=== PATIENT | female | born 1945 | race Caucasian/White ===

== ENCOUNTER 2019-03-06 13:40 | Observation (INO) | payer MEDICARE, BC ==
[2019-03-06] MEDS ORDERED: methylPREDNISolone SOD SUCCI 125 MG/2 ML VIAL IV STA (13:58)
[2019-03-06] MEDS ORDERED: IPRATROPIUM-ALBUTEROL 3 ML NEB INHALATION STA ×2 (13:58→15:52)
--- NOTE | 2019-03-06 14:12 | ED ---
Weakness HPI - General Chief complaint: Weakness Stated complaint: SHILPI Time Seen by Provider: 03/06/19 13:40 Source: patient, EMS, RN notes reviewed Mode of arrival: EMS Limitations: altered mental status - History of Present Illness Initial comments: This a 73-year-old female was brought in by EMS for difficulty breathing weakness. She's been treated for UTI for about a week she also has not use her nebulizer or breathing transfer about a week because she did not have a mouthpiece. She was noted have difficulty breathing with diminished lung sounds and rhonchi in the lung price also she does have the odor of foul-smelling urine. Patient herself is a poor historian there was some suspected left-sided weakness so on initial encounter. Does not seem to be any new weakness. No falls reported no nausea no vomiting no other symptoms MD Complaint: generalized weakness - Related Data Home Medications Medication Instructions Recorded Confirmed Acetaminophen Tab [Tylenol Tab] 650 mg PO Q6H PRN 03/06/19 03/06/19 Acetaminophen [Tylenol Arthritis] 650 mg PO Q8H PRN 03/06/19 03/06/19 Acidophilus Probiotic Blend 2 cap PO BID@0800,199903/06/19 03/06/19 Albuterol Nebulized [Ventolin 2.5 mg INHALATION RT-Q2H PRN 03/06/19 03/06/19 Nebulized] Albuterol Sulfate [Proair Hfa] 1 puff INHALATION RT-BID PRN 03/06/19 03/06/19 Atorvastatin [Lipitor] 10 mg PO HS@199903/06/19 03/06/19 Budesonide [Pulmicort] 0.5 mg INHALATION RT-BID@0803/06/19 03/06/19 DULoxetine HCL [Cymbalta] 60 mg PO DAILY@0800 03/06/19 03/06/19 Dextrose Gel [Glutose 15 Gel] 15 gm PO ONCE PRN 03/06/19 03/06/19 Docusate [Colace] 100 mg PO BID@0800,199903/06/19 03/06/19 Dorzolamide/Timolol/Pf 1 drop BOTH EYES BID@0800,199903/06/19 03/06/19 [Dorzolamide 2%-Timolol 0.5%] Ferrous Sulfate [Feosol] 325 mg PO DAILY@0800 03/06/19 03/06/19 Fluticasone Nasal [place] [Flonase 1 spray EA NOSTRIL BID@08,199903/06/19 03/06/19 Nasal [place]] Formoterol Fumarate [Perforomist] 20 mcg INHALATION RT-BID@0800,199903/06/19 03/06/19 Furosemide [Lasix] 40 mg PO DIRECTED 03/06/19 03/06/19 Furosemide [Lasix] 60 mg PO DAILY 03/06/19 03/06/19 Insulin Glargine,Hum.rec.anlog 40 unit SQ HS@2100 03/06/19 03/06/19 [Lantus Solostar] Insulin Regular [HumuLIN R] See Protocol SQ ACHS 03/06/19 03/06/19 Lactulose 20 gm PO DAILY@0800 03/06/19 03/06/19 Levothyroxine Sodium [Synthroid] 50 mcg PO DAILY@0800 03/06/19 03/06/19 Lidocaine 5% Oint [Xylocaine 5% 1 applic TOPICAL Q8H PRN 03/06/19 03/06/19 Oint] Loratadine [Claritin] 10 mg PO DAILY PRN 03/06/19 03/06/19 Losartan Potassium 50 mg PO DAILY@0800 03/06/19 03/06/19 Meloxicam [Mobic] 7.5 mg PO DAILY@0800 03/06/19 03/06/19 Menthol/Zinc Oxide [Calmoseptine 1 applic TOPICAL DAILY PRN 03/06/19 03/06/19 Ointment] Menthol/Zinc Oxide [Calmoseptine 1 applic TOPICAL TID 03/06/19 03/06/19 Ointment] Miconazole Nitrate [Desenex] 1 applic TOPICAL BID@08,199903/06/19 03/06/19 Miconazole Nitrate [Desenex] 1 applic TOPICAL DAILY PRN 03/06/19 03/06/19 Nystatin 100,000Unit/gm Cream 1 applic TOPICAL BID@0800,199903/06/19 03/06/19 [Mycostatin Cream] Pantoprazole Sodium [Protonix] 40 mg PO HS 03/06/19 03/06/19 Petrolatum, White [Aquaphor] 1 applic TOPICAL BID 03/06/19 03/06/19 Potassium Chloride ER [K-Dur 10] 10 meq PO DAILY@0800 03/06/19 03/06/19 Sennosides [Senna] 8.6 mg PO HS PRN 03/06/19 03/06/19 Sm Lubricant Eye Drops 2 drops BOTH EYES Q8H PRN 03/06/19 03/06/19 Spironolactone [Aldactone] 25 mg PO DAILY@0800 03/06/19 03/06/19 Tiotropium [place] [Spiriva] 1 cap INHALATION RT-DAILY@0803/06/19 03/06/19 Uricalm 99.5mg 99.5 mg PO Q8H PRN 03/06/19 03/06/19 glipiZIDE [Glucotrol] 5 mg PO DAILY@0800 03/06/19 03/06/19 guaiFENesin SYRUP 100MG/5ML 300 mg PO Q6H PRN 03/06/19 03/06/19 [Robitussin] metFORMIN HCL [Glucophage] 500 mg PO BID@0800,199903/06/19 03/06/19 traMADol HCL 50 mg PO Q6H PRN 03/06/19 03/06/19 Allergies Allergy/AdvReac Type Severity Reaction Status Date / Time codeine AdvReac Nausea & Verified 03/06/19 13:53 Vomiting Review of Systems ROS Statement: Those systems with pertinent positive or pertinent negative responses have been documented in the HPI. ROS Other: All systems not noted in ROS Statement are negative. Past Medical History Past Medical History: Heart Failure, COPD, Renal Disease, Sleep Apnea/CPAP/BIPAP, Thyroid Disorder Additional Past Medical History / Comment(s): cellulitis History of Any Multi-Drug Resistant Organisms: None Reported Past Surgical History: Unable to Obtain Past Psychological History: No Psychological Hx Reported Smoking Status: Unknown if ever smoked Past Alcohol Use History: None Reported Past Drug Use History: None Reported General Exam - General Exam Comments Initial Comments: This is a well-developed well-nourished awake female Limitations: altered mental status General appearance: alert, lethargic Head exam: Present: atraumatic, normocephalic, normal inspection Eye exam: Present: normal appearance, PERRL, EOMI. Absent: scleral icterus, conjunctival injection, periorbital swelling ENT exam: Present: mucous membranes dry Neck exam: Present: normal inspection. Absent: tenderness, meningismus, lymphadenopathy Respiratory exam: Present: respiratory distress, rhonchi, decreased breath sounds. Absent: wheezes, rales, stridor Cardiovascular Exam: Present: normal rhythm, tachycardia, normal heart sounds. Absent: systolic murmur, diastolic murmur, rubs, gallop, clicks GI/Abdominal exam: Present: soft, normal bowel sounds. Absent: distended, tenderness, guarding, rebound, rigid Extremities exam: Present: normal inspection, full ROM, normal capillary refill, pedal edema. Absent: tenderness, joint swelling, calf tenderness Back exam: Present: normal inspection Neurological exam: Present: alert, oriented X3, CN II-XII intact Psychiatric exam: Present: normal affect, normal mood Skin exam: Present: warm, dry, intact, normal color. Absent: rash Course Vital Signs 03/06/19 03/06/19 03/06/19 13:43 14:34 14:37 Temperature 98.4 F Pulse Rate 113 H 94 Respiratory 22 20 20 Rate Blood Pressure 156/107 128/61 O2 Sat by Pulse 93 L 95 Oximetry 03/06/19 03/06/19 03/06/19 15:15 15:24 15:28 Temperature Pulse Rate 93 102 H 102 H Respiratory 20 Rate Blood Pressure 151/85 O2 Sat by Pulse 95 Oximetry - Reevaluation(s) Reevaluation #1: 03/06/19 15:50 Patient did respond to the treatment was rendered thus far. He is feeling a little bit better. Medical Decision Making - Medical Decision Making The patient is feeling improved. She is however still demonstrating dyspnea. The presentation currently is consistent with a COPD exacerbation. She also demonstrate hypomagnesemia. Patient be admitted case will be discussed with Dr. Ghotra. She will receive IV magnesium IV steroids as well as continued nebulizer treatments. - Lab Data Result diagrams: 03/06/19 14:21 03/06/19 14:21 Lab Results 03/06/19 03/06/19 03/06/19 Range/Units 14:21 14:21 14:21 WBC 15.8 H (3.8-10.6) k/uL RBC 3.91 (3.80-5.40) m/uL Hgb 12.1 (11.4-16.0) gm/dL Hct 38.1 (34.0-46.0) % MCV 97.5 (80.0-100.0) fL MCH 31.1 (25.0-35.0) pg MCHC 31.9 (31.0-37.0) g/dL RDW 14.0 (11.5-15.5) % Plt Count 373 (150-450) k/uL Neutrophils % 85 % Lymphocytes % 5 % Monocytes % 5 % Eosinophils % 3 % Basophils % 1 % Neutrophils # 13.4 H (1.3-7.7) k/uL Lymphocytes # 0.8 L (1.0-4.8) k/uL Monocytes # 0.8 (0-1.0) k/uL Eosinophils # 0.5 (0-0.7) k/uL Basophils # 0.1 (0-0.2) k/uL Hypochromasia Slight PT 10.7 (9.0-12.0) sec INR 1.0 (<1.2) APTT 31.4 H (22.0-30.0) sec D-Dimer 0.57 (<0.60) mg/L FEU Sodium 136 L (137-145) mmol/L Potassium 5.1 (3.5-5.1) mmol/L Chloride 94 L (98-107) mmol/L Carbon Dioxide 39 H (22-30) mmol/L Anion Gap 3 mmol/L BUN 23 H (7-17) mg/dL Creatinine 1.32 H (0.52-1.04) mg/dL Est GFR (CKD-EPI)AfAm 46 (>60 ml/min/1.73 sqM) Est GFR (CKD-EPI)NonAf 40 (>60 ml/min/1.73 sqM) Glucose 135 H (74-99) mg/dL Calcium 9.7 (8.4-10.2) mg/dL Magnesium 1.5 L (1.6-2.3) mg/dL Total Bilirubin 0.8 (0.2-1.3) mg/dL AST 21 (14-36) U/L ALT 23 (9-52) U/L Alkaline Phosphatase 115 (38-126) U/L Creatine Kinase 35 (30-135) U/L Troponin I (0.000-0.034) ng/mL NT-Pro-B Natriuret Pep pg/mL Total Protein 7.3 (6.3-8.2) g/dL Albumin 4.2 (3.5-5.0) g/dL Urine Color Urine Appearance (Clear) Urine pH (5.0-8.0) Ur Specific [place] (1.001-1.035) Urine Protein (Negative) Urine Glucose (UA) (Negative) Urine Ketones (Negative) Urine Blood (Negative) Urine Nitrite (Negative) Urine Bilirubin (Negative) Urine Urobilinogen (<2.0) mg/dL Ur Leukocyte Esterase (Negative) 03/06/19 03/06/19 03/06/19 Range/Units 14:21 14:21 14:21 WBC (3.8-10.6) k/uL RBC (3.80-5.40) m/uL Hgb (11.4-16.0) gm/dL Hct (34.0-46.0) % MCV (80.0-100.0) fL MCH (25.0-35.0) pg MCHC (31.0-37.0) g/dL RDW (11.5-15.5) % Plt Count (150-450) k/uL Neutrophils % % Lymphocytes % % Monocytes % % Eosinophils % % Basophils % % Neutrophils # (1.3-7.7) k/uL Lymphocytes # (1.0-4.8) k/uL Monocytes # (0-1.0) k/uL Eosinophils # (0-0.7) k/uL Basophils # (0-0.2) k/uL Hypochromasia PT (9.0-12.0) sec INR (<1.2) APTT (22.0-30.0) sec D-Dimer (<0.60) mg/L FEU Sodium (137-145) mmol/L Potassium (3.5-5.1) mmol/L Chloride (98-107) mmol/L Carbon Dioxide (22-30) mmol/L Anion Gap mmol/L BUN (7-17) mg/dL Creatinine (0.52-1.04) mg/dL Est GFR (CKD-EPI)AfAm (>60 ml/min/1.73 sqM) Est GFR (CKD-EPI)NonAf (>60 ml/min/1.73 sqM) Glucose (74-99) mg/dL Calcium (8.4-10.2) mg/dL Magnesium (1.6-2.3) mg/dL Total Bilirubin (0.2-1.3) mg/dL AST (14-36) U/L ALT (9-52) U/L Alkaline Phosphatase (38-126) U/L Creatine Kinase (30-135) U/L Troponin I <0.012 (0.000-0.034) ng/mL NT-Pro-B Natriuret Pep 836 pg/mL Total Protein (6.3-8.2) g/dL Albumin (3.5-5.0) g/dL Urine Color Light Yellow Urine Appearance Clear (Clear) Urine pH 5.0 (5.0-8.0) Ur Specific [place] 1.007 (1.001-1.035) Urine Protein Negative (Negative) Urine Glucose (UA) Negative (Negative) Urine Ketones Negative (Negative) Urine Blood Negative (Negative) Urine Nitrite Negative (Negative) Urine Bilirubin Negative (Negative) Urine Urobilinogen <2.0 (<2.0) mg/dL Ur Leukocyte Esterase Negative (Negative) - EKG Data -: EKG Interpreted by Nm EKG shows normal: sinus rhythm (Sats tachycardia with PACs rate was 107 appear interval 136 QRS 82 QT since QTC 350/467 right. Exodeviation right ventricular hypertrophy) - Radiology Data Radiology results: report reviewed (I did review the imaging and report some increased markings no definite pneumonia or evidence of CHF. There is prominence of the atrium.), image reviewed Critical Care Time Critical Care Time: Yes Critical Care Time: 31 minutes of critical care time which includes initial presentation with history physical labs x-rays discussed with paramedics upon arrival reevaluation patient several occasions discussion with the patient regarding the findings discussed with the admitting physician Dr. Ghotra admission orders and documentation of the above Disposition Clinical Impression: COPD with exacerbation, Renal insufficiency syndrome, Tachycardia, Leukocytosis, Respiratory distress, acute Disposition: ADMITTED IP TO THIS [facility] Condition: Fair Referrals: None,Stated [Primary Care Provider] - 1-2 days
[2019-03-06 14:46] LABS: Appearance,Urine Clear (Clear); Bilirubin,Urine Negative (Negative); Blood,Urine Negative (Negative); Color,Urine Light Yellow; Glucose,Urine (UA) Negative (Negative); Ketones,Urine Negative (Negative); Leukocyte Esterase,Urine Negative (Negative); Nitrite,Urine Negative (Negative); Protein,Urine Negative (Negative); Specific Gravity,Urine 1.007 (1.001-1.035); Urobilinogen,Urine <2.0 mg/dL (<2.0)
[2019-03-06 14:51] LABS: Basophils # (A) 0.1 k/uL (0-0.2); Basophils % (A) 1 %; Eosinophils # (A) 0.5 k/uL (0-0.7); Eosinophils % (A) 3 %; HCT 38.1 % (34.0-46.0); HGB 12.1 gm/dL (11.4-16.0); Hypochromasia Slight; Lymphocytes # (A) 0.8 k/uL (1.0-4.8); Lymphocytes % (A) 5 %; MCH 31.1 pg (25.0-35.0); MCHC 31.9 g/dL (31.0-37.0); MCV 97.5 fL (80.0-100.0); Mean Platelet Volume 6.3; Monocytes # (A) 0.8 k/uL (0-1.0); Monocytes % (A) 5 %; Neutrophils # (A) 13.4 k/uL (1.3-7.7); Neutrophils % (A) 85 %; Platelet Count 373 k/uL (150-450); RBC 3.91 m/uL (3.80-5.40); WBC 15.8 k/uL (3.8-10.6)
[2019-03-06 14:55] LABS: Albumin 4.2 g/dL (3.5-5.0); Calcium 9.7 mg/dL (8.4-10.2); Magnesium 1.5 mg/dL (1.6-2.3); Potassium 5.1 mmol/L (3.5-5.1); Total Bilirubin 0.8 mg/dL (0.2-1.3); Total Protein 7.3 g/dL (6.3-8.2)
[2019-03-06 15:03] LABS: D-Dimer 0.57 mg/L FEU (<0.60); Partial Thromboplastin Time 31.4 sec (22.0-30.0); Prothrombin Time 10.7 sec (9.0-12.0)
--- NOTE | 2019-03-06 15:09 | XR ---
EXAMINATION TYPE: XR chest 2V DATE OF EXAM: 03/06/2019 COMPARISON: None HISTORY: 73 year-old female shortness of breath, difficulty breathing, altered mental status TECHNIQUE: AP and lateral views FINDINGS: Spinal stimulator array centered along the mid thoracic spinal canal. Bulging of the left atrium on t he lateral view. No sizable effusion seen on the lateral view. Diffuse interstitial prominence. Hazy lower lung densities likely related to overlying soft tissue. Heart borderline in size. IMPRESSION: 1. Borderline heart size. 2. Hazy lower lung densities likely relate to overlying soft tissue. 3. Bulging left atrium on the lateral view could reflect elevated left heart pressures. No siena pulm onary edema.
[2019-03-06] MEDS ORDERED: MAGNESIUM SULFATE-D5W PMX 1 GM in DEXTROSE/WATER 1 100ML.BAG IVPB ONE (15:43)
[2019-03-06] MEDS ORDERED: PHENAZOPYRIDINE PO PRN (15:56)
[2019-03-06] MEDS ORDERED: SENNOSIDES 8.6 MG TAB PO PRN (15:56)
[2019-03-06] MEDS ORDERED: ARTIFICIAL TEARS-HYPROMELLOSE DROPS 15 ML BTL BOTH EYES PRN (15:56)
[2019-03-06] MEDS ORDERED: LIDOCAINE 5% OINTMENT 50 GM JAR TOPICAL PRN (15:56)
[2019-03-06] MEDS ORDERED: LORATADINE 10 MG TAB PO PRN (15:56)
[2019-03-06] MEDS ORDERED: CLOTRIMAZOLE 1% CREAM 15 GM TUBE TOPICAL PRN (15:56)
[2019-03-06] MEDS ORDERED: traMADol 50 MG TAB PO PRN (15:56)
[2019-03-06] MEDS ORDERED: MENTHOL-ZINC OXIDE OINT 113 GM TUBE TOPICAL PRN (15:56)
[2019-03-06] MEDS ORDERED: ACETAMINOPHEN TAB 325 MG TAB PO PRN (15:56)
[2019-03-06] MEDS ORDERED: DEXTROSE 4 GM CHEWABLE PO PRN (15:56)
[2019-03-06] MEDS ORDERED: FUROSEMIDE 40 MG TAB PO SCH (16:00)
[2019-03-06] MEDS: SODIUM CHLORIDE 0.9% 1,000 ML IV SCH (16:26)
[2019-03-06 17:09] LABS: Glucose,Whole Blood 154 mg/dL (75-99)
[2019-03-06] MEDS: MENTHOL-ZINC OXIDE OINT 113 GM TUBE TOPICAL SCH ×2 (17:55→21:42)
[2019-03-06] MEDS: INSULIN ASPART (NovoLOG) 100 UNIT/ML VIAL SQ SCH ×2 (17:57→21:41)
[2019-03-06] MEDS ORDERED: methylPREDNISolone SOD SUCCI 125 MG/2 ML VIAL IV SCH (18:00)
[2019-03-06] MEDS: FORMOTEROL FUMARATE 20 MCG/2 ML NEBU INHALATION SCH (19:29)
[2019-03-06] MEDS: IPRATROPIUM-ALBUTEROL 3 ML NEB INHALATION SCH ×2 (19:29→23:31)
[2019-03-06] MEDS: BUDESONIDE 0.5 MG/2 ML NEBU INHALATION SCH (19:29)
[2019-03-06 19:45] VITALS: RESP 18
[2019-03-06 19:59] LABS: Glucose,Whole Blood 245 mg/dL (75-99)
[2019-03-06] MEDS: metFORMIN 500 MG TAB PO SCH (21:41)
[2019-03-06] MEDS: ATORVASTATIN 10 MG TAB PO SCH (21:41)
[2019-03-06] MEDS: PANTOPRAZOLE 40 MG TABLET PO SCH (21:41)
[2019-03-06] MEDS: NYSTATIN 100,000UNIT/GM CREAM 30 GM TUBE TOPICAL SCH (21:42)
[2019-03-06] MEDS: PETROLATUM, WHITE OINT 50 GM TUBE TOPICAL SCH (21:42)
[2019-03-06] MEDS: DORZOLAMIDE-TIMOLOL 2.23%/0.68 10ML BTL BOTH EYES SCH (21:42)
[2019-03-06] MEDS: FLUTICASONE 50MCG/SPRAY NASAL 16GM EA NOSTRIL SCH (21:42)
[2019-03-06] MEDS: INSULIN DETEMIR (LEVEMIR) 100 UNIT/ML SYR SQ SCH (21:44)
[2019-03-06] MEDS: DOCUSATE 100 MG CAP PO SCH (21:55)
[2019-03-06] MEDS: CLOTRIMAZOLE 1% CREAM 15 GM TUBE TOPICAL SCH (21:56)
[2019-03-06] MEDS: guaiFENesin SYRUP 100MG/5ML 200 MG/10 ML CUP PO PRN (21:56)
--- NOTE | 2019-03-06 22:03 | P.HPIM ---
History of Present Illness H&P Date: 03/06/19 Chief Complaint: short of breath History of presenting complaint: This is a pleasant 73-year-old patient of Dr. Collins. Chronic stable medical conditions include CHF, diabetes, some memory impairment, or strength redness, chronic kidney disease, obstructive sleep apnea uses CPAP, hypothyroid. One of the apparatus on her nebulizers not working properly. Wishes presents with worsening shortness of breath. Some edema some wheezing. Slight cough. No fever no chills. Appetite is okay. Tired and rundown. Normally uses a 4 wheel walker to get about. Daughter lives with her. Does use a CPAP machine. Review of systems: GEN.: Tired EYES: None HEENT: None NECK: None RESPIRATORY: As above CARDIOVASCULAR: None GASTROINTESTINAL: None GENITOURINARY: None MUSCULOSKELETAL: Joint pains LYMPHATICS: None HEMATOLOGICAL: None PSYCHIATRY: Bit forgetful NEUROLOGICAL: None. Social history: Does smoke in the past. Daughter lives with her. Does use a 4 alcantara Physical examination: VITAL SIGNS: 98.5, 100, 24, 125/99, 96% on 2 L GENERAL: BMI 33.3, sitting up a bit tired. EYES: Pupils equal. Conjunctiva normal. HEENT: External appearance of nose and ears normal, oral cavity grossly normal. NECK: JVD not raised; masses not palpable. HEART: [First and second heart sounds are normal; some edema. LUNGS: Respiratory rate increased, diminished breath sounds some wheezing. ABDOMEN: Soft, nontender, liver spleen not palpable, no masses palpable. PSYCH: Able to answer questions, slightly forgetfull. NEUROLOGICAL: Cranial nerves grossly intact; no facial asymmetry, power and sensation grossly intact. LYMPHATICS: No lymph nodes palpable in the axilla and neck MUSCULOSKELETAL: Evidence of OA especially in the knees INVESTIGATIONS, reviewed in the clinical context: White count 15.8 hemoglobin 12.1 platelets 373 pressure 5.1 bun 23 crit 1.3 to UA negative EKG tracing personally reviewed by me-sinus rhythm Chest x-ray film personally reviewed by me-normocytic infiltrate Assessment: -Acute COPD in an ex-smoker in a patient whose nebulizer apparatus had a malfunction -Diabetes mellitus type 2, chronically on insulin -Hypothyroid -Primary osteoarthritis -Hyperlipidemia -Chronic gait dysfunction uses a 4 wheeled -Mild cognitive impairment Plan: Patient started on bronchodilators, IV steroids. A stress to begin lower extremity. No clinical evidence of any CHF. Home medications resumed. Care was discussed with the patient questions were answered. Hoping she can return home tomorrow.. Tushar wrap to lower extremity.. Past Medical History Past Medical History: Heart Failure, COPD, Diabetes Mellitus, Memory Impairment, Osteoarthritis (OA), Pneumonia, Renal Disease, Sleep Apnea/CPAP/BIPAP, Thyroid Disorder Additional Past Medical History / Comment(s): cellulitis on legs, uses cpap at home thinks her settings are 5 very poor historian History of Any Multi-Drug Resistant Organisms: None Reported Past Surgical History: Appendectomy, Cholecystectomy, Hernia Repair, Hysterectomy, Tonsillectomy Additional Past Surgical History / Comment(s): kidney left removed, colonoscopy Past Anesthesia/Blood Transfusion Reactions: No Reported Reaction Past Psychological History: No Psychological Hx Reported Smoking Status: Former smoker Past Alcohol Use History: None Reported Past Drug Use History: None Reported - Past Family History Mother Additional Family Medical History / Comment(s): throat cancer Medications and Allergies Home Medications Medication Instructions Recorded Confirmed Type Acetaminophen Tab [Tylenol Tab] 650 mg PO Q6H PRN 03/06/19 03/06/19 History Acetaminophen [Tylenol Arthritis] 650 mg PO Q8H PRN 03/06/19 03/06/19 History Acidophilus Probiotic Blend 2 cap PO BID@0800,199903/06/19 03/06/19 History Albuterol Nebulized [Ventolin 2.5 mg INHALATION RT-Q2H PRN 03/06/19 03/06/19 History Nebulized] Albuterol Sulfate [Proair Hfa] 1 puff INHALATION RT-BID PRN 03/06/19 03/06/19 History Atorvastatin [Lipitor] 10 mg PO HS@199903/06/19 03/06/19 History Budesonide [Pulmicort] 0.5 mg INHALATION RT-BID@0800,199903/06/19 03/06/19 History DULoxetine HCL [Cymbalta] 60 mg PO DAILY@0800 03/06/19 03/06/19 History Dextrose Gel [Glutose 15 Gel] 15 gm PO ONCE PRN 03/06/19 03/06/19 History Docusate [Colace] 100 mg PO BID@0800,199903/06/19 03/06/19 History Dorzolamide/Timolol/Pf 1 drop BOTH EYES BID@08,199903/06/19 03/06/19 History [Dorzolamide 2%-Timolol 0.5%] Ferrous Sulfate [Feosol] 325 mg PO DAILY@0803/06/19 03/06/19 History Fluticasone Nasal [place] [Flonase 1 spray EA NOSTRIL BID@799,199903/06/19 03/06/19 History Nasal [place]] Formoterol Fumarate [Perforomist] 20 mcg INHALATION RT-BID@03/06/19 1 05/06/18 History Furosemide [Lasix] 40 mg PO DIRECTED 03/06/19 03/06/19 History Furosemide [Lasix] 60 mg PO DAILY 03/06/19 03/06/19 History Insulin Glargine,Hum.rec.anlog 40 unit SQ HS@2100 03/06/19 03/06/19 History [Lantus Solostar] Insulin Regular [HumuLIN R] See Protocol SQ ACHS 03/06/19 03/06/19 History Lactulose 20 gm PO DAILY@0803/06/19 03/06/19 History Levothyroxine Sodium [Synthroid] 50 mcg PO DAILY@0803/06/19 03/06/19 History Lidocaine 5% Oint [Xylocaine 5% 1 applic TOPICAL Q8H PRN 03/06/19 03/06/19 History Oint] Loratadine [Claritin] 10 mg PO DAILY PRN 03/06/19 03/06/19 History Losartan Potassium 50 mg PO DAILY@0803/06/19 03/06/19 History Meloxicam [Mobic] 7.5 mg PO DAILY@0803/06/19 03/06/19 History Menthol/Zinc Oxide [Calmoseptine 1 applic TOPICAL DAILY PRN 03/06/19 03/06/19 History Ointment] Menthol/Zinc Oxide [Calmoseptine 1 applic TOPICAL TID 03/06/19 03/06/19 History Ointment] Miconazole Nitrate [Desenex] 1 applic TOPICAL BID@0803/06/19 03/06/19 History Miconazole Nitrate [Desenex] 1 applic TOPICAL DAILY PRN 03/06/19 03/06/19 History Nystatin 100,000Unit/gm Cream 1 applic TOPICAL BID@08,199903/06/19 03/06/19 History [Mycostatin Cream] Pantoprazole Sodium [Protonix] 40 mg PO HS 03/06/19 03/06/19 History Petrolatum, White [Aquaphor] 1 applic TOPICAL BID 03/06/19 03/06/19 History Potassium Chloride ER [K-Dur 10] 10 meq PO DAILY@0800 03/06/19 03/06/19 History Sennosides [Senna] 8.6 mg PO HS PRN 03/06/19 03/06/19 History Sm Lubricant Eye Drops 2 drops BOTH EYES Q8H PRN 03/06/19 03/06/19 History Spironolactone [Aldactone] 25 mg PO DAILY@0800 03/06/19 03/06/19 History Tiotropium [place] [Spiriva] 1 cap INHALATION RT-DAILY@0803/06/19 03/06/19 History Uricalm 99.5mg 99.5 mg PO Q8H PRN 03/06/19 03/06/19 History glipiZIDE [Glucotrol] 5 mg PO DAILY@0803/06/19 03/06/19 History guaiFENesin SYRUP 100MG/5ML 300 mg PO Q6H PRN 03/06/19 03/06/19 History [Robitussin] metFORMIN HCL [Glucophage] 500 mg PO BID@08,199903/06/19 03/06/19 History traMADol HCL 50 mg PO Q6H PRN 03/06/19 03/06/19 History Allergies Allergy/AdvReac Type Severity Reaction Status Date / Time codeine AdvReac Nausea & Verified 03/06/19 13:53 Vomiting Physical Exam Vitals: Vital Signs Temp Pulse Pulse Resp BP BP Pulse Ox 03/06/19 21:15 98.5 F 98 18 126/65 95 03/06/19 19:54 100 03/06/19 19:43 99 18 03/06/19 19:42 102 H 03/06/19 19:29 100 20 95 03/06/19 17:31 96.7 F L 93 20 122/59 95 03/06/19 16:47 101 H 03/06/19 16:39 101 H 03/06/19 16:27 98.5 F 100 24 125/99 96 03/06/19 15:28 102 H 20 151/85 95 03/06/19 15:24 102 H 03/06/19 15:15 93 03/06/19 14:37 20 03/06/19 14:34 94 20 128/61 95 03/06/19 13:43 98.4 F 113 H 22 156/107 93 L Intake and Output 03/06/19 03/06/19 03/06/19 06:59 14:59 22:59 Other: Weight 90.718 kg Results CBC & Chem 7: 03/06/19 14:21 03/06/19 14:21 Labs: Abnormal Lab Results - Last 24 Hours (Table) 03/06/19 03/06/19 03/06/19 Range/Units 14:21 14:21 14:21 WBC 15.8 H (3.8-10.6) k/uL Neutrophils # 13.4 H (1.3-7.7) k/uL Lymphocytes # 0.8 L (1.0-4.8) k/uL APTT 31.4 H (22.0-30.0) sec Sodium 136 L (137-145) mmol/L Chloride 94 L (98-107) mmol/L Carbon Dioxide 39 H (22-30) mmol/L BUN 23 H (7-17) mg/dL Creatinine 1.32 H (0.52-1.04) mg/dL Glucose 135 H (74-99) mg/dL POC Glucose (mg/dL) (75-99) mg/dL Magnesium 1.5 L (1.6-2.3) mg/dL 03/06/19 03/06/19 Range/Units 17:07 19:58 WBC (3.8-10.6) k/uL Neutrophils # (1.3-7.7) k/uL Lymphocytes # (1.0-4.8) k/uL APTT (22.0-30.0) sec Sodium (137-145) mmol/L Chloride (98-107) mmol/L Carbon Dioxide (22-30) mmol/L BUN (7-17) mg/dL Creatinine (0.52-1.04) mg/dL Glucose (74-99) mg/dL POC Glucose (mg/dL) 154 H 245 H (75-99) mg/dL Magnesium (1.6-2.3) mg/dL Thrombosis Risk Factor Assmnt - Choose All That Apply Any of the Below Risk Factors Present?: Yes Each Factor Represents 1 point: Abnormal pulmonary function (COPD), Obesity (BMI >25), Swollen legs (current) Other Risk Factors: Yes Each Risk Factor Represents 2 Points: Patient confined to bed Each Risk Factor Represents 3 Points: Age 75 years or older Other congenital or acquired thrombophilia - If yes, enter type in comment: No Thrombosis Risk Factor Assessment Total Risk Factor Score: 8 Thrombosis Risk Factor Assessment Level: High Risk
[2019-03-07] MEDS: methylPREDNISolone SOD SUCCI 40 MG/ML 1 ML VIAL IV SCH ×3 (00:29→17:29)
[2019-03-07] MEDS: IPRATROPIUM-ALBUTEROL 3 ML NEB INHALATION SCH ×5 (03:14→19:46)
[2019-03-07] MEDS: SODIUM CHLORIDE 0.9% 1,000 ML IV SCH ×3 (03:52→19:35)
[2019-03-07 04:04] LABS: Glucose,Whole Blood 185 mg/dL (75-99)
[2019-03-07 07:08] LABS: Glucose,Whole Blood 157 mg/dL (75-99)
[2019-03-07] MEDS: metFORMIN 500 MG TAB PO SCH ×2 (07:26→20:02)
[2019-03-07] MEDS: DOCUSATE 100 MG CAP PO SCH ×2 (07:26→19:35)
[2019-03-07] MEDS: INSULIN ASPART (NovoLOG) 100 UNIT/ML VIAL SQ SCH ×4 (07:26→20:01)
[2019-03-07] MEDS: NYSTATIN 100,000UNIT/GM CREAM 30 GM TUBE TOPICAL SCH ×2 (07:30→19:35)
[2019-03-07] MEDS: MENTHOL-ZINC OXIDE OINT 113 GM TUBE TOPICAL SCH ×3 (07:30→20:02)
[2019-03-07] MEDS: PETROLATUM, WHITE OINT 50 GM TUBE TOPICAL SCH ×2 (07:30→19:35)
[2019-03-07] MEDS: CLOTRIMAZOLE 1% CREAM 15 GM TUBE TOPICAL SCH ×2 (07:34→19:34)
[2019-03-07] MEDS: FLUTICASONE 50MCG/SPRAY NASAL 16GM EA NOSTRIL SCH ×2 (07:35→19:35)
[2019-03-07] MEDS: DORZOLAMIDE-TIMOLOL 2.23%/0.68 10ML BTL BOTH EYES SCH ×2 (07:35→20:02)
[2019-03-07] MEDS ORDERED: DULoxetine HCL 60 MG CAPSULE.DR PO SCH (08:00)
[2019-03-07] MEDS ORDERED: LEVOTHYROXINE 50 MCG TAB PO SCH (08:00)
[2019-03-07] MEDS ORDERED: MELOXICAM 7.5 MG TAB PO SCH (08:00)
[2019-03-07] MEDS ORDERED: FERROUS SULFATE 325 MG TAB PO SCH (08:00)
[2019-03-07] MEDS ORDERED: LACTULOSE 20 GM/30 ML CUP PO SCH (08:00)
[2019-03-07] MEDS ORDERED: SPIRONOLACTONE 25 MG TAB PO SCH (08:00)
[2019-03-07] MEDS ORDERED: LOSARTAN 50 MG TAB PO SCH (08:00)
[2019-03-07] MEDS ORDERED: NON FORMULARY DRUG (Tiotropium Bromide [Spiriva] 1 CAP) INHALATION SCH (08:00)
[2019-03-07] MEDS ORDERED: POTASSIUM CHLORIDE ER 10 MEQ TAB.ER.PRT PO SCH (08:00)
[2019-03-07] MEDS ORDERED: glipiZIDE 5 MG TAB PO SCH (08:00)
[2019-03-07] MEDS: BUDESONIDE 0.5 MG/2 ML NEBU INHALATION SCH ×2 (08:16→19:47)
[2019-03-07] MEDS: FORMOTEROL FUMARATE 20 MCG/2 ML NEBU INHALATION SCH ×2 (08:16→19:47)
[2019-03-07] MEDS ORDERED: FUROSEMIDE 20 MG TAB PO SCH (09:00)
[2019-03-07 09:41] LABS: Calcium 9.2 mg/dL (8.4-10.2); Potassium 4.9 mmol/L (3.5-5.1)
[2019-03-07 11:08] LABS: Glucose,Whole Blood 210 mg/dL (75-99)
[2019-03-07 11:45] VITALS: BP 124/59; TEMP 97.7
[2019-03-07 13:51] VITALS: BMI 33.3
[2019-03-07] MEDS: guaiFENesin SYRUP 100MG/5ML 200 MG/10 ML CUP PO PRN (17:49)
[2019-03-07 19:52] VITALS: PULSE 92
[2019-03-07 19:55] LABS: Glucose,Whole Blood 145 mg/dL (75-99)
[2019-03-07] MEDS: ATORVASTATIN 10 MG TAB PO SCH (20:01)
[2019-03-07] MEDS: PANTOPRAZOLE 40 MG TABLET PO SCH (20:01)
[2019-03-07] MEDS: INSULIN DETEMIR (LEVEMIR) 100 UNIT/ML SYR SQ SCH (20:01)
--- NOTE | 2019-03-10 15:57 | P.DS ---
Providers Date of admission: 03/06/19 15:54 Expected date of discharge: 03/07/19 Attending physician: Terry Ghotra Primary care physician: Stated None Hospital Course: Chief Complaint: short of breath Hospital course: This is a pleasant 73-year-old patient of Dr. Robles. Chronic stable medical conditions include CHF, diabetes, some memory impairment, osteoarthritis, chronic kidney disease, obstructive sleep apnea uses CPAP, hypothyroid. One of the apparatus on her nebulizers not working properly. presents with worsening shortness of breath. Some edema some wheezing. Slight cough. No fever no chills. Appetite is okay. Tired and rundown. Normally uses a 4 wheel walker to get about. Daughter lives with her. Does use a CPAP machine. Admitted with COPD exacerbation. Responded well to bronchodilators steroids. Doing better by the time of discharge. Question were answered. Physical examination: VITAL SIGNS: 97.7, 86, 18, 124/59, 94% on 2 L GENERAL: BMI 33.3, sitting up, feeling better EYES: Pupils equal. Conjunctiva normal. HEENT: External appearance of nose and ears normal, oral cavity grossly normal. NECK: JVD not raised; masses not palpable. HEART: [First and second heart sounds are normal; some edema. LUNGS: Respiratory rate normal, diminished breath sounds ABDOMEN: Soft, nontender, liver spleen not palpable, no masses palpable. PSYCH: Able to answer questions, slightly forgetfull. k MUSCULOSKELETAL: Evidence of OA especially in the knees INVESTIGATIONS, reviewed in the clinical context: Impression 4.9 creatinine 1.3 to Previous testing White count 15.8 hemoglobin 12.1 platelets 373 pressure 5.1 bun 23 crit 1.3 to UA negative EKG tracing personally reviewed by me-sinus rhythm Chest x-ray film personally reviewed by me-normocytic infiltrate Assessment: -Acute COPD in an ex-smoker in a patient whose nebulizer apparatus had a malfunction -Diabetes mellitus type 2, chronically on insulin -Hypothyroid -Primary osteoarthritis -Hyperlipidemia -Chronic gait dysfunction uses a 4 wheeled -Mild cognitive impairment -Obesity BMI 33.3 Disposition: Home Patient Condition at Discharge: Stable Plan - Discharge Summary Discharge Rx Participant: Yes New Discharge Prescriptions: New Ipratropium-Albuterol Nebulize [Duoneb 0.5 mg-3 mg/3 ml Soln] 3 ml INHALATION TID #90 ampul.neb predniSONE 0 mg PO DIRECTED #10 tab Continue Uricalm 99.5mg 99.5 mg PO Q8H PRN PRN Reason: BLADDER PAIN Menthol/Zinc Oxide [Calmoseptine Ointment] 1 applic TOPICAL TID traMADol HCL 50 mg PO Q6H PRN PRN Reason: Pain Sm Lubricant Eye Drops 2 drops BOTH EYES Q8H PRN PRN Reason: Dry Eye(S) Sennosides [Senna] 8.6 mg PO HS PRN PRN Reason: Constipation Loratadine [Claritin] 10 mg PO DAILY PRN PRN Reason: Allergy Symptoms Acetaminophen [Tylenol Arthritis] 650 mg PO Q8H PRN PRN Reason: Headache guaiFENesin SYRUP 100MG/5ML [Robitussin] 300 mg PO Q6H PRN PRN Reason: Cough Lidocaine 5% Oint [Xylocaine 5% Oint] 1 applic TOPICAL Q8H PRN PRN Reason: LOWER BACK PAIN Dextrose Gel [Glutose 15 Gel] 15 gm PO ONCE PRN PRN Reason: Hypoglycemia Miconazole Nitrate [Desenex] 1 applic TOPICAL DAILY PRN PRN Reason: MOISTURE Spironolactone [Aldactone] 25 mg PO DAILY@0800 Albuterol Nebulized [Ventolin Nebulized] 2.5 mg INHALATION RT-Q2H PRN PRN Reason: Shortness Of Breath Acetaminophen Tab [Tylenol] 650 mg PO Q6H PRN PRN Reason: Pain Albuterol Sulfate [Proair Hfa] 1 puff INHALATION RT-BID PRN PRN Reason: Shortness Of Breath Potassium Chloride ER [K-Dur 10] 10 meq PO DAILY@0800 Pantoprazole Sodium [Protonix] 40 mg PO HS Formoterol Fumarate [Perforomist] 20 mcg INHALATION RT-BID@799,1999 metFORMIN HCL [Glucophage] 500 mg PO BID@00,1999 Nystatin 100,000Unit/gm Cream [Mycostatin Cream] 1 applic TOPICAL BID@799,1999 Meloxicam [Mobic] 7.5 mg PO DAILY@0800 Losartan Potassium 50 mg PO DAILY@0800 Levothyroxine Sodium [Synthroid] 50 mcg PO DAILY@0800 Insulin Glargine,Hum.rec.anlog [Lantus Solostar] 40 unit SQ HS@2100 Lactulose 20 gm PO DAILY@0800 glipiZIDE [Glucotrol] 5 mg PO DAILY@0800 Insulin Regular [humuLIN R] See Protocol SQ ACHS Furosemide [Lasix] 60 mg PO DAILY Furosemide [Lasix] 40 mg PO DIRECTED Fluticasone Nasal [place] [Flonase Nasal [place]] 1 spray EA NOSTRIL BID@799,1999 Ferrous Sulfate [Iron (65 MG Elemental)] 325 mg PO DAILY@0800 DULoxetine HCL [Cymbalta] 60 mg PO DAILY@0800 Dorzolamide/Timolol/Pf [Dorzolamide 2%-Timolol 0.5%] 1 drop BOTH EYES BID@799,1999 Docusate [Colace] 100 mg PO BID@ Miconazole Nitrate [Desenex] 1 applic TOPICAL BID@799,1999 Budesonide [Pulmicort] 0.5 mg INHALATION RT-BID@ Atorvastatin [Lipitor] 10 mg PO HS@1999 Petrolatum, White [Aquaphor] 1 applic TOPICAL BID Acidophilus Probiotic Blend 2 cap PO BID@ Menthol/Zinc Oxide [Calmoseptine Ointment] 1 applic TOPICAL DAILY PRN PRN Reason: Rash Discontinued Tiotropium [place] [Spiriva] 1 cap INHALATION RT-DAILY@799 Discharge Medication List Acetaminophen Tab [Tylenol] 650 mg PO Q6H PRN 03/06/19 [History] Acetaminophen [Tylenol Arthritis] 650 mg PO Q8H PRN 03/06/19 [History] Acidophilus Probiotic Blend 2 cap PO BID@03/06/19 [History] Albuterol Nebulized [Ventolin Nebulized] 2.5 mg INHALATION RT-Q2H PRN 03/06/19 [History] Albuterol Sulfate [Proair Hfa] 1 puff INHALATION RT-BID PRN 03/06/19 [History] Atorvastatin [Lipitor] 10 mg PO HS@199903/06/19 [History] Budesonide [Pulmicort] 0.5 mg INHALATION RT-BID@03/06/19 [History] DULoxetine HCL [Cymbalta] 60 mg PO DAILY@0800 03/06/19 [History] Dextrose Gel [Glutose 15 Gel] 15 gm PO ONCE PRN 03/06/19 [History] Docusate [Colace] 100 mg PO BID@0800,199903/06/19 [History] Dorzolamide/Timolol/Pf [Dorzolamide 2%-Timolol 0.5%] 1 drop BOTH EYES BID@799,199903/06/19 [History] Ferrous Sulfate [Iron (65 MG Elemental)] 325 mg PO DAILY@0803/06/19 [History] Fluticasone Nasal [place] [Flonase Nasal [place]] 1 spray EA NOSTRIL BID@03/06/19 [History] Formoterol Fumarate [Perforomist] 20 mcg INHALATION RT-BID@799,199903/06/19 [History] Furosemide [Lasix] 40 mg PO DIRECTED 03/06/19 [History] Furosemide [Lasix] 60 mg PO DAILY 03/06/19 [History] Insulin Glargine,Hum.rec.anlog [Lantus Solostar] 40 unit SQ HS@2100 03/06/19 [History] Insulin Regular [humuLIN R] See Protocol SQ ACHS 03/06/19 [History] Lactulose 20 gm PO DAILY@0803/06/19 [History] Levothyroxine Sodium [Synthroid] 50 mcg PO DAILY@0803/06/19 [History] Lidocaine 5% Oint [Xylocaine 5% Oint] 1 applic TOPICAL Q8H PRN 03/06/19 [History] Loratadine [Claritin] 10 mg PO DAILY PRN 03/06/19 [History] Losartan Potassium 50 mg PO DAILY@0803/06/19 [History] Meloxicam [Mobic] 7.5 mg PO DAILY@0803/06/19 [History] Menthol/Zinc Oxide [Calmoseptine Ointment] 1 applic TOPICAL DAILY PRN 03/06/19 [History] Menthol/Zinc Oxide [Calmoseptine Ointment] 1 applic TOPICAL TID 03/06/19 [History] Miconazole Nitrate [Desenex] 1 applic TOPICAL BID@799,199903/06/19 [History] Miconazole Nitrate [Desenex] 1 applic TOPICAL DAILY PRN 03/06/19 [History] Nystatin 100,000Unit/gm Cream [Mycostatin Cream] 1 applic TOPICAL BID@799,199903/06/19 [History] Pantoprazole Sodium [Protonix] 40 mg PO HS 03/06/19 [History] Petrolatum, White [Aquaphor] 1 applic TOPICAL BID 03/06/19 [History] Potassium Chloride ER [K-Dur 10] 10 meq PO DAILY@0800 03/06/19 [History] Sennosides [Senna] 8.6 mg PO HS PRN 03/06/19 [History] Sm Lubricant Eye Drops 2 drops BOTH EYES Q8H PRN 03/06/19 [History] Spironolactone [Aldactone] 25 mg PO DAILY@0800 03/06/19 [History] Uricalm 99.5mg 99.5 mg PO Q8H PRN 03/06/19 [History] glipiZIDE [Glucotrol] 5 mg PO DAILY@0800 03/06/19 [History] guaiFENesin SYRUP 100MG/5ML [Robitussin] 300 mg PO Q6H PRN 03/06/19 [History] metFORMIN HCL [Glucophage] 500 mg PO BID@0800,199903/06/19 [History] traMADol HCL 50 mg PO Q6H PRN 03/06/19 [History] Ipratropium-Albuterol Nebulize [Duoneb 0.5 mg-3 mg/3 ml Soln] 3 ml INHALATION TID #90 ampul.neb 03/07/19 [Rx] predniSONE 0 mg PO DIRECTED #10 tab 03/07/19 [Rx] Follow up Appointment(s)/Referral(s): Stiven Robles MD [REFERRING] - 3 Days None,Stated [Primary Care Provider] - 1-2 days Patient Instructions/Handouts: COPD (Chronic Obstructive Pulmonary Disease) (DC) Discharge Disposition: OTHER INSTITUTION NOT DEFINED
== END 2019-03-07 21:00 | disposition home or self-care (01) ==
LOC: EC 13:40 → 3NMEDONC 15:54
PROVIDERS: ADMIT Hospitalist; ATTEND Hospitalist
DX: J44.1 Chronic obstructive pulmonary disease with (acute) exacerbation (principal); R06.03 Acute respiratory distress; E03.9 Hypothyroidism, unspecified; E11.22 Type 2 diabetes mellitus with diabetic chronic kidney disease; E66.9 Obesity, unspecified; E78.5 Hyperlipidemia, unspecified; E83.42 Hypomagnesemia; G31.84 Mild cognitive impairment of uncertain or unknown etiology; G47.33 Obstructive sleep apnea (adult) (pediatric); Z99.89 Dependence on other enabling machines and devices; I50.9 Heart failure, unspecified; M19.91 Primary osteoarthritis, unspecified site; N18.9 Chronic kidney disease, unspecified; Z68.33 Body mass index [BMI] 33.0-33.9, adult; Z79.1 Long term (current) use of non-steroidal anti-inflammatories (NSAID); Z79.4 Long term (current) use of insulin; Z79.890 Hormone replacement therapy; Z79.899 Other long term (current) drug therapy; Z80.8 Family history of malignant neoplasm of other organs or systems; Z87.891 Personal history of nicotine dependence; Z90.710 Acquired absence of both cervix and uterus; R26.9 Unspecified abnormalities of gait and mobility; Z90.5 Acquired absence of kidney; Z79.51 Long term (current) use of inhaled steroids; Z88.5 Allergy status to narcotic agent
CPT/HCPCS: 96376 ×2; 96361; 96366; 96365; 96375; 99291; 36415; 94640 ×4; 93005; 97162; 97166; 85379; 83880; 80053; 80048; 82550; 83735; 84484; 85025; 85610; 85730; 81003; 87040; 71046; G0378 ×2; J2920; J2930; J3475

== ENCOUNTER → 2019-04-01 | Day surgery (SDC) | payer MEDICARE, BC ==
[2019-03-31 13:36] VITALS: BMI 33.3
[~2019-04-01] MED LIST: ERTAPENEM 1 GM in SODIUM CHLORIDE 0.9% 50 ML IVPB ONE
== END ==
LOC: CATHCVL 14:21
PROVIDERS: ATTEND Radiology Diagnostic Radiology
DX: N39.0 Urinary tract infection, site not specified (principal); R06.09 Other forms of dyspnea; R60.9 Edema, unspecified; J44.9 Chronic obstructive pulmonary disease, unspecified; I13.0 Hypertensive heart and chronic kidney disease with heart failure and stage 1 through stage 4 chronic kidney disease, or unspecified chronic kidney disease; I50.32 Chronic diastolic (congestive) heart failure; N18.3 Chronic kidney disease, stage 3 (moderate); G89.29 Other chronic pain; E03.9 Hypothyroidism, unspecified; E11.22 Type 2 diabetes mellitus with diabetic chronic kidney disease; Z99.89 Dependence on other enabling machines and devices; Z99.81 Dependence on supplemental oxygen; Z79.84 Long term (current) use of oral hypoglycemic drugs; Z79.899 Other long term (current) drug therapy; Z04.89 Encounter for examination and observation for other specified reasons; Z12.11 Encounter for screening for malignant neoplasm of colon; Z12.39 Encounter for other screening for malignant neoplasm of breast; Z79.890 Hormone replacement therapy; Z79.891 Long term (current) use of opiate analgesic; Z88.5 Allergy status to narcotic agent; Z86.2 Personal history of diseases of the blood and blood-forming organs and certain disorders involving the immune mechanism; Z90.49 Acquired absence of other specified parts of digestive tract; Z98.890 Other specified postprocedural states; Z90.710 Acquired absence of both cervix and uterus; Z80.9 Family history of malignant neoplasm, unspecified; Z80.8 Family history of malignant neoplasm of other organs or systems
CPT/HCPCS: 36410; C1751; J1335

== ENCOUNTER 2019-09-19 17:05 | Inpatient (IN) | payer MEDICARE, BC ==
--- NOTE | 2019-09-19 17:17 | ED ---
General Adult HPI - General Stated complaint: SOB Time Seen by Provider: 09/19/19 17:12 - History of Present Illness Initial comments: Patient is a 74-year-old female with history of COPD presenting to the emergency department with a chief complaint of shortness of breath. Patient brought to the ED via EMS from the [facility]. Patient states she developed increased shortness of breath. States she uses oxygen at home at 2-3 L. Patient also reports using daily breathing treatments but is not completely sure of the medication. Patient reports increased wheezing over the last few days. According to EMS, the patient was at 86% when they picked up the patient, they had her on 4-6 L of oxygen in the ambulance where she returned to 100%. She Den ies any chest pains fevers night sweats or chills. Denies nausea vomiting diarrhea. Reports a long history of smoking. Denies headaches, blurry vision, one-sided weakness or paresthesias. Denies taking any other medication to alleviate the symptoms. - Related Data Home Medications Medication Instructions Recorded Confirmed Acetaminophen Tab [Tylenol] 650 mg PO Q6H PRN 03/06/19 03/06/19 Acetaminophen [Tylenol Arthritis] 650 mg PO Q8H PRN 03/06/19 03/06/19 Acidophilus Probiotic Blend 2 cap PO BID@0800,199903/06/19 03/06/19 Albuterol Nebulized [Ventolin 2.5 mg INHALATION RT-Q2H PRN 03/06/19 03/06/19 Nebulized] Albuterol Sulfate [Proair Hfa] 1 puff INHALATION RT-BID PRN 03/06/19 03/06/19 Atorvastatin [Lipitor] 10 mg PO HS@199903/06/19 03/06/19 Budesonide [Pulmicort] 0.5 mg INHALATION RT-BID@0800,199903/06/19 03/06/19 DULoxetine HCL [Cymbalta] 60 mg PO DAILY@0800 03/06/19 03/06/19 Dextrose Gel [Glutose 15 Gel] 15 gm PO ONCE PRN 03/06/19 03/06/19 Docusate [Colace] 100 mg PO BID@0800,199903/06/19 03/06/19 Dorzolamide/Timolol/Pf 1 drop BOTH EYES BID@0800,199903/06/19 03/06/19 [Dorzolamide 2%-Timolol 0.5%] Ferrous Sulfate [Iron (65 MG 325 mg PO DAILY@0803/06/19 03/06/19 Elemental)] Fluticasone Nasal [place] [Flonase 1 spray EA NOSTRIL BID@08,199903/06/19 03/06/19 Nasal [place]] Formoterol Fumarate [Perforomist] 20 mcg INHALATION RT-BID@799,199903/06/19 03/06/19 Furosemide [Lasix] 40 mg PO DIRECTED 03/06/19 03/06/19 Furosemide [Lasix] 60 mg PO DAILY 03/06/19 03/06/19 Insulin Glargine,Hum.rec.anlog 40 unit SQ HS@209903/06/19 03/06/19 [Lantus Solostar] Insulin Regular [humuLIN R] See Protocol SQ ACHS 03/06/19 03/06/19 Lactulose 20 gm PO DAILY@79903/06/19 03/06/19 Levothyroxine Sodium [Synthroid] 50 mcg PO DAILY@0803/06/19 03/06/19 Lidocaine 5% Oint [Xylocaine 5% 1 applic TOPICAL Q8H PRN 03/06/19 03/06/19 Oint] Loratadine [Claritin] 10 mg PO DAILY PRN 03/06/19 03/06/19 Losartan Potassium 50 mg PO DAILY@0803/06/19 03/06/19 Meloxicam [Mobic] 7.5 mg PO DAILY@0803/06/19 03/06/19 Menthol/Zinc Oxide [Calmoseptine 1 applic TOPICAL DAILY PRN 03/06/19 03/06/19 Ointment] Menthol/Zinc Oxide [Calmoseptine 1 applic TOPICAL TID 03/06/19 03/06/19 Ointment] Miconazole Nitrate [Desenex] 1 applic TOPICAL BID@799,199903/06/19 03/06/19 Miconazole Nitrate [Desenex] 1 applic TOPICAL DAILY PRN 03/06/19 03/06/19 Nystatin 100,000Unit/gm Cream 1 applic TOPICAL BID@799,199903/06/19 03/06/19 [Mycostatin Cream] Pantoprazole Sodium [Protonix] 40 mg PO HS 03/06/19 03/06/19 Petrolatum, White [Aquaphor] 1 applic TOPICAL BID 03/06/19 03/06/19 Potassium Chloride ER [K-Dur 10] 10 meq PO DAILY@0800 03/06/19 03/06/19 Sennosides [Senna] 8.6 mg PO HS PRN 03/06/19 03/06/19 Sm Lubricant Eye Drops 2 drops BOTH EYES Q8H PRN 03/06/19 03/06/19 Spironolactone [Aldactone] 25 mg PO DAILY@0800 03/06/19 03/06/19 Uricalm 99.5mg 99.5 mg PO Q8H PRN 03/06/19 03/06/19 glipiZIDE [Glucotrol] 5 mg PO DAILY@0800 03/06/19 03/06/19 guaiFENesin SYRUP 100MG/5ML 300 mg PO Q6H PRN 03/06/19 03/06/19 [Robitussin] metFORMIN HCL [Glucophage] 500 mg PO BID@0800,199903/06/19 03/06/19 traMADol HCL 50 mg PO Q6H PRN 03/06/19 03/06/19 Previous Rx's Medication Instructions Recorded Ipratropium-Albuterol Nebulize 3 ml INHALATION TID #90 ampul.neb 03/07/19 [Duoneb 0.5 mg-3 mg/3 ml Soln] predniSONE 0 mg PO DIRECTED #10 tab 03/07/19 Allergies Allergy/AdvReac Type Severity Reaction Status Date / Time codeine AdvReac Nausea & Verified 09/19/19 17:11 Vomiting Review of Systems ROS Statement: Those systems with pertinent positive or pertinent negative responses have been documented in the HPI. ROS Other: All systems not noted in ROS Statement are negative. Past Medical History Past Medical History: COPD, Diabetes Mellitus, Memory Impairment, Osteoarthritis (OA), Pneumonia, Renal Disease, Sleep Apnea/CPAP/BIPAP, Thyroid Disorder Additional Past Medical History / Comment(s): cellulitis on legs, uses cpap at home thinks her settings are 5 very poor historian, POSSIBLE HEART PER PATIENT UNSURE, BLADDER INFECTION History of Any Multi-Drug Resistant Organisms: ESBL Date of last positivie culture/infection: 12/5/19 MDRO Source:: Urine Past Surgical History: Appendectomy, Cholecystectomy, Hernia Repair, Hysterectomy, Tonsillectomy Additional Past Surgical History / Comment(s): kidney left removed, colonoscopy Past Anesthesia/Blood Transfusion Reactions: No Reported Reaction Smoking Status: Former smoker - Past Family History Mother Family Medical History: Cancer Additional Family Medical History / Comment(s): throat cancer General Exam Limitations: physical limitation General appearance: alert, obese Head exam: Present: atraumatic, normocephalic, normal inspection Eye exam: Present: normal appearance, PERRL, EOMI Pupils: Present: normal accommodation ENT exam: Present: normal exam, normal oropharynx, mucous membranes moist Neck exam: Present: normal inspection, full ROM Respiratory exam: Present: wheezes (Moderate Bilateral wheezing, diffusely.). Absent: rhonchi, stridor, chest wall tenderness Cardiovascular Exam: Present: regular rate, normal rhythm, normal heart sounds Extremities exam: Present: normal inspection, full ROM, normal capillary refill, pedal edema (+2 bilateral lower extremity edema) Back exam: Present: normal inspection, full ROM Neurological exam: Present: alert, oriented X3 Psychiatric exam: Present: normal affect, normal mood Skin exam: Present: warm, dry, intact, normal color Course Vital Signs 09/19/19 09/19/19 09/19/19 17:12 18:16 18:30 Temperature 97.7 F Pulse Rate 95 94 91 Respiratory 18 18 18 Rate Blood Pressure 148/78 O2 Sat by Pulse 99 Oximetry 09/19/19 18:44 Temperature Pulse Rate 85 Respiratory 18 Rate Blood Pressure 141/91 O2 Sat by Pulse 98 Oximetry EKG Findings - EKG Comments: EKG Findings:: Sinus rhythm Ventricular rate 94, AL 140, QRS 84, QTC 445. Medical Decision Making - Medical Decision Making Patient is a 74-year-old female with history of COPD presenting to the emergency department with a chief complaint of shortness of breath. Patient has a fairly classical presentation for [place] exacerbation. Patient was given 125 mg of Solu-Medrol with 2 breathing treatments. On reevaluation patient reports impr ovement of symptoms. Her wheezing seems to improve bilaterally. EKG showed a sinus rhythm. Chest x-ray reveals costovertebral angle blunting. Potential fluid overload and evaluation for heart failure recommended. BNP is 1800. Throughout the whole ED stay, the patient denied any chest pain. Patient started on aspirin low intensity heparin. Patient will be admitted for further medical management. Case discussed with . Cardiology consult. Dr Ghotra is accepting doctor - Lab Data Result diagrams: 09/19/19 17:47 09/19/19 17:47 Lab Results 09/19/19 09/19/19 09/19/19 Range/Units 17:47 17:47 17:47 WBC 18.8 H (3.8-10.6) k/uL RBC 4.30 (3.80-5.40) m/uL Hgb 12.7 (11.4-16.0) gm/dL Hct 41.1 (34.0-46.0) % MCV 95.5 (80.0-100.0) fL MCH 29.4 (25.0-35.0) pg MCHC 30.8 L (31.0-37.0) g/dL RDW 13.7 (11.5-15.5) % Plt Count 330 (150-450) k/uL Neutrophils % 88 % Lymphocytes % 5 % Monocytes % 5 % Eosinophils % 1 % Basophils % 0 % Neutrophils # 16.5 H (1.3-7.7) k/uL Lymphocytes # 0.9 L (1.0-4.8) k/uL Monocytes # 1.0 (0-1.0) k/uL Eosinophils # 0.1 (0-0.7) k/uL Basophils # 0.1 (0-0.2) k/uL PT 11.5 (9.0-12.0) sec INR 1.1 (<1.2) APTT 26.5 (22.0-30.0) sec Sodium 132 L (137-145) mmol/L Potassium 5.1 (3.5-5.1) mmol/L Chloride 92 L (98-107) mmol/L Carbon Dioxide 30 (22-30) mmol/L Anion Gap 10 mmol/L BUN 27 H (7-17) mg/dL Creatinine 1.33 H (0.52-1.04) mg/dL Est GFR (CKD-EPI)AfAm 45 (>60 ml/min/1.73 sqM) Est GFR (CKD-EPI)NonAf 39 (>60 ml/min/1.73 sqM) Glucose 173 H (74-99) mg/dL Plasma Lactic Acid Taz (0.7-2.0) mmol/L Calcium 9.2 (8.4-10.2) mg/dL Total Bilirubin 0.6 (0.2-1.3) mg/dL AST 29 (14-36) U/L ALT 28 (4-34) U/L Alkaline Phosphatase 115 (38-126) U/L Troponin I (0.000-0.034) ng/mL NT-Pro-B Natriuret Pep pg/mL Total Protein 7.1 (6.3-8.2) g/dL Albumin 4.1 (3.5-5.0) g/dL 09/19/19 09/19/19 09/19/19 Range/Units 17:47 17:47 17:47 WBC (3.8-10.6) k/uL RBC (3.80-5.40) m/uL Hgb (11.4-16.0) gm/dL Hct (34.0-46.0) % MCV (80.0-100.0) fL MCH (25.0-35.0) pg MCHC (31.0-37.0) g/dL RDW (11.5-15.5) % Plt Count (150-450) k/uL Neutrophils % % Lymphocytes % % Monocytes % % Eosinophils % % Basophils % % Neutrophils # (1.3-7.7) k/uL Lymphocytes # (1.0-4.8) k/uL Monocytes # (0-1.0) k/uL Eosinophils # (0-0.7) k/uL Basophils # (0-0.2) k/uL PT (9.0-12.0) sec INR (<1.2) APTT (22.0-30.0) sec Sodium (137-145) mmol/L Potassium (3.5-5.1) mmol/L Chloride (98-107) mmol/L Carbon Dioxide (22-30) mmol/L Anion Gap mmol/L BUN (7-17) mg/dL Creatinine (0.52-1.04) mg/dL Est GFR (CKD-EPI)AfAm (>60 ml/min/1.73 sqM) Est GFR (CKD-EPI)NonAf (>60 ml/min/1.73 sqM) Glucose (74-99) mg/dL Plasma Lactic Acid Taz 1.4 (0.7-2.0) mmol/L Calcium (8.4-10.2) mg/dL Total Bilirubin (0.2-1.3) mg/dL AST (14-36) U/L ALT (4-34) U/L Alkaline Phosphatase (38-126) U/L Troponin I 0.062 H* (0.000-0.034) ng/mL NT-Pro-B Natriuret Pep 1800 pg/mL Total Protein (6.3-8.2) g/dL Albumin (3.5-5.0) g/dL Disposition Clinical Impression: Non-STEMI (non-ST elevated myocardial infarction), Shortness of breath Disposition: ADMITTED IP TO THIS HOSP Condition: Good Additional Instructions: Patient will be admitted Is patient prescribed a controlled substance at d/c from ED?: No Referrals: Calos Winston MD [Primary Care Provider] - 1-2 days Time of Disposition: 19:07
[2019-09-19] MEDS ORDERED: methylPREDNISolone SOD SUCCI 125 MG/2 ML VIAL IV STA (17:27)
[2019-09-19] MEDS ORDERED: IPRATROPIUM-ALBUTEROL 3 ML NEB INHALATION STA (17:27)
[2019-09-19 18:13] LABS: Albumin 4.1 g/dL (3.5-5.0); Calcium 9.2 mg/dL (8.4-10.2); Potassium 5.1 mmol/L (3.5-5.1); Total Bilirubin 0.6 mg/dL (0.2-1.3); Total Protein 7.1 g/dL (6.3-8.2)
[2019-09-19 18:14] LABS: Basophils # (A) 0.1 k/uL (0-0.2); Basophils % (A) 0 %; Eosinophils # (A) 0.1 k/uL (0-0.7); Eosinophils % (A) 1 %; HCT 41.1 % (34.0-46.0); HGB 12.7 gm/dL (11.4-16.0); Lymphocytes # (A) 0.9 k/uL (1.0-4.8); Lymphocytes % (A) 5 %; MCH 29.4 pg (25.0-35.0); MCHC 30.8 g/dL (31.0-37.0); MCV 95.5 fL (80.0-100.0); Mean Platelet Volume 7.4; Monocytes % (A) 5 %; Neutrophils # (A) 16.5 k/uL (1.3-7.7); Neutrophils % (A) 88 %; Platelet Count 330 k/uL (150-450); RDW 13.7 % (11.5-15.5); WBC 18.8 k/uL (3.8-10.6)
--- NOTE | 2019-09-19 18:34 | XR ---
EXAMINATION TYPE: XR chest 2V DATE OF EXAM: 09/19/2019 COMPARISON: 03/06/2019 INDICATION: Difficulty breathing TECHNIQUE: Frontal and lateral views of the chest are obtained. FINDINGS: The heart size is borderline enlarged. The pulmonary vasculature is prominent. Mild diffuse increased lung markings are present. There is blunting of the costophrenic angles.. Sti mulator leads are within the midline IMPRESSION: 1. Clinical correlation for volume overload or early congestive heart failure is recommended.
[2019-09-19 18:37] LABS: INR 1.1 (<1.2); Partial Thromboplastin Time 26.5 sec (22.0-30.0); Prothrombin Time 11.5 sec (9.0-12.0)
[2019-09-19] MEDS ORDERED: HEPARIN SODIUM,PORCINE 5,000 UNIT/ML 1 ML VIAL IV PRN (18:58)
[2019-09-19] MEDS ORDERED: HEPARIN SODIUM,PORCINE 5,000 UNIT/ML 1 ML VIAL IV ONE (18:58)
[2019-09-19] MEDS ORDERED: ASPIRIN 325 MG TAB PO STA (18:58)
[2019-09-19] MEDS ORDERED: NITROGLYCERIN SL TABS 0.4 MG TAB SUBLINGUAL PRN (19:07)
[2019-09-19] MEDS: HEPARIN SOD,PORK IN 0.45% NACL 25,000 UNIT in 0.45% NACL 1 250ML.BAG IV SCH (19:20)
[2019-09-19 20:36] LABS: Glucose,Whole Blood 157 mg/dL (75-99)
[2019-09-19] MEDS ORDERED: ALBUTEROL NEBULIZED 2.5 MG/3 ML INHALATION PRN (21:48)
[2019-09-20 05:58] LABS: Glucose,Whole Blood 191 mg/dL (75-99)
[2019-09-20 06:01] LABS: Basophils % (A) 0 %; Eosinophils % (A) 0 %; HCT 35.6 % (34.0-46.0); HGB 10.9 gm/dL (11.4-16.0); Lymphocytes # (A) 0.5 k/uL (1.0-4.8); Lymphocytes % (A) 4 %; MCH 29.3 pg (25.0-35.0); MCHC 30.6 g/dL (31.0-37.0); MCV 95.5 fL (80.0-100.0); Mean Platelet Volume 7.7; Monocytes # (A) 0.4 k/uL (0-1.0); Monocytes % (A) 4 %; Neutrophils # (A) 11.4 k/uL (1.3-7.7); Neutrophils % (A) 91 %; Platelet Count 271 k/uL (150-450); RBC 3.73 m/uL (3.80-5.40); RDW 13.6 % (11.5-15.5); WBC 12.5 k/uL (3.8-10.6)
[2019-09-20 06:17] LABS: Cholesterol 104 mg/dL (<200); HDL Cholesterol 52 mg/dL (40-60); LDL Cholesterol,Calculated 34 mg/dL (0-99); Triglycerides 89 mg/dL (<150)
[2019-09-20] MEDS: INSULIN ASPART (NovoLOG) 100 UNIT/ML VIAL SQ SCH ×5 (07:01→20:53)
[2019-09-20] MEDS: IPRATROPIUM-ALBUTEROL 3 ML NEB INHALATION SCH ×4 (07:29→20:13)
[2019-09-20] MEDS ORDERED: BUDESONIDE 0.5 MG/2 ML NEBU INHALATION SCH (08:00)
[2019-09-20] MEDS: POTASSIUM CHLORIDE ER 10 MEQ TAB.ER.PRT PO SCH (08:38)
[2019-09-20] MEDS: metFORMIN 500 MG TAB PO SCH ×2 (08:38→20:56)
[2019-09-20] MEDS: DOCUSATE 100 MG CAP PO SCH ×2 (08:56→20:58)
[2019-09-20] MEDS: DULoxetine HCL 60 MG CAPSULE.DR PO SCH (08:57)
[2019-09-20] MEDS: LOSARTAN 50 MG TAB PO SCH (08:57)
[2019-09-20] MEDS: FLUTICASONE 50MCG/SPRAY NASAL 16GM EA NOSTRIL SCH ×2 (08:57→21:19)
[2019-09-20] MEDS: LEVOTHYROXINE 50 MCG TAB PO SCH (08:57)
[2019-09-20] MEDS: FUROSEMIDE 40 MG TAB PO SCH (08:58)
[2019-09-20] MEDS: SPIRONOLACTONE 25 MG TAB PO SCH (08:58)
[2019-09-20] MEDS: glipiZIDE 5 MG TAB PO SCH (08:58)
[2019-09-20] MEDS ORDERED: ASPIRIN 325 MG TAB PO SCH (09:00)
--- NOTE | 2019-09-20 11:15 | P.CRDCN ---
History of Present Illness History of present illness: This is Dr. Mcmahan dictating a consult on this patient The patient was interviewed and examined IMPRESSION / ASSESSMENT: Patient presenting with shortness of breath Borderline troponins with mildly elevated creatinine possible non-Q-wave PA PLAN: The echo and Doppler study Maximize Medical treatment for non-Q-wave PA at this time Further recommendations thereafter HPI 74-year-old female who lives in a usp locally Presenting with increased shortness of breath Increased wheezing over the last few days Pulse ox 86% Improved with 6 L of oxygen Long-standing history of smoking Denied any chest discomfort ROS: No fever chills or rigors, no cough, phlegm or expectoration, no nausea, vomiting or diarrhea, no hematuria, dysuria, no musculoskeletal complaints, no strokes or seizures, no skin lesions. EXAMINATION: Afebrile 98.3F pulse rate in the 80s, blood pressure 102/80 mmHg Looks comfortable Sitting up in a chair Heart sounds soft sounds no murmurs Breath sounds. Bilaterally in Trace edema Increased BMI REVIEW OF LABS, ECG & MEDICAL DATA Twelve-lead ECG shows sinus rhythm) access no definite ST segment abnormalities Increase markings bilaterally on chest x-ray Medication list was reviewed Elevated white count 18,000, 12,000 Sodium 132 potassium 5.1, BUN 27 creatinine 1.33 Elevated glucose Normal liver function Borderline abnormal troponins of 0.06, 0.05 and 0.04 LDL 34 BNP 1800 Past Medical History Past Medical History: COPD, Diabetes Mellitus, Memory Impairment, Osteoarthritis (OA), Pneumonia, Renal Disease, Sleep Apnea/CPAP/BIPAP, Thyroid Disorder Additional Past Medical History / Comment(s): cellulitis on legs, uses cpap at home thinks her settings are 5 very poor historian, POSSIBLE HEART PER PATIENT UNSURE, BLADDER INFECTION History of Any Multi-Drug Resistant Organisms: ESBL Date of last positivie culture/infection: 03/20/19 MDRO Source:: Urine Past Surgical History: Appendectomy, Cholecystectomy, Hernia Repair, Hysterectomy, Tonsillectomy Additional Past Surgical History / Comment(s): kidney left removed, colonoscopy Past Anesthesia/Blood Transfusion Reactions: No Reported Reaction Past Psychological History: No Psychological Hx Reported Smoking Status: Former smoker Past Alcohol Use History: None Reported Additional Past Alcohol Use History / Comment(s): STARTED SMOKING AT 14 QUIT ABOUT AGE 44 SMOKED 1/2 -1 PPD Past Drug Use History: None Reported - Past Family History Mother Family Medical History: Cancer Additional Family Medical History / Comment(s): throat cancer Medications and Allergies Home Medications Medication Instructions Recorded Confirmed Type Albuterol Sulfate [Proair Hfa] 1 puff INHALATION RT-BID PRN 03/06/19 09/19/19 History Atorvastatin [Lipitor] 10 mg PO HS@199903/06/19 09/19/19 History Budesonide [Pulmicort] 0.5 mg INHALATION RT-BID@799,199903/06/19 09/19/19 History DULoxetine HCL [Cymbalta] 60 mg PO DAILY@79903/06/19 09/19/19 History Docusate [Colace] 100 mg PO BID@799,199903/06/19 09/19/19 History Dorzolamide/Timolol/Pf 1 drop BOTH EYES BID@799,199903/06/19 09/19/19 History [Dorzolamide 2%-Timolol 0.5%] Fluticasone Nasal [place] [Flonase 1 spray EA NOSTRIL BID@799,199903/06/19 09/19/19 History Nasal [place]] Losartan Potassium 50 mg PO DAILY@0803/06/19 09/19/19 History Pantoprazole Sodium [Protonix] 40 mg PO HS@199903/06/19 09/20/19 History Potassium Chloride ER [K-Dur 10] 10 meq PO DAILY@0800 03/06/19 09/19/19 History Spironolactone [Aldactone] 25 mg PO DAILY@0803/06/19 09/19/19 History glipiZIDE [Glucotrol] 5 mg PO DAILY@0803/06/19 09/19/19 History metFORMIN HCL [Glucophage] 500 mg PO BID@08,199903/06/19 09/19/19 History Furosemide [Lasix] 40 mg PO QAM@79909/19/19 09/20/19 History Ipratropium-Albuterol Nebulize 3 ml INHALATION RT-TID 09/19/19 09/19/19 History [Duoneb 0.5 mg-3 mg/3 ml Soln] Butalb/APAP/Caff 50-325-40Mg 2 tab PO Q6H PRN 09/20/19 09/20/19 History [Fioricet 50-325-40] Ferrous Sulfate [Feosol] 325 mg PO DAILY@0800 09/20/19 09/20/19 History Levothyroxine Sodium [Synthroid] 75 mcg PO DAILY 09/20/19 09/20/19 History Tiotropium [place] [Spiriva] 1 cap INHALATION RT-DAILY 09/20/19 09/20/19 History Allergies Allergy/AdvReac Type Severity Reaction Status Date / Time codeine AdvReac Nausea & Verified 09/19/19 17:11 Vomiting Physical Exam Vitals: Vital Signs Temp Pulse Pulse Resp BP BP Pulse Ox 09/20/19 08:00 98.3 F 90 18 102/80 95 09/20/19 07:48 91 09/20/19 07:31 89 96 09/20/19 03:53 97.5 F L 102 H 18 145/72 96 09/20/19 00:00 97.5 F L 78 19 156/89 94 L 09/19/19 20:56 97.5 F L 93 20 93 L 09/19/19 19:30 81 18 144/78 99 09/19/19 19:00 83 19 141/101 99 09/19/19 18:44 85 18 141/91 98 09/19/19 18:30 91 18 09/19/19 18:16 94 18 09/19/19 17:12 97.7 F 95 18 148/78 99 Intake and Output 09/19/19 09/20/19 09/20/19 22:59 06:59 14:59 Other: Voiding Method Bedside Commode Weight 108.862 kg 67.2 kg Results 09/20/19 05:42 09/19/19 17:47 Cardiac Enzymes 09/19/19 09/19/19 09/20/19 Range/Units 17:47 17:47 00:35 AST 29 (14-36) U/L Troponin I 0.062 H* 0.046 H* (0.000-0.034) ng/mL 09/20/19 Range/Units 05:42 AST (14-36) U/L Troponin I 0.037 H* (0.000-0.034) ng/mL Coagulation 09/19/19 09/20/19 09/20/19 Range/Units 17:47 00:35 05:42 PT 11.5 (9.0-12.0) sec APTT 26.5 65.5 H 48.8 H (22.0-30.0) sec Lipids 09/20/19 Range/Units 05:42 Triglycerides 89 (<150) mg/dL Cholesterol 104 (<200) mg/dL HDL Cholesterol 52 (40-60) mg/dL CBC 09/19/19 09/20/19 Range/Units 17:47 05:42 WBC 18.8 H 12.5 H (3.8-10.6) k/uL RBC 4.30 3.73 L (3.80-5.40) m/uL Hgb 12.7 10.9 L (11.4-16.0) gm/dL Hct 41.1 35.6 (34.0-46.0) % Plt Count 330 271 (150-450) k/uL Comprehensive Metabolic Panel 09/19/19 Range/Units 17:47 Sodium 132 L (137-145) mmol/L Potassium 5.1 (3.5-5.1) mmol/L Chloride 92 L (98-107) mmol/L Carbon Dioxide 30 (22-30) mmol/L BUN 27 H (7-17) mg/dL Creatinine 1.33 H (0.52-1.04) mg/dL Glucose 173 H (74-99) mg/dL Calcium 9.2 (8.4-10.2) mg/dL AST 29 (14-36) U/L ALT 28 (4-34) U/L Alkaline Phosphatase 115 (38-126) U/L Total Protein 7.1 (6.3-8.2) g/dL Albumin 4.1 (3.5-5.0) g/dL Current Medications Generic Name Dose Route Start Last Admin Trade Name Freq PRN Reason Stop Dose Admin Albuterol Sulfate 2.5 mg 09/19/19 21:48 Ventolin Nebulized INHALATION RT-BID PRN Shortness Of Breath Albuterol/Ipratropium 3 ml 09/20/19 08:00 09/20/19 07:29 Duoneb 0.5 Mg-3 Mg/3 Ml Soln INHALATION 3 ml RT-TID JOANNE Administration Aspirin 325 mg 09/20/19 09:00 09/20/19 08:58 Aspirin PO 325 mg DAILY JOANNE Administration Atorvastatin Calcium 10 mg 09/20/19 20:00 Lipitor PO HS@1999 [facility] Budesonide 0.5 mg 09/20/19 08:00 09/20/19 07:29 Pulmicort INHALATION 0.5 mg RT-BID@ [facility] Administration Docusate Sodium 100 mg 09/20/19 08:00 09/20/19 08:56 Colace PO Not Given BID@ [facility] Dorzolamide/Timolol 1 drops 09/20/19 08:00 Cosopt BOTH EYES BID@ [facility] Duloxetine HCl 60 mg 09/20/19 08:00 09/20/19 08:57 Cymbalta PO 60 mg DAILY@08 [facility] Administration Fluticasone Propionate 1 spray 09/20/19 08:00 09/20/19 08:57 Flonase Nasal [place] EA NOSTRIL Not Given BID@ [facility] Furosemide 40 mg 09/20/19 09:00 09/20/19 08:58 Lasix PO 40 mg QAM [facility] Administration Glipizide 5 mg 09/20/19 08:00 09/20/19 08:58 Glucotrol PO 5 mg DAILY@0800 [facility] Administration Heparin Sodium (Porcine) 0 unit 09/19/19 18:58 Heparin IV PER PROTOCOL PRN Low PTT Protocol Heparin Sodium/Sodium Chloride 250 mls @ 10 mls/hr 09/19/19 19:00 09/19/19 19:20 25,000 unit/ Sodium Chloride IV 9.186 units/kg/hr .Q24H JOANNE 10 mls/hr Administration Protocol 9.186 UNITS/KG/HR Insulin Aspart 0 unit 09/20/19 07:30 09/20/19 07:01 Novolog SQ 3 unit ACHS JOANNE Administration Protocol Levothyroxine Sodium 50 mcg 09/20/19 08:00 09/20/19 08:57 Synthroid PO 50 mcg DAILY@0800 [facility] Administration Losartan Potassium 50 mg 09/20/19 08:00 09/20/19 08:57 Cozaar PO 50 mg DAILY@0800 [facility] Administration Metformin HCl 500 mg 09/20/19 08:00 09/20/19 08:38 Glucophage PO Not Given BID@ [facility] Nitroglycerin 0.4 mg 09/19/19 19:07 Nitrostat SUBLINGUAL Q5M PRN Chest Pain Pantoprazole Sodium 40 mg 09/20/19 21:00 Protonix PO HS [facility] Potassium Chloride 10 meq 09/20/19 08:00 09/20/19 08:38 K-Dur 10 PO Not Given DAILY@0800 [facility] Spironolactone 25 mg 09/20/19 08:00 09/20/19 08:58 Aldactone PO 25 mg DAILY@0800 [facility] Administration Intake and Output 09/19/19 09/20/19 09/20/19 22:59 06:59 14:59 Other: Voiding Method Bedside Commode Weight 108.862 kg 67.2 kg 09/20/19 05:42 09/19/19 17:47
[2019-09-20 11:47] LABS: Glucose,Whole Blood 105 mg/dL (75-99)
[2019-09-20] MEDS: DORZOLAMIDE-TIMOLOL 2.23%/0.68 10ML BTL BOTH EYES SCH ×2 (14:49→20:56)
[2019-09-20] MEDS: HEPARIN SOD,PORK IN 0.45% NACL 25,000 UNIT in 0.45% NACL 1 250ML.BAG IV SCH (15:55)
[2019-09-20 16:57] LABS: Glucose,Whole Blood 150 mg/dL (75-99)
--- NOTE | 2019-09-20 18:47 | P.HPIM ---
History of Present Illness H&P Date: 09/20/19 Chief Complaint: Shortness of breath History of presenting complaint: This is a pleasant 74-year-old patient of Dr. Collins. Chronic stable medical conditions include diabetes, some memory impairment, osteoarthritis, chronic kidney disease, obstructive sleep apnea uses CPAP, hypothyroid. Normally uses a 4 wheel walker to get about. Patient now presented with shortness of breath. Normally has home oxygen about 2 or 3 L. She also having wheezing for last few days. Pulse ox was 80% when EMS picked her up. The pulse ox improved. No fever no chills. Has been having significant cough. Bouts of sneezing. Appetite is good. Review of systems: GEN.: Tired EYES: None HEENT: None NECK: None RESPIRATORY: As above CARDIOVASCULAR: None GASTROINTESTINAL: None GENITOURINARY: None MUSCULOSKELETAL: Joint pains LYMPHATICS: None HEMATOLOGICAL: None PSYCHIATRY: Bit forgetful NEUROLOGICAL: None. Past medical history to include: diabetes, cognitive impairment, osteoarthritis, chronic kidney disease, obstructive sleep apnea uses CPAP, hypothyroid, home oxygen 2-3 L. Social history: -Smoked for 30 years stopped at age of 44 about half to a pack a day.. Daughter lives with her. Does use a 4 alcantara walker. Physical examination: VITAL SIGNS: 97.7, 95, 18, 148/78, 99% on 4 L GENERAL: BMI 25.4, sitting up in bed, a bit tired EYES: Pupils equal. Conjunctiva normal. HEENT: External appearance of nose and ears normal, oral cavity grossly normal. NECK: JVD not raised; masses not palpable. HEART: [First and second heart sounds are normal; some edema. LUNGS: Respiratory rate increased, diminished breath sounds some wheezing. ABDOMEN: Soft, nontender, liver spleen not palpable, no masses palpable. PSYCH: Able to answer simple questions NEUROLOGICAL: Cranial nerves grossly intact; no facial asymmetry, power and sensation grossly intact. LYMPHATICS: No lymph nodes palpable in the axilla and neck MUSCULOSKELETAL: Evidence of OA INVESTIGATIONS, reviewed in the clinical context: White count 18.8 hemoglobin 12.7 platelets 3:30 pressure 5% 1 bun 27 creatinine 1.33 Troponin I 0.062, 0.046 proBNP 1800 EKG tracing personally reviewed by me-normal sinus rhythm with some nonspecific changes Chest x-ray film personally reviewed by me-possible venous prominence Assessment: -Acute COPD in an ex-smoker in a patient who has been wheezing for last 3-4 days the sore having bouts of coughing and bouts of sneezing. Patient is found to be hypoxic by the EMS and then felt better. Patient is feeling a bit improved this morning. -Acute hypoxic respiratory failure from above -Chronic hypoxic respiratory failure from underlying COPD -Troponin leak in the setting of chronic kidney disease, possible acute coronary syndrome/acute non-Q-wave [place]. -Diabetes mellitus type 2, chronically on insulin -Hypothyroid -Primary osteoarthritis -Hyperlipidemia -Chronic gait dysfunction uses a 4 wheeled walker. -Mild cognitive impairment -Chronic kidney disease stage III possibly from nephrosclerosis -IV heparin monitoring Plan: -Increased bronchodilators to every 4 hours. Increase dose of Pulmicort to 1 mg twice a day. One dose of IV Solu-Medrol and then oral prednisone. Home medications to be resumed. Patient is feeling better this morning. Cardiology was consulted. Discussed with the patient. Past Medical History Past Medical History: COPD, Diabetes Mellitus, Memory Impairment, Osteoarthritis (OA), Pneumonia, Renal Disease, Sleep Apnea/CPAP/BIPAP, Thyroid Disorder Additional Past Medical History / Comment(s): cellulitis on legs, uses cpap at home thinks her settings are 5 very poor historian, POSSIBLE HEART PER PATIENT UNSURE, BLADDER INFECTION History of Any Multi-Drug Resistant Organisms: ESBL Date of last positivie culture/infection: 03/20/19 MDRO Source:: Urine Past Surgical History: Appendectomy, Cholecystectomy, Hernia Repair, Hysterectomy, Tonsillectomy Additional Past Surgical History / Comment(s): kidney left removed, colonoscopy Past Anesthesia/Blood Transfusion Reactions: No Reported Reaction Past Psychological History: No Psychological Hx Reported Smoking Status: Former smoker Past Alcohol Use History: None Reported Additional Past Alcohol Use History / Comment(s): STARTED SMOKING AT 14 QUIT ABOUT AGE 44 SMOKED 1/2 -1 PPD Past Drug Use History: None Reported - Past Family History Mother Family Medical History: Cancer Additional Family Medical History / Comment(s): throat cancer Medications and Allergies Home Medications Medication Instructions Recorded Confirmed Type Albuterol Sulfate [Proair Hfa] 1 puff INHALATION RT-BID PRN 03/06/19 09/19/19 History Atorvastatin [Lipitor] 10 mg PO HS@2000 03/06/19 09/19/19 History Budesonide [Pulmicort] 0.5 mg INHALATION RT-BID@799,199903/06/19 09/19/19 History DULoxetine HCL [Cymbalta] 60 mg PO DAILY@79903/06/19 09/19/19 History Docusate [Colace] 100 mg PO BID@799,199903/06/19 09/19/19 History Dorzolamide/Timolol/Pf 1 drop BOTH EYES BID@799,199903/06/19 09/19/19 History [Dorzolamide 2%-Timolol 0.5%] Fluticasone Nasal [place] [Flonase 1 spray EA NOSTRIL BID@799,199903/06/19 09/19/19 History Nasal [place]] Losartan Potassium 50 mg PO DAILY@79903/06/19 09/19/19 History Pantoprazole Sodium [Protonix] 40 mg PO HS@199903/06/19 09/20/19 History Potassium Chloride ER [K-Dur 10] 10 meq PO DAILY@79903/06/19 09/19/19 History Spironolactone [Aldactone] 25 mg PO DAILY@79903/06/19 09/19/19 History glipiZIDE [Glucotrol] 5 mg PO DAILY@79903/06/19 09/19/19 History metFORMIN HCL [Glucophage] 500 mg PO BID@799,199903/06/19 09/19/19 History Furosemide [Lasix] 40 mg PO QAM@79909/19/19 09/20/19 History Ipratropium-Albuterol Nebulize 3 ml INHALATION RT-TID 09/19/19 09/19/19 History [Duoneb 0.5 mg-3 mg/3 ml Soln] Butalb/APAP/Caff 50-325-40Mg 2 tab PO Q6H PRN 09/20/19 09/20/19 History [Fioricet 50-325-40] Ferrous Sulfate [Feosol] 325 mg PO DAILY@79909/20/19 09/20/19 History Levothyroxine Sodium [Synthroid] 75 mcg PO DAILY 09/20/19 09/20/19 History Tiotropium U[place]ire [Spiriva] 1 cap INHALATION RT-DAILY 09/20/19 09/20/19 History Allergies Allergy/AdvReac Type Severity Reaction Status Date / Time codeine AdvReac Nausea & Verified 09/19/19 17:11 Vomiting Physical Exam Vitals: Vital Signs Temp Pulse Pulse Resp BP BP Pulse Ox 09/20/19 08:00 98.3 F 90 18 102/80 95 09/20/19 07:48 91 09/20/19 07:31 89 96 09/20/19 03:53 97.5 F L 102 H 18 145/72 96 09/20/19 00:00 97.5 F L 78 19 156/89 94 L 09/19/19 20:56 97.5 F L 93 20 93 L 09/19/19 19:30 81 18 144/78 99 09/19/19 19:00 83 19 141/101 99 09/19/19 18:44 85 18 141/91 98 09/19/19 18:30 91 18 09/19/19 18:16 94 18 09/19/19 17:12 97.7 F 95 18 148/78 99 Intake and Output 09/19/19 09/20/19 09/20/19 22:59 06:59 14:59 Other: Voiding Method Bedside Commode Weight 108.862 kg 67.2 kg Results CBC & Chem 7: 09/20/19 05:42 09/19/19 17:47 Labs: Abnormal Lab Results - Last 24 Hours (Table) 09/19/19 09/19/19 09/19/19 Range/Units 17:47 17:47 17:47 WBC 18.8 H (3.8-10.6) k/uL RBC (3.80-5.40) m/uL Hgb (11.4-16.0) gm/dL MCHC 30.8 L (31.0-37.0) g/dL Neutrophils # 16.5 H (1.3-7.7) k/uL Lymphocytes # 0.9 L (1.0-4.8) k/uL APTT (22.0-30.0) sec Sodium 132 L (137-145) mmol/L Chloride 92 L (98-107) mmol/L BUN 27 H (7-17) mg/dL Creatinine 1.33 H (0.52-1.04) mg/dL Glucose 173 H (74-99) mg/dL POC Glucose (mg/dL) (75-99) mg/dL Troponin I 0.062 H* (0.000-0.034) ng/mL 09/19/19 09/20/19 09/20/19 Range/Units 20:35 00:35 00:35 WBC (3.8-10.6) k/uL RBC (3.80-5.40) m/uL Hgb (11.4-16.0) gm/dL MCHC (31.0-37.0) g/dL Neutrophils # (1.3-7.7) k/uL Lymphocytes # (1.0-4.8) k/uL APTT 65.5 H (22.0-30.0) sec Sodium (137-145) mmol/L Chloride (98-107) mmol/L BUN (7-17) mg/dL Creatinine (0.52-1.04) mg/dL Glucose (74-99) mg/dL POC Glucose (mg/dL) 157 H (75-99) mg/dL Troponin I 0.046 H* (0.000-0.034) ng/mL 09/20/19 09/20/19 09/20/19 Range/Units 05:42 05:42 05:42 WBC 12.5 H (3.8-10.6) k/uL RBC 3.73 L (3.80-5.40) m/uL Hgb 10.9 L (11.4-16.0) gm/dL MCHC 30.6 L (31.0-37.0) g/dL Neutrophils # 11.4 H (1.3-7.7) k/uL Lymphocytes # 0.5 L (1.0-4.8) k/uL APTT 48.8 H (22.0-30.0) sec Sodium (137-145) mmol/L Chloride (98-107) mmol/L BUN (7-17) mg/dL Creatinine (0.52-1.04) mg/dL Glucose (74-99) mg/dL POC Glucose (mg/dL) (75-99) mg/dL Troponin I 0.037 H* (0.000-0.034) ng/mL 09/20/19 Range/Units 05:56 WBC (3.8-10.6) k/uL RBC (3.80-5.40) m/uL Hgb (11.4-16.0) gm/dL MCHC (31.0-37.0) g/dL Neutrophils # (1.3-7.7) k/uL Lymphocytes # (1.0-4.8) k/uL APTT (22.0-30.0) sec Sodium (137-145) mmol/L Chloride (98-107) mmol/L BUN (7-17) mg/dL Creatinine (0.52-1.04) mg/dL Glucose (74-99) mg/dL POC Glucose (mg/dL) 191 H (75-99) mg/dL Troponin I (0.000-0.034) ng/mL Thrombosis Risk Factor Assmnt - Choose All That Apply Any of the Below Risk Factors Present?: Yes Each Factor Represents 1 point: Abnormal pulmonary function (COPD), Obesity (BMI >25) Other Risk Factors: Yes Each Risk Factor Represents 3 Points: Age 75 years or older Other congenital or acquired thrombophilia - If yes, enter type in comment: No Thrombosis Risk Factor Assessment Total Risk Factor Score: 5 Thrombosis Risk Factor Assessment Level: High Risk
[2019-09-20] MEDS ORDERED: methylPREDNISolone SOD SUCCI 125 MG/2 ML VIAL IV STA (18:49)
[2019-09-20] MEDS ORDERED: CALCIUM CARBONATE 500 MG CHEWABLE PO PRN (18:50)
[2019-09-20] MEDS ORDERED: MAG HYDROX/AL HYDROX/SIMETH 30 ML CUP PO PRN (18:50)
[2019-09-20] MEDS ORDERED: MAGNESIUM HYDROXIDE 2,400 MG/10 ML CUP PO PRN (18:50)
[2019-09-20] MEDS ORDERED: MELATONIN 3 MG TABLET PO PRN (18:50)
[2019-09-20] MEDS ORDERED: PROCHLORPERAZINE 5 MG TAB PO PRN (18:50)
[2019-09-20] MEDS ORDERED: LACTULOSE 20 GM/30 ML CUP PO PRN (18:50)
[2019-09-20] MEDS ORDERED: NALOXONE 0.4 MG/ML 1 ML VIAL IV PRN (18:50)
[2019-09-20] MEDS ORDERED: ONDANSETRON 4 MG/2 ML VIAL IVP PRN (18:50)
[2019-09-20] MEDS ORDERED: ATORVASTATIN 10 MG TAB PO SCH (20:00)
[2019-09-20] MEDS: BUDESONIDE 1 MG/2 ML NEBU INHALATION SCH (20:13)
[2019-09-20 20:42] LABS: Glucose,Whole Blood 175 mg/dL (75-99)
[2019-09-20] MEDS: ACETAMINOPHEN TAB 325 MG TAB PO PRN (20:54)
[2019-09-20] MEDS: PANTOPRAZOLE 40 MG TABLET PO SCH (20:55)
[2019-09-20] MEDS: predniSONE 20 MG TAB PO SCH (20:55)
[2019-09-20] MEDS: METOPROLOL TARTRATE 12.5 MG TAB PO SCH (20:55)
[2019-09-20] MEDS: ATORVASTATIN 40 MG TAB PO SCH (20:56)
[2019-09-20] MEDS: DOXYCYCLINE 100 MG CAP PO SCH (21:18)
[2019-09-21] MEDS: IPRATROPIUM-ALBUTEROL 3 ML NEB INHALATION SCH ×6 (03:00→19:12)
[2019-09-21 05:59] LABS: Glucose,Whole Blood 239 mg/dL (75-99)
[2019-09-21 06:25] LABS: Basophils % (A) 0 %; Eosinophils % (A) 0 %; HCT 33.7 % (34.0-46.0); HGB 10.5 gm/dL (11.4-16.0); Lymphocytes # (A) 0.6 k/uL (1.0-4.8); Lymphocytes % (A) 6 %; MCH 29.8 pg (25.0-35.0); MCHC 31.1 g/dL (31.0-37.0); MCV 95.7 fL (80.0-100.0); Mean Platelet Volume 7.6; Monocytes # (A) 0.4 k/uL (0-1.0); Monocytes % (A) 4 %; Neutrophils # (A) 8.8 k/uL (1.3-7.7); Neutrophils % (A) 88 %; Platelet Count 260 k/uL (150-450); RBC 3.53 m/uL (3.80-5.40); RDW 13.7 % (11.5-15.5)
[2019-09-21 06:40] LABS: Calcium 8.4 mg/dL (8.4-10.2); Potassium 5.2 mmol/L (3.5-5.1)
[2019-09-21] MEDS: INSULIN ASPART (NovoLOG) 100 UNIT/ML VIAL SQ SCH ×5 (06:50→21:13)
[2019-09-21] MEDS: BUDESONIDE 1 MG/2 ML NEBU INHALATION SCH ×2 (08:30→19:12)
[2019-09-21] MEDS: POTASSIUM CHLORIDE ER 10 MEQ TAB.ER.PRT PO SCH (08:41)
[2019-09-21] MEDS: DOCUSATE 100 MG CAP PO SCH ×2 (08:41→21:11)
[2019-09-21] MEDS: FLUTICASONE 50MCG/SPRAY NASAL 16GM EA NOSTRIL SCH ×2 (08:41→21:11)
[2019-09-21] MEDS: LOSARTAN 50 MG TAB PO SCH (08:47)
[2019-09-21] MEDS: ACETAMINOPHEN TAB 325 MG TAB PO PRN (08:47)
[2019-09-21] MEDS: SPIRONOLACTONE 25 MG TAB PO SCH (08:47)
[2019-09-21] MEDS: metFORMIN 500 MG TAB PO SCH ×2 (08:47→21:10)
[2019-09-21] MEDS: FUROSEMIDE 40 MG TAB PO SCH (08:47)
[2019-09-21] MEDS: LEVOTHYROXINE 50 MCG TAB PO SCH (08:47)
[2019-09-21] MEDS: predniSONE 20 MG TAB PO SCH (08:47)
[2019-09-21] MEDS: DULoxetine HCL 60 MG CAPSULE.DR PO SCH (08:47)
[2019-09-21] MEDS: ASPIRIN 81 MG PO SCH (08:47)
[2019-09-21] MEDS: METOPROLOL TARTRATE 12.5 MG TAB PO SCH ×2 (08:47→21:10)
[2019-09-21] MEDS: DOXYCYCLINE 100 MG CAP PO SCH ×2 (08:47→21:10)
[2019-09-21] MEDS: glipiZIDE 5 MG TAB PO SCH (08:48)
[2019-09-21] MEDS: DORZOLAMIDE-TIMOLOL 2.23%/0.68 10ML BTL BOTH EYES SCH ×2 (09:19→21:13)
[2019-09-21 11:35] LABS: Glucose,Whole Blood 185 mg/dL (75-99)
--- NOTE | 2019-09-21 13:03 | P.PN ---
Subjective This is Denita Rutherford PA-C dictating a progress note on this patient The patient was interviewed and examined by me as well as by Dr. Mcmahan Case discussed with Dr. Mcmahan and he agrees with the plan of care HPI/interval history Patient is a 74-year-old female with a history of COPD on home O2, DM, KEEGAN, CKD who [facility] with complaints of shortness of breath and hypoxia which improved with 6 L of oxygen. She was found to have borderline abnormal troponins. Patient seen and examined in follow-up. She is resting in bed comfortably. Denies any shortness of breath. No further episodes of hypoxia. Denies chest discomfort. She did get up to the bedside commode and denies any chest pain or shortness of breath with this. No dizziness. EXAMINATION Patient is afebrile, pulse in the 80s, respirations 18, blood pressure 103/54, oxygen saturation 96% on 3 L nasal cannula Patient seen and examined resting in bed, does not appear to be in any acute distress Lungs clear to auscultation bilaterally Heart is regular, no audible murmurs No appreciable elevated JVD Mild lower extremity edema REVIEW OF LABS, ECG WBC 10, hemoglobin 10.5, platelets 260, potassium 5.2, BUN 30, creatinine 1.37 LDL 34 IMPRESSION / ASSESSMENT: #1 shortness of breath and acute hypoxic respiratory failure #2 mildly abnormal troponins, possible non-Q-wave [place] #3 COPD on home oxygen #4 diabetes #5 obstructive sleep apnea #6 CK D PLAN: Awaiting 2-D echocardiogram and Doppler study Continue medical management with aspirin, statins, and beta blockers for non-Q-wave [place] at this time, further recommendations based on echocardiogram results Objective - Vital Signs Vital signs: Vital Signs Temp 97.8 F 09/21/19 11:54 Pulse 88 09/21/19 12:05 Resp 18 09/21/19 11:54 BP 103/54 09/21/19 11:54 Pulse Ox 96 09/21/19 11:54 Intake & Output 09/20/19 09/21/19 09/21/19 18:59 06:59 18:59 Intake Total 285.833 120 500 Output Total 900 850 Balance -614.167 -730 500 Weight 93.5 kg Intake: IV 80 Heparin Sod,Pork in 0.45% 80 NaCl 25,000 unit In 0.45 % NaCl 1 250ml.bag @ 9. 186 UNITS/KG/HR 10 mls/hr IV .Q24H JOANNE Rx#: [id number] Intake, IV Titration 205.833 Amount Heparin Sod,Pork in 0.45% 205.833 NaCl 25,000 unit In 0.45 % NaCl 1 250ml.bag @ 9. 186 UNITS/KG/HR 10 mls/hr IV .Q24H JOANNE Rx#: [id number] Oral 120 500 Output: Urine 900 850 Straight 900 Other: Voiding Method Bedside Commode Bedside Commode Bedside Commode Diaper # Voids 1 1 3 # Bowel Movements 1 - Labs CBC & Chem 7: 09/21/19 06:01 09/21/19 06:01 Labs: Abnormal Lab Results - Last 24 Hours (Table) 09/20/19 09/20/19 09/21/19 Range/Units 16:55 20:39 05:57 RBC (3.80-5.40) m/uL Hgb (11.4-16.0) gm/dL Hct (34.0-46.0) % Neutrophils # (1.3-7.7) k/uL Lymphocytes # (1.0-4.8) k/uL APTT (22.0-30.0) sec Sodium (137-145) mmol/L Potassium (3.5-5.1) mmol/L Chloride (98-107) mmol/L Carbon Dioxide (22-30) mmol/L BUN (7-17) mg/dL Creatinine (0.52-1.04) mg/dL Glucose (74-99) mg/dL POC Glucose (mg/dL) 150 H 175 H 239 H (75-99) mg/dL 09/21/19 09/21/19 09/21/19 Range/Units 06:01 06:01 06:01 RBC 3.53 L (3.80-5.40) m/uL Hgb 10.5 L (11.4-16.0) gm/dL Hct 33.7 L (34.0-46.0) % Neutrophils # 8.8 H (1.3-7.7) k/uL Lymphocytes # 0.6 L (1.0-4.8) k/uL APTT 44.5 H (22.0-30.0) sec Sodium 130 L (137-145) mmol/L Potassium 5.2 H (3.5-5.1) mmol/L Chloride 93 L (98-107) mmol/L Carbon Dioxide 32 H (22-30) mmol/L BUN 30 H (7-17) mg/dL Creatinine 1.37 H (0.52-1.04) mg/dL Glucose 218 H (74-99) mg/dL POC Glucose (mg/dL) (75-99) mg/dL 09/21/19 Range/Units 11:30 RBC (3.80-5.40) m/uL Hgb (11.4-16.0) gm/dL Hct (34.0-46.0) % Neutrophils # (1.3-7.7) k/uL Lymphocytes # (1.0-4.8) k/uL APTT (22.0-30.0) sec Sodium (137-145) mmol/L Potassium (3.5-5.1) mmol/L Chloride (98-107) mmol/L Carbon Dioxide (22-30) mmol/L BUN (7-17) mg/dL Creatinine (0.52-1.04) mg/dL Glucose (74-99) mg/dL POC Glucose (mg/dL) 185 H (75-99) mg/dL
[2019-09-21 16:45] LABS: Glucose,Whole Blood 239 mg/dL (75-99)
--- NOTE | 2019-09-21 20:24 | P.PN ---
Progress Note - Text Progress Note Date: 09/21/19 Chief Complaint: Shortness of breath History of presenting complaint: This is a pleasant 74-year-old patient of Dr. Collins. Chronic stable medical conditions include diabetes, some memory impairment, osteoarthritis, chronic kidney disease, obstructive sleep apnea uses CPAP, hypothyroid. Normally uses a 4 wheel walker to get about. Patient now presented with shortness of breath. Normally has home oxygen about 2 or 3 L. She also having wheezing for last few days. Pulse ox was 80% when EMS picked her up. The pulse ox improved. No fever no chills. Has been having significant cough. Bouts of sneezing. Appetite is good. Acute COPD exacerbation, acute hypoxic respiratory failure, acute non-Q-wave KS. Today-breathing a bit better. No chest pain. Eating well. Review of systems: Was done for constitutional, cardiovascular, GI, pulmonary. relevant finding as above Active Medications Acetaminophen (Tylenol Tab) 650 mg PO Q6HR PRN PRN Reason: Mild Pain or Fever > 100.5 Last Admin: 09/21/19 08:47 Dose: 650 mg Documented by: Al Hydroxide/Mg Hydroxide (Maalox) 15 ml PO Q6HR PRN PRN Reason: Indigestion Albuterol Sulfate (Ventolin Nebulized) 2.5 mg INHALATION RT-BID PRN PRN Reason: Shortness Of Breath Albuterol/Ipratropium (Duoneb 0.5 Mg-3 Mg/3 Ml Soln) 3 ml INHALATION RT-Q4H [facility] Last Admin: 09/21/19 19:12 Dose: 3 ml Documented by: Aspirin (Aspirin) 81 mg PO DAILY [facility] Last Admin: 09/21/19 08:47 Dose: 81 mg Documented by: Atorvastatin Calcium (Lipitor) 40 mg PO HS@1999 [facility] Last Admin: 09/20/19 20:56 Dose: 40 mg Documented by: Budesonide (Pulmicort) 1 mg INHALATION RT-BID [facility] Last Admin: 09/21/19 19:12 Dose: 1 mg Documented by: Calcium Carbonate/Glycine (Tums) 1,000 mg PO Q4HR PRN PRN Reason: Dyspepsia Docusate Sodium (Colace) 100 mg PO BID@ [facility] Last Admin: 09/21/19 08:41 Dose: Not Given Documented by: Dorzolamide/Timolol (Cosopt) 1 drops BOTH EYES BID@ [facility] Last Admin: 09/21/19 09:19 Dose: 1 drops Documented by: Doxycycline Monohydrate (Vibramycin) 100 mg PO BID [facility] Last Admin: 09/21/19 08:47 Dose: 100 mg Documented by: Duloxetine HCl (Cymbalta) 60 mg PO DAILY@08 [facility] Last Admin: 09/21/19 08:47 Dose: 60 mg Documented by: Fluticasone Propionate (Flonase Nasal [place]) 1 spray EA NOSTRIL BID@ [facility] Last Admin: 09/21/19 08:41 Dose: Not Given Documented by: Furosemide (Lasix) 40 mg PO QAM [facility] Last Admin: 09/21/19 08:47 Dose: 40 mg Documented by: Glipizide (Glucotrol) 5 mg PO DAILY@08 [facility] Last Admin: 09/21/19 08:48 Dose: 5 mg Documented by: Insulin Aspart (Novolog) 0 unit SQ [facility]; Protocol Last Admin: 09/21/19 16:51 Dose: 5 unit Documented by: Lactulose (Cephulac) 20 gm PO DAILY PRN PRN Reason: Constipation Levothyroxine Sodium (Synthroid) 50 mcg PO DAILY@0800 [facility] Last Admin: 09/21/19 08:47 Dose: 50 mcg Documented by: Losartan Potassium (Cozaar) 50 mg PO DAILY@08 [facility] Last Admin: 09/21/19 08:47 Dose: 50 mg Documented by: Magnesium Hydroxide (Milk Of Magnesia) 2,400 mg PO DAILY PRN PRN Reason: Constipation Melatonin (Melatonin) 3 mg PO HS PRN PRN Reason: Insomnia Last Admin: 09/20/19 20:54 Dose: 3 mg Documented by: Metformin HCl (Glucophage) 500 mg PO BID@ [facility] Last Admin: 09/21/19 08:47 Dose: 500 mg Documented by: Metoprolol Tartrate (Lopressor) 12.5 mg PO BID [facility] Last Admin: 09/21/19 08:47 Dose: 12.5 mg Documented by: Naloxone HCl (Narcan) 0.2 mg IV Q2M PRN PRN Reason: Opioid Reversal Nitroglycerin (Nitrostat) 0.4 mg SUBLINGUAL Q5M PRN PRN Reason: Chest Pain Ondansetron HCl (Zofran) 4 mg IVP Q8HR PRN PRN Reason: Nausea And Vomiting Pantoprazole Sodium (Protonix) 40 mg PO HS [facility] Last Admin: 09/20/19 20:55 Dose: 40 mg Documented by: Potassium Chloride (K-Dur 10) 10 meq PO DAILY@0800 [facility] Last Admin: 09/21/19 08:41 Dose: Not Given Documented by: Prednisone () 40 mg PO DAILY [facility] Last Admin: 09/21/19 08:47 Dose: 40 mg Documented by: Prochlorperazine Maleate (Compazine) 5 mg PO Q8HR PRN PRN Reason: Nausea And Vomiting Spironolactone (Aldactone) 25 mg PO DAILY@0800 [facility] Last Admin: 09/21/19 08:47 Dose: 25 mg Documented by: Physical examination: VITAL SIGNS: 98.2, 82, 20, 124/65, 94% on 3 L GENERAL: Sitting up more relaxed today EYES: Pupils equal. Conjunctiva normal. HEENT: External appearance of nose and ears normal, oral cavity grossly normal. NECK: JVD not raised; masses not palpable. HEART: [First and second heart sounds are normal; some edema. LUNGS: Respiratory rate increased, diminished breath sounds some wheezing. ABDOMEN: Soft, nontender, liver spleen not palpable, no masses palpable. PSYCH: Able to answer simple questions MUSCULOSKELETAL: Evidence of OA INVESTIGATIONS, reviewed in the clinical context: White count 8-year-old woman 10.5 potassium 5% to bun 30 creatinine 1.37 [id number], 20 and 39 Previous testing White count 18.8 hemoglobin 12.7 platelets 3:30 pressure 5% 1 bun 27 creatinine 1.33 Troponin I 0.062, 0.046 proBNP 1800 EKG tracing personally reviewed by me-normal sinus rhythm with some nonspecific changes Chest x-ray film personally reviewed by me-possible venous prominence Assessment: -Acute COPD in an ex-smoker in a patient who has been wheezing for last 3-4 days the sore having bouts of coughing and bouts of sneezing. Patient is found to be hypoxic by the EMS and then felt better. Patient is feeling a bit improved this morning. -Acute hypoxic respiratory failure from above -Chronic hypoxic respiratory failure from underlying COPD -Troponin leak in the setting of chronic kidney disease, possible acute coronary syndrome/acute non-Q-wave KS. -Diabetes mellitus type 2, chronically on insulin, uncontrolled with hyperglycemia -Hypothyroid -Primary osteoarthritis -Hyperlipidemia -Chronic gait dysfunction uses a 4 wheeled walker. -Mild cognitive impairment -Chronic kidney disease stage III possibly from nephrosclerosis -IV heparin monitoring Plan: -2-D echocardiogram done. Pending. Continue bronchodilators, oral prednisone. Repeat labs in the morning.
[2019-09-21] MEDS: ATORVASTATIN 40 MG TAB PO SCH (21:10)
[2019-09-21] MEDS: PANTOPRAZOLE 40 MG TABLET PO SCH (21:10)
[2019-09-22 06:29] LABS: Glucose,Whole Blood 144 mg/dL (75-99)
[2019-09-22] MEDS: INSULIN ASPART (NovoLOG) 100 UNIT/ML VIAL SQ SCH ×4 (06:44→22:06)
[2019-09-22 07:34] LABS: Basophils # (A) 0.1 k/uL (0-0.2); Basophils % (A) 0 %; Eosinophils # (A) 0.1 k/uL (0-0.7); Eosinophils % (A) 1 %; HCT 35.8 % (34.0-46.0); Lymphocytes # (A) 1.4 k/uL (1.0-4.8); Lymphocytes % (A) 11 %; MCH 29.3 pg (25.0-35.0); MCHC 30.7 g/dL (31.0-37.0); MCV 95.5 fL (80.0-100.0); Mean Platelet Volume 7.6; Monocytes # (A) 0.9 k/uL (0-1.0); Monocytes % (A) 7 %; Neutrophils # (A) 9.7 k/uL (1.3-7.7); Neutrophils % (A) 78 %; Platelet Count 283 k/uL (150-450); RBC 3.75 m/uL (3.80-5.40); RDW 13.8 % (11.5-15.5); WBC 12.4 k/uL (3.8-10.6)
[2019-09-22 07:46] LABS: Calcium 8.8 mg/dL (8.4-10.2); Potassium 4.6 mmol/L (3.5-5.1)
[2019-09-22] MEDS: IPRATROPIUM-ALBUTEROL 3 ML NEB INHALATION SCH ×4 (08:24→19:45)
[2019-09-22] MEDS: BUDESONIDE 1 MG/2 ML NEBU INHALATION SCH ×2 (08:24→19:45)
[2019-09-22] MEDS: DORZOLAMIDE-TIMOLOL 2.23%/0.68 10ML BTL BOTH EYES SCH ×2 (09:44→22:13)
[2019-09-22] MEDS: DOXYCYCLINE 100 MG CAP PO SCH ×2 (09:45→22:08)
[2019-09-22] MEDS: DULoxetine HCL 60 MG CAPSULE.DR PO SCH (09:45)
[2019-09-22] MEDS: SPIRONOLACTONE 25 MG TAB PO SCH (09:45)
[2019-09-22] MEDS: metFORMIN 500 MG TAB PO SCH ×2 (09:45→22:04)
[2019-09-22] MEDS: ASPIRIN 81 MG PO SCH (09:45)
[2019-09-22] MEDS: POTASSIUM CHLORIDE ER 10 MEQ TAB.ER.PRT PO SCH (09:46)
[2019-09-22] MEDS: FLUTICASONE 50MCG/SPRAY NASAL 16GM EA NOSTRIL SCH ×2 (09:46→22:05)
[2019-09-22] MEDS: DOCUSATE 100 MG CAP PO SCH ×2 (09:46→22:05)
[2019-09-22] MEDS: predniSONE 20 MG TAB PO SCH (09:46)
[2019-09-22] MEDS: LOSARTAN 50 MG TAB PO SCH (09:46)
[2019-09-22] MEDS: FUROSEMIDE 40 MG TAB PO SCH (09:46)
[2019-09-22] MEDS: glipiZIDE 5 MG TAB PO SCH (09:46)
[2019-09-22] MEDS: METOPROLOL TARTRATE 12.5 MG TAB PO SCH ×2 (09:47→22:04)
--- NOTE | 2019-09-22 11:22 | P.PN ---
Subjective Progress Note Date: 09/22/19 This is a pleasant 74 show female patient with history of COPD on home O2, diabetes, obstructive sleep apnea, and CK D. Presented from a long-term with complaints of shortness of breath and hypoxia which improved with 6 L of oxygen. She was found to have borderline abnormal troponins. Patient was seen and examined today resting comfortably in bed. Denies any shortness of breath. She's had no dizziness, chest discomfort, palpitations or orthopnea. No further episodes of hypoxia. Objective - Vital Signs Vital signs: Vital Signs Temp 97.5 F L 09/22/19 07:55 Pulse 80 09/22/19 08:41 Resp 20 09/22/19 07:55 BP 162/74 09/22/19 07:55 Pulse Ox 96 09/22/19 07:55 Intake & Output 09/21/19 09/22/19 09/22/19 18:59 06:59 18:59 Intake Total 990 440 480 Output Total 500 Balance 990 -60 480 Weight 116.1 kg Intake: IV 10 0.9 10 Oral 980 440 480 Output: Urine 500 Other: Voiding Method Bedside Commode Bedside Commode Bedside Commode Diaper # Voids 2 - Exam PHYSICAL EXAMINATION: HEENT: Head is atraumatic, normocephalic. Pupils equal, round. Neck is supple. There is no elevated jugular venous pressure. HEART EXAMINATION: Heart sounds regular, S1 and S2 normal. No murmur or gallop heard. CHEST EXAMINATION: Lungs are clear to auscultation and precussion. No chest wall tenderness is noted on palpation or with deep breathing. ABDOMEN: Soft, obese, nontender. Bowel sounds are heard. No organomegaly noted. EXTREMITIES: 1+ peripheral pulses with evidence of mild peripheral edema and no calf tenderness noted. NEUROLOGIC patient is awake, alert and oriented 2-3. . - Labs CBC & Chem 7: 09/22/19 06:14 09/22/19 06:14 Labs: Abnormal Lab Results - Last 24 Hours (Table) 09/21/19 09/21/19 09/22/19 Range/Units 11:30 16:32 06:14 WBC 12.4 H (3.8-10.6) k/uL RBC 3.75 L (3.80-5.40) m/uL Hgb 11.0 L (11.4-16.0) gm/dL MCHC 30.7 L (31.0-37.0) g/dL Neutrophils # 9.7 H (1.3-7.7) k/uL Sodium (137-145) mmol/L Chloride (98-107) mmol/L Carbon Dioxide (22-30) mmol/L BUN (7-17) mg/dL Creatinine (0.52-1.04) mg/dL Glucose (74-99) mg/dL POC Glucose (mg/dL) 185 H 239 H (75-99) mg/dL 09/22/19 09/22/19 Range/Units 06:14 06:23 WBC (3.8-10.6) k/uL RBC (3.80-5.40) m/uL Hgb (11.4-16.0) gm/dL MCHC (31.0-37.0) g/dL Neutrophils # (1.3-7.7) k/uL Sodium 131 L (137-145) mmol/L Chloride 89 L (98-107) mmol/L Carbon Dioxide 35 H (22-30) mmol/L BUN 33 H (7-17) mg/dL Creatinine 1.38 H (0.52-1.04) mg/dL Glucose 136 H (74-99) mg/dL POC Glucose (mg/dL) 144 H (75-99) mg/dL Assessment and Plan Assessment: #1 shortness of breath and acute hypoxic respiratory failure #2 mildly abnormal troponins likely secondary to hypoxia #3 COPD on home oxygen #4 diabetes #5 obstructive sleep apnea #6 CKD Plan: From domestic cleaner perspective, we will review 2-D echo with Doppler. Continue current medications. We will continue to follow the patient for further recommendations accordingly. STERILE PREPARATION TECHNICIAN note has been reviewed, I agree with a documented findings and plan of care. Patient was seen and examined.
--- NOTE | 2019-09-22 11:50 | ECHOF ---
Referral Reason:sob MEASUREMENTS -------- HEIGHT: 162.6 cm WEIGHT: 115.7 kg BP: 137/78 IVSd: 1.2 cm (0.6 - 1.1) LVIDd: 2.8 cm (3.9 - 5.3) LVPWd: 1.6 cm (0.6 - 1.1) IVSs: 1.8 cm LVIDs: 1.6 cm LVPWs: 1.8 cm MV E Lavon: 0.67 m/s MV DecT: 184 ms MV A [place]: 0.77 m/s MV E/A Ratio: 0.87 RAP: 5.00 mmHg RVSP: 11.77 mmHg FINDINGS -------- Sinus rhythm. This was a technically difficult study with suboptimal views. The left ventricular size is normal. There is mild concentric left ventricular hypertrophy. Overa ll left ventricular systolic function is normal with, an EF between 55 - 60 %. The RV was not well visualized. The left atrial size is normal. The right atrium was not well visualized. Unable to visualize the septum. The aortic valve was not well visualized. There is trace mitral regurgitation. The tricuspid valve appears structurally normal. Trace tricuspid regurgitation present. Right jesse tricular systolic pressure is normal at < 35 mmHg. The pulmonic valve was not well visualized. The aortic root size is normal. There is no pericardial effusion. CONCLUSIONS -------- 1. Sinus rhythm. 2. This was a technically difficult study with suboptimal views. 3. The left ventricular size is normal. 4. There is mild concentric left ventricular hypertrophy. 5. Overall left ventricular systolic function is normal with, an EF between 55 - 60 %. 6. The RV was not well visualized. 7. The left atrial size is normal. 8. The right atrium was not well visualized. 9. Unable to visualize the septum. 10. The aortic valve was not well visualized. 11. There is trace mitral regurgitation. 12. The tricuspid valve appears structurally normal. 13. Trace tricuspid regurgitation present. 14. Right ventricular systolic pressure is normal at < 35 mmHg. 15. The pulmonic valve was not well visualized. 16. The aortic root size is normal. 17. There is no pericardial effusion. CHEMICAL PLANT TECHNICAL DIRECTOR: Kathya Patel [facility]
[2019-09-22 11:55] LABS: Glucose,Whole Blood 195 mg/dL (75-99)
[2019-09-22] MEDS: LORATADINE 10 MG TAB PO SCH ×2 (12:08→22:04)
[2019-09-22] MEDS: LEVOTHYROXINE 50 MCG TAB PO SCH (13:33)
--- NOTE | 2019-09-22 15:40 | CDI ---
Documentation Clarification Form Date: 09/22/2019 03:21:53 PM From: Tanja Ledbetter RN CCDS Admit Date: 09/19/2019 07:20:00 PM Patient Name: Raven Carrillo Visit Number: [id number] Discharge Date: ATTENTION: The Clinical Documentation Specialists (CDI) and [facility] Coding Staff appreciate your assistance in clarifying documentation. Please respond to the clarification below the line at the bottom and electronically sign. The CDI & [facility] Coding staff will review the response and follow-up if needed. Please note: Queries are made part of the Legal Health Record. If you have any questions, please contact the author of this message via ITS. Dr. Robert Murdock Mildly abnormal troponins, possible Non-Q-Wave DE documented in Cardiology PN 09/20 Mildly abnormal troponins likely secondary to hypoxia documented in Cardiology PN 09/21 History/Risk Factors:74-year-old female presents to the ED with shortness of breath being hypoxic. Medical History COPD, DM, OA, Renal Disease, Sleep Apnea with Bipap. Clinical Indicators: Lab findings: Troponin 09/18 0.062, 09/19 0.046; 0.037 09/21 ECHO mild concentric left ventricular hypertrophy. Overall left ventricular systolic function is normal with, an EF between 55-60%. 09/18 Vital Signs: 148/78 95 97.7 18 99% 4L nasal cannula Treatment: 09/18 - 3 to 5 L nasal cannula, Ventolin BID and PRN, 09/19 Pulmicort BID, 09/18 Heparin ivpb d/cd 09/19 In your professional opinion, can you please clarify abnormal troponins? xxxx Type 2 DE secondary to demand ischemia in the setting of Respiratory Failure Type 2 DE secondary to demand ischemia in the setting of (please specify) Other, please specify Unable to determine (Last Revision: July 2017) MTDD
--- NOTE | 2019-09-22 16:21 | P.PN ---
Progress Note - Text Progress Note Date: 09/22/19 Chief Complaint: Shortness of breath History of presenting complaint: This is a pleasant 74-year-old patient of Dr. Collins. Chronic stable medical conditions include diabetes, some memory impairment, osteoarthritis, chronic kidney disease, obstructive sleep apnea uses CPAP, hypothyroid. Normally uses a 4 wheel walker to get about. Patient now presented with shortness of breath. Normally has home oxygen about 2 or 3 L. She also having wheezing for last few days. Pulse ox was 80% when EMS picked her up. The pulse ox improved. No fever no chills. Has been having significant cough. Bouts of sneezing. Appetite is good. Acute COPD exacerbation, acute hypoxic respiratory failure, acute non-Q-wave VT. Today-breathing is comfortable. Tolerating a diet. No chest pain. Pending a 2-D echocardiogram this morning. Review of systems: Was done for constitutional, cardiovascular, GI, pulmonary. relevant finding as above Active Medications Acetaminophen (Tylenol Tab) 650 mg PO Q6HR PRN PRN Reason: Mild Pain or Fever > 100.5 Last Admin: 09/21/19 08:47 Dose: 650 mg Documented by: Al Hydroxide/Mg Hydroxide (Maalox) 15 ml PO Q6HR PRN PRN Reason: Indigestion Albuterol Sulfate (Ventolin Nebulized) 2.5 mg INHALATION RT-BID PRN PRN Reason: Shortness Of Breath Albuterol/Ipratropium (Duoneb 0.5 Mg-3 Mg/3 Ml Soln) 3 ml INHALATION RT-QID [facility] Last Admin: 09/22/19 15:58 Dose: 3 ml Documented by: Aspirin (Aspirin) 81 mg PO DAILY [facility] Last Admin: 09/22/19 09:45 Dose: 81 mg Documented by: Atorvastatin Calcium (Lipitor) 40 mg PO HS@1999 [facility] Last Admin: 09/21/19 21:10 Dose: 40 mg Documented by: Budesonide (Pulmicort) 1 mg INHALATION RT-BID [facility] Last Admin: 09/22/19 08:24 Dose: 1 mg Documented by: Calcium Carbonate/Glycine (Tums) 1,000 mg PO Q4HR PRN PRN Reason: Dyspepsia Docusate Sodium (Colace) 100 mg PO BID@ [facility] Last Admin: 09/22/19 09:46 Dose: Not Given Documented by: Dorzolamide/Timolol (Cosopt) 1 drops BOTH EYES BID@ [facility] Last Admin: 09/22/19 09:44 Dose: 1 drops Documented by: Doxycycline Monohydrate (Vibramycin) 100 mg PO BID [facility] Last Admin: 09/22/19 09:45 Dose: 100 mg Documented by: Duloxetine HCl (Cymbalta) 60 mg PO DAILY@08 [facility] Last Admin: 09/22/19 09:45 Dose: 60 mg Documented by: Fluticasone Propionate (Flonase Nasal [place]) 1 spray EA NOSTRIL BID@ [facility] Last Admin: 09/22/19 09:46 Dose: Not Given Documented by: Furosemide (Lasix) 40 mg PO QAM [facility] Last Admin: 09/22/19 09:46 Dose: 40 mg Documented by: Glipizide (Glucotrol) 5 mg PO DAILY@08 [facility] Last Admin: 09/22/19 09:46 Dose: 5 mg Documented by: Insulin Aspart (Novolog) 0 unit SQ [facility]; Protocol Last Admin: 09/22/19 12:08 Dose: 3 unit Documented by: Lactulose (Cephulac) 20 gm PO DAILY PRN PRN Reason: Constipation Levothyroxine Sodium (Synthroid) 50 mcg PO DAILY@0800 [facility] Last Admin: 09/22/19 13:33 Dose: 50 mcg Documented by: Loratadine (Claritin) 5 mg PO Q12HR [facility] Last Admin: 09/22/19 12:08 Dose: 5 mg Documented by: Losartan Potassium (Cozaar) 50 mg PO DAILY@0800 [facility] Last Admin: 09/22/19 09:46 Dose: 50 mg Documented by: Magnesium Hydroxide (Milk Of Magnesia) 2,400 mg PO DAILY PRN PRN Reason: Constipation Melatonin (Melatonin) 3 mg PO HS PRN PRN Reason: Insomnia Last Admin: 09/20/19 20:54 Dose: 3 mg Documented by: Metformin HCl (Glucophage) 500 mg PO BID@ [facility] Last Admin: 09/22/19 09:45 Dose: 500 mg Documented by: Metoprolol Tartrate (Lopressor) 12.5 mg PO BID [facility] Last Admin: 09/22/19 09:47 Dose: 12.5 mg Documented by: Naloxone HCl (Narcan) 0.2 mg IV Q2M PRN PRN Reason: Opioid Reversal Nitroglycerin (Nitrostat) 0.4 mg SUBLINGUAL Q5M PRN PRN Reason: Chest Pain Ondansetron HCl (Zofran) 4 mg IVP Q8HR PRN PRN Reason: Nausea And Vomiting Pantoprazole Sodium (Protonix) 40 mg PO HS [facility] Last Admin: 09/21/19 21:10 Dose: 40 mg Documented by: Potassium Chloride (K-Dur 10) 10 meq PO DAILY@0800 [facility] Last Admin: 09/22/19 09:46 Dose: 10 meq Documented by: Prednisone () 40 mg PO DAILY [facility] Last Admin: 09/22/19 09:46 Dose: 40 mg Documented by: Prochlorperazine Maleate (Compazine) 5 mg PO Q8HR PRN PRN Reason: Nausea And Vomiting Spironolactone (Aldactone) 25 mg PO DAILY@0800 [facility] Last Admin: 09/22/19 09:45 Dose: 25 mg Documented by: Physical examination: VITAL SIGNS: 98.2, 69, 18, and 23/62, 97% on 4 L GENERAL: Propped up in bed, comfortable EYES: Pupils equal. Conjunctiva normal. HEENT: External appearance of nose and ears normal, oral cavity grossly normal. NECK: JVD not raised; masses not palpable. HEART: [First and second heart sounds are normal; some edema. LUNGS: Respiratory rate increased, diminished breath sounds. ABDOMEN: Soft, nontender, liver spleen not palpable, no masses palpable. PSYCH: Able to answer simple questions MUSCULOSKELETAL: Evidence of OA INVESTIGATIONS, reviewed in the clinical context: White count 12.4, hemoglobin 11, platelets 23 potassium 4.6 bun 33 creatinine 1.38 2-D echo-EF 55-60% Previous testing White count 18.8 hemoglobin 12.7 platelets 3:30 pressure 5% 1 bun 27 creatinine 1.33 Troponin I 0.062, 0.046 proBNP 1800 EKG tracing personally reviewed by me-normal sinus rhythm with some nonspecific changes Chest x-ray film personally reviewed by me-possible venous prominence Assessment: -Acute COPD in an ex-smoker in a patient who has been wheezing for last 3-4 days the sore having bouts of coughing and bouts of sneezing. Patient is found to be hypoxic by the EMS and then felt better. POA, improved -Acute hypoxic respiratory failure from above, POA, improved -Chronic hypoxic respiratory failure from underlying COPD -Troponin leak in the setting of chronic kidney disease, possible acute coronary syndrome/acute non-Q-wave VT. POA -Diabetes mellitus type 2, chronically on insulin, uncontrolled with hyperglycem ia -Hypothyroid -Primary osteoarthritis -Hyperlipidemia -Chronic gait dysfunction uses a 4 wheeled walker. -Mild cognitive impairment -Chronic kidney disease stage III possibly from nephrosclerosis -IV heparin monitoring-now discontinued Plan: - Continue bronchodilators, oral prednisone. Informed by Sarah leather case finisher that patient be now going to [facility]CF hence discharge canceled. PTOT of the case.
[2019-09-22 16:57] LABS: Glucose,Whole Blood 218 mg/dL (75-99)
[2019-09-22 20:45] LABS: Glucose,Whole Blood 297 mg/dL (75-99)
[2019-09-22] MEDS: PANTOPRAZOLE 40 MG TABLET PO SCH (22:04)
[2019-09-22] MEDS: ATORVASTATIN 40 MG TAB PO SCH (22:05)
[2019-09-23 06:14] LABS: Glucose,Whole Blood 113 mg/dL (75-99)
[2019-09-23] MEDS: INSULIN ASPART (NovoLOG) 100 UNIT/ML VIAL SQ SCH ×2 (06:32→12:46)
[2019-09-23 07:13] LABS: Calcium 9.4 mg/dL (8.4-10.2); Potassium 4.5 mmol/L (3.5-5.1)
[2019-09-23] MEDS: DORZOLAMIDE-TIMOLOL 2.23%/0.68 10ML BTL BOTH EYES SCH (08:51)
[2019-09-23] MEDS: DOXYCYCLINE 100 MG CAP PO SCH (08:52)
[2019-09-23] MEDS: DULoxetine HCL 60 MG CAPSULE.DR PO SCH (08:52)
[2019-09-23] MEDS: LEVOTHYROXINE 50 MCG TAB PO SCH (08:52)
[2019-09-23] MEDS: POTASSIUM CHLORIDE ER 10 MEQ TAB.ER.PRT PO SCH (08:52)
[2019-09-23] MEDS: SPIRONOLACTONE 25 MG TAB PO SCH (08:52)
[2019-09-23] MEDS: predniSONE 20 MG TAB PO SCH (08:52)
[2019-09-23] MEDS: LOSARTAN 50 MG TAB PO SCH (08:52)
[2019-09-23] MEDS: LORATADINE 10 MG TAB PO SCH (08:52)
[2019-09-23] MEDS: ASPIRIN 81 MG PO SCH (08:52)
[2019-09-23] MEDS: glipiZIDE 5 MG TAB PO SCH (08:52)
[2019-09-23] MEDS: METOPROLOL TARTRATE 12.5 MG TAB PO SCH (08:52)
[2019-09-23] MEDS: FUROSEMIDE 40 MG TAB PO SCH (08:52)
[2019-09-23] MEDS: metFORMIN 500 MG TAB PO SCH (08:53)
[2019-09-23] MEDS: FLUTICASONE 50MCG/SPRAY NASAL 16GM EA NOSTRIL SCH (08:53)
[2019-09-23] MEDS: DOCUSATE 100 MG CAP PO SCH (08:53)
[2019-09-23] MEDS: BUDESONIDE 1 MG/2 ML NEBU INHALATION SCH (08:57)
[2019-09-23] MEDS: IPRATROPIUM-ALBUTEROL 3 ML NEB INHALATION SCH ×2 (08:57→13:34)
[2019-09-23 10:38] VITALS: RESP 18
[2019-09-23 11:46] LABS: Glucose,Whole Blood 160 mg/dL (75-99)
--- NOTE | 2019-09-23 12:10 | P.PN ---
Subjective Progress Note Date: 09/23/19 This is a pleasant 74 show female patient with history of COPD on home O2, diabetes, obstructive sleep apnea, and CK D. Presented from a skilled nursing with complaints of shortness of breath and hypoxia which improved with 6 L of oxygen. She was found to have borderline abnormal troponins. Patient was seen and examined today resting comfortably in bed. Denies any shortness of breath. She's had no dizziness, chest discomfort, palpitations or orthopnea. No further episodes of hypoxia. 09/23/2019 Patient was seen and examined this morning resting comfortably in bed. She denies any complaints of difficulty breathing, chest discomfort, palpitations, dizziness or edema. She has no complaints of orthopnea or PND. Vital signs are stable. Labs this morning showed stable renal function with a BUN of 37 and creatinine 1.39. Echocardiogram with Doppler study showed mild LVH, normal LV systolic function with an ejection fraction between 55-60%, trace MR and trace TR. Objective - Vital Signs Vital signs: Vital Signs Temp 97.9 F 09/23/19 08:40 Pulse 80 09/23/19 09:18 Resp 18 09/23/19 08:40 BP 138/75 09/23/19 08:40 Pulse Ox 96 09/23/19 08:40 Intake & Output 09/22/19 09/23/19 09/23/19 18:59 06:59 18:59 Intake Total 1260 360 293 Output Total 200 Balance 1260 160 293 Weight 116.5 kg Intake: Oral 1260 360 293 Output: Urine 200 Other: Voiding Method Bedside Commode Diaper Bedside Commode Diaper # Voids 3 1 - Exam PHYSICAL EXAMINATION: HEENT: Head is atraumatic, normocephalic. Pupils equal, round. Neck is supple. There is no elevated jugular venous pressure. HEART EXAMINATION: Heart sounds regular, S1 and S2 normal. No murmur or gallop heard. CHEST EXAMINATION: Lungs are clear to auscultation and precussion. No chest wall tenderness is noted on palpation or with deep breathing. ABDOMEN: Soft, obese, nontender. Bowel sounds are heard. No organomegaly noted. EXTREMITIES: 1+ peripheral pulses with evidence of trace peripheral edema and no calf tenderness noted. NEUROLOGIC patient is awake, alert and oriented 2-3. . - Labs CBC & Chem 7: 09/22/19 06:14 09/23/19 06:28 Labs: Abnormal Lab Results - Last 24 Hours (Table) 09/22/19 09/22/19 09/23/19 Range/Units 16:46 20:44 06:12 Sodium (137-145) mmol/L Chloride (98-107) mmol/L Carbon Dioxide (22-30) mmol/L BUN (7-17) mg/dL Creatinine (0.52-1.04) mg/dL Glucose (74-99) mg/dL POC Glucose (mg/dL) 218 H 297 H 113 H (75-99) mg/dL 09/23/19 09/23/19 Range/Units 06:28 11:45 Sodium 134 L (137-145) mmol/L Chloride 90 L (98-107) mmol/L Carbon Dioxide 39 H (22-30) mmol/L BUN 37 H (7-17) mg/dL Creatinine 1.39 H (0.52-1.04) mg/dL Glucose 102 H (74-99) mg/dL POC Glucose (mg/dL) 160 H (75-99) mg/dL Assessment and Plan Assessment: #1 shortness of breath and acute hypoxic respiratory failure #2 mildly abnormal troponins likely a type II event secondary to demand ischemia in the setting of respiratory failure #3 COPD on home oxygen #4 diabetes #5 obstructive sleep apnea #6 CKD Plan: From dry folder cloth perspective, medications were reviewed and we will continue the same. At the same we'll follow the patient on an as-needed basis. Please do not hesitate to contact us with questions. ASBESTOS HAZARD ABATEMENT WORKER note has been reviewed, I agree with a documented findings and plan of care. Patient was seen and examined.
--- NOTE | 2019-09-23 14:42 | P.DS ---
Providers Date of admission: 09/19/19 19:20 Expected date of discharge: 09/23/19 Attending physician: Terry Ghotra Consults: 09/19/19 19:08 Consult Physician Urgent Consulting Provider: Robert Murdock Consult Reason/Comments: nstemi, shortness of breath Do you want consulting provider notified?: Yes Primary care physician: [facility] Hospital Course: Chief Complaint: Shortness of breath History of presenting complaint: This is a pleasant 74-year-old patient of Dr. Collins. Chronic stable medical conditions include diabetes, some memory impairment, osteoarthritis, chronic kidney disease, obstructive sleep apnea uses CPAP, hypothyroid. Normally uses a 4 wheel walker to get about. Patient now presented with shortness of breath. Normally has home oxygen about 2 or 3 L. She also having wheezing for last few days. Pulse ox was 80% when EMS picked her up. The pulse ox improved. No fever no chills. Has been having significant cough. Bouts of sneezing. Appetite is good. Acute COPD exacerbation, acute hypoxic respiratory failure, acute non-Q-wave UT. Today-. In bed. Comfortable. Tolerating a diet. Breathing stable. Discussed the discharge planners. Has a bed at the [facility]. Cleared by cardiology. Discussed with patient Consultation: Cardiology associates Physical examination: VITAL SIGNS: 97.9, 59, 18, 130-75, 96% on 4 L GENERAL: Propped up in bed, comfortable EYES: Pupils equal. Conjunctiva normal. HEENT: External appearance of nose and ears normal, oral cavity grossly normal. NECK: JVD not raised; masses not palpable. HEART: [First and second heart sounds are normal; some edema. LUNGS: Respiratory rate normal, diminished breath sounds. ABDOMEN: Soft, nontender, liver spleen not palpable, no masses palpable. PSYCH: Able to answer simple questions MUSCULOSKELETAL: Evidence of OA INVESTIGATIONS, reviewed in the clinical context: White count 12.4, hemoglobin 11, potassium 4.5 bun 37 creatinine 1.39 2-D echo-EF 55-60% Previous testing White count 18.8 hemoglobin 12.7 platelets 3:30 pressure 5% 1 bun 27 creatinine 1.33 Troponin I 0.062, 0.046 proBNP 1800 EKG tracing personally reviewed by me-normal sinus rhythm with some nonspecific changes Chest x-ray film personally reviewed by me-possible venous prominence Assessment: -Acute COPD exacerbation in an ex-smoker. POA, improved -Acute hypoxic respiratory failure from above, POA, improved -Chronic hypoxic respiratory failure from underlying COPD -Troponin leak in the setting of chronic kidney disease, possible acute coronary syndrome/acute non-Q-wave UT. POA -Diabetes mellitus type 2, chronically on insulin, uncontrolled with hyperglycemia -Hypothyroid -Primary osteoarthritis -Hyperlipidemia -Chronic gait dysfunction uses a 4 wheeled walker. -Mild cognitive impairment -Chronic kidney disease stage III possibly from nephrosclerosis -IV heparin monitoring discontinued Disposition: ECF/[facility] Patient Condition at Discharge: Stable Plan - Discharge Summary Discharge Rx Participant: No New Discharge Prescriptions: New Aspirin 81 mg PO DAILY chew Atorvastatin [Lipitor] 40 mg PO HS@1999 #30 tab Metoprolol Tartrate [Lopressor] 12.5 mg PO BID #60 tab predniSONE 0 mg PO DIRECTED #10 tab Levothyroxine Sodium [Synthroid] 50 mcg PO DAILY@0800 #30 tab Doxycycline [Vibramycin] 100 mg PO BID #6 cap Continue Spironolactone [Aldactone] 25 mg PO DAILY@0800 Albuterol Sulfate [Proair Hfa] 1 puff INHALATION RT-BID PRN PRN Reason: Shortness Of Breath Potassium Chloride ER [K-Dur 10] 10 meq PO DAILY@0800 Pantoprazole Sodium [Protonix] 40 mg PO HS@1999 metFORMIN HCL [Glucophage] 500 mg PO BID@799,1999 Losartan Potassium 50 mg PO DAILY@0800 glipiZIDE [Glucotrol] 5 mg PO DAILY@0800 Fluticasone Nasal [place] [Flonase Nasal [place]] 1 spray EA NOSTRIL BID@799,1999 DULoxetine HCL [Cymbalta] 60 mg PO DAILY@0800 Dorzolamide/Timolol/Pf [Dorzolamide 2%-Timolol 0.5%] 1 drop BOTH EYES BID@799,1999 Docusate [Colace] 100 mg PO BID@799,1999 Budesonide [Pulmicort] 0.5 mg INHALATION RT-BID@799,1999 Furosemide [Lasix] 40 mg PO QAM@0800 Ipratropium-Albuterol Nebulize [Duoneb 0.5 mg-3 mg/3 ml Soln] 3 ml INHALATION RT-TID Ferrous Sulfate [Iron (65 MG Elemental)] 325 mg PO DAILY@08 Butalb/APAP/Caff 50-325-40Mg [Fioricet 50-325-40] 2 tab PO Q6H PRN PRN Reason: Pain Discontinued Atorvastatin [Lipitor] 10 mg PO HS@1999 Tiotropium [place] [Spiriva] 1 cap INHALATION RT-DAILY Levothyroxine Sodium [Synthroid] 75 mcg PO DAILY Discharge Medication List Albuterol Sulfate [Proair Hfa] 1 puff INHALATION RT-BID PRN 03/06/19 [History] Budesonide [Pulmicort] 0.5 mg INHALATION RT-BID@799,199903/06/19 [History] DULoxetine HCL [Cymbalta] 60 mg PO DAILY@79903/06/19 [History] Docusate [Colace] 100 mg PO BID@799,199903/06/19 [History] Dorzolamide/Timolol/Pf [Dorzolamide 2%-Timolol 0.5%] 1 drop BOTH EYES BID@799,199903/06/19 [History] Fluticasone Nasal [place] [Flonase Nasal [place]] 1 spray EA NOSTRIL BID@799,199903/06/19 [History] Losartan Potassium 50 mg PO DAILY@0803/06/19 [History] Pantoprazole Sodium [Protonix] 40 mg PO HS@199903/06/19 [History] Potassium Chloride ER [K-Dur 10] 10 meq PO DAILY@0803/06/19 [History] Spironolactone [Aldactone] 25 mg PO DAILY@0803/06/19 [History] glipiZIDE [Glucotrol] 5 mg PO DAILY@0803/06/19 [History] metFORMIN HCL [Glucophage] 500 mg PO BID@799,199903/06/19 [History] Furosemide [Lasix] 40 mg PO QAM@79909/19/19 [History] Ipratropium-Albuterol Nebulize [Duoneb 0.5 mg-3 mg/3 ml Soln] 3 ml INHALATION RT-TID 09/19/19 [History] Butalb/APAP/Caff 50-325-40Mg [Fioricet 50-325-40] 2 tab PO Q6H PRN 09/20/19 [History] Ferrous Sulfate [Iron (65 MG Elemental)] 325 mg PO DAILY@0800 09/20/19 [History] Aspirin 81 mg PO DAILY chew 09/22/19 [Rx] Atorvastatin [Lipitor] 40 mg PO HS@1999 #30 tab 09/22/19 [Rx] Doxycycline [Vibramycin] 100 mg PO BID #6 cap 09/22/19 [Rx] Levothyroxine Sodium [Synthroid] 50 mcg PO DAILY@0800 #30 tab 09/22/19 [Rx] Metoprolol Tartrate [Lopressor] 12.5 mg PO BID #60 tab 09/22/19 [Rx] predniSONE 0 mg PO DIRECTED #10 tab 09/22/19 [Rx] Follow up Appointment(s)/Referral(s): cardiology, [Other] - 10 Days Calos Winston MD [Primary Care Provider] - 1-2 days Activity/Diet/Wound Care/Special Instructions: dc if ok with cardiology
[2019-09-23 14:44] VITALS: BP 118/61; PULSE 70; TEMP 97.7
== END 2019-09-23 17:01 | DRG 190 ==
LOC: EC 17:05 → 3SCARD 19:20
PROVIDERS: ADMIT Hospitalist; ATTEND Hospitalist
PROC: 5A09457 Assistance with Respiratory Ventilation, 24-96 Consecutive Hours, Continuous Positive Airway Pressure (ICD-10-PCS; principal; 2019-09-20)
DX: J44.1 Chronic obstructive pulmonary disease with (acute) exacerbation (principal); I21.A1 Myocardial infarction type 2; J96.21 Acute and chronic respiratory failure with hypoxia; Z68.41 Body mass index [BMI] 40.0-44.9, adult; Z20.828 Contact with and (suspected) exposure to other viral communicable diseases; E11.22 Type 2 diabetes mellitus with diabetic chronic kidney disease; E11.65 Type 2 diabetes mellitus with hyperglycemia; N18.3 Chronic kidney disease, stage 3 (moderate); M19.91 Primary osteoarthritis, unspecified site; E03.9 Hypothyroidism, unspecified; E78.5 Hyperlipidemia, unspecified; R26.9 Unspecified abnormalities of gait and mobility; G31.84 Mild cognitive impairment of uncertain or unknown etiology; G47.33 Obstructive sleep apnea (adult) (pediatric); E66.9 Obesity, unspecified; R60.0 Localized edema; I51.7 Cardiomegaly; Z79.899 Other long term (current) drug therapy; Z79.890 Hormone replacement therapy; Z79.84 Long term (current) use of oral hypoglycemic drugs; Z79.51 Long term (current) use of inhaled steroids; Z87.01 Personal history of pneumonia (recurrent); Z87.891 Personal history of nicotine dependence; Z87.440 Personal history of urinary (tract) infections; Z90.710 Acquired absence of both cervix and uterus; Z98.890 Other specified postprocedural states; Z90.49 Acquired absence of other specified parts of digestive tract; Z99.81 Dependence on supplemental oxygen; Z88.5 Allergy status to narcotic agent; Z80.8 Family history of malignant neoplasm of other organs or systems
CPT/HCPCS: 36415; 71046; 80048; 80053; 80061; 82272; 83605; 83735; 83880; 84484; 85025; 85610; 85730; 93005; 93306; 94640; 94760; 96365; 96375; 96376; 99285

== ENCOUNTER 2020-01-25 13:36 | Inpatient (IN) | payer MEDICARE, BC ==
--- NOTE | 2020-01-25 13:57 | ED ---
Weakness HPI - General Chief complaint: Weakness Stated complaint: WEAKNESS Time Seen by Provider: 01/25/20 13:52 Source: patient, EMS, RN notes reviewed, old records reviewed Mode of arrival: EMS Limitations: no limitations - History of Present Illness Initial comments: This is a 74-year-old female who patient presents to ER for evaluation patient has weakness. Urinary tract infection. 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 Patient denying any other significant complaints. Unable to get up off the floor with the bathroom this morning she does have prior history of similar symptoms unsure of cause MD Complaint: generalized weakness, lack of energy, difficulty walking -: hour(s) Location: generalized Severity: moderate, severe Severity scale (1-10): 10 Consistency: constant Improves with: none Worsens with: none Context: history of similar Associated Symptoms: dysuria, loss of appetite - Related Data Home Medications Medication Instructions Recorded Confirmed Albuterol Sulfate [Proair Hfa] 1 puff INHALATION RT-BID PRN 03/06/19 09/19/19 Budesonide [Pulmicort] 0.5 mg INHALATION RT-BID@08,199903/06/19 09/19/19 DULoxetine HCL [Cymbalta] 60 mg PO DAILY@0803/06/19 09/19/19 Docusate [Colace] 100 mg PO BID@08,199903/06/19 09/19/19 Dorzolamide/Timolol/Pf 1 drop BOTH EYES BID@08,199903/06/19 09/19/19 [Dorzolamide 2%-Timolol 0.5%] Fluticasone Nasal [place] [Flonase 1 spray EA NOSTRIL BID@08,199903/06/19 09/19/19 Nasal [place]] Losartan Potassium 50 mg PO DAILY@0803/06/19 09/19/19 Pantoprazole Sodium [Protonix] 40 mg PO HS@199903/06/19 09/20/19 Potassium Chloride ER [K-Dur 10] 10 meq PO DAILY@0803/06/19 09/19/19 Spironolactone [Aldactone] 25 mg PO DAILY@0800 03/06/19 09/19/19 glipiZIDE [Glucotrol] 5 mg PO DAILY@0803/06/19 09/19/19 metFORMIN HCL [Glucophage] 500 mg PO BID@03/06/19 09/19/19 Furosemide [Lasix] 40 mg PO QAM@79909/19/19 09/20/19 Ipratropium-Albuterol Nebulize 3 ml INHALATION RT-TID 09/19/19 09/19/19 [Duoneb 0.5 mg-3 mg/3 ml Soln] Butalb/APAP/Caff 50-325-40Mg 2 tab PO Q6H PRN 09/20/19 09/20/19 [Fioricet 50-325-40] Ferrous Sulfate [Iron (65 MG 325 mg PO DAILY@79909/20/19 09/20/19 Elemental)] Previous Rx's Medication Instructions Recorded Aspirin 81 mg PO DAILY chew 09/22/19 Atorvastatin [Lipitor] 40 mg PO HS@1999 #30 tab 09/22/19 Doxycycline [Vibramycin] 100 mg PO BID #6 cap 09/22/19 Levothyroxine Sodium [Synthroid] 50 mcg PO DAILY@799 #30 tab 09/22/19 Metoprolol Tartrate [Lopressor] 12.5 mg PO BID #60 tab 09/22/19 predniSONE 0 mg PO DIRECTED #10 tab 09/22/19 Allergies Allergy/AdvReac Type Severity Reaction Status Date / Time codeine AdvReac Nausea & Verified 09/19/19 17:11 Vomiting Review of Systems ROS Statement: Those systems with pertinent positive or pertinent negative responses have been documented in the HPI. ROS Other: All systems not noted in ROS Statement are negative. Past Medical History Past Medical History: COPD, Diabetes Mellitus, Memory Impairment, Osteoarthritis (OA), Pneumonia, Renal Disease, Sleep Apnea/CPAP/BIPAP, Thyroid Disorder Additional Past Medical History / Comment(s): cellulitis on legs, uses cpap at home thinks her settings are 5 very poor historian, POSSIBLE HEART PER PATIENT UNSURE, BLADDER INFECTION History of Any Multi-Drug Resistant Organisms: ESBL Date of last positivie culture/infection: 03/20/19 MDRO Source:: Urine Past Surgical History: Appendectomy, Cholecystectomy, Hernia Repair, Hysterectomy, Tonsillectomy Additional Past Surgical History / Comment(s): kidney left removed, colonoscopy Past Anesthesia/Blood Transfusion Reactions: No Reported Reaction Past Psychological History: No Psychological Hx Reported Smoking Status: Former smoker Past Alcohol Use History: None Reported Past Drug Use History: None Reported - Past Family History Mother Family Medical History: Cancer Additional Family Medical History / Comment(s): throat cancer General Exam Limitations: no limitations General appearance: alert, in no apparent distress Head exam: Present: atraumatic, normocephalic, normal inspection Eye exam: Present: normal appearance, PERRL, EOMI. Absent: scleral icterus, conjunctival injection, periorbital swelling ENT exam: Present: normal exam, mucous membranes moist Neck exam: Present: normal inspection. Absent: tenderness, meningismus, lympha denopathy Respiratory exam: Present: normal lung sounds bilaterally. Absent: respiratory distress, wheezes, rales, rhonchi, stridor Cardiovascular Exam: Present: regular rate, normal rhythm, normal heart sounds. Absent: systolic murmur, diastolic murmur, rubs, gallop, clicks GI/Abdominal exam: Present: soft, normal bowel sounds. Absent: distended, tenderness, guarding, rebound, rigid Extremities exam: Present: normal inspection, full ROM, normal capillary refill. Absent: tenderness, pedal edema, joint swelling, calf tenderness Back exam: Present: normal inspection Neurological exam: Present: alert, oriented X3, CN II-XII intact Psychiatric exam: Present: normal affect, normal mood Skin exam: Present: warm, dry, intact, normal color. 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 Advisor ] Respiratory 20 22 22 Rate Blood Pressure 123/83 103/81 O2 Sat by Pulse 100 99 Oximetry 01/25/20 14:50 Temperature Pulse Rate 63 Pulse Rate [ Campaign Advisor ] Respiratory 22 Rate Blood Pressure 119/81 O2 Sat by Pulse 97 Oximetry - Reevaluation(s) Reevaluation #1: 01/25/20 15:37 Medical record is reviewed Reevaluation #2: 01/25/20 15:37 Patient is persistently weak Reevaluation #3: 01/25/20 15:37 Patient is informed of results and questions answered - Consultations Consultation #1: spoke with sound agree to admit this patient EKG Findings - EKG Comments: EKG Findings:: EKG is sinus rhythm 83 UT 136 QRS 74 QTc 425 Medical Decision Making - Medical Decision Making 74 female DEL with urinary tract infection. Severe dehydration weakness and inability to ambulate. Patient be admitted for IV antibiotics rehydration continued evaluation possible PTOT - Lab Data Result diagrams: 01/25/20 14:10 01/25/20 14:10 Lab Results 01/25/20 01/25/20 01/25/20 Range/Units 14:10 14:10 14:10 WBC 12.7 H (3.8-10.6) k/uL RBC 4.14 (3.80-5.40) m/uL Hgb 12.7 (11.4-16.0) gm/dL Hct 39.9 (34.0-46.0) % MCV 96.4 (80.0-100.0) fL MCH 30.6 (25.0-35.0) pg MCHC 31.8 (31.0-37.0) g/dL RDW 13.7 (11.5-15.5) % Plt Count 315 (150-450) k/uL Neutrophils % 80 % Lymphocytes % 5 % Monocytes % 7 % Eosinophils % 5 % Basophils % 2 % Neutrophils # 10.1 H (1.3-7.7) k/uL Lymphocytes # 0.7 L (1.0-4.8) k/uL Monocytes # 0.9 (0-1.0) k/uL Eosinophils # 0.7 (0-0.7) k/uL Basophils # 0.2 (0-0.2) k/uL Hypochromasia Slight PT 11.8 (9.0-12.0) sec INR 1.2 H (<1.2) APTT 30.8 H (22.0-30.0) sec Sodium (137-145) mmol/L Potassium (3.5-5.1) mmol/L Chloride (98-107) mmol/L Carbon Dioxide (22-30) mmol/L Anion Gap mmol/L BUN (7-17) mg/dL Creatinine (0.52-1.04) mg/dL Est GFR (CKD-EPI)AfAm (>60 ml/min/1.73 sqM) Est GFR (CKD-EPI)NonAf (>60 ml/min/1.73 sqM) Glucose (74-99) mg/dL Plasma Lactic Acid Taz (0.7-2.0) mmol/L Calcium (8.4-10.2) mg/dL Phosphorus (2.5-4.5) mg/dL Magnesium (1.6-2.3) mg/dL Total Bilirubin (0.2-1.3) mg/dL AST (14-36) U/L ALT (4-34) U/L Alkaline Phosphatase (38-126) U/L Troponin I (0.000-0.034) ng/mL Total Protein (6.3-8.2) g/dL Albumin (3.5-5.0) g/dL Urine Color Yellow Urine Appearance Turbid H (Clear) Urine pH 5.5 (5.0-8.0) Ur Specific [place] 1.015 (1.001-1.035) Urine Protein 1+ H (Negative) Urine Glucose (UA) Trace H (Negative) Urine Ketones Negative (Negative) Urine Blood Small H (Negative) Urine Nitrite Negative (Negative) Urine Bilirubin Negative (Negative) Urine Urobilinogen <2.0 (<2.0) mg/dL Ur Leukocyte Esterase Large H (Negative) Urine RBC 1 (0-5) /hpf Urine WBC >182 H (0-5) /hpf Urine WBC Clumps Many H (None) /hpf Urine Bacteria Many H (None) /hpf Urine Mucus Rare H (None) /hpf 01/25/20 01/25/20 01/25/20 Range/Units 14:10 14:10 14:10 WBC (3.8-10.6) k/uL RBC (3.80-5.40) m/uL Hgb (11.4-16.0) gm/dL Hct (34.0-46.0) % MCV (80.0-100.0) fL MCH (25.0-35.0) pg MCHC (31.0-37.0) g/dL RDW (11.5-15.5) % Plt Count (150-450) k/uL Neutrophils % % Lymphocytes % % Monocytes % % Eosinophils % % Basophils % % Neutrophils # (1.3-7.7) k/uL Lymphocytes # (1.0-4.8) k/uL Monocytes # (0-1.0) k/uL Eosinophils # (0-0.7) k/uL Basophils # (0-0.2) k/uL Hypochromasia PT (9.0-12.0) sec INR (<1.2) APTT (22.0-30.0) sec Sodium 130 L (137-145) mmol/L Potassium 5.4 H (3.5-5.1) mmol/L Chloride 84 L (98-107) mmol/L Carbon Dioxide 36 H (22-30) mmol/L Anion Gap 10 mmol/L BUN 35 H (7-17) mg/dL Creatinine 1.71 H (0.52-1.04) mg/dL Est GFR (CKD-EPI)AfAm 33 (>60 ml/min/1.73 sqM) Est GFR (CKD-EPI)NonAf 29 (>60 ml/min/1.73 sqM) Glucose 270 H (74-99) mg/dL Plasma Lactic Acid Taz 2.1 H* (0.7-2.0) mmol/L Calcium 9.4 (8.4-10.2) mg/dL Phosphorus 4.3 (2.5-4.5) mg/dL Magnesium 1.7 (1.6-2.3) mg/dL Total Bilirubin 1.3 (0.2-1.3) mg/dL AST 19 (14-36) U/L ALT 9 (4-34) U/L Alkaline Phosphatase 98 (38-126) U/L Troponin I <0.012 (0.000-0.034) ng/mL Total Protein 6.9 (6.3-8.2) g/dL Albumin 4.0 (3.5-5.0) g/dL Urine Color Urine Appearance (Clear) Urine pH (5.0-8.0) Ur Specific [place] (1.001-1.035) Urine Protein (Negative) Urine Glucose (UA) (Negative) Urine Ketones (Negative) Urine Blood (Negative) Urine Nitrite (Negative) Urine Bilirubin (Negative) Urine Urobilinogen (<2.0) mg/dL Ur Leukocyte Esterase (Negative) Urine RBC (0-5) /hpf Urine WBC (0-5) /hpf Urine WBC Clumps (None) /hpf Urine Bacteria (None) /hpf Urine Mucus (None) /hpf Disposition Clinical Impression: Dehydration, UTI (urinary tract infection), Weakness Disposition: ADMITTED IP TO THIS HOSP Condition: Fair Is patient prescribed a controlled substance at d/c from ED?: No Referrals: Nonstaff,Physician [REFERRING] - 1-2 days
[2020-01-25] MEDS ORDERED: SODIUM CHLORIDE 0.9% 1,000 ML IV STA ×2 (13:59→14:49)
[2020-01-25 14:18] LABS: Basophils # (A) 0.2 k/uL (0-0.2); Basophils % (A) 2 %; Eosinophils # (A) 0.7 k/uL (0-0.7); Eosinophils % (A) 5 %; HCT 39.9 % (34.0-46.0); HGB 12.7 gm/dL (11.4-16.0); Hypochromasia Slight; Lymphocytes # (A) 0.7 k/uL (1.0-4.8); Lymphocytes % (A) 5 %; MCH 30.6 pg (25.0-35.0); MCHC 31.8 g/dL (31.0-37.0); MCV 96.4 fL (80.0-100.0); Mean Platelet Volume 7.6; Monocytes # (A) 0.9 k/uL (0-1.0); Monocytes % (A) 7 %; Neutrophils # (A) 10.1 k/uL (1.3-7.7); Neutrophils % (A) 80 %; Platelet Count 315 k/uL (150-450); RBC 4.14 m/uL (3.80-5.40); RDW 13.7 % (11.5-15.5); WBC 12.7 k/uL (3.8-10.6)
[2020-01-25 14:26] LABS: INR 1.2 (<1.2); Partial Thromboplastin Time 30.8 sec (22.0-30.0); Prothrombin Time 11.8 sec (9.0-12.0)
[2020-01-25 14:27] LABS: Calcium 9.4 mg/dL (8.4-10.2); Magnesium 1.7 mg/dL (1.6-2.3); Phosphorus 4.3 mg/dL (2.5-4.5); Total Bilirubin 1.3 mg/dL (0.2-1.3); Total Protein 6.9 g/dL (6.3-8.2)
[2020-01-25 14:28] LABS: Potassium 5.4 mmol/L (3.5-5.1)
[2020-01-25] MEDS ORDERED: SODIUM CHLORIDE 0.9% 500 ML 500 ML IV STA (14:49)
[2020-01-25 15:09] LABS: Appearance,Urine Turbid (Clear); Bacteria,Urine Many /hpf; Bilirubin,Urine Negative (Negative); Blood,Urine Small (Negative); Color,Urine Yellow; Glucose,Urine (UA) Trace (Negative); Ketones,Urine Negative (Negative); Leukocyte Esterase,Urine Large (Negative); Mucus,Urine Rare /hpf; Nitrite,Urine Negative (Negative); PH, Urine 5.5 (5.0-8.0); Protein,Urine 1+ (Negative); RBC,Urine 1 /hpf (0-5); Specific Gravity,Urine 1.015 (1.001-1.035); Urobilinogen,Urine <2.0 mg/dL (<2.0); WBC,Urine >182 /hpf (0-5)
[2020-01-25] MEDS ORDERED: ONDANSETRON 4 MG/2 ML VIAL IVP PRN (16:49)
[2020-01-25] MEDS ORDERED: ACETAMINOPHEN TAB 325 MG TAB PO PRN (16:49)
[2020-01-25] MEDS ORDERED: ALBUTEROL NEBULIZED 2.5 MG/3 ML INHALATION PRN (16:59)
[2020-01-25 17:00] LABS: Glucose,Whole Blood 224 mg/dL (75-99)
--- NOTE | 2020-01-25 17:11 | P.HPIM ---
History of Present Illness H&P Date: 01/25/20 Chief Complaint: Fall This is a 74-year-old female with complex past medical history noted below who was brought in to the emergency room after she had the fall at the custodial where she resides. Patient said that she usually ambulates with a walker and today she said that her right leg gave up on her and failed to the ground. Patient did not describe the fall and did not tell me how she landed. She denies any pain anywhere. She was helped by staff to get up and EMS were called for her to come to the emergency room for further evaluation. Patient reports feeling well otherwise. She was diagnosed with pneumonia 2 days ago and she reports constant cough that is productive of whitish sputum. She denies fevers or chills. No recent exposure to Covid 19 patient at the custodial. Patient reported eating and drinking well. She was evaluated in the ER and was found to have evidence of a UTI. She was also dehydrated with evidence of CHAIM and hyperkalemia. She was admitted to the hospital for further management. Patient did not have any complaints at the time that I saw her. She was already asking for food and water. Review of Systems Review of system: 14 points review of systems were obtained and were negative except to what were mentioned in the HPI. Past Medical History Past Medical History: COPD, Diabetes Mellitus, Memory Impairment, Osteoarthritis (OA), Pneumonia, Renal Disease, Sleep Apnea/CPAP/BIPAP, Thyroid Disorder Additional Past Medical History / Comment(s): cellulitis on legs, uses cpap at home thinks her settings are 5 very poor historian, POSSIBLE HEART PER PATIENT UNSURE, BLADDER INFECTION History of Any Multi-Drug Resistant Organisms: ESBL Date of last positivie culture/infection: 03/20/19 MDRO Source:: Urine Past Surgical History: Appendectomy, Cholecystectomy, Hernia Repair, Hysterectomy, Tonsillectomy Additional Past Surgical History / Comment(s): kidney left removed, colonoscopy Past Anesthesia/Blood Transfusion Reactions: No Reported Reaction Past Psychological History: No Psychological Hx Reported Smoking Status: Former smoker Past Alcohol Use History: None Reported Additional Past Alcohol Use History / Comment(s): STARTED SMOKING AT 14 QUIT ABOUT AGE 44 SMOKED 1/2 -1 PPD Past Drug Use History: None Reported - Past Family History Mother Family Medical History: Cancer Additional Family Medical History / Comment(s): throat cancer Medications and Allergies Home Medications Medication Instructions Recorded Confirmed Type Albuterol Sulfate [Proair Hfa] 1 puff INHALATION RT-BID 03/06/19 01/25/20 History Budesonide [Pulmicort] 0.5 mg INHALATION RT-BID@799,199903/06/19 01/25/20 History DULoxetine HCL [Cymbalta] 60 mg PO DAILY@0803/06/19 01/25/20 History Dorzolamide/Timolol/Pf 1 drop BOTH EYES BID@03/06/19 01/25/20 History [Dorzolamide 2%-Timolol 0.5%] Losartan Potassium 50 mg PO DAILY@79903/06/19 01/25/20 History Pantoprazole Sodium [Protonix] 40 mg PO HS@199903/06/19 01/25/20 History Potassium Chloride ER [K-Dur 10] 10 meq PO DAILY@0803/06/19 01/25/20 History Spironolactone [Aldactone] 25 mg PO DAILY@79903/06/19 01/25/20 History glipiZIDE [Glucotrol] 5 mg PO DAILY@0803/06/19 01/25/20 History Furosemide [Lasix] 40 mg PO BID@09/19/19 01/25/20 History Ipratropium-Albuterol Nebulize 3 ml INHALATION RT-TID 09/19/19 01/25/20 History [Duoneb 0.5 mg-3 mg/3 ml Soln] Ferrous Sulfate [Iron (65 MG 325 mg PO DAILY@79909/20/19 01/25/20 History Elemental)] Atorvastatin [Lipitor] 40 mg PO HS@1999 #30 tab 09/22/19 01/25/20 Rx Levothyroxine Sodium [Synthroid] 50 mcg PO DAILY@799 #30 tab 09/22/19 01/25/20 Rx Acetaminophen Tab [Tylenol] 650 mg PO Q6H PRN 01/25/20 01/25/20 History Aspirin 81 mg PO DAILY@0801/25/20 01/25/20 History Glucose 15 Gel 40%Gm 1 dose PO DAILY PRN 01/25/20 01/25/20 History Lidocaine 5% Oint [Xylocaine 5% 1 applic TOPICAL Q8H PRN 01/25/20 01/25/20 History Oint] Loratadine 10 mg PO DAILY PRN 01/25/20 01/25/20 History Melatonin 3 mg PO HS@199901/25/20 01/25/20 History Metoprolol Tartrate [Lopressor] 12.5 mg PO BID@0800,199901/25/20 01/25/20 History Tiotropium 18 Mcg/Puff [Spiriva] 1 cap INHALATION RT-DAILY@0800 01/25/20 01/25/20 History traMADol HCL 50 mg PO Q6H PRN 01/25/20 01/25/20 History Allergies Allergy/AdvReac Type Severity Reaction Status Date / Time codeine AdvReac Nausea & Verified 01/25/20 16:11 Vomiting Physical Exam Vitals: Vital Signs Temp Pulse Pulse Resp BP BP Pulse Ox 01/25/20 16:31 97.6 F 88 20 121/70 96 01/25/20 16:02 98.1 F 81 20 117/59 96 01/25/20 14:50 63 22 119/81 97 01/25/20 14:02 83 22 103/81 99 01/25/20 13:48 83 22 01/25/20 13:42 97.9 F 87 20 123/83 100 Intake and Output 01/25/20 01/25/20 01/25/20 06:59 14:59 22:59 Intake Total 1500 Balance 1500 Intake: Amount of Fluid Infused ( 1500 ml) Other: Weight 116.165 kg 116.165 kg General: The patient is awake and alert, in no distress Eye: there is normal conjunctiva bilaterally. Neck: The neck is supple, there is no JVD. Cardiovascular: Normal S1-S2, no S3-S4, no murmurs. Respiratory: Lungs are diminished with scattered rhonchi Gastrointestinal: Abdomen is soft, nontender Musculoskeletal: There is evidence of chronic insufficiency stasis dermatitis with +1 pedal edema Neurological:. Speech is normal. Skin: Skin is warm and dry Results CBC & Chem 7: 01/25/20 14:10 01/25/20 14:10 Labs: Abnormal Lab Results - Last 24 Hours (Table) 01/25/20 01/25/20 01/25/20 Range/Units 14:10 14:10 14:10 WBC 12.7 H (3.8-10.6) k/uL Neutrophils # 10.1 H (1.3-7.7) k/uL Lymphocytes # 0.7 L (1.0-4.8) k/uL INR 1.2 H (<1.2) APTT 30.8 H (22.0-30.0) sec Sodium (137-145) mmol/L Potassium (3.5-5.1) mmol/L Chloride (98-107) mmol/L Carbon Dioxide (22-30) mmol/L BUN (7-17) mg/dL Creatinine (0.52-1.04) mg/dL Glucose (74-99) mg/dL Plasma Lactic Acid Taz (0.7-2.0) mmol/L Urine Appearance Turbid H (Clear) Urine Protein 1+ H (Negative) Urine Glucose (UA) Trace H (Negative) Urine Blood Small H (Negative) Ur Leukocyte Esterase Large H (Negative) Urine WBC >182 H (0-5) /hpf Urine WBC Clumps Many H (None) /hpf Urine Bacteria Many H (None) /hpf Urine Mucus Rare H (None) /hpf 01/25/20 01/25/20 Range/Units 14:10 14:10 WBC (3.8-10.6) k/uL Neutrophils # (1.3-7.7) k/uL Lymphocytes # (1.0-4.8) k/uL INR (<1.2) APTT (22.0-30.0) sec Sodium 130 L (137-145) mmol/L Potassium 5.4 H (3.5-5.1) mmol/L Chloride 84 L (98-107) mmol/L Carbon Dioxide 36 H (22-30) mmol/L BUN 35 H (7-17) mg/dL Creatinine 1.71 H (0.52-1.04) mg/dL Glucose 270 H (74-99) mg/dL Plasma Lactic Acid Taz 2.1 H* (0.7-2.0) mmol/L Urine Appearance (Clear) Urine Protein (Negative) Urine Glucose (UA) (Negative) Urine Blood (Negative) Ur Leukocyte Esterase (Negative) Urine WBC (0-5) /hpf Urine WBC Clumps (None) /hpf Urine Bacteria (None) /hpf Urine Mucus (None) /hpf Thrombosis Risk Factor Assmnt - Choose All That Apply Any of the Below Risk Factors Present?: Yes Each Factor Represents 1 point: Abnormal pulmonary function (COPD), Obesity (BMI >25), Serious lung disease incl. pneumonia (< 1month) Other Risk Factors: Yes Each Risk Factor Represents 2 Points: Major surgery Each Risk Factor Represents 3 Points: Age 75 years or older Other congenital or acquired thrombophilia - If yes, enter type in comment: No Thrombosis Risk Factor Assessment Total Risk Factor Score: 8 Thrombosis Risk Factor Assessment Level: High Risk Assessment and Plan Assessment: 1. Urinary tract infection, started on IV ceftriaxone. Urine culture pending. We'll check bladder scan for PVR. 2. Acute kidney injury on chronic kidney disease, stage IIIB: Continue IV fluid hydration. Hold nephrotoxic including Lasix and losartan 3. Suspected pneumonia, per patient report. She is not sure what antibiotic she was given at the custodial. We will obtain chest x-ray. Continue ceftriaxone and azithromycin. Order pro-calcitonin. Covid 19 screen. 4. Hyperkalemia: Secondary to a KI and potassium supplement. Hold potassium supplements and continue to monitor 5. Physical debility: We will consult PT/OT 6. Type 2 diabetes: Hold oral agents and continue sliding scale insulin 7. Chronic medical problems: Hypothyroidism, obstructive sleep apnea on CPAP, stage IIIB CKD, morbid obesity, chronic venous insufficiency, 8. DVT prophylaxis with subcu heparin 9. CODE STATUS: Patient would like to be full code. Discussed with her and nursing staff The patient is admitted with an anticipated greater than 2 midnight stay for evaluation of the medical problems noted above Discussed with: Patient and nursing staff Anticipated discharge date: To be determined based on clinical course Anticipated discharge place: home A total of 45 minutes was spent on the care of this complex patient more than 50% of the time was spent in counseling and care coordination.
--- NOTE | 2020-01-25 17:30 | XR ---
EXAMINATION TYPE: XR chest 1V portable DATE OF EXAM: 01/25/2020 COMPARISON: 09/19/2019 HISTORY: Pneumonia TECHNIQUE: FINDINGS: There is slight blunting of the left costophrenic angle. There is increased density lateral left lung base. There is neural stimulator in the thoracic spine. Heart size is normal. There is no heart failure. IMPRESSION: There is evidence of some pneumonia in the lateral left lower lobe that appears new abdirahman red to old exam. Limited exam due to patient's size.
[2020-01-25] MEDS: INSULIN ASPART (NovoLOG) 100 UNIT/ML VIAL SQ SCH ×2 (17:44→20:58)
[2020-01-25] MEDS: SODIUM CHLORIDE 0.9% 1,000 ML IV SCH ×2 (17:44→23:43)
[2020-01-25] MEDS: AZITHROMYCIN 250 MG TAB PO SCH (18:02)
[2020-01-25] MEDS: PANTOPRAZOLE 40 MG TABLET PO SCH (19:47)
[2020-01-25] MEDS: METOPROLOL TARTRATE 12.5 MG TAB PO SCH (19:47)
[2020-01-25] MEDS: MELATONIN 3 MG TABLET PO SCH (19:47)
[2020-01-25] MEDS: DORZOLAMIDE HCL 2% DROPS 10 ML BTL BOTH EYES SCH (19:48)
[2020-01-25] MEDS: HEPARIN SODIUM,PORCINE 5,000 UNIT/ML 1 ML VIAL SQ SCH (19:48)
[2020-01-25] MEDS: ATORVASTATIN 40 MG TAB PO SCH (19:48)
[2020-01-25] MEDS: TIMOLOL 0.5% OPHTH DROPS 5 ML BTL BOTH EYES SCH (19:48)
[2020-01-25] MEDS ORDERED: FUROSEMIDE 40 MG TAB PO SCH (20:00)
[2020-01-25 20:13] LABS: Glucose,Whole Blood 276 mg/dL (75-99)
[2020-01-25] MEDS: traMADol 50 MG TAB PO PRN (20:58)
[2020-01-25] MEDS: IPRATROPIUM-ALBUTEROL 3 ML NEB INHALATION SCH (21:04)
[2020-01-25] MEDS: BUDESONIDE 0.5 MG/2 ML NEBU INHALATION SCH (21:04)
[2020-01-26 04:49] LABS: Basophils # (A) 0.1 k/uL (0-0.2); Basophils % (A) 1 %; Eosinophils # (A) 0.8 k/uL (0-0.7); Eosinophils % (A) 7 %; HCT 36.8 % (34.0-46.0); HGB 11.2 gm/dL (11.4-16.0); Hypochromasia Slight; Lymphocytes # (A) 1.1 k/uL (1.0-4.8); Lymphocytes % (A) 10 %; MCH 28.8 pg (25.0-35.0); MCHC 30.4 g/dL (31.0-37.0); MCV 94.7 fL (80.0-100.0); Mean Platelet Volume 7.4; Monocytes # (A) 0.7 k/uL (0-1.0); Monocytes % (A) 7 %; Neutrophils # (A) 8.3 k/uL (1.3-7.7); Neutrophils % (A) 74 %; Platelet Count 257 k/uL (150-450); RBC 3.89 m/uL (3.80-5.40); RDW 13.7 % (11.5-15.5); WBC 11.3 k/uL (3.8-10.6)
[2020-01-26] MEDS: IPRATROPIUM-ALBUTEROL 3 ML NEB INHALATION SCH ×3 (07:03→20:14)
[2020-01-26] MEDS: BUDESONIDE 0.5 MG/2 ML NEBU INHALATION SCH ×2 (07:04→20:14)
[2020-01-26 07:32] LABS: Glucose,Whole Blood 199 mg/dL (75-99)
[2020-01-26] MEDS ORDERED: LOSARTAN 50 MG TAB PO SCH (08:00)
[2020-01-26] MEDS ORDERED: POTASSIUM CHLORIDE ER 10 MEQ TAB.ER.PRT PO SCH (08:00)
[2020-01-26] MEDS: DORZOLAMIDE HCL 2% DROPS 10 ML BTL BOTH EYES SCH ×2 (08:38→20:09)
[2020-01-26] MEDS: DULoxetine HCL 60 MG CAPSULE.DR PO SCH (08:38)
[2020-01-26] MEDS: ASPIRIN 81 MG PO SCH (08:38)
[2020-01-26] MEDS: INSULIN ASPART (NovoLOG) 100 UNIT/ML VIAL SQ SCH ×4 (08:38→21:02)
[2020-01-26] MEDS: FERROUS SULFATE 325 MG TAB PO SCH (08:38)
[2020-01-26] MEDS: LEVOTHYROXINE 50 MCG TAB PO SCH (08:39)
[2020-01-26] MEDS: TIMOLOL 0.5% OPHTH DROPS 5 ML BTL BOTH EYES SCH ×2 (08:39→20:10)
[2020-01-26] MEDS: HEPARIN SODIUM,PORCINE 5,000 UNIT/ML 1 ML VIAL SQ SCH ×2 (08:39→20:08)
[2020-01-26] MEDS: METOPROLOL TARTRATE 12.5 MG TAB PO SCH ×2 (08:39→20:09)
[2020-01-26] MEDS: SPIRONOLACTONE 25 MG TAB PO SCH (08:39)
[2020-01-26] MEDS: traMADol 50 MG TAB PO PRN ×2 (10:52→18:08)
[2020-01-26 10:54] LABS: African American GFR (CKD) 35.9 (60.0-200.0); Anion Gap 5.2 mmol/L (4.00-12.00); BUN/Creat Ratio 19.38 Ratio (12.00-20.00); Calcium 8.7 mg/dL (8.7-10.3); Carbon Dioxide 35.8 mmol/L (21.6-31.8); Magnesium 1.5 mg/dL (1.5-2.4); Phosphorus 4.1 mg/dL (2.4-5.1); Potassium 4.7 mmol/L (3.5-5.5)
--- NOTE | 2020-01-26 11:33 | P.PN ---
Subjective Progress Note Date: 01/26/20 Patient is doing well today. She denies shortness of breath or fever. She did not provide a sputum sample as of yet. Objective - Vital Signs Vital signs: Vital Signs Temp 97.8 F 01/26/20 05:00 Pulse 84 01/26/20 07:16 Resp 20 01/26/20 05:00 BP 119/72 01/26/20 05:00 Pulse Ox 94 L 01/26/20 05:00 Intake & Output 01/25/20 01/26/20 01/26/20 18:59 06:59 18:59 Intake Total 1500 1700 Balance 1500 1700 Weight 116.165 kg Intake: Amount of Fluid Infused ( 1500 ml) Intake, IV Titration 1090 Amount Sodium Chloride 0.9% 1, 1040 000 ml @ 130 mls/hr IV . Q7H42M [facility] Rx#:[id number] cefTRIAXone 1 gm In 50 Sodium Chloride 0.9% 50 ml @ 100 mls/hr IVPB Q12HR [facility] Rx#:[id number] Oral 610 Other: Voiding Method Diaper Diaper Diaper Incontinent Incontinent Incontinent # Voids 1 - Exam General: The patient is awake and alert, in no distress Eye: there is normal conjunctiva bilaterally. Neck: The neck is supple, there is no JVD. Cardiovascular: Normal S1-S2, no S3-S4, no murmurs. Respiratory: Lungs clear to auscultation bilaterally Gastrointestinal: Abdomen is soft, nontender Musculoskeletal: There is no pedal edema. Neurological:. Speech is normal. Skin: Skin is warm and dry - Labs CBC & Chem 7: 01/26/20 04:23 01/26/20 04:23 Labs: Abnormal Lab Results - Last 24 Hours (Table) 01/25/20 01/25/20 01/25/20 Range/Units 14:10 14:10 14:10 WBC 12.7 H (3.8-10.6) k/uL Hgb (11.4-16.0) gm/dL MCHC (31.0-37.0) g/dL Neutrophils # 10.1 H (1.3-7.7) k/uL Lymphocytes # 0.7 L (1.0-4.8) k/uL Eosinophils # (0-0.7) k/uL INR 1.2 H (<1.2) APTT 30.8 H (22.0-30.0) sec Sodium (137-145) mmol/L Potassium (3.5-5.1) mmol/L Chloride (98-107) mmol/L Carbon Dioxide (22-30) mmol/L BUN (7-17) mg/dL Creatinine (0.52-1.04) mg/dL Est GFR (CKD-EPI)AfAm (60.0-200.0) Est GFR (CKD-EPI)NonAf (60.0-200.0) Glucose (74-99) mg/dL POC Glucose (mg/dL) (75-99) mg/dL Plasma Lactic Acid Taz (0.7-2.0) mmol/L Procalcitonin (0.02-0.09) ng/mL Urine Appearance Turbid H (Clear) Urine Protein 1+ H (Negative) Urine Glucose (UA) Trace H (Negative) Urine Blood Small H (Negative) Ur Leukocyte Esterase Large H (Negative) Urine WBC >182 H (0-5) /hpf Urine WBC Clumps Many H (None) /hpf Urine Bacteria Many H (None) /hpf Urine Mucus Rare H (None) /hpf 01/25/20 01/25/20 01/25/20 Range/Units 14:10 14:10 14:10 WBC (3.8-10.6) k/uL Hgb (11.4-16.0) gm/dL MCHC (31.0-37.0) g/dL Neutrophils # (1.3-7.7) k/uL Lymphocytes # (1.0-4.8) k/uL Eosinophils # (0-0.7) k/uL INR (<1.2) APTT (22.0-30.0) sec Sodium 130 L (137-145) mmol/L Potassium 5.4 H (3.5-5.1) mmol/L Chloride 84 L (98-107) mmol/L Carbon Dioxide 36 H (22-30) mmol/L BUN 35 H (7-17) mg/dL Creatinine 1.71 H (0.52-1.04) mg/dL Est GFR (CKD-EPI)AfAm (60.0-200.0) Est GFR (CKD-EPI)NonAf (60.0-200.0) Glucose 270 H (74-99) mg/dL POC Glucose (mg/dL) (75-99) mg/dL Plasma Lactic Acid Taz 2.1 H* (0.7-2.0) mmol/L Procalcitonin 0.15 H (0.02-0.09) ng/mL Urine Appearance (Clear) Urine Protein (Negative) Urine Glucose (UA) (Negative) Urine Blood (Negative) Ur Leukocyte Esterase (Negative) Urine WBC (0-5) /hpf Urine WBC Clumps (None) /hpf Urine Bacteria (None) /hpf Urine Mucus (None) /hpf 01/25/20 01/25/20 01/26/20 Range/Units 16:59 20:10 04:23 WBC 11.3 H (3.8-10.6) k/uL Hgb 11.2 L (11.4-16.0) gm/dL MCHC 30.4 L (31.0-37.0) g/dL Neutrophils # 8.3 H (1.3-7.7) k/uL Lymphocytes # (1.0-4.8) k/uL Eosinophils # 0.8 H (0-0.7) k/uL INR (<1.2) APTT (22.0-30.0) sec Sodium (137-145) mmol/L Potassium (3.5-5.1) mmol/L Chloride (98-107) mmol/L Carbon Dioxide (22-30) mmol/L BUN (7-17) mg/dL Creatinine (0.52-1.04) mg/dL Est GFR (CKD-EPI)AfAm (60.0-200.0) Est GFR (CKD-EPI)NonAf (60.0-200.0) Glucose (74-99) mg/dL POC Glucose (mg/dL) 224 H 276 H (75-99) mg/dL Plasma Lactic Acid Taz (0.7-2.0) mmol/L Procalcitonin (0.02-0.09) ng/mL Urine Appearance (Clear) Urine Protein (Negative) Urine Glucose (UA) (Negative) Urine Blood (Negative) Ur Leukocyte Esterase (Negative) Urine WBC (0-5) /hpf Urine WBC Clumps (None) /hpf Urine Bacteria (None) /hpf Urine Mucus (None) /hpf 01/26/20 01/26/20 Range/Units 04:23 07:27 WBC (3.8-10.6) k/uL Hgb (11.4-16.0) gm/dL MCHC (31.0-37.0) g/dL Neutrophils # (1.3-7.7) k/uL Lymphocytes # (1.0-4.8) k/uL Eosinophils # (0-0.7) k/uL INR (<1.2) APTT (22.0-30.0) sec Sodium (137-145) mmol/L Potassium (3.5-5.1) mmol/L Chloride 94 L (98-107) mmol/L Carbon Dioxide 35.8 H (22-30) mmol/L BUN 31.0 H (7-17) mg/dL Creatinine 1.6 H (0.52-1.04) mg/dL Est GFR (CKD-EPI)AfAm 35.9 L (60.0-200.0) Est GFR (CKD-EPI)NonAf 31.0 L (60.0-200.0) Glucose 166 H (74-99) mg/dL POC Glucose (mg/dL) 199 H (75-99) mg/dL Plasma Lactic Acid Taz (0.7-2.0) mmol/L Procalcitonin (0.02-0.09) ng/mL Urine Appearance (Clear) Urine Protein (Negative) Urine Glucose (UA) (Negative) Urine Blood (Negative) Ur Leukocyte Esterase (Negative) Urine WBC (0-5) /hpf Urine WBC Clumps (None) /hpf Urine Bacteria (None) /hpf Urine Mucus (None) /hpf Microbiology - Last 24 Hours (Table) 01/25/20 14:10 Urine Culture - Preliminary Urine,Catheterized Assessment and Plan Assessment: This is a 74-year-old female with past medical history noted below that presented to the emergency room from a local snf after she sustained a fall. Patient was evaluated in the ER and currently admitted to the hospital for further management of her medical problems noted below. 1. Urinary tract infection, started on IV ceftriaxone. Urine culture pending. Bladder scan last night showed 330 ml and PVR and hours later 130 ml. We will continue to monitor today to rule out retention 2. Acute kidney injury on chronic kidney disease, stage IIIB: Continue IV fluid hydration. Decrease Lasix from 130 mL per hour to 50 mL per hour today. Continue to Hold nephrotoxic including Lasix and losartan 3. Left lower lobe pneumonia: Community-acquired. Continue ceftriaxone and azithromycin. pro-calcitonin slightly elevated. Covid 19 screen pending. 4. Hyperkalemia: Resolved. Secondary to CHAIM and potassium supplement. Hold potassium supplements and continue to monitor 5. Physical debility: We will consult PT/OT 6. Type 2 diabetes: Hold oral agents and continue sliding scale insulin 7. Chronic medical problems: Hypothyroidism, obstructive sleep apnea on CPAP, stage IIIB CKD, morbid obesity, chronic venous insufficiency, 8. DVT prophylaxis with subcu heparin 9. CODE STATUS: Patient would like to be full code. Discussed with her and nursing staff Today, I reviewed her medication list and lab work results. Magnesium sulfate 2 g IV ordered 1. Repeat lab work in the morning. Awaiting culture results. PT/OT evaluation.
[2020-01-26 12:26] LABS: Glucose,Whole Blood 255 mg/dL (75-99)
[2020-01-26] MEDS: SODIUM CHLORIDE 0.9% 1,000 ML IV SCH ×2 (12:45→13:59)
[2020-01-26] MEDS: MAGNESIUM SULFATE-D5W PMX 1 GM in DEXTROSE/WATER 1 100ML.BAG IVPB SCH ×2 (12:46→13:59)
[2020-01-26 17:21] LABS: Glucose,Whole Blood 258 mg/dL (75-99)
[2020-01-26] MEDS: AZITHROMYCIN 250 MG TAB PO SCH (17:59)
[2020-01-26] MEDS: PANTOPRAZOLE 40 MG TABLET PO SCH (20:09)
[2020-01-26] MEDS: MELATONIN 3 MG TABLET PO SCH (20:09)
[2020-01-26] MEDS: ATORVASTATIN 40 MG TAB PO SCH (20:09)
[2020-01-26 20:16] LABS: Glucose,Whole Blood 306 mg/dL (75-99)
[2020-01-27] MEDS: traMADol 50 MG TAB PO PRN ×2 (03:52→19:31)
[2020-01-27 05:15] LABS: Basophils # (A) 0.1 k/uL (0-0.2); Basophils % (A) 1 %; Eosinophils # (A) 0.8 k/uL (0-0.7); Eosinophils % (A) 8 %; HCT 36.4 % (34.0-46.0); HGB 11.3 gm/dL (11.4-16.0); Hypochromasia Marked; Lymphocytes # (A) 0.9 k/uL (1.0-4.8); Lymphocytes % (A) 9 %; MCH 30.6 pg (25.0-35.0); MCHC 31.1 g/dL (31.0-37.0); MCV 98.3 fL (80.0-100.0); Mean Platelet Volume 7.4; Monocytes # (A) 0.8 k/uL (0-1.0); Monocytes % (A) 7 %; Neutrophils # (A) 7.5 k/uL (1.3-7.7); Neutrophils % (A) 74 %; Platelet Count 210 k/uL (150-450); RDW 13.5 % (11.5-15.5); WBC 10.2 k/uL (3.8-10.6)
[2020-01-27] MEDS: IPRATROPIUM-ALBUTEROL 3 ML NEB INHALATION SCH ×4 (07:18→19:45)
[2020-01-27] MEDS: BUDESONIDE 0.5 MG/2 ML NEBU INHALATION SCH ×3 (07:18→19:45)
[2020-01-27 07:45] LABS: Glucose,Whole Blood 214 mg/dL (75-99)
[2020-01-27] MEDS: FERROUS SULFATE 325 MG TAB PO SCH (08:40)
[2020-01-27] MEDS: HEPARIN SODIUM,PORCINE 5,000 UNIT/ML 1 ML VIAL SQ SCH ×2 (08:40→20:43)
[2020-01-27] MEDS: ASPIRIN 81 MG PO SCH (08:40)
[2020-01-27] MEDS: DULoxetine HCL 60 MG CAPSULE.DR PO SCH (08:40)
[2020-01-27] MEDS: METOPROLOL TARTRATE 12.5 MG TAB PO SCH ×2 (08:40→20:43)
[2020-01-27] MEDS: LEVOTHYROXINE 50 MCG TAB PO SCH (08:40)
[2020-01-27] MEDS: SPIRONOLACTONE 25 MG TAB PO SCH (08:41)
[2020-01-27] MEDS: INSULIN ASPART (NovoLOG) 100 UNIT/ML VIAL SQ SCH ×4 (08:42→20:44)
[2020-01-27] MEDS: DORZOLAMIDE HCL 2% DROPS 10 ML BTL BOTH EYES SCH ×2 (08:43→20:43)
[2020-01-27] MEDS: SODIUM CHLORIDE 0.9% 1,000 ML IV SCH (08:44)
[2020-01-27] MEDS: TIMOLOL 0.5% OPHTH DROPS 5 ML BTL BOTH EYES SCH ×2 (08:44→20:43)
[2020-01-27 09:17] LABS: African American GFR (CKD) 42.2 (60.0-200.0); Anion Gap 7.3 mmol/L (4.00-12.00); BUN/Creat Ratio 15.71 Ratio (12.00-20.00); Calcium 8.4 mg/dL (8.7-10.3); Carbon Dioxide 32.7 mmol/L (21.6-31.8); Magnesium 1.8 mg/dL (1.5-2.4); Non-African American GFR(CKD) 36.4 (60.0-200.0); Potassium 5.3 mmol/L (3.5-5.5)
[2020-01-27 10:48] LABS: Hemoglobin A1C 10.2 % (4.0-6.0)
[2020-01-27 12:30] LABS: Glucose,Whole Blood 199 mg/dL (75-99)
--- NOTE | 2020-01-27 14:07 | P.PN ---
Subjective Progress Note Date: 01/27/20 Principal diagnosis: CC: Weakness patient this morning is denying dysuria. She says that her breathing is at her baseline. I discussed with physical therapy who states that the patient needsto go to inpatient rehab. I discussed with clinical social work therapist about placement. transplant worker were discussed with the daughter about placement options. Patient denies any fever chills nausea and vomiting Objective - Vital Signs Vital signs: Vital Signs Temp 97.6 F 01/27/20 12:31 Pulse 68 01/27/20 12:31 Resp 20 01/27/20 12:31 BP 111/57 01/27/20 12:31 Pulse Ox 96 01/27/20 12:31 Intake & Output 01/26/20 01/27/20 01/27/20 18:59 06:59 18:59 Intake Total 200 1610 Balance 200 1610 Intake: Intake, IV Titration 200 650 Amount Magnesium Sulfate-D5w Pmx 200 1 gm In Dextrose/Water 1 100ml.bag @ 100 mls/hr IVPB Q1H [facility] Rx#: [id number] Sodium Chloride 0.9% 1, 600 000 ml @ 50 mls/hr IV . Q20H [facility] Rx#:[id number] cefTRIAXone 1 gm In 50 Sodium Chloride 0.9% 50 ml @ 100 mls/hr IVPB Q12HR [facility] Rx#:[id number] Oral 960 Other: Voiding Method Diaper Diaper Incontinent Incontinent # Voids 1 1 - Exam General examination - Alert and Oriented 3 in NAD, patient appears chronically debilitated Heart - + S1S2 no murmurs Lungs - diminished breath sounds bilaterally Abdomen soft NT ND +ve BS Extremities - +1 pitting edema bilaterally PUMP TESTER - Moving all 4 extremities spontaneously Psych - Calm and cooperative - Labs CBC & Chem 7: 01/27/20 04:24 01/27/20 04:24 Labs: Abnormal Lab Results - Last 24 Hours (Table) 01/26/20 01/26/20 01/27/20 Range/Units 17:11 20:14 04:24 RBC (3.80-5.40) m/uL Hgb (11.4-16.0) gm/dL Lymphocytes # (1.0-4.8) k/uL Eosinophils # (0-0.7) k/uL Sodium (135-145) mmol/L Chloride (96-109) mmol/L Carbon Dioxide (21.6-31.8) mmol/L Est GFR (CKD-EPI)AfAm (60.0-200.0) Est GFR (CKD-EPI)NonAf (60.0-200.0) Glucose (70-110) mg/dL POC Glucose (mg/dL) 258 H 306 H (75-99) mg/dL Hemoglobin A1c 10.2 H (4.0-6.0) % Calcium (8.7-10.3) mg/dL 01/27/20 01/27/20 01/27/20 Range/Units 04:24 04:24 07:43 RBC 3.70 L (3.80-5.40) m/uL Hgb 11.3 L (11.4-16.0) gm/dL Lymphocytes # 0.9 L (1.0-4.8) k/uL Eosinophils # 0.8 H (0-0.7) k/uL Sodium 133 L (135-145) mmol/L Chloride 93 L (96-109) mmol/L Carbon Dioxide 32.7 H (21.6-31.8) mmol/L Est GFR (CKD-EPI)AfAm 42.2 L (60.0-200.0) Est GFR (CKD-EPI)NonAf 36.4 L (60.0-200.0) Glucose 214 H (70-110) mg/dL POC Glucose (mg/dL) 214 H (75-99) mg/dL Hemoglobin A1c (4.0-6.0) % Calcium 8.4 L (8.7-10.3) mg/dL 01/27/20 Range/Units 12:20 RBC (3.80-5.40) m/uL Hgb (11.4-16.0) gm/dL Lymphocytes # (1.0-4.8) k/uL Eosinophils # (0-0.7) k/uL Sodium (135-145) mmol/L Chloride (96-109) mmol/L Carbon Dioxide (21.6-31.8) mmol/L Est GFR (CKD-EPI)AfAm (60.0-200.0) Est GFR (CKD-EPI)NonAf (60.0-200.0) Glucose (70-110) mg/dL POC Glucose (mg/dL) 199 H (75-99) mg/dL Hemoglobin A1c (4.0-6.0) % Calcium (8.7-10.3) mg/dL Microbiology - Last 24 Hours (Table) 01/25/20 18:16 Blood Culture - Preliminary Blood No Growth after 24 hours 01/25/20 14:10 Urine Culture - Preliminary Urine,Catheterized Gram Neg Bacilli Assessment and Plan Assessment: This is a 74-year-old female with past medical history noted below that presented [facility] the emergency room [facility] a local [facility] after she sustained a fall. Patient was evaluated in the ER and currently admitted to the hospital for further management of her medical problems noted below. 1. Urinary tract infection, started on IV ceftriaxone. Urine culture pending. Urine culture growing gram-negative rods. Follow-up urine culture until finalized. 2. Acute kidney injury on chronic kidney disease, stage IIIB: Improving. We'll discontinue fluids. Restart Lasix. Continue to hold losartan 2b. Hyperkalemia likely due to medications and acute kidney injury: Hold spironolactone. Monitor BMP 3. Left lower lobe pneumonia: Community-acquired. Continue ceftriaxone and sandra thromycin. pro-calcitonin slightly elevated. Covid 19 is negative 4. Chronic hypoxic respiratory failure: Patient currently satting well on her home O2 of 2-3 L. 5. Physical debility: PT/OT reccommends inpatient rehab. 6. Type 2 diabetes: Hemoglobin A1c is 10.5. Resume sliding scale insulin. We'll restart her glipizide at higher dose of 5 mg twice a day. 7. Chronic medical problems: Hypothyroidism, obstructive sleep apnea on CPAP, stage IIIB CKD, morbid obesity, chronic venous insufficiency, 8. DVT prophylaxis with subcu heparin 9. CODE STATUS: Patient would like to be full code. Discussed with her and nursing staff Anticipate patient converted for discharge in the next 24 hours. I discussed with clinical social work therapist about placement.
[2020-01-27] MEDS: FUROSEMIDE 40 MG TAB PO SCH (16:45)
[2020-01-27 17:37] LABS: Glucose,Whole Blood 169 mg/dL (75-99)
[2020-01-27] MEDS: glipiZIDE 5 MG TAB PO SCH (17:51)
[2020-01-27] MEDS: AZITHROMYCIN 250 MG TAB PO SCH (17:51)
[2020-01-27 20:21] LABS: Glucose,Whole Blood 211 mg/dL (75-99)
[2020-01-27] MEDS: PANTOPRAZOLE 40 MG TABLET PO SCH (20:43)
[2020-01-27] MEDS: ATORVASTATIN 40 MG TAB PO SCH (20:44)
[2020-01-27] MEDS: MELATONIN 3 MG TABLET PO SCH (20:44)
[2020-01-28 05:13] LABS: Basophils # (A) 0.1 k/uL (0-0.2); Basophils % (A) 1 %; Eosinophils # (A) 0.7 k/uL (0-0.7); Eosinophils % (A) 6 %; HCT 34.5 % (34.0-46.0); Hypochromasia Moderate; Lymphocytes # (A) 1.2 k/uL (1.0-4.8); Lymphocytes % (A) 11 %; MCH 31.2 pg (25.0-35.0); MCV 97.6 fL (80.0-100.0); Mean Platelet Volume 7.4; Monocytes # (A) 0.7 k/uL (0-1.0); Monocytes % (A) 6 %; Neutrophils # (A) 8.3 k/uL (1.3-7.7); Neutrophils % (A) 74 %; Platelet Count 292 k/uL (150-450); RBC 3.54 m/uL (3.80-5.40); RDW 13.4 % (11.5-15.5); WBC 11.2 k/uL (3.8-10.6)
[2020-01-28 07:15] LABS: Glucose,Whole Blood 145 mg/dL (75-99)
[2020-01-28] MEDS: BUDESONIDE 0.5 MG/2 ML NEBU INHALATION SCH (07:30)
[2020-01-28] MEDS: IPRATROPIUM-ALBUTEROL 3 ML NEB INHALATION SCH ×2 (07:30→13:37)
[2020-01-28 09:51] LABS: African American GFR (CKD) 46.1 (60.0-200.0); Anion Gap 6.1 mmol/L (4.00-12.00); BUN/Creat Ratio 16.15 Ratio (12.00-20.00); Calcium 8.7 mg/dL (8.7-10.3); Carbon Dioxide 32.9 mmol/L (21.6-31.8); Non-African American GFR(CKD) 39.8 (60.0-200.0); Potassium 4.9 mmol/L (3.5-5.5)
[2020-01-28] MEDS: glipiZIDE 5 MG TAB PO SCH (10:09)
[2020-01-28] MEDS: INSULIN ASPART (NovoLOG) 100 UNIT/ML VIAL SQ SCH ×2 (10:09→13:03)
[2020-01-28] MEDS: METOPROLOL TARTRATE 12.5 MG TAB PO SCH (10:10)
[2020-01-28] MEDS: FERROUS SULFATE 325 MG TAB PO SCH (10:10)
[2020-01-28] MEDS: LEVOTHYROXINE 50 MCG TAB PO SCH (10:10)
[2020-01-28] MEDS: DULoxetine HCL 60 MG CAPSULE.DR PO SCH (10:10)
[2020-01-28] MEDS: ASPIRIN 81 MG PO SCH (10:10)
[2020-01-28] MEDS: FUROSEMIDE 40 MG TAB PO SCH (10:11)
[2020-01-28] MEDS: HEPARIN SODIUM,PORCINE 5,000 UNIT/ML 1 ML VIAL SQ SCH (10:11)
[2020-01-28] MEDS: DORZOLAMIDE HCL 2% DROPS 10 ML BTL BOTH EYES SCH (11:24)
[2020-01-28] MEDS: TIMOLOL 0.5% OPHTH DROPS 5 ML BTL BOTH EYES SCH (11:24)
[2020-01-28 12:07] LABS: Glucose,Whole Blood 250 mg/dL (75-99)
[2020-01-28 12:37] VITALS: BP 132/71; RESP 19; TEMP 97.3
--- NOTE | 2020-01-28 12:43 | P.DS ---
Providers Date of admission: 01/25/20 15:34 Expected date of discharge: 01/28/20 Attending physician: Heidi Delacruz DO Primary care physician: Calos Winston Hospital Course: Discharge Diagnosis: 1. Urinary tract infection 2. Acute kidney injury on chronic kidney disease, stage IIIB 2b. Hyperkalemia likely due to medications and acute kidney injury 3. Left lower lobe pneumonia 4. Chronic hypoxic respiratory failure 5. Physical debility 6. Type 2 diabetes. 7. Chronic medical problems: Hypothyroidism, obstructive sleep apnea on CPAP, stage IIIB CKD, morbid obesity, chronic venous insufficiency, Hospital Course: This is a 74-year-old female with past medical history noted below that presented to the emergency room from a local [facility] after she sustained a fall. Patient was evaluated in the ER and currently admitted to the hospital for management of pneumonia and UTI that likely contributed to her fall. Patient was treated with IV ceftriaxone and azithromycin. At the time of discharge patient reported that her breathing was at her baseline. She is on 2- 3 L at home. Patient was satting well on her home O2. Patient's urine culture grew E. coli that was resistant to quinolones. At the time of discharge patient denied any dysuria. Patient will be discharged on Augmentin to treat for both pneumonia and UTI. Patient will complete a 5 day antibiotic course. On admission patient was also found to be in acute kidney injury with hyperkalemia likely due to her diuretics. At home patient was on both Lasix and spironolactone. Patient's renal function improved with gentle fluids. At the time of discharge I will discontinue patient's spironolactone. I decreased her Lasix to 40 mg daily. I will continue to hold losartan as her blood pressure has been normotensive while she was off of it during hospitalization. Patient hgbA1c was 10.5. I will increase patient's glipizide to 5 mg by mouth twice a day to better control her blood glucose. I had a lengthy discussion with the patient that she needs to go to inpatient rehab. However patient is adamant that she'll go home. She is amenable for home care as well as home PT OT. Patient and daughter declined palliative care at this time. 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 Patient Condition at Discharge: Fair Plan - Discharge Summary Discharge Rx Participant: No New Discharge Prescriptions: New Amoxicillin/Potassium Clav [Augmentin 875-125 Tablet] 1 tab PO Q12HR 2 Days #4 tab glipiZIDE [Glucotrol] 5 mg PO AC-BID #60 tab Furosemide [Lasix] 40 mg PO DAILY tab Continue Albuterol Sulfate [Proair Hfa] 1 puff INHALATION RT-BID Potassium Chloride ER [K-Dur 10] 10 meq PO DAILY@0800 Pantoprazole Sodium [Protonix] 40 mg PO HS@1999 DULoxetine HCL [Cymbalta] 60 mg PO DAILY@0800 Dorzolamide/Timolol/Pf [Dorzolamide 2%-Timolol 0.5%] 1 drop BOTH EYES BID@799,1999 Budesonide [Pulmicort] 0.5 mg INHALATION RT-BID@08,1999 Ipratropium-Albuterol Nebulize [Duoneb 0.5 mg-3 mg/3 ml Soln] 3 ml INHALATION RT-TID Ferrous Sulfate [Iron (65 MG Elemental)] 325 mg PO DAILY@0800 Atorvastatin [Lipitor] 40 mg PO HS@1999 #30 tab Levothyroxine Sodium [Synthroid] 50 mcg PO DAILY@0800 #30 tab Loratadine 10 mg PO DAILY PRN PRN Reason: Allergy Symptoms Lidocaine 5% Oint [Xylocaine 5% Oint] 1 applic TOPICAL Q8H PRN PRN Reason: Pain Glucose 15 Gel 40%Gm 1 dose PO DAILY PRN PRN Reason: Hypoglycemia Tiotropium 18 Mcg/Puff [Spiriva] 1 cap INHALATION RT-DAILY@0800 Acetaminophen Tab [Tylenol] 650 mg PO Q6H PRN PRN Reason: Fever And/ Or Pain Metoprolol Tartrate [Lopressor] 12.5 mg PO BID@0800,1999 Melatonin 3 mg PO HS@1999 Aspirin 81 mg PO DAILY@0800 traMADol HCL 50 mg PO Q6H PRN PRN Reason: Pain Discontinued Spironolactone [Aldactone] 25 mg PO DAILY@0800 Losartan Potassium 50 mg PO DAILY@0800 glipiZIDE [Glucotrol] 5 mg PO DAILY@0800 Furosemide [Lasix] 40 mg PO BID@799,1999 Discharge Medication List Albuterol Sulfate [Proair Hfa] 1 puff INHALATION RT-BID 03/06/19 [History] Budesonide [Pulmicort] 0.5 mg INHALATION RT-BID@799,199903/06/19 [History] DULoxetine HCL [Cymbalta] 60 mg PO DAILY@0803/06/19 [History] Dorzolamide/Timolol/Pf [Dorzolamide 2%-Timolol 0.5%] 1 drop BOTH EYES BID@799,199903/06/19 [History] Pantoprazole Sodium [Protonix] 40 mg PO HS@199903/06/19 [History] Potassium Chloride ER [K-Dur 10] 10 meq PO DAILY@79903/06/19 [History] Ipratropium-Albuterol Nebulize [Duoneb 0.5 mg-3 mg/3 ml Soln] 3 ml INHALATION RT-TID 09/19/19 [History] Ferrous Sulfate [Iron (65 MG Elemental)] 325 mg PO DAILY@0809/20/19 [History] Atorvastatin [Lipitor] 40 mg PO HS@1999 #30 tab 09/22/19 [Rx] Levothyroxine Sodium [Synthroid] 50 mcg PO DAILY@0800 #30 tab 09/22/19 [Rx] Acetaminophen Tab [Tylenol] 650 mg PO Q6H PRN 01/25/20 [History] Aspirin 81 mg PO DAILY@0801/25/20 [History] Glucose 15 Gel 40%Gm 1 dose PO DAILY PRN 01/25/20 [History] Lidocaine 5% Oint [Xylocaine 5% Oint] 1 applic TOPICAL Q8H PRN 01/25/20 [History] Loratadine 10 mg PO DAILY PRN 01/25/20 [History] Melatonin 3 mg PO HS@199901/25/20 [History] Metoprolol Tartrate [Lopressor] 12.5 mg PO BID@799,199901/25/20 [History] Tiotropium 18 Mcg/Puff [Spiriva] 1 cap INHALATION RT-DAILY@0801/25/20 [History] traMADol HCL 50 mg PO Q6H PRN 01/25/20 [History] Amoxicillin/Potassium Clav [Augmentin 875-125 Tablet] 1 tab PO Q12HR 2 Days #4 tab 01/28/20 [Rx] Furosemide [Lasix] 40 mg PO DAILY tab 01/28/20 [Rx] glipiZIDE [Glucotrol] 5 mg PO AC-BID #60 tab 01/28/20 [Rx] Follow up Appointment(s)/Referral(s): Nonstaff,Physician [REFERRING] - 1-2 days Discharge Disposition: HOME SELF-CARE
[2020-01-28 12:57] VITALS: BMI 42.6
[2020-01-28 14:54] VITALS: PULSE 94
== END 2020-01-28 17:03 | disposition home or self-care (01) | DRG 689 ==
LOC: EC 13:36 → 6NMEDSUR 15:34
PROVIDERS: ADMIT Internal Medicine; ATTEND Internal Medicine
DX: N39.0 Urinary tract infection, site not specified (principal); J18.9 Pneumonia, unspecified organism; N17.9 Acute kidney failure, unspecified; Z68.41 Body mass index [BMI] 40.0-44.9, adult; J44.0 Chronic obstructive pulmonary disease with (acute) lower respiratory infection; J96.11 Chronic respiratory failure with hypoxia; Z16.23 Resistance to quinolones and fluoroquinolones; E11.22 Type 2 diabetes mellitus with diabetic chronic kidney disease; N18.30 Chronic kidney disease, stage 3 unspecified; Z79.84 Long term (current) use of oral hypoglycemic drugs; B96.20 Unspecified Escherichia coli [E. coli] as the cause of diseases classified elsewhere; E03.9 Hypothyroidism, unspecified; E66.01 Morbid (severe) obesity due to excess calories; E86.0 Dehydration; E87.5 Hyperkalemia; G47.33 Obstructive sleep apnea (adult) (pediatric); Z99.89 Dependence on other enabling machines and devices; Z20.828 Contact with and (suspected) exposure to other viral communicable diseases; I87.2 Venous insufficiency (chronic) (peripheral); I89.0 Lymphedema, not elsewhere classified; T50.2X5A Adverse effect of carbonic-anhydrase inhibitors, benzothiadiazides and other diuretics, initial encounter; Z91.81 History of falling; Z90.89 Acquired absence of other organs; Z79.82 Long term (current) use of aspirin; Z79.890 Hormone replacement therapy; Z79.899 Other long term (current) drug therapy; Z80.8 Family history of malignant neoplasm of other organs or systems; Z87.891 Personal history of nicotine dependence; R53.81 Other malaise; Z90.49 Acquired absence of other specified parts of digestive tract; Z90.5 Acquired absence of kidney; Z88.5 Allergy status to narcotic agent
CPT/HCPCS: 36415; 71045; 80048; 80053; 81001; 83036; 83605; 83735; 84100; 84145; 84484; 85025; 85610; 85730; 87040; 87070; 87077; 87086; 87186; 87205; 93005; 94640; 94760; 96361; 96365; 99285

== ENCOUNTER 2020-02-29 21:33 | Inpatient (IN) | payer MEDICARE, BC ==
[2020-02-29 21:58] LABS: Glucose,Whole Blood 287 mg/dL (75-99)
[2020-02-29 22:12] LABS: HCT 46.1 % (34.0-46.0); Hypochromasia Moderate; MCH 29.3 pg (25.0-35.0); MCHC 30.6 g/dL (31.0-37.0); MCV 95.6 fL (80.0-100.0); Mean Platelet Volume 7.5; Platelet Count 550 k/uL (150-450); RBC 4.82 m/uL (3.80-5.40); RDW 13.8 % (11.5-15.5); WBC 34.6 k/uL (3.8-10.6)
--- NOTE | 2020-02-29 22:13 | XR ---
EXAMINATION TYPE: XR chest 1V portable DATE OF EXAM: 02/29/2020 COMPARISON: 01/25/2020 HISTORY: Short of breath TECHNIQUE: . FINDINGS: Heart size is normal. There is some mild pulmonary interstitial increased density in both lungs. Ther e is neural stimulator in the mid thoracic spine. There is slight blunting of the costophrenic angles . There are chest leads. IMPRESSION: There is mild increased pulmonary interstitial density and small pleural effusions increa sed compared to old exam. This could be mild heart failure. Interstitial pneumonia also possible.
[2020-02-29 22:25] LABS: HGB 14.1 gm/dL (11.4-16.0)
[2020-02-29 22:28] LABS: Calcium 9.4 mg/dL (8.4-10.2)
[2020-02-29 22:39] LABS: ABG Base Excess 15.6 mmol/L; ABG Oxygen Saturation 98.5 % (94-97); ABG PH 7.22 (7.35-7.45); ABG PO2 324 mmHg (83-108); ABG TCO2 47 mmol/L (19-24); Allen Test Performed? Yes
[2020-02-29 22:40] LABS: ABG PCO2 107 mmHg (35-45)
[2020-02-29 22:41] LABS: ABG HCO3 43 mmol/L (21-25)
[2020-02-29] MEDS ORDERED: LEVOFLOXACIN 750MG-D5W PMX 750 MG in DEXTROSE/WATER 1 150ML.BAG IVPB STA (22:42)
[2020-02-29 22:48] LABS: Albumin 4.2 g/dL (3.5-5.0); Magnesium 1.7 mg/dL (1.6-2.3); Total Protein 7.9 g/dL (6.3-8.2)
[2020-02-29] MEDS ORDERED: NITROGLYCERIN-D5W PMX 50 MG in DEXTROSE/WATER 1 250ML.BAG IV ONE (23:02)
[2020-02-29] MEDS ORDERED: FUROSEMIDE 10 MG/ML 10 ML VIAL IV STA (23:03)
[2020-02-29] MEDS ORDERED: NALOXONE 0.4 MG/ML 1 ML VIAL IV PRN (23:05)
--- NOTE | 2020-02-29 23:06 | ED ---
SOB HPI - General Chief Complaint: Shortness of Breath Stated Complaint: SHILPI Source: patient, EMS Mode of arrival: EMS Limitations: no limitations - History of Present Illness Initial Comments: 74-year-old female with past medical history of COPD, diabetes, CPAP use presents to the emergency department from formerly [facility]. EMS report that the patient has had shortness of breath for the past couple of days which worsened today. They found the patient to be saturating in the 50s with significant increased worker breathing. She was placed on CPAP and transported. Remainder of the details are unable to be obtained due to the patient's respiratory distress at this time. No known fevers or sick contacts with similar symptoms. The patient is denying any chest pain - Related Data Home Medications Medication Instructions Recorded Confirmed Albuterol Sulfate [Proair Hfa] 1 puff INHALATION RT-BID 03/06/19 02/29/20 Budesonide [Pulmicort] 0.5 mg INHALATION RT-BID@08,199903/06/19 02/29/20 DULoxetine HCL [Cymbalta] 60 mg PO DAILY@79903/06/19 02/29/20 Dorzolamide/Timolol/Pf 1 drop BOTH EYES BID@799,199903/06/19 02/29/20 [Dorzolamide 2%-Timolol 0.5%] Pantoprazole Sodium [Protonix] 40 mg PO HS@199903/06/19 02/29/20 Potassium Chloride ER [K-Dur 10] 10 meq PO DAILY@79903/06/19 02/29/20 Ipratropium-Albuterol Nebulize 3 ml INHALATION RT-TID 09/19/19 02/29/20 [Duoneb 0.5 mg-3 mg/3 ml Soln] Ferrous Sulfate [Iron (65 MG 325 mg PO DAILY@79909/20/19 02/29/20 Elemental)] Acetaminophen Tab [Tylenol] 650 mg PO Q6H PRN 01/25/20 02/29/20 Aspirin 81 mg PO DAILY@0800 01/25/20 02/29/20 Glucose 15 Gel 40%Gm 1 dose PO DAILY PRN 01/25/20 02/29/20 Lidocaine 5% Oint [Xylocaine 5% 1 applic TOPICAL Q8H PRN 01/25/20 02/29/20 Oint] Loratadine 10 mg PO DAILY PRN 01/25/20 02/29/20 Melatonin 3 mg PO HS@199901/25/20 02/29/20 Metoprolol Tartrate [Lopressor] 12.5 mg PO BID@08,199901/25/20 02/29/20 Tiotropium 18 Mcg/Puff [Spiriva] 1 cap INHALATION RT-DAILY@0800 01/25/20 02/29/20 traMADol HCL 50 mg PO DIRECTED PRN 01/25/20 02/29/20 Atorvastatin [Lipitor] 10 mg PO DIRECTED 02/29/20 02/29/20 Levothyroxine Sodium [Synthroid] 75 mcg PO DIRECTED 02/29/20 02/29/20 Nitrofurantoin Macrocrystal 100 mg PO BID 02/29/20 02/29/20 [Nitrofurantoin] Phenazopyridine HCl [Pyridium] 200 mg PO TID 02/29/20 02/29/20 glipiZIDE [Glucotrol XL] 10 mg PO DIRECTED 02/29/20 02/29/20 Previous Rx's Medication Instructions Recorded Furosemide [Lasix] 40 mg PO DAILY tab 01/28/20 Allergies Allergy/AdvReac Type Severity Reaction Status Date / Time codeine AdvReac Nausea & Verified 02/29/20 23:24 Vomiting Review of Systems ROS Statement: Those systems with pertinent positive or pertinent negative responses have been documented in the HPI. ROS Other: All systems not noted in ROS Statement are negative. Past Medical History Past Medical History: COPD, Diabetes Mellitus, Memory Impairment, Osteoarthritis (OA), Pneumonia, Renal Disease, Sleep Apnea/CPAP/BIPAP, Thyroid Disorder Additional Past Medical History / Comment(s): cellulitis on legs, uses cpap at home thinks her settings are 5 very poor historian, POSSIBLE HEART PER PATIENT UNSURE, BLADDER INFECTION History of Any Multi-Drug Resistant Organisms: ESBL Date of last positivie culture/infection: 03/20/19 MDRO Source:: Urine Past Surgical History: Appendectomy, Cholecystectomy, Hernia Repair, Hysterectomy, Tonsillectomy Additional Past Surgical History / Comment(s): kidney left removed, colonoscopy Past Anesthesia/Blood Transfusion Reactions: No Reported Reaction Past Psychological History: No Psychological Hx Reported Smoking Status: Former smoker Past Alcohol Use History: None Reported Past Drug Use History: None Reported - Past Family History Mother Family Medical History: Cancer Additional Family Medical History / Comment(s): throat cancer General Exam Limitations: no limitations Course Vital Signs 02/29/20 02/29/20 02/29/20 21:35 21:41 21:45 Temperature 97.3 F L Pulse Rate 125 H 115 H Respiratory 16 24 24 Rate Blood Pressure 196/105 191/108 O2 Sat by Pulse 91 L 98 Oximetry 02/29/20 02/29/20 02/29/20 21:56 22:30 23:00 Temperature Pulse Rate 115 H 114 H 113 H Respiratory 22 23 19 Rate Blood Pressure 184/91 147/77 117/89 O2 Sat by Pulse 98 98 96 Oximetry 02/29/20 03/01/20 03/01/20 23:50 00:00 00:13 Temperature Pulse Rate 109 H 109 H 107 H Respiratory 22 22 21 Rate Blood Pressure 109/69 116/80 126/76 O2 Sat by Pulse 91 L 91 L 96 Oximetry Medical Decision Making - Medical Decision Making Upon arrival patient is promptly placed in a trauma bay 2. She does arrive I really breathing with cyanosis. A thorough physical exam was performed. Patient is transitioned from CPAP to BiPAP with improvement in her oxygen saturations. Peripheral IV is established. Laboratory studies were conducted and a portal chest x-rays performed. Lab studies are remarkable for a white blood cell count 34.6. Lactic acid 3.4. Urine is positive for nitrates. Coronavirus, influenza A/B are not detected. Patient given a dose of Levaquin for a leukocytosis with suspected tracheobronchitis. Upon return the patient's urinalysis previous cultures are obtained which demonstrate resistance to Levaquin and therefore the patient was given additionally a dose of Rocephin. 60 mg of Lasix was ordered due to patient's chest x-ray demonstrating concerning signs for heart failure. Patient is a transitioned to AVAPS mode after first ABG reading with a CO2 of 107. Repeat ABG demonstrates improved CO2 of 87. Patient clinical exam is improved - cynaosis resolved. Patient will open eyes and answer questions appropriately. I did call discuss case with Dr. durant. I will consult cardiology and pulmonology. Patient remained in stable condition awaiting a bed - Lab Data Result diagrams: 02/29/20 21:45 02/29/20 21:45 Lab Results 1102/29/20 02/29/20 Range/Units 21:45 21:45 21:45 WBC 34.6 H (3.8-10.6) k/uL RBC 4.82 (3.80-5.40) m/uL Hgb 14.1 D (11.4-16.0) gm/dL Hct 46.1 H (34.0-46.0) % MCV 95.6 (80.0-100.0) fL MCH 29.3 (25.0-35.0) pg MCHC 30.6 L (31.0-37.0) g/dL RDW 13.8 (11.5-15.5) % Plt Count 550 H (150-450) k/uL MPV 7.5 Neutrophils % (Manual) 81 % Band Neuts % (Manual) 7 % Lymphocytes % (Manual) 6 % Monocytes % (Manual) 4 % Eosinophils % (Manual) 2 % Neutrophils # (Manual) 30.40 H (1.3-7.7) k/uL Lymphocytes # (Manual) 2.08 (1.0-4.8) k/uL Monocytes # (Manual) 1.38 H (0-1.0) k/uL Eosinophils # (Manual) 0.69 (0-0.7) k/uL Nucleated RBCs 0 (0-0) /100 WBC Manual Slide Review Performed Toxic Granulation Present Toxic Vacuolation Present Hypochromasia Moderate PT (9.0-12.0) sec INR (<1.2) APTT (22.0-30.0) sec D-Dimer (<0.60) mg/L FEU Sample Site ABG pH (7.35-7.45) ABG pCO2 (35-45) mmHg ABG pO2 (83-108) mmHg ABG HCO3 (21-25) mmol/L ABG Total CO2 (19-24) mmol/L ABG O2 Saturation (94-97) % ABG Base Excess mmol/L Griffin Test FiO2 % Sodium 131 L (137-145) mmol/L Potassium 5.0 (3.5-5.1) mmol/L Chloride 82 L (98-107) mmol/L Carbon Dioxide 39 H (22-30) mmol/L Anion Gap 10 mmol/L BUN 17 (7-17) mg/dL Creatinine 1.10 H (0.52-1.04) mg/dL Est GFR (CKD-EPI)AfAm 56 (>60 ml/min/1.73 sqM) Est GFR (CKD-EPI)NonAf 49 (>60 ml/min/1.73 sqM) Glucose 277 H (74-99) mg/dL POC Glucose (mg/dL) (75-99) mg/dL POC Glu Firefighter Type One ID Plasma Lactic Acid Taz 3.4 H* (0.7-2.0) mmol/L Calcium 9.4 (8.4-10.2) mg/dL Magnesium 1.7 (1.6-2.3) mg/dL Total Bilirubin 2.0 H (0.2-1.3) mg/dL AST 34 (14-36) U/L ALT 16 (4-34) U/L Alkaline Phosphatase 133 H (38-126) U/L Troponin I (0.000-0.034) ng/mL NT-Pro-B Natriuret Pep pg/mL Total Protein 7.9 (6.3-8.2) g/dL Albumin 4.2 (3.5-5.0) g/dL Urine Color Urine Appearance (Clear) Urine pH (5.0-8.0) Ur Specific [place] (1.001-1.035) Urine Protein (Negative) Urine Glucose (UA) (Negative) Urine Ketones (Negative) Urine Blood (Negative) Urine Nitrite (Negative) Urine Bilirubin (Negative) Urine Urobilinogen (<2.0) mg/dL Ur Leukocyte Esterase (Negative) Urine RBC (0-5) /hpf Urine WBC (0-5) /hpf Ur Squamous Epith Cells (0-4) /hpf Hyaline Casts (0-2) /lpf Urine Mucus (None) /hpf Coronavirus (PCR) (Not Detectd) Influenza Type A RNA (Not Detectd) Influenza Type B (PCR) (Not Detectd) 02/29/20 02/29/20 02/29/20 Range/Units 21:45 21:45 21:45 WBC (3.8-10.6) k/uL RBC (3.80-5.40) m/uL Hgb (11.4-16.0) gm/dL Hct (34.0-46.0) % MCV (80.0-100.0) fL MCH (25.0-35.0) pg MCHC (31.0-37.0) g/dL RDW (11.5-15.5) % Plt Count (150-450) k/uL MPV Neutrophils % (Manual) % Band Neuts % (Manual) % Lymphocytes % (Manual) % Monocytes % (Manual) % Eosinophils % (Manual) % Neutrophils # (Manual) (1.3-7.7) k/uL Lymphocytes # (Manual) (1.0-4.8) k/uL Monocytes # (Manual) (0-1.0) k/uL Eosinophils # (Manual) (0-0.7) k/uL Nucleated RBCs (0-0) /100 WBC Manual Slide Review Toxic Granulation Toxic Vacuolation Hypochromasia PT (9.0-12.0) sec INR (<1.2) APTT (22.0-30.0) sec D-Dimer (<0.60) mg/L FEU Sample Site ABG pH (7.35-7.45) ABG pCO2 (35-45) mmHg ABG pO2 (83-108) mmHg ABG HCO3 (21-25) mmol/L ABG Total CO2 (19-24) mmol/L ABG O2 Saturation (94-97) % ABG Base Excess mmol/L Griffin Test FiO2 % Sodium (137-145) mmol/L Potassium (3.5-5.1) mmol/L Chloride (98-107) mmol/L Carbon Dioxide (22-30) mmol/L Anion Gap mmol/L BUN (7-17) mg/dL Creatinine (0.52-1.04) mg/dL Est GFR (CKD-EPI)AfAm (>60 ml/min/1.73 sqM) Est GFR (CKD-EPI)NonAf (>60 ml/min/1.73 sqM) Glucose (74-99) mg/dL POC Glucose (mg/dL) (75-99) mg/dL POC Glu Firefighter Type One ID Plasma Lactic Acid Taz (0.7-2.0) mmol/L Calcium (8.4-10.2) mg/dL Magnesium (1.6-2.3) mg/dL Total Bilirubin (0.2-1.3) mg/dL AST (14-36) U/L ALT (4-34) U/L Alkaline Phosphatase (38-126) U/L Troponin I <0.012 (0.000-0.034) ng/mL NT-Pro-B Natriuret Pep 641 pg/mL Total Protein (6.3-8.2) g/dL Albumin (3.5-5.0) g/dL Urine Color Urine Appearance (Clear) Urine pH (5.0-8.0) Ur Specific [place] (1.001-1.035) Urine Protein (Negative) Urine Glucose (UA) (Negative) Urine Ketones (Negative) Urine Blood (Negative) Urine Nitrite (Negative) Urine Bilirubin (Negative) Urine Urobilinogen (<2.0) mg/dL Ur Leukocyte Esterase (Negative) Urine RBC (0-5) /hpf Urine WBC (0-5) /hpf Ur Squamous Epith Cells (0-4) /hpf Hyaline Casts (0-2) /lpf Urine Mucus (None) /hpf Coronavirus (PCR) (Not Detectd) Influenza Type A RNA Not Detected (Not Detectd) Influenza Type B (PCR) Not Detected (Not Detectd) 02/29/20 02/29/20 02/29/20 Range/Units 21:46 21:48 21:57 WBC (3.8-10.6) k/uL RBC (3.80-5.40) m/uL Hgb (11.4-16.0) gm/dL Hct (34.0-46.0) % MCV (80.0-100.0) fL MCH (25.0-35.0) pg MCHC (31.0-37.0) g/dL RDW (11.5-15.5) % Plt Count (150-450) k/uL MPV Neutrophils % (Manual) % Band Neuts % (Manual) % Lymphocytes % (Manual) % Monocytes % (Manual) % Eosinophils % (Manual) % Neutrophils # (Manual) (1.3-7.7) k/uL Lymphocytes # (Manual) (1.0-4.8) k/uL Monocytes # (Manual) (0-1.0) k/uL Eosinophils # (Manual) (0-0.7) k/uL Nucleated RBCs (0-0) /100 WBC Manual Slide Review Toxic Granulation Toxic Vacuolation Hypochromasia PT (9.0-12.0) sec INR (<1.2) APTT (22.0-30.0) sec D-Dimer (<0.60) mg/L FEU Sample Site ABG pH (7.35-7.45) ABG pCO2 (35-45) mmHg ABG pO2 (83-108) mmHg ABG HCO3 (21-25) mmol/L ABG Total CO2 (19-24) mmol/L ABG O2 Saturation (94-97) % ABG Base Excess mmol/L Griffin Test FiO2 % Sodium (137-145) mmol/L Potassium (3.5-5.1) mmol/L Chloride (98-107) mmol/L Carbon Dioxide (22-30) mmol/L Anion Gap mmol/L BUN (7-17) mg/dL Creatinine (0.52-1.04) mg/dL Est GFR (CKD-EPI)AfAm (>60 ml/min/1.73 sqM) Est GFR (CKD-EPI)NonAf (>60 ml/min/1.73 sqM) Glucose (74-99) mg/dL POC Glucose (mg/dL) 287 H (75-99) mg/dL POC Glu Firefighter Type One ID Jaky Alexander Plasma Lactic Acid Taz (0.7-2.0) mmol/L Calcium (8.4-10.2) mg/dL Magnesium (1.6-2.3) mg/dL Total Bilirubin (0.2-1.3) mg/dL AST (14-36) U/L ALT (4-34) U/L Alkaline Phosphatase (38-126) U/L Troponin I (0.000-0.034) ng/mL NT-Pro-B Natriuret Pep pg/mL Total Protein (6.3-8.2) g/dL Albumin (3.5-5.0) g/dL Urine Color Dark Brown Urine Appearance Clear (Clear) Urine pH 6.0 (5.0-8.0) Ur Specific [place] 1.013 (1.001-1.035) Urine Protein 1+ H (Negative) Urine Glucose (UA) 1+ H (Negative) Urine Ketones Negative (Negative) Urine Blood Negative (Negative) Urine Nitrite Positive H (Negative) Urine Bilirubin 2+ H (Negative) Urine Urobilinogen 6.0 (<2.0) mg/dL Ur Leukocyte Esterase Negative (Negative) Urine RBC 1 (0-5) /hpf Urine WBC 2 (0-5) /hpf Ur Squamous Epith Cells 1 (0-4) /hpf Hyaline Casts 1 (0-2) /lpf Urine Mucus Rare H (None) /hpf Coronavirus (PCR) Not Detected (Not Detectd) Influenza Type A RNA (Not Detectd) Influenza Type B (PCR) (Not Detectd) 02/29/20 02/29/20 Range/Units 22:34 22:57 WBC (3.8-10.6) k/uL RBC (3.80-5.40) m/uL Hgb (11.4-16.0) gm/dL Hct (34.0-46.0) % MCV (80.0-100.0) fL MCH (25.0-35.0) pg MCHC (31.0-37.0) g/dL RDW (11.5-15.5) % Plt Count (150-450) k/uL MPV Neutrophils % (Manual) % Band Neuts % (Manual) % Lymphocytes % (Manual) % Monocytes % (Manual) % Eosinophils % (Manual) % Neutrophils # (Manual) (1.3-7.7) k/uL Lymphocytes # (Manual) (1.0-4.8) k/uL Monocytes # (Manual) (0-1.0) k/uL Eosinophils # (Manual) (0-0.7) k/uL Nucleated RBCs (0-0) /100 WBC Manual Slide Review Toxic Granulation Toxic Vacuolation Hypochromasia PT 12.5 H (9.0-12.0) sec INR 1.2 H (<1.2) APTT 27.8 (22.0-30.0) sec D-Dimer 0.97 H (<0.60) mg/L FEU Sample Site R radial ABG pH 7.22 L (7.35-7.45) ABG pCO2 107 H* (35-45) mmHg ABG pO2 324 H (83-108) mmHg ABG HCO3 43 H* (21-25) mmol/L ABG Total CO2 47 H (19-24) mmol/L ABG O2 Saturation 98.5 H (94-97) % ABG Base Excess 15.6 mmol/L Griffin Test Yes FiO2 100 % Sodium (137-145) mmol/L Potassium (3.5-5.1) mmol/L Chloride (98-107) mmol/L Carbon Dioxide (22-30) mmol/L Anion Gap mmol/L BUN (7-17) mg/dL Creatinine (0.52-1.04) mg/dL Est GFR (CKD-EPI)AfAm (>60 ml/min/1.73 sqM) Est GFR (CKD-EPI)NonAf (>60 ml/min/1.73 sqM) Glucose (74-99) mg/dL POC Glucose (mg/dL) (75-99) mg/dL POC Glu Firefighter Type One ID Plasma Lactic Acid Taz (0.7-2.0) mmol/L Calcium (8.4-10.2) mg/dL Magnesium (1.6-2.3) mg/dL Total Bilirubin (0.2-1.3) mg/dL AST (14-36) U/L ALT (4-34) U/L Alkaline Phosphatase (38-126) U/L Troponin I (0.000-0.034) ng/mL NT-Pro-B Natriuret Pep pg/mL Total Protein (6.3-8.2) g/dL Albumin (3.5-5.0) g/dL Urine Color Urine Appearance (Clear) Urine pH (5.0-8.0) Ur Specific [place] (1.001-1.035) Urine Protein (Negative) Urine Glucose (UA) (Negative) Urine Ketones (Negative) Urine Blood (Negative) Urine Nitrite (Negative) Urine Bilirubin (Negative) Urine Urobilinogen (<2.0) mg/dL Ur Leukocyte Esterase (Negative) Urine RBC (0-5) /hpf Urine WBC (0-5) /hpf Ur Squamous Epith Cells (0-4) /hpf Hyaline Casts (0-2) /lpf Urine Mucus (None) /hpf Coronavirus (PCR) (Not Detectd) Influenza Type A RNA (Not Detectd) Influenza Type B (PCR) (Not Detectd) - EKG Data EKG Comments: EKG demonstrates a sinus tachycardia with a ventricular rate of 118. AK interval 156. QRS 82. QTC of 451. No acute ST segment elevations or depressions concerning for ischemic changes Disposition Clinical Impression: COPD with exacerbation, Leukocytosis, Dependence on non-invasive ventilation Disposition: ADMITTED IP TO THIS HOSP Condition: Serious Is patient prescribed a controlled substance at d/c from ED?: No Decision to Admit Reason: Admit from EC Decision Date: 02/29/20 Decision Time: 23:05
[2020-02-29 23:14] LABS: Band Neutrophils % 7 %; Eosinophils # (M) 0.69 k/uL (0-0.7); Lymphocytes # (M) 2.08 k/uL (1.0-4.8); Monocytes # (M) 1.38 k/uL (0-1.0); Neutrophils % (M) 81 %; Nucleated Red Blood Cells 0 /100 WBC (0-0); Total Cells Counted 100; Toxic Granulation Present; Toxic Vacuolation Present
[2020-02-29 23:37] LABS: D-Dimer 0.97 mg/L FEU (<0.60); INR 1.2 (<1.2); Partial Thromboplastin Time 27.8 sec (22.0-30.0); Prothrombin Time 12.5 sec (9.0-12.0)
[2020-02-29 23:40] LABS: ABG Base Excess 15.5 mmol/L; ABG Oxygen Saturation 97.3 % (94-97); ABG PO2 119 mmHg (83-108); ABG TCO2 45 mmol/L (19-24); Allen Test Performed? Yes
[2020-03-01 00:17] LABS: Appearance,Urine Clear (Clear); Bilirubin,Urine 2+ (Negative); Blood,Urine Negative (Negative); Color,Urine Dark Brown; Glucose,Urine (UA) 1+ (Negative); Hyaline Casts,Urine 1 /lpf (0-2); Ketones,Urine Negative (Negative); Leukocyte Esterase,Urine Negative (Negative); Mucus,Urine Rare /hpf; Nitrite,Urine Positive (Negative); Protein,Urine 1+ (Negative); RBC,Urine 1 /hpf (0-5); Specific Gravity,Urine 1.013 (1.001-1.035); Squamous Epithelial Cell,Urine 1 /hpf (0-4); WBC,Urine 2 /hpf (0-5)
[2020-03-01 04:09] LABS: Basophils # (A) 0.1 k/uL (0-0.2); Basophils % (A) 1 %; Eosinophils # (A) 0.1 k/uL (0-0.7); Eosinophils % (A) 1 %; HCT 39.6 % (34.0-46.0); HGB 12.3 gm/dL (11.4-16.0); Hypochromasia Moderate; Lymphocytes # (A) 0.5 k/uL (1.0-4.8); Lymphocytes % (A) 2 %; MCH 30.3 pg (25.0-35.0); MCHC 31.1 g/dL (31.0-37.0); MCV 97.5 fL (80.0-100.0); Mean Platelet Volume 7.2; Monocytes # (A) 0.9 k/uL (0-1.0); Monocytes % (A) 4 %; Neutrophils # (A) 18.1 k/uL (1.3-7.7); Neutrophils % (A) 91 %; Platelet Count 323 k/uL (150-450); RBC 4.06 m/uL (3.80-5.40); RDW 13.6 % (11.5-15.5); WBC 19.9 k/uL (3.8-10.6)
[2020-03-01 04:18] LABS: Calcium 9.1 mg/dL (8.4-10.2); Potassium 4.4 mmol/L (3.5-5.1)
[2020-03-01] MEDS ORDERED: IPRATROPIUM-ALBUTEROL 3 ML NEB INHALATION PRN (04:40)
[2020-03-01 06:48] LABS: Glucose,Whole Blood 161 mg/dL (75-99)
[2020-03-01 06:51] LABS: ABG HCO3 42 mmol/L (21-25); ABG PCO2 86 mmHg (35-45)
[2020-03-01] MEDS: IPRATROPIUM-ALBUTEROL 3 ML NEB INHALATION SCH ×4 (09:20→23:51)
[2020-03-01] MEDS: BUDESONIDE 0.5 MG/2 ML NEBU INHALATION SCH ×2 (09:20→20:22)
[2020-03-01] MEDS ORDERED: LIDOCAINE 5% OINTMENT 50 GM JAR TOPICAL PRN (10:31)
[2020-03-01] MEDS ORDERED: NON FORMULARY DRUG (Tramadol Hcl 50 MG Tablet) PO PRN (10:31)
--- NOTE | 2020-03-01 10:32 | CONS ---
CONSULTATION Mrs. Carrillo is a 74-year-old female who presents from [facility] with symptoms of progressive dyspnea. She is on the BiPAP. I am not able to obtain a good history from her. She denies any chest pain. She complains of significant dyspnea. She appears more comfortable at this time. Cardiology consultation was requested for possible cardiac etiology to her dyspnea. The patient has a history of chronic obstructive lung disease, who was in the hospital in September of this year. At that time, presented with symptoms of worsening dyspnea. She had minimal troponin elevation that were not related to any acute ischemic event. She had an echocardiogram done during that admission that showed a preserved left ventricular end systolic function with no significant valvular abnormalities. PA and 1 what appears from the history and records the patient is limited in her physical activity and has a history of chronic kidney disease, obstructive sleep apnea, history of diabetes. I am not able to obtain any other history from her at this point. Her medication at the time of admission included glipizide, tramadol, potassium, DM Protonix, metoprolol tartrate 12.5 mg twice a day, Lasix 40 mg daily, Budesonide, Lipitor 10 mg daily, aspirin. REVIEW OF SYSTEMS: Limited but the patient complains of dyspnea and denies any fever or recent wheezing. GI SYSTEM: She has no recent nausea and vomiting, no GI bleeding. SYSTEM: No dysuria or hematuria, although as noted the review of systems is limited. PHYSICAL EXAMINATION: She is a 74-year-old female, alert on the BiPAP. Blood pressure 134/80 with a heart rate in the 90s afebrile. HEAD: Normocephalic. EYES: Sclerae nonicteric. NECK: Unable to evaluate jugular venous pressure. LUNGS: Clear to auscultation anteriorly. No wheezes noted. HEART: Regular rate and rhythm S1, S2. No S3. No rub appreciated. ABDOMEN: Soft, obese, nontender. EXTREMITIES: Trace edema. LAB DATA: Revealed white blood cell of 34.6, hemoglobin 14.1, on presentation her pH 7.22 with a pCO2 of 107. Her BUN and creatinine are 17 and 1.1. Her troponin less than 0.012 and 0.013. NT proBNP of 641. She is negative for recurrent virus PCR. Her EKG revealed a sinus tachycardia with evidence of right ventricular hypertrophy and nonspecific ST-T wave changes, cannot exclude a prior inferior myocardial infarction. Her chest x-ray shows the possibility of interstitial pneumonia. IMPRESSION: 1. Progressive dyspnea in a patient with known history of obstructive sleep apnea and lung disease, there is no evidence to suggest acute coronary syndrome nor congestive heart failure. 2. Hypoxemia and hypercapnia on respiratory acidosis on presentation. 3. Obesity. 4. Chronic kidney disease. 5. Diabetes. 6. Hyperlipidemia. RECOMMENDATION: From the cardiac standpoint, I see no evidence of acute coronary artery syndrome at this time or congestive heart failure. Her NT proBNP is not elevated. On examination, there is no clear evidence for congestive heart failure. The patient will be seen by Dr. Cole for further evaluation of her lung status. Will continue on the present regimen. Follow her renal function. I will re-initiate treatment with her beta amilcar as well as her statin and depending on her progress, further recommendation will be made. Thank you for this consult. Will follow with you. ARTURO / IJN: [id number] /
[2020-03-01] MEDS ORDERED: LEVOTHYROXINE 75 MCG TAB PO SCH (10:45)
[2020-03-01] MEDS ORDERED: LORATADINE 10 MG TAB PO PRN (11:28)
[2020-03-01 11:40] LABS: Glucose,Whole Blood 112 mg/dL (75-99)
[2020-03-01] MEDS: glipiZIDE 5 MG TAB PO SCH ×2 (12:12→20:46)
[2020-03-01] MEDS: ASPIRIN 81 MG PO SCH (12:13)
[2020-03-01] MEDS: PIPERACILLIN-TAZOBACTAM 3.375 GM in SODIUM CHLORIDE 0.9% 100 ML IVPB SCH ×2 (12:13→23:29)
[2020-03-01] MEDS: DULoxetine HCL 60 MG CAPSULE.DR PO SCH (12:13)
[2020-03-01] MEDS: FUROSEMIDE 10 MG/ML 4 ML VIAL IV SCH ×2 (12:13→20:47)
[2020-03-01] MEDS: METOPROLOL TARTRATE 12.5 MG TAB PO SCH ×2 (12:32→20:46)
[2020-03-01] MEDS ORDERED: PHENAZOPYRIDINE 200 MG TAB PO SCH (16:00)
[2020-03-01 16:30] LABS: Glucose,Whole Blood 256 mg/dL (75-99)
--- NOTE | 2020-03-01 18:08 | P.CNPUL ---
History of Present Illness Reason for consult: dyspnea History of present illness: This is a 74-year-old female patient, morbidly obese who resides at the [facility] and the patient came into the hospital because of progressive shortness of breath. The patient herself is a poor historian. The patient is morbidly obese. Upon arrival to the emergency department, the patient was short of breath and she reported worsening shortness of breath of few days' duration. She was found to be desaturating with a pulse ox in the mid 50s and she had increased work of breathing. At that point, the patient was started on BiPAP for respiratory support. Subsequently the patient was switched to an AVAPS mode with a target tidal volume of 350 and the respiratory rate of 16 with an EPAP minimum of 5. The patient currently is tolerating the treatment without any major difficulties. The patient had a white cell count of 19.9 with a lymphocyte count of 0.5 consistent with lymphopenia. Sodium was 129 with a BUN of 19 a creatinine of 1.2 with a serum bicarb of 37. The blood gas showed a pH of 7.3 with a pCO2 of 86 and pO2 of 119 and I believe this was done while the patient being on a BiPAP. The patient seems to be a chronic CO2 retainer that the patient has chronic metabolic alkalosis. Note that the patient also had a lactic acid level of 3.4 which dropped down to 1.5. The patient had a proBNP level of 641. 2 sets of troponins were negative. Serum abdomen was at 4.2. The glucose at 237. The urbina virus Covid 19 testing was negative. Influenza A and B screening was negative. Chest x-ray showed cardiomegaly with some increased pulmonary vascular densities and infiltrates and small better pleural effusion. Echocardiogram from 09/22/2019 showed an ejection fraction of 55-60%. The patient has mild concentric LVH. No pericardial effusion. No pleural effusion. No signs of any pulmonary hypertension. On examination, clearly the patient several minutes of the lower extremities worse on the left. This was consistent with her diminished level of consciousness and leukocytosis. The patient's urine culture from 01/25/2020 was positive for E. coli and she also has had a previous UTI on 03/20/2020 consistent with Pneumonia. Other, Right Evaluation, I Started the Patient IV Zosyn and I Also Started Patient on Diuretics with Lasix 40 Mg Every 12 Hours. Her white cell count is improving is currently down to 19.9. Review of Systems ROS unobtainable: due to mental status Past Medical History Past Medical History: COPD, Diabetes Mellitus, Memory Impairment, Osteoarthritis (OA), Pneumonia, Renal Disease, Sleep Apnea/CPAP/BIPAP, Thyroid Disorder Additional Past Medical History / Comment(s): Obesity, KEEGAN, recurrent cellulitis on legs, uses cpap at home, DM2, Hypothyroid, obesity, UTI, CKD and the patinet has undergone a nephrectomy on the left History of Any Multi-Drug Resistant Organisms: ESBL Date of last positivie culture/infection: 03/20/19 MDRO Source:: Urine Past Surgical History: Appendectomy, Cholecystectomy, Hernia Repair, Hysterectomy, Tonsillectomy Additional Past Surgical History / Comment(s): kidney left removed on the left, colonoscopy Past Anesthesia/Blood Transfusion Reactions: No Reported Reaction Past Psychological History: No Psychological Hx Reported Smoking Status: Former smoker Past Alcohol Use History: None Reported Additional Past Alcohol Use History / Comment(s): STARTED SMOKING AT 14 QUIT A BOUT AGE 44 SMOKED 1/2 -1 PPD Past Drug Use History: None Reported - Past Family History Mother Family Medical History: Cancer Additional Family Medical History / Comment(s): throat cancer Medications and Allergies Home Medications Medication Instructions Recorded Confirmed Type Budesonide [Pulmicort] 0.5 mg INHALATION RT-BID@799,199903/06/19 03/01/20 History DULoxetine HCL [Cymbalta] 60 mg PO DAILY@0803/06/19 03/01/20 History Dorzolamide/Timolol/Pf 1 drop BOTH EYES BID@03/06/19 03/01/20 History [Dorzolamide 2%-Timolol 0.5%] Pantoprazole Sodium [Protonix] 40 mg PO HS@199903/06/19 03/01/20 History Potassium Chloride ER [K-Dur 10] 10 meq PO DAILY@79903/06/19 03/01/20 History Ipratropium-Albuterol Nebulize 3 ml INHALATION RT-QID 09/19/19 03/01/20 History [Duoneb 0.5 mg-3 mg/3 ml Soln] Ferrous Sulfate [Iron (65 MG 325 mg PO DAILY@0800 09/20/19 03/01/20 History Elemental)] Acetaminophen Tab [Tylenol] 650 mg PO Q6H PRN 01/25/20 03/01/20 History Aspirin 81 mg PO DAILY@0800 01/25/20 03/01/20 History Loratadine 10 mg PO DAILY PRN 01/25/20 03/01/20 History Metoprolol Tartrate [Lopressor] 12.5 mg PO BID@08,199901/25/20 03/01/20 History Tiotropium 18 Mcg/Puff [Spiriva] 1 cap INHALATION RT-DAILY@0800 01/25/20 03/01/20 History Furosemide [Lasix] 40 mg PO DAILY tab 01/28/20 03/01/20 Rx Nitrofurantoin Macrocrystal 100 mg PO BID 02/29/20 03/01/20 History [Nitrofurantoin] glipiZIDE [Glucotrol XL] 10 mg PO DAILY 02/29/20 03/01/20 History Atorvastatin [Lipitor] 40 mg PO HS 03/01/20 03/01/20 History Levothyroxine Sodium [Synthroid] 50 mcg PO DAILY 03/01/20 03/01/20 History Allergies Allergy/AdvReac Type Severity Reaction Status Date / Time codeine AdvReac Nausea & Verified 02/29/20 23:24 Vomiting Physical Exam Vitals: Vital Signs Temp Pulse Pulse Resp BP BP Pulse Ox 03/01/20 09:34 98 03/01/20 09:21 98 03/01/20 08:00 97.8 F 94 20 134/84 03/01/20 04:32 97.7 F 97 20 134/88 03/01/20 04:00 97.5 F L 100 30 H 123/85 95 03/01/20 03:00 84 24 129/78 97 03/01/20 02:00 101 H 19 129/72 98 03/01/20 01:00 101 H 20 133/89 96 03/01/20 00:13 107 H 21 126/76 96 03/01/20 00:00 109 H 22 116/80 91 L 02/29/20 23:50 109 H 22 109/69 91 L 02/29/20 23:00 113 H 19 117/89 96 02/29/20 22:30 114 H 23 147/77 98 02/29/20 21:56 115 H 22 184/91 98 02/29/20 21:45 115 H 24 191/108 98 02/29/20 21:41 24 02/29/20 21:35 97.3 F L 125 H 16 196/105 91 L Intake and Output 02/29/20 03/01/20 03/01/20 22:59 06:59 14:59 Output Total 400 Balance -400 Output: Urine 400 Other: Voiding Method Indwelling Catheter # Bowel Movements 1 Weight 79.379 kg 118.4 kg Morbidly obese, comfortable currently on a AVAPS units synchronous with the mechanical ventilator. Head exam was generally normal. There was no scleral icterus or corneal arcus. Mucous membranes were moist. Neck was supple and without jugular venous distension, thyromegaly, or carotid bruits. Carotids were easily palpable bilaterally. There was no adenopathy. Lungs sounds are diminished bilaterally along with that there is some crackers in the lung bases. Cardiac exam revealed the PMI to be normally situated and sized. The rhythm was regular and no extrasystoles were noted during several minutes of auscultation. The first and second heart sounds were normal and physiologic splitting of the second heart sound was noted. There were no murmurs, rubs, clicks, or gallops. Overall heart sounds are quite distant. Abdomen is obese soft nontender. No direct tenderness no rebound tensile guardi ng. Extremities revealed +1 pitting edema there is no cyanosis or clubbing. There is evidence of cellulitis below the knees bilaterally worse on the left. No open wounds or sores. Neurologic the patient is awake. She is a bit confused. Provide history is not reliable. Neurologic exam is nonfocal as the patient is moving all 4 extremities without any limitation. There is global weakness. Results - Laboratory Findings CBC and BMP: 03/01/20 03:11 03/01/20 03:11 ABG WBC 19.9 k/uL (3.8-10.6) H 03/01/20 03:11 RBC 4.06 m/uL (3.80-5.40) 03/01/20 03:11 Hgb 12.3 gm/dL (11.4-16.0) 03/01/20 03:11 Hct 39.6 % (34.0-46.0) 03/01/20 03:11 MCV 97.5 fL (80.0-100.0) 03/01/20 03:11 MCH 30.3 pg (25.0-35.0) 03/01/20 03:11 MCHC 31.1 g/dL (31.0-37.0) 03/01/20 03:11 RDW 13.6 % (11.5-15.5) 03/01/20 03:11 Plt Count 323 k/uL (150-450) 03/01/20 03:11 MPV 7.2 03/01/20 03:11 Neutrophils % 91 % 03/01/20 03:11 Neutrophils % (Manual) 81 % 02/29/20 21:45 Band Neuts % (Manual) 7 % 02/29/20 21:45 Lymphocytes % 2 % 03/01/20 03:11 Lymphocytes % (Manual) 6 % 02/29/20 21:45 Monocytes % 4 % 03/01/20 03:11 Monocytes % (Manual) 4 % 02/29/20 21:45 Eosinophils % 1 % 03/01/20 03:11 Eosinophils % (Manual) 2 % 02/29/20 21:45 Basophils % 1 % 03/01/20 03:11 Neutrophils # 18.1 k/uL (1.3-7.7) H 03/01/20 03:11 Neutrophils # (Manual) 30.40 k/uL (1.3-7.7) H 02/29/20 21:45 Lymphocytes # 0.5 k/uL (1.0-4.8) L 03/01/20 03:11 Lymphocytes # (Manual) 2.08 k/uL (1.0-4.8) 02/29/20 21:45 Monocytes # 0.9 k/uL (0-1.0) 03/01/20 03:11 Monocytes # (Manual) 1.38 k/uL (0-1.0) H 02/29/20 21:45 Eosinophils # 0.1 k/uL (0-0.7) 03/01/20 03:11 Eosinophils # (Manual) 0.69 k/uL (0-0.7) 02/29/20 21:45 Basophils # 0.1 k/uL (0-0.2) 03/01/20 03:11 Nucleated RBCs 0 /100 WBC (0-0) 02/29/20 21:45 Manual Slide Review Performed 02/29/20 21:45 Toxic Granulation Present 02/29/20 21:45 Toxic Vacuolation Present 02/29/20 21:45 Hypochromasia Moderate 03/01/20 03:11 PT 12.5 sec (9.0-12.0) H 02/29/20 22:57 INR 1.2 (<1.2) H 02/29/20 22:57 APTT 27.8 sec (22.0-30.0) 02/29/20 22:57 D-Dimer 0.97 mg/L FEU (<0.60) H 02/29/20 22:57 [facility] 02/29/20 23:40 ABG pH 7.30 (7.35-7.45) L 02/29/20 23:40 ABG pCO2 86 mmHg (35-45) H* 02/29/20 23:40 ABG pO2 119 mmHg (83-108) H 02/29/20 23:40 ABG HCO3 42 mmol/L (21-25) H* 02/29/20 23:40 ABG Total CO2 45 mmol/L (19-24) H 02/29/20 23:40 ABG O2 Saturation 97.3 % (94-97) H 02/29/20 23:40 ABG Base Excess 15.5 mmol/L 02/29/20 23:40 Griffin Test Yes 02/29/20 23:40 FiO2 60 % 02/29/20 23:40 Sodium 129 mmol/L (137-145) L 03/01/20 03:11 Potassium 4.4 mmol/L (3.5-5.1) 03/01/20 03:11 Chloride 83 mmol/L (98-107) L 03/01/20 03:11 Carbon Dioxide 37 mmol/L (22-30) H 03/01/20 03:11 Anion Gap 9 mmol/L 03/01/20 03:11 BUN 19 mg/dL (7-17) H 03/01/20 03:11 Creatinine 1.22 mg/dL (0.52-1.04) H 03/01/20 03:11 Est GFR (CKD-EPI)AfAm 50 (>60 ml/min/1.73 sqM) 03/01/20 03:11 Est GFR (CKD-EPI)NonAf 43 (>60 ml/min/1.73 sqM) 03/01/20 03:11 Glucose 237 mg/dL (74-99) H 03/01/20 03:11 POC Glucose (mg/dL) 161 mg/dL (75-99) H 03/01/20 06:47 POC Glu Silver Solution Mixer ID Wendy Starkey 03/01/20 06:47 Lactic Ac Sepsis Rflx Y 02/29/20 22:33 Plasma Lactic Acid Taz 1.5 mmol/L (0.7-2.0) 03/01/20 00:59 Calcium 9.1 mg/dL (8.4-10.2) 03/01/20 03:11 Magnesium 1.7 mg/dL (1.6-2.3) 02/29/20 21:45 Total Bilirubin 2.0 mg/dL (0.2-1.3) H 02/29/20 21:45 AST 34 U/L (14-36) 02/29/20 21:45 ALT 16 U/L (4-34) 02/29/20 21:45 Alkaline Phosphatase 133 U/L (38-126) H 02/29/20 21:45 Troponin I 0.019 ng/mL (0.000-0.034) 03/01/20 03:11 NT-Pro-B Natriuret Pep 641 pg/mL 02/29/20 21:45 Total Protein 7.9 g/dL (6.3-8.2) 02/29/20 21:45 Albumin 4.2 g/dL (3.5-5.0) 02/29/20 21:45 Urine Color Dark Brown 02/29/20 21:48 Urine Appearance Clear (Clear) 02/29/20 21:48 Urine pH 6.0 (5.0-8.0) 02/29/20 21:48 Ur Specific [place] 1.013 (1.001-1.035) 02/29/20 21:48 Urine Protein 1+ (Negative) H 02/29/20 21:48 Urine Glucose (UA) 1+ (Negative) H 02/29/20 21:48 Urine Ketones Negative (Negative) 02/29/20 21:48 Urine Blood Negative (Negative) 02/29/20 21:48 Urine Nitrite Positive (Negative) H 02/29/20 21:48 Urine Bilirubin 2+ (Negative) H 02/29/20 21:48 Urine Urobilinogen 6.0 mg/dL (<2.0) 02/29/20 21:48 Ur Leukocyte Esterase Negative (Negative) 02/29/20 21:48 Urine RBC 1 /hpf (0-5) 02/29/20 21:48 Urine WBC 2 /hpf (0-5) 02/29/20 21:48 Ur Squamous Epith Cells 1 /hpf (0-4) 02/29/20 21:48 Hyaline Casts 1 /lpf (0-2) 02/29/20 21:48 Urine Mucus Rare /hpf (None) H 02/29/20 21:48 Coronavirus (PCR) Not Detected (Not Detectd) 02/29/20 21:46 Influenza Type A RNA Not Detected (Not Detectd) 02/29/20 21:45 Influenza Type B (PCR) Not Detected (Not Detectd) 02/29/20 21:45 PT/INR, D-dimer PT 12.5 sec (9.0-12.0) H 02/29/20 22:57 INR 1.2 (<1.2) H 02/29/20 22:57 D-Dimer 0.97 mg/L FEU (<0.60) H 02/29/20 22:57 Abnormal lab findings: Abnormal Labs 02/29/20 02/29/20 02/29/20 21:45 21:45 21:45 WBC 34.6 H Hct 46.1 H MCHC 30.6 L Plt Count 550 H Neutrophils # Neutrophils # (Manual) 30.40 H Lymphocytes # Monocytes # (Manual) 1.38 H PT INR D-Dimer ABG pH ABG pCO2 ABG pO2 ABG HCO3 ABG Total CO2 ABG O2 Saturation Sodium 131 L Chloride 82 L Carbon Dioxide 39 H BUN Creatinine 1.10 H Glucose 277 H POC Glucose (mg/dL) Plasma Lactic Acid Taz 3.4 H* Total Bilirubin 2.0 H Alkaline Phosphatase 133 H Urine Protein Urine Glucose (UA) Urine Nitrite Urine Bilirubin Urine Mucus 02/29/20 02/29/20 02/29/20 21:48 21:57 22:34 WBC Hct MCHC Plt Count Neutrophils # Neutrophils # (Manual) Lymphocytes # Monocytes # (Manual) PT INR D-Dimer ABG pH 7.22 L ABG pCO2 107 H* ABG pO2 324 H ABG HCO3 43 H* ABG Total CO2 47 H ABG O2 Saturation 98.5 H Sodium Chloride Carbon Dioxide BUN Creatinine Glucose POC Glucose (mg/dL) 287 H Plasma Lactic Acid Taz Total Bilirubin Alkaline Phosphatase Urine Protein 1+ H Urine Glucose (UA) 1+ H Urine Nitrite Positive H Urine Bilirubin 2+ H Urine Mucus Rare H 02/29/20 02/29/20 03/01/20 22:57 23:40 03:11 WBC 19.9 H Hct MCHC Plt Count Neutrophils # 18.1 H Neutrophils # (Manual) Lymphocytes # 0.5 L Monocytes # (Manual) PT 12.5 H INR 1.2 H D-Dimer 0.97 H ABG pH 7.30 L ABG pCO2 86 H* ABG pO2 119 H ABG HCO3 42 H* ABG Total CO2 45 H ABG O2 Saturation 97.3 H Sodium Chloride Carbon Dioxide BUN Creatinine Glucose POC Glucose (mg/dL) Plasma Lactic Acid Taz Total Bilirubin Alkaline Phosphatase Urine Protein Urine Glucose (UA) Urine Nitrite Urine Bilirubin Urine Mucus 03/01/20 03/01/20 03:11 06:47 WBC Hct MCHC Plt Count Neutrophils # Neutrophils # (Manual) Lymphocytes # Monocytes # (Manual) PT INR D-Dimer ABG pH ABG pCO2 ABG pO2 ABG HCO3 ABG Total CO2 ABG O2 Saturation Sodium 129 L Chloride 83 L Carbon Dioxide 37 H BUN 19 H Creatinine 1.22 H Glucose 237 H POC Glucose (mg/dL) 161 H Plasma Lactic Acid Taz Total Bilirubin Alkaline Phosphatase Urine Protein Urine Glucose (UA) Urine Nitrite Urine Bilirubin Urine Mucus - Diagnostic Findings Chest x-ray: image reviewed Assessment and Plan Plan: 1 acute hypoxic respiratory failure. The patient is interstitial edema bilaterally. Consider atypical interstitial pneumonia. Consider fluid overlo ad/CHF with diastolic heart failure. Acute urbina virus/Covid 19 infection cannot be completely ruled out. The patient screened negative for urbina virus Covid 19 at time of admission. 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 12 hyperlipidemia 13 chronic metabolic alkalosis secondary to hypercapnic respiratory failure, chronic 14 lactic acidosis, improving Plan Start the patient IV Zosyn Started patient on IV Lasix Monitor renal function Monitor oxygenation and wean down the FiO2 and considered taken this patient off the AVAPS machine in the morning. Suggest utilizing a throughout the night Resume home medications Cardiology consultation the most recent echocardiogram from her recent hospita lization was noted Geoff scale coverage for a tighter blood sugar control Continue to follow
[2020-03-01] MEDS ORDERED: ONDANSETRON 4 MG/2 ML VIAL IVP PRN (19:21)
[2020-03-01] MEDS ORDERED: MAG HYDROX/AL HYDROX/SIMETH 30 ML CUP PO PRN (19:21)
[2020-03-01] MEDS ORDERED: CALCIUM CARBONATE 500 MG CHEWABLE PO PRN (19:21)
[2020-03-01] MEDS ORDERED: LACTULOSE 20 GM/30 ML CUP PO PRN (19:21)
[2020-03-01] MEDS ORDERED: MAGNESIUM HYDROXIDE 2,400 MG/10 ML CUP PO PRN (19:21)
--- NOTE | 2020-03-01 19:25 | P.HPIM ---
History of Present Illness H&P Date: 03/01/20 Chief Complaint: Short of breath History of presenting complaint: This is a pleasant 74-year-old patient of Dr. Winston. Chronic stable medical conditions include diabetes, some memory impairment, left nephrectomy, osteoarthritis, chronic kidney disease, obstructive sleep apnea uses CPAP, hypothyroid. Normally uses a 4 wheel walker to get about. home oxygen about 3 L. Patient presents with 1 day of increasing shortness of breath. No cough. No fever. Appetite okay. No obvious fever and chills. Her oxygen saturation reportedly dropped out of the 50s. She was placed on CPAP and transported. Patient was significantly obtunded in the ER but with the use of the BiPAP she did wake up. Review of systems: GEN.: Tired EYES: None HEENT: None NECK: None RESPIRATORY: As above CARDIOVASCULAR: None GASTROINTESTINAL: None GENITOURINARY: None MUSCULOSKELETAL: Joint pains LYMPHATICS: None HEMATOLOGICAL: None PSYCHIATRY: forgetful NEUROLOGICAL: None. Past medical history to include: COPD, diabetes, cognitive impairment, osteoarthritis, chronic kidney disease, obstructive sleep apnea uses CPAP, hypothyroid, home oxygen 2-3 L., left nephrectomy Social history: -Smoked for 30 years stopped at age of 44 about half to a pack a day. Does use a 4 alcantara walker. Physical examination: VITAL SIGNS: 97.3, 125, 24, 190 one by one 8, 91% on BiPAP-upon presentation GENERAL: BMI 46.2, sitting up, 90 short of breath, eating EYES: Pupils equal. Conjunctiva normal. HEENT: External appearance of nose and ears normal, oral cavity grossly normal. NECK: JVD unable to assess; masses not palpable. HEART: [Heart sounds distant; some edema. LUNGS: Respiratory rate increased, diminished breath sounds , prolonged expiration. ABDOMEN: Soft, nontender, liver spleen not palpable, no masses palpable. PSYCH: Able to answer questions NEUROLOGICAL: Cranial nerves grossly intact; no facial asymmetry, power and sensation grossly intact. LYMPHATICS: No lymph nodes palpable in the axilla and neck MUSCULOSKELETAL: Evidence of OA INVESTIGATIONS, reviewed in the clinical context: White count 34.6 hemoglobin 14.1 platelets 550 ABG-pH 7.22 pCO2 107 pO2 324 EKG tracing was treated by me shows-sinus rhythm, nonspecific ST segment changes Chest x-ray film personally reviewed by me-portable, bit underpenetrated, possible infiltrate Potassium 5 creatinine 1.10 lactic acid 3.4 blood glucose 277 COVID 19 P/Cr-not detected, influenza type A and type B both negative Troponin I 2 negative ProBNP 641 Assessment: -Acute COPD exacerbation in an ex-smoker. POA, -Acute hypoxic and hypercapnic respiratory failure from above, POA, -Probable pneumonia suspected gram-negative orgasm, POA -Chronic hypoxic and hypercapnic respiratory failure from underlying COPD -Diabetes mellitus type 2, chronically on insulin, uncontrolled with hyperglycemia -Hypothyroid -Primary osteoarthritis -Hyperlipidemia -Chronic gait dysfunction uses a 4 wheeled walker. -Mild cognitive impairment -Chronic kidney disease stage III possibly from nephrosclerosis -Obstructive sleep apnea uses BiPAP at home. Plan: . The patient has been put on nebulized bronchitis, IV steroids. Follow Accu- Cheks. Home medications to be resumed. Has been on BiPAP initially. On IV Zosyn. Lovenox for DVT prophylaxis. Oxygen supplementation. Recheck pro- calcitonin BMP in the morning. Doubt CHF. Past Medical History Past Medical History: COPD, Diabetes Mellitus, Memory Impairment, Osteoarthritis (OA), Pneumonia, Renal Disease, Sleep Apnea/CPAP/BIPAP, Thyroid Disorder Additional Past Medical History / Comment(s): cellulitis on legs, uses cpap at home thinks her settings are 5 very poor historian, POSSIBLE HEART PER PATIENT UNSURE, BLADDER INFECTION History of Any Multi-Drug Resistant Organisms: ESBL Date of last positivie culture/infection: 03/20/19 MDRO Source:: Urine Past Surgical History: Appendectomy, Cholecystectomy, Hernia Repair, Hysterectomy, Tonsillectomy Additional Past Surgical History / Comment(s): kidney left removed, colonoscopy Past Anesthesia/Blood Transfusion Reactions: No Reported Reaction Past Psychological History: No Psychological Hx Reported Smoking Status: Former smoker Past Alcohol Use History: None Reported Additional Past Alcohol Use History / Comment(s): STARTED SMOKING AT 14 QUIT ABOUT AGE 44 SMOKED 1/2 -1 PPD Past Drug Use History: None Reported - Past Family History Mother Family Medical History: Cancer Additional Family Medical History / Comment(s): throat cancer Medications and Allergies Home Medications Medication Instructions Recorded Confirmed Type Budesonide [Pulmicort] 0.5 mg INHALATION RT-BID@0800,199903/06/19 03/01/20 History DULoxetine HCL [Cymbalta] 60 mg PO DAILY@0800 03/06/19 03/01/20 History Dorzolamide/Timolol/Pf 1 drop BOTH EYES BID@799,199903/06/19 03/01/20 History [Dorzolamide 2%-Timolol 0.5%] Pantoprazole Sodium [Protonix] 40 mg PO HS@199903/06/19 03/01/20 History Potassium Chloride ER [K-Dur 10] 10 meq PO DAILY@0803/06/19 03/01/20 History Ipratropium-Albuterol Nebulize 3 ml INHALATION RT-QID 09/19/19 03/01/20 History [Duoneb 0.5 mg-3 mg/3 ml Soln] Ferrous Sulfate [Iron (65 MG 325 mg PO DAILY@0809/20/19 03/01/20 History Elemental)] Acetaminophen Tab [Tylenol] 650 mg PO Q6H PRN 01/25/20 03/01/20 History Aspirin 81 mg PO DAILY@0801/25/20 03/01/20 History Loratadine 10 mg PO DAILY PRN 01/25/20 03/01/20 History Metoprolol Tartrate [Lopressor] 12.5 mg PO BID@799,199901/25/20 03/01/20 History Tiotropium 18 Mcg/Puff [Spiriva] 1 cap INHALATION RT-DAILY@79901/25/20 03/01/20 History Furosemide [Lasix] 40 mg PO DAILY tab 01/28/20 03/01/20 Rx Nitrofurantoin Macrocrystal 100 mg PO BID 02/29/20 03/01/20 History [Nitrofurantoin] glipiZIDE [Glucotrol XL] 10 mg PO DAILY 02/29/20 03/01/20 History Atorvastatin [Lipitor] 40 mg PO HS 03/01/20 03/01/20 History Levothyroxine Sodium [Synthroid] 50 mcg PO DAILY 03/01/20 03/01/20 History Allergies Allergy/AdvReac Type Severity Reaction Status Date / Time codeine AdvReac Nausea & Verified 02/29/20 23:24 Vomiting Physical Exam Vitals: Vital Signs Temp Pulse Pulse Resp BP BP Pulse Ox 03/01/20 09:34 98 03/01/20 09:21 98 03/01/20 04:32 97.7 F 97 20 134/88 03/01/20 04:00 97.5 F L 100 30 H 123/85 95 03/01/20 03:00 84 24 129/78 97 03/01/20 02:00 101 H 19 129/72 98 03/01/20 01:00 101 H 20 133/89 96 03/01/20 00:13 107 H 21 126/76 96 03/01/20 00:00 109 H 22 116/80 91 L 02/29/20 23:50 109 H 22 109/69 91 L 02/29/20 23:00 113 H 19 117/89 96 02/29/20 22:30 114 H 23 147/77 98 02/29/20 21:56 115 H 22 184/91 98 02/29/20 21:45 115 H 24 191/108 98 02/29/20 21:41 24 02/29/20 21:35 97.3 F L 125 H 16 196/105 91 L Intake and Output 02/29/20 03/01/20 03/01/20 22:59 06:59 14:59 Output Total 400 Balance -400 Output: Urine 400 Other: Voiding Method Indwelling Catheter # Bowel Movements 1 Weight 79.379 kg 118.4 kg Results CBC & Chem 7: 03/01/20 03:11 03/01/20 03:11 Labs: Abnormal Lab Results - Last 24 Hours (Table) 02/29/20 02/29/20 02/29/20 Range/Units 21:45 21:45 21:45 WBC 34.6 H (3.8-10.6) k/uL Hct 46.1 H (34.0-46.0) % MCHC 30.6 L (31.0-37.0) g/dL Plt Count 550 H (150-450) k/uL Neutrophils # (1.3-7.7) k/uL Neutrophils # (Manual) 30.40 H (1.3-7.7) k/uL Lymphocytes # (1.0-4.8) k/uL Monocytes # (Manual) 1.38 H (0-1.0) k/uL PT (9.0-12.0) sec INR (<1.2) D-Dimer (<0.60) mg/L FEU ABG pH (7.35-7.45) ABG pCO2 (35-45) mmHg ABG pO2 (83-108) mmHg ABG HCO3 (21-25) mmol/L ABG Total CO2 (19-24) mmol/L ABG O2 Saturation (94-97) % Sodium 131 L (137-145) mmol/L Chloride 82 L (98-107) mmol/L Carbon Dioxide 39 H (22-30) mmol/L BUN (7-17) mg/dL Creatinine 1.10 H (0.52-1.04) mg/dL Glucose 277 H (74-99) mg/dL POC Glucose (mg/dL) (75-99) mg/dL Plasma Lactic Acid Taz 3.4 H* (0.7-2.0) mmol/L Total Bilirubin 2.0 H (0.2-1.3) mg/dL Alkaline Phosphatase 133 H (38-126) U/L Urine Protein (Negative) Urine Glucose (UA) (Negative) Urine Nitrite (Negative) Urine Bilirubin (Negative) Urine Mucus (None) /hpf 02/29/20 02/29/20 02/29/20 Range/Units 21:48 21:57 22:34 WBC (3.8-10.6) k/uL Hct (34.0-46.0) % MCHC (31.0-37.0) g/dL Plt Count (150-450) k/uL Neutrophils # (1.3-7.7) k/uL Neutrophils # (Manual) (1.3-7.7) k/uL Lymphocytes # (1.0-4.8) k/uL Monocytes # (Manual) (0-1.0) k/uL PT (9.0-12.0) sec INR (<1.2) D-Dimer (<0.60) mg/L FEU ABG pH 7.22 L (7.35-7.45) ABG pCO2 107 H* (35-45) mmHg ABG pO2 324 H (83-108) mmHg ABG HCO3 43 H* (21-25) mmol/L ABG Total CO2 47 H (19-24) mmol/L ABG O2 Saturation 98.5 H (94-97) % Sodium (137-145) mmol/L Chloride (98-107) mmol/L Carbon Dioxide (22-30) mmol/L BUN (7-17) mg/dL Creatinine (0.52-1.04) mg/dL Glucose (74-99) mg/dL POC Glucose (mg/dL) 287 H (75-99) mg/dL Plasma Lactic Acid Taz (0.7-2.0) mmol/L Total Bilirubin (0.2-1.3) mg/dL Alkaline Phosphatase (38-126) U/L Urine Protein 1+ H (Negative) Urine Glucose (UA) 1+ H (Negative) Urine Nitrite Positive H (Negative) Urine Bilirubin 2+ H (Negative) Urine Mucus Rare H (None) /hpf 02/29/20 02/29/20 03/01/20 Range/Units 22:57 23:40 03:11 WBC 19.9 H (3.8-10.6) k/uL Hct (34.0-46.0) % MCHC (31.0-37.0) g/dL Plt Count (150-450) k/uL Neutrophils # 18.1 H (1.3-7.7) k/uL Neutrophils # (Manual) (1.3-7.7) k/uL Lymphocytes # 0.5 L (1.0-4.8) k/uL Monocytes # (Manual) (0-1.0) k/uL PT 12.5 H (9.0-12.0) sec INR 1.2 H (<1.2) D-Dimer 0.97 H (<0.60) mg/L FEU ABG pH 7.30 L (7.35-7.45) ABG pCO2 86 H* (35-45) mmHg ABG pO2 119 H (83-108) mmHg ABG HCO3 42 H* (21-25) mmol/L ABG Total CO2 45 H (19-24) mmol/L ABG O2 Saturation 97.3 H (94-97) % Sodium (137-145) mmol/L Chloride (98-107) mmol/L Carbon Dioxide (22-30) mmol/L BUN (7-17) mg/dL Creatinine (0.52-1.04) mg/dL Glucose (74-99) mg/dL POC Glucose (mg/dL) (75-99) mg/dL Plasma Lactic Acid Taz (0.7-2.0) mmol/L Total Bilirubin (0.2-1.3) mg/dL Alkaline Phosphatase (38-126) U/L Urine Protein (Negative) Urine Glucose (UA) (Negative) Urine Nitrite (Negative) Urine Bilirubin (Negative) Urine Mucus (None) /hpf 03/01/20 03/01/20 Range/Units 03:11 06:47 WBC (3.8-10.6) k/uL Hct (34.0-46.0) % MCHC (31.0-37.0) g/dL Plt Count (150-450) k/uL Neutrophils # (1.3-7.7) k/uL Neutrophils # (Manual) (1.3-7.7) k/uL Lymphocytes # (1.0-4.8) k/uL Monocytes # (Manual) (0-1.0) k/uL PT (9.0-12.0) sec INR (<1.2) D-Dimer (<0.60) mg/L FEU ABG pH (7.35-7.45) ABG pCO2 (35-45) mmHg ABG pO2 (83-108) mmHg ABG HCO3 (21-25) mmol/L ABG Total CO2 (19-24) mmol/L ABG O2 Saturation (94-97) % Sodium 129 L (137-145) mmol/L Chloride 83 L (98-107) mmol/L Carbon Dioxide 37 H (22-30) mmol/L BUN 19 H (7-17) mg/dL Creatinine 1.22 H (0.52-1.04) mg/dL Glucose 237 H (74-99) mg/dL POC Glucose (mg/dL) 161 H (75-99) mg/dL Plasma Lactic Acid Taz (0.7-2.0) mmol/L Total Bilirubin (0.2-1.3) mg/dL Alkaline Phosphatase (38-126) U/L Urine Protein (Negative) Urine Glucose (UA) (Negative) Urine Nitrite (Negative) Urine Bilirubin (Negative) Urine Mucus (None) /hpf Thrombosis Risk Factor Assmnt - Choose All That Apply Each Risk Factor Represents 3 Points: Age 75 years or older Thrombosis Risk Factor Assessment Total Risk Factor Score: 3 Thrombosis Risk Factor Assessment Level: Moderate Risk
[2020-03-01] MEDS ORDERED: INSULIN ASPART (NovoLOG) 100 UNIT/ML VIAL SQ SCH (20:00)
[2020-03-01 20:30] LABS: Glucose,Whole Blood 184 mg/dL (75-99)
[2020-03-01] MEDS: ATORVASTATIN 40 MG TAB PO SCH (20:46)
[2020-03-01] MEDS: PANTOPRAZOLE 40 MG TABLET PO SCH (20:46)
[2020-03-01] MEDS: MELATONIN 3 MG TABLET PO SCH (20:47)
[2020-03-01] MEDS: methylPREDNISolone SOD SUCCI 40 MG/ML 1 ML VIAL IV SCH (20:47)
[2020-03-01] MEDS: INSULIN ASPART (NovoLOG) 100 UNIT/ML VIAL SQ SCH (20:48)
[2020-03-01] MEDS: TIMOLOL 0.5% OPHTH DROPS 5 ML BTL BOTH EYES SCH (21:12)
[2020-03-01] MEDS: DORZOLAMIDE HCL 2% DROPS 10 ML BTL BOTH EYES SCH (21:13)
[2020-03-02] MEDS: ACETAMINOPHEN TAB 325 MG TAB PO PRN ×2 (01:31→13:43)
[2020-03-02] MEDS: methylPREDNISolone SOD SUCCI 40 MG/ML 1 ML VIAL IV SCH ×3 (04:30→21:19)
[2020-03-02] MEDS: IPRATROPIUM-ALBUTEROL 3 ML NEB INHALATION SCH ×5 (06:05→18:55)
[2020-03-02 06:15] LABS: Glucose,Whole Blood 267 mg/dL (75-99)
[2020-03-02 06:18] LABS: ABG PCO2 64 mmHg (35-45); ABG PH 7.43 (7.35-7.45); ABG PO2 87 mmHg (83-108); ABG TCO2 44 mmol/L (19-24); Allen Test Performed? Yes
[2020-03-02 06:23] LABS: ABG HCO3 42 mmol/L (21-25)
[2020-03-02] MEDS: LEVOTHYROXINE 50 MCG TAB PO SCH (06:38)
[2020-03-02] MEDS: INSULIN ASPART (NovoLOG) 100 UNIT/ML VIAL SQ SCH ×4 (06:38→21:19)
[2020-03-02] MEDS: BUDESONIDE 0.5 MG/2 ML NEBU INHALATION SCH ×2 (07:34→18:55)
--- NOTE | 2020-03-02 08:23 | XR ---
EXAMINATION TYPE: XR chest 1V DATE OF EXAM: 03/02/2020 COMPARISON: Prior chest x-ray 02/29/2020 HISTORY: Pneumonia TECHNIQUE: Single frontal view of the chest is obtained. FINDINGS: Patient is rotated. Thoracic cord stimulator is in place. Bibasilar increased attenuation persists, the left hemidiaphragm is obscured. Heart is likely stable. There is no evident pneumothora x. There are overlying artifacts. The aorta is dense. There is some blunting the costophrenic angle b ilaterally. There is some improvement in the interstitium, aeration. IMPRESSION: Suspect basilar effusions, correlate for pneumonia, edema, atelectasis. Some improvement in volume status suspected.
[2020-03-02 09:02] LABS: Calcium 8.8 mg/dL (8.4-10.2); Potassium 4.4 mmol/L (3.5-5.1)
[2020-03-02] MEDS: ASPIRIN 81 MG PO SCH (10:28)
[2020-03-02] MEDS: DORZOLAMIDE HCL 2% DROPS 10 ML BTL BOTH EYES SCH ×2 (10:30→21:19)
[2020-03-02] MEDS: DULoxetine HCL 60 MG CAPSULE.DR PO SCH (10:31)
[2020-03-02] MEDS: METOPROLOL TARTRATE 12.5 MG TAB PO SCH ×2 (10:37→21:19)
[2020-03-02] MEDS: FERROUS SULFATE 325 MG TAB PO SCH (10:37)
[2020-03-02] MEDS: PIPERACILLIN-TAZOBACTAM 3.375 GM in SODIUM CHLORIDE 0.9% 100 ML IVPB SCH ×3 (10:38→23:13)
[2020-03-02] MEDS: TIMOLOL 0.5% OPHTH DROPS 5 ML BTL BOTH EYES SCH (10:40)
[2020-03-02] MEDS: glipiZIDE 5 MG TAB PO SCH ×2 (10:41→21:19)
[2020-03-02] MEDS: POTASSIUM CHLORIDE ER 10 MEQ TAB.ER.PRT PO SCH (10:42)
[2020-03-02] MEDS: FUROSEMIDE 10 MG/ML 4 ML VIAL IV SCH (11:07)
[2020-03-02 12:06] LABS: Glucose,Whole Blood 331 mg/dL (75-99)
--- NOTE | 2020-03-02 12:28 | P.PN ---
Subjective Progress Note Date: 03/02/20 HISTORY OF PRESENT ILLNESS: Patient examined this morning at the bedside. She denies shortness of breath. Denies chest pain or pressure. She remains on a BiPAP at 40% FiO2. She is maintained on IV Lasix, IV steroids, and IV antibiotics. Creatinine today is 1.5, up from 1.2 yesterday. Chest x-ray this morning reveals suspected basilar effusions, correlate for pneumonia, edema, and atelectasis. Some improvement in volume status suspected. PHYSICAL EXAM: VITAL SIGNS: Reviewed. GENERAL: Well-developed in no acute distress. NECK: Supple. No JVD or thyromegaly LUNGS: Respirations even and unlabored. Lungs diminished. HEART: Regular rate and rhythm. S1 and S2 heard. EXTREMITIES: Normal range of motion. No clubbing or cyanosis. Peripheral pulses intact. No lower extremity edema ASSESSMENT: Shortness of breath, possible pneumonia Acute hypoxic and hypercapnic respiratory failure Acute on chronic kidney disease Hyperlipidemia Diabetes mellitus type 2 Obstructive sleep apnea, patient uses CPAP on an outpatient basis Hypothyroidism Morbid obesity: BMI 47.3 PLAN: Continue steroids and antibiotics per pulmonary. Patients lasix has been decreased to once daily. Patient with worsening creatinine. Continue to monitor kidney function. Daily weights Accurate I&O's Nurse practitioner note has been reviewed by physician. Signing provider agrees with the documented findings, assessment, and plan of care. Objective - Vital Signs Vital signs: Vital Signs Temp 99 F 03/02/20 11:40 Pulse 85 03/02/20 11:40 Resp 16 03/02/20 11:40 BP 127/68 03/02/20 11:40 Pulse Ox 99 03/02/20 11:40 Intake & Output 03/01/20 03/02/20 03/02/20 18:59 06:59 18:59 Intake Total 240 240 180 Output Total 400 750 Balance -160 -510 180 Weight 121.2 kg Intake: Oral 240 240 180 Output: Urine 400 750 Other: Voiding Method Indwelling Catheter Indwelling Catheter Indwelling Catheter - Labs CBC & Chem 7: 03/01/20 03:11 03/02/20 08:24 Labs: Abnormal Lab Results - Last 24 Hours (Table) 03/01/20 03/01/20 03/02/20 Range/Units 16:28 20:28 06:10 ABG pCO2 64 H (35-45) mmHg ABG HCO3 42 H* (21-25) mmol/L ABG Total CO2 44 H (19-24) mmol/L Sodium (137-145) mmol/L Chloride (98-107) mmol/L Carbon Dioxide (22-30) mmol/L BUN (7-17) mg/dL Creatinine (0.52-1.04) mg/dL Glucose (74-99) mg/dL POC Glucose (mg/dL) 256 H 184 H (75-99) mg/dL 03/02/20 03/02/20 03/02/20 Range/Units 06:14 08:24 11:56 ABG pCO2 (35-45) mmHg ABG HCO3 (21-25) mmol/L ABG Total CO2 (19-24) mmol/L Sodium 128 L (137-145) mmol/L Chloride 81 L (98-107) mmol/L Carbon Dioxide 39 H (22-30) mmol/L BUN 27 H (7-17) mg/dL Creatinine 1.53 H (0.52-1.04) mg/dL Glucose 310 H (74-99) mg/dL POC Glucose (mg/dL) 267 H 331 H (75-99) mg/dL Microbiology - Last 24 Hours (Table) 02/29/20 23:37 Blood Culture - Preliminary Blood No Growth after 24 hours
--- NOTE | 2020-03-02 13:30 | CDI ---
Documentation Clarification Form Date: 03/02/2020 01:11:28 PM From: Tanja Ledbetter RN CCDS Admit Date: 02/29/2020 11:06:00 PM Patient Name: Raven Carrillo Visit Number: [id number] Discharge Date: ATTENTION: The Clinical Documentation Specialists (CDI) and [facility] Coding Staff appreciate your assistance in clarifying documentation. Please respond to the clarification below the line at the bottom and electronically sign. The CDI & [facility] Coding staff will review the response and follow-up if needed. Please note: Queries are made part of the Legal Health Record. If you have any questions, please contact the author of this message via ITS. Dr. Terry Ghotra Conflicting documentation has been found in the medical record: 03/01 Cardiology Consult: There is no evidence to suggest acute coronary syndrome nor congestive heart failure. 03/01 Pulmonary Consult: Consider fluid overload/CHF with diastolic heart failure. History/Risk Factors: 74-year-old female presents to the ED with worsening shortness of breath. Medical History: DM2, COPD, Sleep Apnea / CPAP / BIPAP, Chronic Respiratory Failure Clinical Indicators: Home medications: Lopressor 12.5mg bid; Lasix 40mg daily CXR 03/02: Suspect bibasilar effusions Echo 09/21: Mild concentric left ventricular hypertrophy. Overall left ventricular systolic function is normal with, an EF between 55-60% Treatment: 02/28 Lasix 60mg Iv x1; 03/01 Lasix 40mg Iv Q12Hr; 03/01 Lopressor 12.5mg po bid; 03/03 Lasix 40mg Iv Q24hr; In your opinion, what is the most clinically appropriate diagnosis for this patient? Acute on Chronic Diastolic Heart Failure Acute Diastolic Heart Failure Heart Failure Ruled Out Other explanation of clinical findings Unable to determine (no explanation for clinical findings) (Last Revision: July 2017) No CHF MTDD
[2020-03-02 16:26] LABS: Glucose,Whole Blood 284 mg/dL (75-99)
--- NOTE | 2020-03-02 19:01 | P.PN ---
Subjective Progress Note Date: 03/02/20 Principal diagnosis: Dyspnea This is a 74-year-old female patient, morbidly obese who resides at the [facility] and the patient came into the hospital because of progressive shortness of breath. The patient herself is a poor historian. The patient is morbidly obese. Upon arrival to the emergency department, the patient was short of breath and she reported worsening shortness of breath of few days' duration. She was found to be desaturating with a pulse ox in the mid 50s and she had increased work of breathing. At that point, the patient was started on BiPAP for respiratory support. Subsequently the patient was switched to an AVAPS mode with a target tidal volume of 350 and the respiratory rate of 16 with an EPAP minimum of 5. The patient currently is tolerating the treatment without any major difficulties. The patient had a white cell count of 19.9 with a lymphocyte count of 0.5 consistent with lymphopenia. Sodium was 129 with a BUN of 19 a creatinine of 1.2 with a serum bicarb of 37. The blood gas showed a pH of 7.3 with a pCO2 of 86 and pO2 of 119 and I believe this was done while the patient being on a BiPAP. The patient seems to be a chronic CO2 retainer that the patient has chronic metabolic alkalosis. Note that the patient also had a l actic acid level of 3.4 which dropped down to 1.5. The patient had a proBNP level of 641. 2 sets of troponins were negative. Serum abdomen was at 4.2. The glucose at 237. The urbina virus Covid 19 testing was negative. Influenza A and B screening was negative. Chest x-ray showed cardiomegaly with some increased pulmonary vascular densities and infiltrates and small better pleural effusion. Echocardiogram from 09/22/2019 showed an ejection fraction of 55-60%. The patient has mild concentric LVH. No pericardial effusion. No pleural effusion. No signs of any pulmonary hypertension. On examination, clearly the patient several minutes of the lower extremities worse on the left. This was consistent with her diminished level of consciousness and leukocytosis. The patient's urine culture from 01/25/2020 was positive for E. coli and she also has had a previous UTI on 03/20/2020 consistent with Pneumonia. Other, Right Evaluation, I Started the Patient IV Zosyn and I Also Started Patient on Diuretics with Lasix 40 Mg Every 12 Hours. Her white cell count is improving is currently down to 19.9. On 03/02/2020 patient seen in follow-up on selective care unit. Her Covid 19 was negative. Today she seen in follow-up, she is currently on 5 L of oxygen, her pulse ox is 99% she did wear BiPAP support last night with FiO2 of 40%, tolerated it well. Denies chest pain, she has been afebrile since admission. He continues on diuretics, IV steroids and antibiotics, renal function slightly worsened today. Chest x-ray shows some improvement in volume status. Leukocytosis has been improved since admission, no new labs today, yesterday's labs showed white blood cell count down to 19.9 from admission labs and white blood cell count of 34, today sodium is 128, chloride is 81, CO2 is 39, BUN is 27 creatinine is 1.53. Troponins were negative at less than 0.012, 0.013, and 0.019, patient is being followed by cardiology. Remains on Lasix of 40 mg every 24 hours. Empiric asthmatic coverage form of Zosyn. IV steroids, and nebulized bronchodilators continue. We'll cultures have shown no growth. Objective - Vital Signs Vital signs: Vital Signs Temp 99 F 03/02/20 11:40 Pulse 80 03/02/20 15:49 Resp 18 03/02/20 15:49 BP 127/68 03/02/20 11:40 Pulse Ox 99 03/02/20 11:40 Intake & Output 03/01/20 03/02/20 03/02/20 18:59 06:59 18:59 Intake Total 240 240 360 Output Total 556 446 3745 Balance -160 -030 -640 Weight 121.2 kg Intake: Oral 240 240 360 Output: Urine 267 577 2887 Other: Voiding Method Indwelling Catheter Indwelling Catheter Indwelling Catheter # Bowel Movements 0 - Exam GENERAL EXAM: Alert, pleasant, white female, currently on 5 L of oxygen comfortable in no apparent distress. HEAD: Normocephalic/atraumatic. EYES: Normal reaction of pupils, equal size. Conjunctiva pink, sclera white. NOSE: Clear with pink turbinates. THROAT: No erythema or exudates. NECK: No masses, no JVD, no thyroid enlargement, no adenopathy. CHEST: No chest wall deformity. Symmetrical expansion. LUNGS: Equal air entry with bibasilar diminished breath sounds and crackles, no wheeze, rhonchi or dullness. CVS: Regular rate and rhythm, normal S1 and S2, no gallops, no murmurs, no rubs ABDOMEN: Soft, nontender. No hepatosplenomegaly, normal bowel sounds, no guarding or rigidity. EXTREMITIES: No clubbing, no edema, no cyanosis, 2+ pulses and upper and lower extremities. MUSCULOSKELETAL: Muscle strength and tone normal. SPINE: No scoliosis or deformity SKIN: No rashes CENTRAL NERVOUS SYSTEM: Alert and oriented -3. No focal deficits, tone is normal in all 4 extremities. PSYCHIATRIC: Alert and oriented -3. Appropriate affect. Intact judgment and insight. - Labs CBC & Chem 7: 03/01/20 03:11 03/02/20 08:24 Labs: Abnormal Lab Results - Last 24 Hours (Table) 03/01/20 03/02/20 03/02/20 Range/Units 20:28 06:10 06:14 ABG pCO2 64 H (35-45) mmHg ABG HCO3 42 H* (21-25) mmol/L ABG Total CO2 44 H (19-24) mmol/L Sodium (137-145) mmol/L Chloride (98-107) mmol/L Carbon Dioxide (22-30) mmol/L BUN (7-17) mg/dL Creatinine (0.52-1.04) mg/dL Glucose (74-99) mg/dL POC Glucose (mg/dL) 184 H 267 H (75-99) mg/dL Procalcitonin (0.02-0.09) ng/mL 03/02/20 03/02/20 03/02/20 Range/Units 08:24 08:24 11:56 ABG pCO2 (35-45) mmHg ABG HCO3 (21-25) mmol/L ABG Total CO2 (19-24) mmol/L Sodium 128 L (137-145) mmol/L Chloride 81 L (98-107) mmol/L Carbon Dioxide 39 H (22-30) mmol/L BUN 27 H (7-17) mg/dL Creatinine 1.53 H (0.52-1.04) mg/dL Glucose 310 H (74-99) mg/dL POC Glucose (mg/dL) 331 H (75-99) mg/dL Procalcitonin 1.27 H (0.02-0.09) ng/mL 03/02/20 Range/Units 16:25 ABG pCO2 (35-45) mmHg ABG HCO3 (21-25) mmol/L ABG Total CO2 (19-24) mmol/L Sodium (137-145) mmol/L Chloride (98-107) mmol/L Carbon Dioxide (22-30) mmol/L BUN (7-17) mg/dL Creatinine (0.52-1.04) mg/dL Glucose (74-99) mg/dL POC Glucose (mg/dL) 284 H (75-99) mg/dL Procalcitonin (0.02-0.09) ng/mL Microbiology - Last 24 Hours (Table) 02/29/20 23:37 Blood Culture - Preliminary Blood No Growth after 24 hours Assessment and Plan Plan: Assessment: 1 acute hypoxic respiratory failure. The patient is interstitial edema bilaterally. Consider atypical interstitial pneumonia. Consider fluid overload/CHF with diastolic heart failure. Acute urbina virus/Covid 19 infection cannot be completely ruled out. The patient screened negative for urbina virus Covid 19 at time of admission. 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 12 hyperlipidemia 13 chronic metabolic alkalosis secondary to hypercapnic respiratory failure, chronic 14 lactic acidosis, improving Plan: Continue the diuresis, continue current antibiotics, breathing has significantly improved, renal function slightly worsened, and diuretics have been cut back, we can discontinue the BiPAP support. Continue weaning FiO2, continue nebulized bronchodilators, follow-up labs electrolytes and renal profile in the morning. Today's chest x-ray shows some improvement in aeration. Patient ruled out for Covid 19. Vital signs have been stable. We'll continue to follow I performed a history & physical examination of the patient and discussed their management with my nurse practitioner, Candace Blackwood. I reviewed the nurse practitioner's note and agree with the documented findings and plan of care. Lung sounds are positive for diminished breath sounds The findings and the impression was discussed with the patient. I attest to the documentation by the nurse practitioner. Time with Patient: Less than 30
[2020-03-02 20:08] LABS: Glucose,Whole Blood 354 mg/dL (75-99)
--- NOTE | 2020-03-02 20:32 | P.PN ---
Progress Note - Text Progress Note Date: 03/02/20 Chief Complaint: Short of breath History of presenting complaint: This is a pleasant 74-year-old patient of Dr. Winston. Chronic stable medical conditions include diabetes, some memory impairment, left nephrectomy, osteoarthritis, chronic kidney disease, obstructive sleep apnea uses CPAP, hypothyroid. Normally uses a 4 wheel walker to get about. home oxygen about 3 L. Patient presents with 1 day of increasing shortness of breath. No cough. No fever. Appetite okay. No obvious fever and chills. Her oxygen saturation reportedly dropped out of the 50s. She was placed on CPAP and transported. Patient was significantly obtunded in the ER but with the use of the BiPAP she did wake up. Admitted with acute COPD exacerbation, acute hypoxic and hypercapnic respiratory failure, pneumonia. Start IV Zosyn, IV Solu-Medrol, bronchodilators. Today-patient is a bit better. Short of breath. Some cough. Eating anywhere from 75-100%. Review of systems: Was done for constitutional, cardiovascular, GI, pulmonary. relevant finding as above Active Medications Acetaminophen (Acetaminophen Tab 325 Mg Tab) 650 mg PO Q6H PRN PRN Reason: Fever and/ or Pain Last Admin: 03/02/20 13:43 Dose: 650 mg Documented by: Al Hydroxide/Mg Hydroxide (Mag Hydrox/Al Hydrox/Simeth 30 Ml Cup) 15 ml PO Q6HR PRN PRN Reason: Indigestion Albuterol/Ipratropium (Ipratropium-Albuterol 3 Ml Neb) 3 ml INHALATION RT-Q2H PRN PRN Reason: Shortness Of Breath Or Wheezing Albuterol/Ipratropium (Ipratropium-Albuterol 3 Ml Neb) 3 ml INHALATION RT-Q4H [facility] Last Admin: 03/02/20 18:55 Dose: 3 ml Documented by: Aspirin (Aspirin 81 Mg) 81 mg PO DAILY@0800 [facility] Last Admin: 03/02/20 10:28 Dose: 81 mg Documented by: Atorvastatin Calcium (Atorvastatin 40 Mg Tab) 40 mg PO HS [facility] Last Admin: 03/01/20 20:46 Dose: 40 mg Documented by: Budesonide (Budesonide 0.5 Mg/2 Ml Nebu) 0.5 mg INHALATION RT-BID [facility] Last Admin: 03/02/20 18:55 Dose: 0.5 mg Documented by: Calcium Carbonate/Glycine (Calcium Carbonate 500 Mg Chewable) 1,000 mg PO Q4HR PRN PRN Reason: Dyspepsia Dorzolamide HCl (Dorzolamide Hcl 2% Drops 10 Ml Btl) 1 drops BOTH EYES BID@08,1999 [facility] Last Admin: 03/02/20 10:30 Dose: 1 drops Documented by: Duloxetine HCl (Duloxetine Hcl 60 Mg Capsule.Dr) 60 mg PO DAILY@08 [facility] Last Admin: 03/02/20 10:31 Dose: 60 mg Documented by: Ferrous Sulfate (Ferrous Sulfate 325 Mg Tab) 325 mg PO DAILY@08 [facility] Last Admin: 03/02/20 10:37 Dose: 325 mg Documented by: Furosemide (Furosemide 10 Mg/Ml 4 Ml Vial) 40 mg IV Q24HR [facility] Last Admin: 03/02/20 10:48 Dose: 40 mg Documented by: Glipizide (Glipizide 5 Mg Tab) 5 mg PO BID [facility] Last Admin: 03/02/20 10:41 Dose: 5 mg Documented by: Piperacillin Sod/Tazobactam (Sod 3.375 gm/ Sodium Chloride) 100 mls @ 25 mls/hr IVPB Q8HR [facility] Last Admin: 03/02/20 19:32 Dose: Not Given Documented by: Insulin Aspart (Insulin Aspart (Novolog) 100 Unit/Ml Vial) 0 unit SQ [facility]; Protocol Last Admin: 03/02/20 19:33 Dose: Not Given Documented by: Lactulose (Lactulose 20 Gm/30 Ml Cup) 20 gm PO DAILY PRN PRN Reason: Constipation Levothyroxine Sodium (Levothyroxine 50 Mcg Tab) 50 mcg PO DAILY@0630 [facility] Last Admin: 03/02/20 06:38 Dose: 50 mcg Documented by: Lidocaine (Lidocaine 5% Ointment 50 Gm Jar) 1 applic TOPICAL Q8H PRN PRN Reason: Pain Loratadine (Loratadine 10 Mg Tab) 10 mg PO DAILY PRN PRN Reason: Allergy Symptoms Magnesium Hydroxide (Magnesium Hydroxide 2,400 Mg/10 Ml Cup) 2,400 mg PO DAILY PRN PRN Reason: Constipation Melatonin (Melatonin 3 Mg Tablet) 3 mg PO HS@1999 [facility] Last Admin: 03/01/20 20:47 Dose: 3 mg Documented by: Methylprednisolone Sodium Succinate (Methylprednisolone Sod Succi 40 Mg/Ml 1 Ml Vial) 40 mg IV Q8H [facility] Last Admin: 03/02/20 13:44 Dose: 40 mg Documented by: Metoprolol Tartrate (Metoprolol Tartrate 12.5 Mg Tab) 12.5 mg PO BID@ [facility] Last Admin: 03/02/20 10:37 Dose: 12.5 mg Documented by: Naloxone HCl (Naloxone 0.4 Mg/Ml 1 Ml Vial) 0.2 mg IV Q2M PRN PRN Reason: Opioid Reversal Ondansetron HCl (Ondansetron 4 Mg/2 Ml Vial) 4 mg IVP Q8HR PRN PRN Reason: Nausea And Vomiting Pantoprazole Sodium (Pantoprazole 40 Mg Tablet) 40 mg PO HS@1999 [facility] Last Admin: 03/01/20 20:46 Dose: 40 mg Documented by: Potassium Chloride (Potassium Chloride Er 10 Meq Tab.Er.Prt) 10 meq PO DAILY@799 [facility] Last Admin: 03/02/20 10:42 Dose: 10 meq Documented by: Timolol Maleate (Timolol 0.5% Ophth Drops 5 Ml Btl) 1 drops BOTH EYES BID@ [facility] Last Admin: 03/02/20 10:40 Dose: 1 drops Documented by: Physical examination: VITAL SIGNS: 99, 85, 16, 127/68, 99% on BiPAP GENERAL: Sitting up, some shortness of breath EYES: Pupils equal. Conjunctiva normal. HEENT: External appearance of nose and ears normal, oral cavity grossly normal. NECK: JVD unable to assess; masses not palpable. HEART: [Heart sounds distant; some edema. LUNGS: Respiratory rate increased, diminished breath sounds , prolonged expiration. ABDOMEN: Soft, nontender, liver spleen not palpable, no masses palpable. PSYCH: Able to answer questions INVESTIGATIONS, reviewed in the clinical context: Sodium 128 potassium 4.4 bun 27 creatinine 1.53, pro calcitonin 1.27 Admission testing White count 34.6 hemoglobin 14.1 platelets 550 ABG-pH 7.22 pCO2 107 pO2 324 EKG tracing was treated by me shows-sinus rhythm, nonspecific ST segment changes Chest x-ray film personally reviewed by me-portable, bit underpenetrated, possi ble infiltrate Potassium 5 creatinine 1.10 lactic acid 3.4 blood glucose 277 COVID 19 P/Cr-not detected, influenza type A and type B both negative Troponin I 2 negative ProBNP 641 Assessment: -Acute COPD exacerbation in an ex-smoker. POA,-slow to respond -Acute hypoxic and hypercapnic respiratory failure from above, POA, -Probable pneumonia suspected gram-negative orgasm, POA -Acute kidney injury, creatinine is gone from 1.1- up to 1.5. -Doubt CHF. ProBNP is only 641. Creatinine did call from 1.1-1.5 with dialysis. -Chronic hypoxic and hypercapnic respiratory failure from underlying COPD -Diabetes mellitus type 2, chronically on insulin, uncontrolled with hyperglycemia -Hypothyroid -Primary osteoarthritis -Hyperlipidemia -Chronic gait dysfunction uses a 4 wheeled walker. -Mild cognitive impairment -Chronic kidney disease stage III possibly from nephrosclerosis -Obstructive sleep apnea uses BiPAP at home. Plan: . Continue nebulized bronchodilators, IV steroids. BiPAP ,IV Zosyn. DC Lasix. Repeat BMP labs.
[2020-03-02] MEDS ORDERED: INSULIN DETEMIR (LEVEMIR) 100 UNIT/ML SYR SQ SCH (21:00)
[2020-03-02] MEDS: ATORVASTATIN 40 MG TAB PO SCH (21:19)
[2020-03-02] MEDS: PANTOPRAZOLE 40 MG TABLET PO SCH (21:19)
[2020-03-02] MEDS: MELATONIN 3 MG TABLET PO SCH (21:19)
[2020-03-03] MEDS: IPRATROPIUM-ALBUTEROL 3 ML NEB INHALATION SCH ×4 (01:35→13:04)
[2020-03-03] MEDS: methylPREDNISolone SOD SUCCI 40 MG/ML 1 ML VIAL IV SCH ×2 (03:38→12:30)
[2020-03-03 05:56] LABS: Glucose,Whole Blood 293 mg/dL (75-99)
[2020-03-03] MEDS: LEVOTHYROXINE 50 MCG TAB PO SCH (06:31)
[2020-03-03] MEDS: INSULIN ASPART (NovoLOG) 100 UNIT/ML VIAL SQ SCH ×2 (06:31→12:30)
[2020-03-03] MEDS: DORZOLAMIDE HCL 2% DROPS 10 ML BTL BOTH EYES SCH (08:17)
[2020-03-03] MEDS: ASPIRIN 81 MG PO SCH (08:17)
[2020-03-03 08:18] LABS: Basophils % (A) 0 %; Eosinophils % (A) 0 %; HCT 37.7 % (34.0-46.0); HGB 11.9 gm/dL (11.4-16.0); Hypochromasia Moderate; Lymphocytes # (A) 0.6 k/uL (1.0-4.8); Lymphocytes % (A) 4 %; MCH 30.3 pg (25.0-35.0); MCHC 31.5 g/dL (31.0-37.0); MCV 96.1 fL (80.0-100.0); Mean Platelet Volume 7.8; Monocytes # (A) 0.5 k/uL (0-1.0); Monocytes % (A) 3 %; Neutrophils # (A) 13.2 k/uL (1.3-7.7); Neutrophils % (A) 92 %; Platelet Count 377 k/uL (150-450); RBC 3.92 m/uL (3.80-5.40); RDW 13.8 % (11.5-15.5); WBC 14.4 k/uL (3.8-10.6)
[2020-03-03] MEDS: DULoxetine HCL 60 MG CAPSULE.DR PO SCH (08:18)
[2020-03-03] MEDS: METOPROLOL TARTRATE 12.5 MG TAB PO SCH (08:19)
[2020-03-03] MEDS: FERROUS SULFATE 325 MG TAB PO SCH (08:19)
[2020-03-03] MEDS: PIPERACILLIN-TAZOBACTAM 3.375 GM in SODIUM CHLORIDE 0.9% 100 ML IVPB SCH (08:20)
[2020-03-03] MEDS: TIMOLOL 0.5% OPHTH DROPS 5 ML BTL BOTH EYES SCH (08:21)
[2020-03-03] MEDS: POTASSIUM CHLORIDE ER 10 MEQ TAB.ER.PRT PO SCH (08:21)
[2020-03-03] MEDS: glipiZIDE 5 MG TAB PO SCH (08:22)
--- NOTE | 2020-03-03 08:24 | XR ---
EXAMINATION TYPE: XR chest 1V DATE OF EXAM: 03/03/2020 COMPARISON: 03/02/2020 INDICATION: CHF TECHNIQUE: Single frontal view of the chest is obtained. FINDINGS: The heart size is mildly prominent. The pulmonary vasculature is normal. Small left pleural effusion may be present. Bibasilar infiltrates are present. IMPRESSION: 1. Bibasilar infiltrates with small left pleural effusion. 2. Cardiomegaly. 3. Exam is stable from comparison
[2020-03-03 08:31] LABS: Calcium 8.7 mg/dL (8.4-10.2); Potassium 4.6 mmol/L (3.5-5.1)
[2020-03-03] MEDS ORDERED: FUROSEMIDE 10 MG/ML 4 ML VIAL IV SCH (09:00)
[2020-03-03] MEDS: BUDESONIDE 0.5 MG/2 ML NEBU INHALATION SCH (09:30)
[2020-03-03 12:03] LABS: Glucose,Whole Blood 306 mg/dL (75-99)
[2020-03-03 12:24] VITALS: BP 132/68; RESP 22; TEMP 98.4
--- NOTE | 2020-03-03 13:31 | P.PN ---
Subjective This is a pleasasnt 74-year-old female past medical history significant for hypertension, dyslipidemia, diabetes mellitus, chronic kidney disease s/p left nephrectomy and morbid obesity. She does not follow regularly with a auricular acupuncturist in the office. She is seen and examined sitting up in bed in no acute distress. She denies symptoms of chest pain, worsening shortness of breath, dizziness or palpitations. Blood pressure 131/73 heart rate 70 afebrile maintaining oxygen saturation on nasal cannula. Laboratory data reviewed, WBC 14.4, hemoglobin 11.9, platelets 377, sodium 128, potassium 4.6, creatinine 1.36. IV Lasix was discontinued yesterday per the primary care team. Currently maintained on aspirin 81 mg daily, atorvastatin 40 mg daily and metoprolol 12.5 mg twice a day. She continues to maintain a negative fluid balance. GENERAL: Well-appearing, well-nourished and in no acute distress. NECK: Supple without JVD or thyromegaly. LUNGS: Breath sounds clear to auscultation bilaterally. Respiration equal and unlabored. No wheezes, rales or rhonchi. HEART: Regular rate and rhythm without murmurs, rubs or gallops. S1 and S2 heard. EXTREMITIES: Normal range of motion, no edema. No clubbing or cyanosis. Peripheral pulses intact. ASSESSMENT Acute hypoxic respiratory failure Leukocytosis Dyslipidemia Acute on chronic kidney disease status post nephrectomy Diabetes mellitus Hypertension PLAN Continue current medical regimen. Lasix currently on hold secondary to worsening renal function. Renal function has improved. Resume oral lasix 40 mg daily. Nurse Practitioner note has been reviewed, I agree with a documented findings and plan of care. Patient was seen and examined. Objective - Vital Signs Vital signs: Vital Signs Temp 97.9 F 03/03/20 08:00 Pulse 70 03/03/20 09:46 Resp 18 03/03/20 08:00 BP 131/73 03/03/20 08:00 Pulse Ox 100 03/03/20 09:34 Intake & Output 03/02/20 03/03/20 03/03/20 18:59 06:59 18:59 Intake Total 360 240 Output Total 1000 1025 Balance -640 -785 Weight 120.9 kg Intake: Oral 360 240 Output: Urine 1000 1025 Other: Voiding Method Indwelling Catheter Indwelling Catheter # Bowel Movements 0 - Labs CBC & Chem 7: 03/03/20 07:13 03/03/20 07:13 Labs: Abnormal Lab Results - Last 24 Hours (Table) 03/02/20 03/02/20 03/02/20 Range/Units 08:24 11:56 16:25 WBC (3.8-10.6) k/uL Neutrophils # (1.3-7.7) k/uL Lymphocytes # (1.0-4.8) k/uL Sodium (137-145) mmol/L Chloride (98-107) mmol/L Carbon Dioxide (22-30) mmol/L BUN (7-17) mg/dL Creatinine (0.52-1.04) mg/dL Glucose (74-99) mg/dL POC Glucose (mg/dL) 331 H 284 H (75-99) mg/dL Procalcitonin 1.27 H (0.02-0.09) ng/mL 03/02/20 03/03/20 03/03/20 Range/Units 20:02 05:55 07:13 WBC 14.4 H (3.8-10.6) k/uL Neutrophils # 13.2 H (1.3-7.7) k/uL Lymphocytes # 0.6 L (1.0-4.8) k/uL Sodium (137-145) mmol/L Chloride (98-107) mmol/L Carbon Dioxide (22-30) mmol/L BUN (7-17) mg/dL Creatinine (0.52-1.04) mg/dL Glucose (74-99) mg/dL POC Glucose (mg/dL) 354 H 293 H (75-99) mg/dL Procalcitonin (0.02-0.09) ng/mL 03/03/20 Range/Units 07:13 WBC (3.8-10.6) k/uL Neutrophils # (1.3-7.7) k/uL Lymphocytes # (1.0-4.8) k/uL Sodium 128 L (137-145) mmol/L Chloride 85 L (98-107) mmol/L Carbon Dioxide 36 H (22-30) mmol/L BUN 32 H (7-17) mg/dL Creatinine 1.36 H (0.52-1.04) mg/dL Glucose 278 H (74-99) mg/dL POC Glucose (mg/dL) (75-99) mg/dL Procalcitonin (0.02-0.09) ng/mL Microbiology - Last 24 Hours (Table) 02/29/20 23:37 Blood Culture - Preliminary Blood No Growth after 48 hours
--- NOTE | 2020-03-03 14:59 | P.DS ---
Providers Date of admission: 02/29/20 23:06 Expected date of discharge: 03/03/20 Attending physician: Terry Ghotra Consults: 02/29/20 23:07 Consult Physician Urgent Consulting Provider: Titi Rueda Consult Reason/Comments: NIVDRF, acute CHF exacerbation Do you want consulting provider notified?: Yes Consult Physician Urgent Consulting Provider: [facility] Consult Reason/Comments: AECHF Do you want consulting provider notified?: Yes Primary care physician: Calos Winston [facility] Course: Chief Complaint: Short of breath History of presenting complaint: This is a pleasant 74-year-old patient of Dr. Winston. Chronic stable medical conditions include diabetes, some memory impairment, left nephrectomy, osteoarthritis, chronic kidney disease, obstructive sleep apnea uses CPAP, hypothyroid. Normally uses a 4 wheel walker to get about. home oxygen about 3 L. Patient presents with 1 day of increasing shortness of breath. No cough. No fever. Appetite okay. No obvious fever and chills. Her oxygen saturation reportedly dropped out of the 50s. She was placed on CPAP and transported. Patient was significantly obtunded in the ER but with the use of the BiPAP she did wake up. Admitted with acute COPD exacerbation, acute hypoxic and hypercapnic respiratory failure, pneumonia. Start IV Zosyn, IV Solu-Medrol, bronchodilators. Today-doing much better. Eating better. Breathing improved. Care was discussed with the patient. Questions answered. Discussed with Dr. Cole from pulmonary. Discussed with the patient about DC to rehab agreeable. Complete oral course of antibiotic. Discussion and discharge planning more than 35 minutes Consultation: Dr. Cole from pulmonary Dr. Murdock from cardiology Physical examination: VITAL SIGNS: 98.4, 72, 22, 132/68, 100% on 4 L GENERAL: Sitting up in bed, breathing improved EYES: Pupils equal. Conjunctiva normal. HEENT: External appearance of nose and ears normal, oral cavity grossly normal. NECK: JVD unable to assess; masses not palpable. HEART: [Heart sounds distant; some edema. LUNGS: Respiratory rate increased, diminished breath sounds , ABDOMEN: Soft, nontender, liver spleen not palpable, no masses palpable. PSYCH: Able to answer questions INVESTIGATIONS, reviewed in the clinical context: White count 14.4 hemoglobin 11.9 sodium 128 potassium 4.6 creatinine 1.36 Admission testing White count 34.6 hemoglobin 14.1 platelets 550 ABG-pH 7.22 pCO2 107 pO2 324 EKG tracing was treated by me shows-sinus rhythm, nonspecific ST segment changes Chest x-ray film personally reviewed by me-portable, bit underpenetrated, possible infiltrate Potassium 5 creatinine 1.10 lactic acid 3.4 blood glucose 277 COVID 19 P/Cr-not detected, influenza type A and type B both negative Troponin I 2 negative ProBNP 641 Assessment: -Acute COPD exacerbation in an ex-smoker. POA, -Acute hypoxic and hypercapnic respiratory failure from above, POA, -Probable pneumonia suspected gram-negative orgasm, POA -Acute kidney injury, creatinine is gone from 1.1- up to 1.5.-Improving -Doubt CHF. ProBNP is only 641. Creatinine did call from 1.1-1.5 with dialysis. -Chronic hypoxic and hypercapnic respiratory failure from underlying COPD -Diabetes mellitus type 2, chronically on insulin, uncontrolled with hyperglycemia, secondary to steroids -Hypothyroid -Primary osteoarthritis -Hyperlipidemia -Chronic gait dysfunction uses a 4 wheeled walker. -Mild cognitive impairment -Chronic kidney disease stage III possibly from nephrosclerosis -Obstructive sleep apnea uses BiPAP at home. Disposition: [facility] Patient Condition at Discharge: Stable Plan - Discharge Summary New Discharge Prescriptions: New Amoxicillin/Potassium Clav [Augmentin 500-125 Tablet] 1 tab PO Q12HR #6 tab Lactulose [Cephulac] 20 gm PO DAILY PRN ml PRN Reason: Constipation Insulin Detemir (Levemir) [Levemir] 14 unit SQ HS #4 syr Melatonin 3 mg PO HS@1999 tablet INSULIN ASPART (NovoLOG) [NovoLOG (formulary)] 0 unit SQ ACHS vial predniSONE 10 mg PO DAILY #30 tab Continue Pantoprazole Sodium [Protonix] 40 mg PO HS@2000 DULoxetine HCL [Cymbalta] 60 mg PO DAILY@0800 Dorzolamide/Timolol/Pf [Dorzolamide 2%-Timolol 0.5%] 1 drop BOTH EYES BID@0800,1999 Budesonide [Pulmicort] 0.5 mg INHALATION RT-BID@0800,1999 Ipratropium-Albuterol Nebulize [Duoneb 0.5 mg-3 mg/3 ml Soln] 3 ml INHALATION RT-QID Ferrous Sulfate [Iron (65 MG Elemental)] 325 mg PO DAILY@0800 Loratadine 10 mg PO DAILY PRN PRN Reason: Allergy Symptoms Acetaminophen Tab [Tylenol] 650 mg PO Q6H PRN PRN Reason: Fever And/ Or Pain Metoprolol Tartrate [Lopressor] 12.5 mg PO BID@799,1999 Aspirin 81 mg PO DAILY@0800 Furosemide [Lasix] 40 mg PO DAILY tab glipiZIDE [Glucotrol XL] 10 mg PO DAILY Atorvastatin [Lipitor] 40 mg PO HS Levothyroxine Sodium [Synthroid] 50 mcg PO DAILY Discontinued Potassium Chloride ER [K-Dur 10] 10 meq PO DAILY@0800 Tiotropium 18 Mcg/Puff [Spiriva] 1 cap INHALATION RT-DAILY@08 Nitrofurantoin Macrocrystal [Nitrofurantoin] 100 mg PO BID Discharge Medication List Budesonide [Pulmicort] 0.5 mg INHALATION RT-BID@799,199903/06/19 [History] DULoxetine HCL [Cymbalta] 60 mg PO DAILY@0803/06/19 [History] Dorzolamide/Timolol/Pf [Dorzolamide 2%-Timolol 0.5%] 1 drop BOTH EYES BID@799,199903/06/19 [History] Pantoprazole Sodium [Protonix] 40 mg PO HS@199903/06/19 [History] Ipratropium-Albuterol Nebulize [Duoneb 0.5 mg-3 mg/3 ml Soln] 3 ml INHALATION RT-QID 09/19/19 [History] Ferrous Sulfate [Iron (65 MG Elemental)] 325 mg PO DAILY@0800 09/20/19 [History] Acetaminophen Tab [Tylenol] 650 mg PO Q6H PRN 01/25/20 [History] Aspirin 81 mg PO DAILY@0800 01/25/20 [History] Loratadine 10 mg PO DAILY PRN 01/25/20 [History] Metoprolol Tartrate [Lopressor] 12.5 mg PO BID@799,199901/25/20 [History] Furosemide [Lasix] 40 mg PO DAILY tab 01/28/20 [Rx] glipiZIDE [Glucotrol XL] 10 mg PO DAILY 02/29/20 [History] Atorvastatin [Lipitor] 40 mg PO HS 03/01/20 [History] Levothyroxine Sodium [Synthroid] 50 mcg PO DAILY 03/01/20 [History] Amoxicillin/Potassium Clav [Augmentin 500-125 Tablet] 1 tab PO Q12HR #6 tab 03/03/20 [Rx] INSULIN ASPART (NovoLOG) [NovoLOG (formulary)] 0 unit SQ ACHS vial 03/03/20 [Rx] Insulin Detemir (Levemir) [Levemir] 14 unit SQ HS #4 syr 03/03/20 [Rx] Lactulose [Cephulac] 20 gm PO DAILY PRN ml 03/03/20 [Rx] Melatonin 3 mg PO HS@2000 tablet 03/03/20 [Rx] predniSONE 10 mg PO DAILY #30 tab 03/03/20 [Rx] Follow up Appointment(s)/Referral(s): Obdulio Chun MD [STAFF PHYSICIAN] - 1-2 Days Calos Winston MD [Primary Care Provider] - As Needed Activity/Diet/Wound Care/Special Instructions: cbc/bmp- 3 days
--- NOTE | 2020-03-03 15:06 | P.PN ---
Subjective Progress Note Date: 03/03/20 Principal diagnosis: Shortness of breath This is a 74-year-old female patient, morbidly obese who resides at the [facility] and the patient came into the hospital because of progressive shortness of breath. The patient herself is a poor historian. The patient is morbidly obese. Upon arrival to the emergency department, the patient was short of breath and she reported worsening shortness of breath of few days' duration. She was found to be desaturating with a pulse ox in the mid 50s and she had increased work of breathing. At that point, the patient was started on BiPAP for respiratory support. Subsequently the patient was switched to an AVAPS mode with a target tidal volume of 350 and the respiratory rate of 16 with an EPAP minimum of 5. The patient currently is tolerating the treatment without any major difficulties. The patient had a white cell count of 19.9 with a lymphocyte count of 0.5 consistent with lymphopenia. Sodium was 129 with a BUN of 19 a creatinine of 1.2 with a serum bicarb of 37. The blood gas showed a pH of 7.3 with a pCO2 of 86 and pO2 of 119 and I believe this was done while the patient being on a BiPAP. The patient seems to be a chronic CO2 retainer that the patient has chronic metabolic alkalosis. Note that the patient also had a lactic acid level of 3.4 which dropped down to 1.5. The patient had a proBNP level of 641. 2 sets of troponins were negative. Serum abdomen was at 4.2. The glucose at 237. The urbina virus Covid 19 testing was negative. Influenza A and B screening was negative. Chest x-ray showed cardiomegaly with some increased pulmonary vascular densities and infiltrates and small better pleural effusion. Echocardiogram from 09/22/2019 showed an ejection fraction of 55-60%. The patient has mild concentric LVH. No pericardial effusion. No pleural effusion. No signs of any pulmonary hypertension. On examination, clearly the patient several minutes of the lower extremities worse on the left. This was consistent with her diminished level of consciousness and leukocytosis. The patient's urine culture from 01/25/2020 was positive for E. coli and she also has had a previous UTI on 03/20/2020 consistent with Pneumonia. Other, Right Evaluation, I Started the Patient IV Zosyn and I Also Started Patient on Diuretics with Lasix 40 Mg Every 12 Hours. Her white cell count is improving is currently down to 19.9. On 03/02/2020 patient seen in follow-up on selective care unit. Her Covid 19 was negative. Today she seen in follow-up, she is currently on 5 L of oxygen, her pulse ox is 99% she did wear BiPAP support last night with FiO2 of 40%, tolerated it well. Denies chest pain, she has been afebrile since admission. He continues on diuretics, IV steroids and antibiotics, renal function slightly worsened today. Chest x-ray shows some improvement in volume status. Leukocy tosis has been improved since admission, no new labs today, yesterday's labs showed white blood cell count down to 19.9 from admission labs and white blood cell count of 34, today sodium is 128, chloride is 81, CO2 is 39, BUN is 27 creatinine is 1.53. Troponins were negative at less than 0.012, 0.013, and 0.019, patient is being followed by cardiology. Remains on Lasix of 40 mg every 24 hours. Empiric asthmatic coverage form of Zosyn. IV steroids, and nebulized bronchodilators continue. We'll cultures have shown no growth. The patient is seen today 03/03/2020 in follow-up on the selective care unit. She is currently awake and alert in no acute distress. She is currently maintaining O2 saturations in the 90s on 4 L/m per nasal cannula. She's afebrile. Hemodynamically stable. Blood cultures reveal no growth. White count 14.4. Hemoglobin 11.9. Lymphocyte 0.6. Sodium 128. Potassium 4.6. Creatinine 1.36. She remains on bronchodilators, IV Solu-Medrol, Zosyn. Oral antibiotics. Chest x-ray reveals basilar infiltrates with small effusions. Cardiomegaly. No significant change. Objective - Vital Signs Vital signs: Vital Signs Temp 98.4 F 03/03/20 12:00 Pulse 76 03/03/20 13:19 Resp 22 03/03/20 12:00 BP 132/68 03/03/20 12:00 Pulse Ox 92 L 03/03/20 12:00 Intake & Output 03/02/20 03/03/20 03/03/20 18:59 06:59 18:59 Intake Total 360 240 480 Output Total 1000 1025 Balance -640 -785 480 Weight 120.9 kg Intake: Oral 360 240 480 Output: Urine 1000 1025 Other: Voiding Method Indwelling Catheter Indwelling Catheter # Bowel Movements 0 - Exam GENERAL EXAM: Alert, pleasant, 74-year-old female patient, currently on 4 L of oxygen comfortable in no apparent distress. HEAD: Normocephalic/atraumatic. EYES: Normal reaction of pupils, equal size. Conjunctiva pink, sclera white. NOSE: Clear with pink turbinates. THROAT: No erythema or exudates. NECK: No masses, no JVD, no thyroid enlargement, no adenopathy. CHEST: No chest wall deformity. Symmetrical expansion. LUNGS: Equal air entry with bibasilar crackles, diminished breath sounds no wheeze, rhonchi or dullness. CVS: Regular rate and rhythm, normal S1 and S2, no gallops, no murmurs, no rubs ABDOMEN: Soft, nontender. No hepatosplenomegaly, normal bowel sounds, no guarding or rigidity. EXTREMITIES: No clubbing, no edema, no cyanosis, 2+ pulses and upper and lower extremities. MUSCULOSKELETAL: Muscle strength and tone normal. SPINE: No scoliosis or deformity SKIN: No rashes CENTRAL NERVOUS SYSTEM: Alert and oriented -3. No focal deficits, tone is normal in all 4 extremities. PSYCHIATRIC: Alert and oriented -3. Appropriate affect. Intact judgment and insight. - Labs CBC & Chem 7: 03/03/20 07:13 03/03/20 07:13 Labs: Abnormal Lab Results - Last 24 Hours (Table) 03/02/20 03/02/20 03/02/20 Range/Units 08:24 16:25 20:02 WBC (3.8-10.6) k/uL Neutrophils # (1.3-7.7) k/uL Lymphocytes # (1.0-4.8) k/uL Sodium (137-145) mmol/L Chloride (98-107) mmol/L Carbon Dioxide (22-30) mmol/L BUN (7-17) mg/dL Creatinine (0.52-1.04) mg/dL Glucose (74-99) mg/dL POC Glucose (mg/dL) 284 H 354 H (75-99) mg/dL Procalcitonin 1.27 H (0.02-0.09) ng/mL 1103/03/20 03/03/20 Range/Units 05:55 07:13 07:13 WBC 14.4 H (3.8-10.6) k/uL Neutrophils # 13.2 H (1.3-7.7) k/uL Lymphocytes # 0.6 L (1.0-4.8) k/uL Sodium 128 L (137-145) mmol/L Chloride 85 L (98-107) mmol/L Carbon Dioxide 36 H (22-30) mmol/L BUN 32 H (7-17) mg/dL Creatinine 1.36 H (0.52-1.04) mg/dL Glucose 278 H (74-99) mg/dL POC Glucose (mg/dL) 293 H (75-99) mg/dL Procalcitonin (0.02-0.09) ng/mL 03/03/20 Range/Units 11:59 WBC (3.8-10.6) k/uL Neutrophils # (1.3-7.7) k/uL Lymphocytes # (1.0-4.8) k/uL Sodium (137-145) mmol/L Chloride (98-107) mmol/L Carbon Dioxide (22-30) mmol/L BUN (7-17) mg/dL Creatinine (0.52-1.04) mg/dL Glucose (74-99) mg/dL POC Glucose (mg/dL) 306 H (75-99) mg/dL Procalcitonin (0.02-0.09) ng/mL Microbiology - Last 24 Hours (Table) 02/29/20 23:37 Blood Culture - Preliminary Blood No Growth after 48 hours Assessment and Plan Assessment: 1 acute hypoxic respiratory failure. The patient is interstitial edema bilaterally. Consider atypical interstitial pneumonia. Consider fluid overload/CHF with diastolic heart failure. Acute urbina virus/Covid 19 infection cannot be completely ruled out. The patient screened negative for urbina virus Covid 19 at time of admission. 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 12 hyperlipidemia 13 chronic metabolic alkalosis secondary to hypercapnic respiratory failure, chronic 14 lactic acidosis, improving Plan: The patient was seen and evaluated by Dr. Cole She is cleared for discharge from the pulmonary standpoint Continue home pulmonary medications I, the cosigning physician, performed a history & physical examination of the patient. Lungs sounds with basilar crackles. Maintaining good O2 saturations in the 90s on 4 L/m per nasal cannula. I discussed the assessment and plan of care with my nurse practitioner, Grazyna Ricardo. I attest to the above note as dictated by her.
[2020-03-03 16:44] VITALS: PULSE 75
[2020-03-03 17:01] LABS: Glucose,Whole Blood 256 mg/dL (75-99)
[2020-03-04] MEDS ORDERED: FUROSEMIDE 40 MG TAB PO SCH (09:00)
== END 2020-03-03 16:25 | DRG 177 ==
LOC: EC 21:33 → 3SCARD 23:06
PROVIDERS: ADMIT Hospitalist; ATTEND Hospitalist
PROC: 5A09457 Assistance with Respiratory Ventilation, 24-96 Consecutive Hours, Continuous Positive Airway Pressure (ICD-10-PCS; principal; 2020-02-29)
DX: J15.6 Pneumonia due to other Gram-negative bacteria (principal); J96.21 Acute and chronic respiratory failure with hypoxia; J96.22 Acute and chronic respiratory failure with hypercapnia; J44.1 Chronic obstructive pulmonary disease with (acute) exacerbation; L03.115 Cellulitis of right lower limb; L03.116 Cellulitis of left lower limb; E66.2 Morbid (severe) obesity with alveolar hypoventilation; E87.4 Mixed disorder of acid-base balance; Z68.42 Body mass index [BMI] 45.0-49.9, adult; J44.0 Chronic obstructive pulmonary disease with (acute) lower respiratory infection; E11.22 Type 2 diabetes mellitus with diabetic chronic kidney disease; N18.30 Chronic kidney disease, stage 3 unspecified; E11.65 Type 2 diabetes mellitus with hyperglycemia; Z20.828 Contact with and (suspected) exposure to other viral communicable diseases; D72.810 Lymphocytopenia; E03.9 Hypothyroidism, unspecified; E78.5 Hyperlipidemia, unspecified; G31.84 Mild cognitive impairment of uncertain or unknown etiology; I12.9 Hypertensive chronic kidney disease with stage 1 through stage 4 chronic kidney disease, or unspecified chronic kidney disease; M19.91 Primary osteoarthritis, unspecified site; T38.0X5A Adverse effect of glucocorticoids and synthetic analogues, initial encounter; R26.9 Unspecified abnormalities of gait and mobility; Z79.82 Long term (current) use of aspirin; Z79.84 Long term (current) use of oral hypoglycemic drugs; Z79.890 Hormone replacement therapy; Z79.899 Other long term (current) drug therapy; Z87.440 Personal history of urinary (tract) infections; Z87.01 Personal history of pneumonia (recurrent); Z88.5 Allergy status to narcotic agent; Z87.891 Personal history of nicotine dependence; Z87.19 Personal history of other diseases of the digestive system; Z87.898 Personal history of other specified conditions; Z87.448 Personal history of other diseases of urinary system; Z90.5 Acquired absence of kidney; Z90.710 Acquired absence of both cervix and uterus; Z90.49 Acquired absence of other specified parts of digestive tract; Z90.89 Acquired absence of other organs; Z98.890 Other specified postprocedural states; Z86.19 Personal history of other infectious and parasitic diseases; Z99.89 Dependence on other enabling machines and devices; Z80.8 Family history of malignant neoplasm of other organs or systems
CPT/HCPCS: 36415; 36600; 51701; 71045; 80048; 80053; 81001; 82805; 83605; 83735; 83880; 84145; 84484; 85025; 85379; 85610; 85730; 87040; 87502; 87635; 93005; 94640; 94660; 96365; 96366; 96375; 99285

== ENCOUNTER 2020-04-30 03:42 | Inpatient (IN) | payer MEDICARE, BC ==
--- NOTE | 2020-04-30 04:13 | ED ---
SOB HPI - General Chief Complaint: Shortness of Breath Stated Complaint: SOB, Covid + Time Seen by Provider: 04/30/20 04:00 Source: patient, EMS, RN notes reviewed Mode of arrival: EMS Limitations: altered mental status - History of Present Illness Initial Comments: This patient is a 75-year-old woman, sent from the [facility] to be evaluated for respiratory distress. The patient is reported to have had a positive Covid test last week. Tonight she had been complaining of shortness of breath and they measured low pulse oximetry readings. Patient denies any complaints on arrival here, EMS had placed patient on oxygen. MD Complaint: shortness of breath -: unknown Consistency: constant Improves With: oxygen Worsens With: nothing Known History Of: other (Coronavirus infection) Associated Symptoms: denies other symptoms Treatments Prior to Arrival: oxygen - Related Data Home Oxygen Therapy: No Home Medications Medication Instructions Recorded Confirmed Budesonide [Pulmicort] 0.5 mg INHALATION RT-BID@08,199903/06/19 03/01/20 DULoxetine HCL [Cymbalta] 60 mg PO DAILY@0803/06/19 03/01/20 Dorzolamide/Timolol/Pf 1 drop BOTH EYES BID@799,199903/06/19 03/01/20 [Dorzolamide 2%-Timolol 0.5%] Pantoprazole Sodium [Protonix] 40 mg PO HS@199903/06/19 03/01/20 Ipratropium-Albuterol Nebulize 3 ml INHALATION RT-QID 09/19/19 03/01/20 [Duoneb 0.5 mg-3 mg/3 ml Soln] Ferrous Sulfate [Iron (65 MG 325 mg PO DAILY@0800 09/20/19 03/01/20 Elemental)] Acetaminophen Tab [Tylenol] 650 mg PO Q6H PRN 01/25/20 03/01/20 Aspirin 81 mg PO DAILY@0800 01/25/20 03/01/20 Loratadine 10 mg PO DAILY PRN 01/25/20 03/01/20 Metoprolol Tartrate [Lopressor] 12.5 mg PO BID@08,199901/25/20 03/01/20 glipiZIDE [Glucotrol XL] 10 mg PO DAILY 02/29/20 03/01/20 Atorvastatin [Lipitor] 40 mg PO HS 03/01/20 03/01/20 Levothyroxine Sodium [Synthroid] 50 mcg PO DAILY 03/01/20 03/01/20 Previous Rx's Medication Instructions Recorded Furosemide [Lasix] 40 mg PO DAILY tab 01/28/20 Amoxicillin/Potassium Clav 1 tab PO Q12HR #6 tab 03/03/20 [Augmentin 500-125 Tablet] INSULIN ASPART (NovoLOG) [NovoLOG 0 unit SQ ACHS vial 03/03/20 (formulary)] Insulin Detemir (Levemir) [Levemir] 14 unit SQ HS #4 syr 03/03/20 Lactulose [Cephulac] 20 gm PO DAILY PRN ml 03/03/20 Melatonin 3 mg PO HS@2000 tablet 03/03/20 predniSONE 10 mg PO DAILY #30 tab 03/03/20 Allergies Allergy/AdvReac Type Severity Reaction Status Date / Time codeine AdvReac Nausea & Verified 04/30/20 03:52 Vomiting Review of Systems ROS Statement: Those systems with pertinent positive or pertinent negative responses have been documented in the HPI. ROS Other: All systems not noted in ROS Statement are negative. Constitutional: Reports: fever Respiratory: Reports: cough, dyspnea. Denies: hemoptysis Cardiovascular: Denies: chest pain, edema, syncope Gastrointestinal: Denies: abdominal pain, vomiting Genitourinary: Denies: dysuria Musculoskeletal: Denies: back pain Skin: Denies: rash Neurological: Denies: headache, weakness Past Medical History Past Medical History: COPD, Diabetes Mellitus, Memory Impairment, Osteoarthritis (OA), Pneumonia, Renal Disease, Sleep Apnea/CPAP/BIPAP, Thyroid Disorder Additional Past Medical History / Comment(s): cellulitis on legs, uses cpap at home thinks her settings are 5 very poor historian, POSSIBLE HEART PER PATIENT UNSURE, BLADDER INFECTION History of Any Multi-Drug Resistant Organisms: ESBL Date of last positivie culture/infection: 03/20/19 MDRO Source:: Urine Past Surgical History: Appendectomy, Cholecystectomy, Hernia Repair, Hysterect arlette, Tonsillectomy Additional Past Surgical History / Comment(s): kidney left removed, colonoscopy Past Anesthesia/Blood Transfusion Reactions: No Reported Reaction Past Psychological History: No Psychological Hx Reported Smoking Status: Former smoker Past Alcohol Use History: None Reported Past Drug Use History: None Reported - Past Family History Mother Family Medical History: Cancer Additional Family Medical History / Comment(s): throat cancer General Exam Limitations: altered mental status General appearance: alert, in no apparent distress Head exam: Present: atraumatic, normocephalic Eye exam: Present: normal appearance ENT exam: Present: mucous membranes dry Neck exam: Present: normal inspection Respiratory exam: Present: respiratory distress, rales. Absent: wheezes, rhonchi, stridor, accessory muscle use, decreased breath sounds Cardiovascular Exam: Present: regular rate, normal rhythm, normal heart sounds. Absent: systolic murmur, diastolic murmur, rubs, gallop GI/Abdominal exam: Present: soft. Absent: distended, tenderness, guarding, rebound, rigid, mass Extremities exam: Present: normal inspection, normal capillary refill. Absent: pedal edema, calf tenderness Neurological exam: Present: alert Skin exam: Present: warm, dry, intact, normal color. Absent: rash Course Vital Signs 04/30/20 04/30/20 04/30/20 03:44 04:04 05:20 Temperature 97.4 F L Pulse Rate 102 H 104 H Respiratory 24 24 24 Rate Blood Pressure 151/94 155/106 O2 Sat by Pulse 100 99 Oximetry 04/30/20 06:38 Temperature Pulse Rate 100 Respiratory 22 Rate Blood Pressure 116/89 O2 Sat by Pulse 96 Oximetry Medical Decision Making - Lab Data Result diagrams: 04/30/20 04:10 04/30/20 04:10 Lab Results 04/30/20 04/30/20 04/30/20 Range/Units 04:10 04:10 04:10 WBC 16.9 H (3.8-10.6) k/uL RBC 4.15 (3.80-5.40) m/uL Hgb 12.3 (11.4-16.0) gm/dL Hct 38.7 (34.0-46.0) % MCV 93.2 (80.0-100.0) fL MCH 29.6 (25.0-35.0) pg MCHC 31.7 (31.0-37.0) g/dL RDW 14.4 (11.5-15.5) % Plt Count 384 (150-450) k/uL MPV 7.0 Neutrophils % 78 % Lymphocytes % 5 % Monocytes % 5 % Eosinophils % 9 % Basophils % 1 % Neutrophils # 13.2 H (1.3-7.7) k/uL Lymphocytes # 0.9 L (1.0-4.8) k/uL Monocytes # 0.9 (0-1.0) k/uL Eosinophils # 1.4 H (0-0.7) k/uL Basophils # 0.2 (0-0.2) k/uL Hypochromasia Slight PT 12.5 H (9.0-12.0) sec INR 1.2 H (<1.2) APTT 33.2 H (22.0-30.0) sec D-Dimer 0.57 (<0.60) mg/L FEU VBG pH (7.31-7.41) VBG pCO2 (37-51) mmHg VBG HCO3 (24-28) mmol/L Sodium 134 L (137-145) mmol/L Potassium 4.4 (3.5-5.1) mmol/L Chloride 88 L (98-107) mmol/L Carbon Dioxide 41 H* (22-30) mmol/L Anion Gap 5 mmol/L BUN 19 H (7-17) mg/dL Creatinine 0.99 (0.52-1.04) mg/dL Est GFR (CKD-EPI)AfAm 64 (>60 ml/min/1.73 sqM) Est GFR (CKD-EPI)NonAf 55 (>60 ml/min/1.73 sqM) Glucose 156 H (74-99) mg/dL Plasma Lactic Acid Taz (0.7-2.0) mmol/L Calcium 9.3 (8.4-10.2) mg/dL Magnesium 1.7 (1.6-2.3) mg/dL Total Bilirubin 1.2 (0.2-1.3) mg/dL AST 20 (14-36) U/L ALT 17 (4-34) U/L Alkaline Phosphatase 126 (38-126) U/L Lactate Dehydrogenase 847 H (313-618) U/L C-Reactive Protein 80.6 H (<10.0) mg/L Total Protein 6.3 (6.3-8.2) g/dL Albumin 3.2 L (3.5-5.0) g/dL 04/30/20 04/30/20 Range/Units 04:10 04:59 WBC (3.8-10.6) k/uL RBC (3.80-5.40) m/uL Hgb (11.4-16.0) gm/dL Hct (34.0-46.0) % MCV (80.0-100.0) fL MCH (25.0-35.0) pg MCHC (31.0-37.0) g/dL RDW (11.5-15.5) % Plt Count (150-450) k/uL MPV Neutrophils % % Lymphocytes % % Monocytes % % Eosinophils % % Basophils % % Neutrophils # (1.3-7.7) k/uL Lymphocytes # (1.0-4.8) k/uL Monocytes # (0-1.0) k/uL Eosinophils # (0-0.7) k/uL Basophils # (0-0.2) k/uL Hypochromasia PT (9.0-12.0) sec INR (<1.2) APTT (22.0-30.0) sec D-Dimer (<0.60) mg/L FEU VBG pH 7.34 (7.31-7.41) VBG pCO2 76 H* (37-51) mmHg VBG HCO3 40 H (24-28) mmol/L Sodium (137-145) mmol/L Potassium (3.5-5.1) mmol/L Chloride (98-107) mmol/L Carbon Dioxide (22-30) mmol/L Anion Gap mmol/L BUN (7-17) mg/dL Creatinine (0.52-1.04) mg/dL Est GFR (CKD-EPI)AfAm (>60 ml/min/1.73 sqM) Est GFR (CKD-EPI)NonAf (>60 ml/min/1.73 sqM) Glucose (74-99) mg/dL Plasma Lactic Acid Taz 1.4 (0.7-2.0) mmol/L Calcium (8.4-10.2) mg/dL Magnesium (1.6-2.3) mg/dL Total Bilirubin (0.2-1.3) mg/dL AST (14-36) U/L ALT (4-34) U/L Alkaline Phosphatase (38-126) U/L Lactate Dehydrogenase (313-618) U/L C-Reactive Protein (<10.0) mg/L Total Protein (6.3-8.2) g/dL Albumin (3.5-5.0) g/dL - EKG Data -: EKG Interpreted by Pr EKG shows normal: sinus rhythm, axis (Right. [place] deviation), intervals (Normal), QRS complexes (Normal) Rate: tachycardia (Rate 101 bpm) Interpretation: other (Possible right ventricular hypertrophy) Disposition Clinical Impression: Respiratory distress, acute, Pneumonia, COVID-19 Disposition: ADMITTED IP TO THIS [facility] Condition: Poor Referrals: Calos Winston MD [Primary Care Provider] - 1-2 days
[2020-04-30 04:20] LABS: Basophils # (A) 0.2 k/uL (0-0.2); Basophils % (A) 1 %; Eosinophils # (A) 1.4 k/uL (0-0.7); Eosinophils % (A) 9 %; HCT 38.7 % (34.0-46.0); HGB 12.3 gm/dL (11.4-16.0); Hypochromasia Slight; Lymphocytes # (A) 0.9 k/uL (1.0-4.8); Lymphocytes % (A) 5 %; MCH 29.6 pg (25.0-35.0); MCHC 31.7 g/dL (31.0-37.0); MCV 93.2 fL (80.0-100.0); Monocytes # (A) 0.9 k/uL (0-1.0); Monocytes % (A) 5 %; Neutrophils # (A) 13.2 k/uL (1.3-7.7); Neutrophils % (A) 78 %; Platelet Count 384 k/uL (150-450); RBC 4.15 m/uL (3.80-5.40); RDW 14.4 % (11.5-15.5); WBC 16.9 k/uL (3.8-10.6)
--- NOTE | 2020-04-30 04:28 | XR ---
EXAM: XR Chest, 1 View CLINICAL HISTORY: ITS.REASON XR Reason: Suspected COVID-19 pneumonia TECHNIQUE: Frontal view of the chest. COMPARISON: 03.03.20 FINDINGS: Lungs: Slightly increased bibasilar opacities. Pleural space: No acute findings Heart: cardiomegaly. Bones/joints: No acute findings. IMPRESSION: Slightly increased bibasilar opacities.
[2020-04-30 04:32] LABS: Albumin 3.2 g/dL (3.5-5.0); C Reactive Protein 80.6 mg/L (<10.0); Calcium 9.3 mg/dL (8.4-10.2); Magnesium 1.7 mg/dL (1.6-2.3); Potassium 4.4 mmol/L (3.5-5.1); Total Bilirubin 1.2 mg/dL (0.2-1.3); Total Protein 6.3 g/dL (6.3-8.2)
[2020-04-30] MEDS ORDERED: DEXAMETHASONE SOD PHOSPHATE 10 MG/ML 1 ML VIAL IV STA (04:47)
[2020-04-30] MEDS ORDERED: IPRATROPIUM-ALBUTEROL 3 ML NEB INHALATION STA (04:50)
[2020-04-30] MEDS ORDERED: ALBUTEROL HFA INHALER INHALATION STA (05:10)
[2020-04-30 05:11] LABS: VBG PH 7.34 (7.31-7.41)
[2020-04-30 05:12] LABS: D-Dimer 0.57 mg/L FEU (<0.60); INR 1.2 (<1.2); Partial Thromboplastin Time 33.2 sec (22.0-30.0)
[2020-04-30 05:13] LABS: Prothrombin Time 12.5 sec (9.0-12.0)
[2020-04-30] MEDS ORDERED: NALOXONE 0.4 MG/ML 1 ML VIAL IV PRN (06:52)
[2020-04-30] MEDS ORDERED: ACETAMINOPHEN TAB 325 MG TAB PO PRN (06:52)
[2020-04-30] MEDS: SODIUM CHLORIDE 0.9% 1,000 ML IV SCH (07:38)
[2020-04-30] MEDS ORDERED: LORazepam 2 MG/ML INJ IV STA (07:56)
--- NOTE | 2020-04-30 08:27 | P.HPIM ---
History of Present Illness H&P Date: 04/30/20 Chief Complaint: Shortness of breath This is a 75-year-old female with complex past medical history noted below who presented to the emergency room from [facility] for further evaluation of hypoxia and a recent diagnosis of COVID19. Patient is a very poor historian and most of the history was obtained by nursing staff and ER documentation. Apparently, [facility] but her overall condition worsened the last couple of days and she was more hypoxic. At baseline patient is on 3 L of oxygen. Patient herself denies any fevers or chills. No shortness of breath. No cough. Chest x-ray in the ER showed worsening bilateral opacities at the lung bases. Exact O2 sat on presentation is not clear to me but patient was on BiPAP at the time of my evaluation. I did stop the BiPAP and put her on a nonrebreather and her O2 sat remained around 98%. She appears comfortable. Patient will be admitted to the hospital for further management. Review of Systems Review of system: 14 points review of systems were obtained and were negative except to what were mentioned in the HPI. Past Medical History Past Medical History: COPD, Diabetes Mellitus, Memory Impairment, Osteoarthritis (OA), Pneumonia, Renal Disease, Sleep Apnea/CPAP/BIPAP, Thyroid Disorder Additional Past Medical History / Comment(s): cellulitis on legs, uses cpap at home thinks her settings are 5 very poor historian, POSSIBLE HEART PER PATIENT UNSURE, BLADDER INFECTION History of Any Multi-Drug Resistant Organisms: ESBL Date of last positivie culture/infection: 03/20/19 MDRO Source:: Urine Past Surgical History: Appendectomy, Cholecystectomy, Hernia Repair, Hysterectomy, Tonsillectomy Additional Past Surgical History / Comment(s): kidney left removed, colonoscopy Past Anesthesia/Blood Transfusion Reactions: No Reported Reaction Past Psychological History: No Psychological Hx Reported Smoking Status: Former smoker Past Alcohol Use History: None Reported Past Drug Use History: None Reported - Past Family History Mother Family Medical History: Cancer Additional Family Medical History / Comment(s): throat cancer Medications and Allergies Home Medications Medication Instructions Recorded Confirmed Type Budesonide [Pulmicort] 0.5 mg INHALATION RT-BID@0800,199903/06/19 03/01/20 History DULoxetine HCL [Cymbalta] 60 mg PO DAILY@0800 21/19 11/16/20 History Dorzolamide/Timolol/Pf 1 drop BOTH EYES BID@799,199903/06/19 03/01/20 History [Dorzolamide 2%-Timolol 0.5%] Pantoprazole Sodium [Protonix] 40 mg PO HS@199903/06/19 03/01/20 History Ipratropium-Albuterol Nebulize 3 ml INHALATION RT-QID 09/19/19 03/01/20 History [Duoneb 0.5 mg-3 mg/3 ml Soln] Ferrous Sulfate [Iron (65 MG 325 mg PO DAILY@0800 09/20/19 03/01/20 History Elemental)] Acetaminophen Tab [Tylenol] 650 mg PO Q6H PRN 01/25/20 03/01/20 History Aspirin 81 mg PO DAILY@0800 01/25/20 03/01/20 History Loratadine 10 mg PO DAILY PRN 01/25/20 03/01/20 History Metoprolol Tartrate [Lopressor] 12.5 mg PO BID@08,199901/25/20 03/01/20 History Furosemide [Lasix] 40 mg PO DAILY tab 01/28/20 03/01/20 Rx glipiZIDE [Glucotrol XL] 10 mg PO DAILY 02/29/20 03/01/20 History Atorvastatin [Lipitor] 40 mg PO HS 03/01/20 03/01/20 History Levothyroxine Sodium [Synthroid] 50 mcg PO DAILY 03/01/20 03/01/20 History Amoxicillin/Potassium Clav 1 tab PO Q12HR #6 tab 03/03/20 Rx [Augmentin 500-125 Tablet] INSULIN ASPART (NovoLOG) [NovoLOG 0 unit SQ ACHS vial 03/03/20 Rx (formulary)] Insulin Detemir (Levemir) [Levemir] 14 unit SQ HS #4 syr 03/03/20 Rx Lactulose [Cephulac] 20 gm PO DAILY PRN ml 03/03/20 Rx Melatonin 3 mg PO HS@1999 tablet 03/03/20 Rx predniSONE 10 mg PO DAILY #30 tab 03/03/20 Rx Allergies Allergy/AdvReac Type Severity Reaction Status Date / Time codeine AdvReac Nausea & Verified 04/30/20 08:18 Vomiting Physical Exam Vitals: Vital Signs Temp Pulse Resp BP Pulse Ox 04/30/20 08:17 100 20 145/89 98 04/30/20 07:29 105 H 20 139/92 98 04/30/20 06:38 100 22 116/89 96 04/30/20 05:20 104 H 24 155/106 99 04/30/20 04:04 24 04/30/20 03:44 97.4 F L 102 H 24 151/94 100 Intake and Output 04/29/20 04/30/20 04/30/20 22:59 06:59 14:59 Other: Weight 123.196 kg General: The patient is awake and alert, in no distress Eye: there is normal conjunctiva bilaterally. Neck: The neck is supple, there is no JVD. Cardiovascular: Normal S1-S2, no S3-S4, no murmurs. Respiratory: Lungs clear to anterior chest auscultation bilaterally Gastrointestinal: Abdomen is obese but soft, nontender Musculoskeletal: There is +1-2 edema with chronic venous insufficiency skin discoloration. Neurological:. Speech is normal. Skin: Skin is warm and dry Results CBC & Chem 7: 04/30/20 04:10 04/30/20 04:10 Labs: Abnormal Lab Results - Last 24 Hours (Table) 04/30/20 04/30/20 04/30/20 Range/Units 04:10 04:10 04:10 WBC 16.9 H (3.8-10.6) k/uL Neutrophils # 13.2 H (1.3-7.7) k/uL Lymphocytes # 0.9 L (1.0-4.8) k/uL Eosinophils # 1.4 H (0-0.7) k/uL PT 12.5 H (9.0-12.0) sec INR 1.2 H (<1.2) APTT 33.2 H (22.0-30.0) sec VBG pCO2 (37-51) mmHg VBG HCO3 (24-28) mmol/L Sodium 134 L (137-145) mmol/L Chloride 88 L (98-107) mmol/L Carbon Dioxide 41 H* (22-30) mmol/L BUN 19 H (7-17) mg/dL Glucose 156 H (74-99) mg/dL Lactate Dehydrogenase 847 H (313-618) U/L C-Reactive Protein 80.6 H (<10.0) mg/L Albumin 3.2 L (3.5-5.0) g/dL 04/30/20 Range/Units 04:59 WBC (3.8-10.6) k/uL Neutrophils # (1.3-7.7) k/uL Lymphocytes # (1.0-4.8) k/uL Eosinophils # (0-0.7) k/uL PT (9.0-12.0) sec INR (<1.2) APTT (22.0-30.0) sec VBG pCO2 76 H* (37-51) mmHg VBG HCO3 40 H (24-28) mmol/L Sodium (137-145) mmol/L Chloride (98-107) mmol/L Carbon Dioxide (22-30) mmol/L BUN (7-17) mg/dL Glucose (74-99) mg/dL Lactate Dehydrogenase (313-618) U/L C-Reactive Protein (<10.0) mg/L Albumin (3.5-5.0) g/dL Assessment and Plan Assessment: This is a 75-year-old female with complex past medical history noted below who was brought into the emergency room from [facility] for further evaluation of hypoxia and a recent diagnosis of COVID-19. Patient was evaluated in the ER and will be admitted to the hospital for further management of her medical problems noted below. 1. COVID-19 pneumonia, started on Decadron 6 mg daily day #1. Start vitamin C, vitamin D, zinc, and melatonin daily. Pulmonary consulted for further evaluation. We will continue to monitor inflammatory markers. 2. Acute on chronic hypoxic respiratory failure requiring BiPAP on presentation. Currently on a nonrebreather. Wean off O2 as tolerated for O2 sats greater than 90%. Patient is on 3 L of oxygen at home. 3. Sepsis without septic shock, mild. Lactic acid normal on presentation. We will continue supportive care. 4. Chronic medical problems: History of left nephrectomy, hypothyroidism, type 2 diabetes, obstructive sleep apnea on CPAP at night, hyperlipidemia, chronic hypercapnic respiratory failure, morbid obesity. 5. DVT prophylaxis with subcu Lovenox 6. CODE STATUS: DO NOT RESUSCITATE/DO NOT INTUBATE. According [facility] Today, I reviewed her medication list and lab work results. Continue supportive care. Sliding scale insulin before meals at bedtime. Repeat lab work in the morning. Appreciate parts consultant's recommendations.
[2020-04-30] MEDS: ZINC SULFATE 220 MG CAP PO SCH (08:39)
[2020-04-30] MEDS: ASCORBIC ACID 500 MG TAB PO SCH (08:39)
[2020-04-30] MEDS: CHOLECALCIFEROL 1,000 UNIT TAB PO SCH (08:39)
[2020-04-30] MEDS: ENOXAPARIN 40 MG/0.4 ML SYRINGE SQ SCH (08:39)
[2020-04-30] MEDS: DEXAMETHASONE SOD PHOSPHATE 10 MG/ML 1 ML VIAL IV SCH (08:40)
[2020-04-30] MEDS: INSULIN ASPART (NovoLOG) 100 UNIT/ML VIAL SQ SCH ×4 (08:44→21:14)
[2020-04-30 08:53] LABS: Glucose,Whole Blood 229 mg/dL (75-99)
[2020-04-30 09:52] LABS: Ferritin 367.8 ng/mL (10.0-291.0)
[2020-04-30 11:46] LABS: Glucose,Whole Blood 240 mg/dL (75-99)
--- NOTE | 2020-04-30 14:09 | P.CNPUL ---
History of Present Illness Consult date: 04/30/20 Reason for consult: dyspnea, hypoxemia, pneumonia, abnormal CXR/CT Chief complaint: Respiratory distress/shortness of breath History of present illness: 75-year-old female who resides at one of the local nursing homes. She was brought into the emergency room by EMS on April 30 at 3:42 AM, for apparent respiratory distress. The patient apparently had a positive COVID test last week. She apparently was complaining of shortness of breath at the retirement. In addition apparently they had low pulse ox readings. She was placed on oxygen by EMS and transported in to the emergency department. Unfortunately, th e patient is not able to give much of the history. Her mental status is poor. She does mumble a few words. Currently, the patient is on 15 L high flow oxygen therapy. She does not appear to be short of breath. Unfortunately, she cannot give any additional history. She carries with her a history of COPD, diabetes mellitus, memory impairment/dementia, osteoarthritis, pneumonia, sleep apnea syn drome, hypothyroidism, lower extremity cellulitis, urinary tract infection, among other things. She apparently is a former smoker. Review of Systems REVIEW OF SYSTEMS: CONSTITUTIONAL: [Negative.] NEUROLOGIC: [ Negative.] HEENT: [ Negative.] CARDIAC: [Negative.] PULMONARY: Shortness of breath, and low saturations, as per the ER jaclyn. The patient herself cannot really give much history. GI: [Negative.] : [Negative.] RHEUMATOLOGIC: [ Negative.] IMMUNOLOGIC: [ Negative.] ENDOCRINE: [Negative. ] DERMATOLOGIC: [Negative.] Past Medical History Past Medical History: COPD, Dementia, Diabetes Mellitus, Eye Disorder, Hy perlipidemia, Memory Impairment, Osteoarthritis (OA), Pneumonia, Renal Disease, Sleep Apnea/CPAP/BIPAP, Thyroid Disorder Additional Past Medical History / Comment(s): Chronic respiratory failure, home oxygen at 3L/NC ATC, KEEGAN without device at [facility], + covid diagnosed 04/01/20 at [facility], IDDM type II, neuropathy bilateral feet, CKD stage III-pt had L nephrectomy but bertha cannot recall reason, anemia, UTIs, glaucoma bilateral eyes, muscle weakness, gait dysfunction, incontinence urine/stool, allergic rhinitis, troponin leak -unsure if LA. History of Any Multi-Drug Resistant Organisms: ESBL Date of last positivie culture/infection: 03/20/19 MDRO Source:: Urine Past Surgical History: Appendectomy, Cholecystectomy, Hernia Repair, Hysterectomy, Tonsillectomy Additional Past Surgical History / Comment(s): L nephrectomy, colonoscopy Past Anesthesia/Blood Transfusion Reactions: No Reported Reaction Smoking Status: Former smoker - Past Family History Mother Family Medical History: Cancer Additional Family Medical History / Comment(s): throat cancer Medications and Allergies Home Medications Medication Instructions Recorded Confirmed Type Budesonide [Pulmicort] 0.5 mg INHALATION RT-BID@0900,1700 03/06/19 04/30/20 History DULoxetine HCL [Cymbalta] 60 mg PO DAILY@0900 03/06/19 04/30/20 History Dorzolamide/Timolol/Pf 1 drop BOTH EYES TID@0900,1300,2100 03/06/19 04/30/20 History [Dorzolamide 2%-Timolol 0.5%] Acetaminophen Tab [Tylenol] 650 mg PO Q6H PRN 01/25/20 04/30/20 History Loratadine 10 mg PO DAILY@0900 01/25/20 04/30/20 History glipiZIDE [Glucotrol XL] 10 mg PO BID@0900,1700 02/29/20 04/30/20 History Atorvastatin [Lipitor] 40 mg PO DAILY@0900 03/01/20 04/30/20 History Levothyroxine Sodium [Synthroid] 50 mcg PO HS@2100 03/01/20 04/30/20 History Albuterol Sulfate [Proventil Hfa] 2 puff INHALATION RT-Q6H PRN 04/30/20 04/30/20 History Famotidine 10 mg PO BID@0900,1700 04/30/20 04/30/20 History Furosemide [Lasix] 40 mg PO BID@0900,1700 04/30/20 04/30/20 History INSULIN LISPRO (humaLOG) [humaLOG] See Protocol SQ ACHS 04/30/20 04/30/20 History Lactulose [Cephulac] 20 gm PO TID@0900,1300,2100 04/30/20 04/30/20 History Melatonin 3 mg PO HS@1999 PRN 04/30/20 04/30/20 History Metoprolol Succinate (ER) [Toprol 25 mg PO DAILY@0900 04/30/20 04/30/20 History Xl] Potassium Chloride ER [K-Dur 10] 10 meq PO BID@0900,1700 04/30/20 04/30/20 History Rivaroxaban [Xarelto] 10 mg PO DAILY@0900 04/30/20 04/30/20 History Tiotropium [place] [Spiriva 1 spray INHALATION RT-DAILY@0900 04/30/20 04/30/20 History Respimat] Allergies Allergy/AdvReac Type Severity Reaction Status Date / Time codeine AdvReac Nausea & Verified 04/30/20 08:18 Vomiting Physical Exam Osteopathic Statement: *. No significant issues noted on an osteopathic structural exam other than those noted in the History and Physical/Consult. Vitals: Vital Signs Temp Pulse Resp BP Pulse Ox 04/30/20 11:38 96 19 146/95 99 04/30/20 10:38 97 20 140/88 98 04/30/20 09:03 95 18 149/89 98 04/30/20 08:17 100 20 145/89 98 04/30/20 07:29 105 H 20 139/92 98 04/30/20 06:38 100 22 116/89 96 04/30/20 05:20 104 H 24 155/106 99 04/30/20 04:04 24 04/30/20 03:44 97.4 F L 102 H 24 151/94 100 Intake and Output 04/29/20 04/30/20 04/30/20 22:59 06:59 14:59 Other: Weight 123.196 kg 123.196 kg No acute distress, lethargic, high flow nasal cannula in place. HEENT examination is grossly unremarkable. Neck supple. Full range of motion. No adenopathy thyromegaly or neck vein distention. Cardiovascular examination reveals regular rhythm rate. S1-S2 normal. No S3 or S4. No discernible murmur noted. Heart sounds are distant. Heart rate 96 bpm. Lungs reveal scattered bilateral rhonchi. She does not take deep breaths. No distinct wheezes or crackles are appreciated. Breath sounds are equal bilaterally. Abdomen soft bowel sounds are heard. No masses or tenderness. Extremities are intact. No cyanosis or clubbing. Bilateral lower extremity edema is noted. It is 1+. Skin is without rash or lesion. Neurologic examination is very difficult to assess, because she so lethargic. Results - Laboratory Findings CBC and BMP: 04/30/20 04:10 04/30/20 04:10 PT/INR, D-dimer PT 12.5 sec (9.0-12.0) H 04/30/20 04:10 INR 1.2 (<1.2) H 04/30/20 04:10 D-Dimer 0.57 mg/L FEU (<0.60) 04/30/20 04:10 Abnormal lab findings: Abnormal Labs 04/30/20 04/30/20 04/30/20 04:10 04:10 04:10 WBC 16.9 H Neutrophils # 13.2 H Lymphocytes # 0.9 L Eosinophils # 1.4 H PT 12.5 H INR 1.2 H APTT 33.2 H VBG pCO2 VBG HCO3 Sodium 134 L Chloride 88 L Carbon Dioxide 41 H* BUN 19 H Glucose 156 H POC Glucose (mg/dL) Ferritin 367.8 H Lactate Dehydrogenase 847 H C-Reactive Protein 80.6 H Albumin 3.2 L Procalcitonin 04/30/20 04/30/20 04/30/20 04:10 04:59 08:42 WBC Neutrophils # Lymphocytes # Eosinophils # PT INR APTT VBG pCO2 76 H* VBG HCO3 40 H Sodium Chloride Carbon Dioxide BUN Glucose POC Glucose (mg/dL) 229 H Ferritin Lactate Dehydrogenase C-Reactive Protein Albumin Procalcitonin 0.29 H 04/30/20 11:44 WBC Neutrophils # Lymphocytes # Eosinophils # PT INR APTT VBG pCO2 VBG HCO3 Sodium Chloride Carbon Dioxide BUN Glucose POC Glucose (mg/dL) 240 H Ferritin Lactate Dehydrogenase C-Reactive Protein Albumin Procalcitonin - Diagnostic Findings Chest x-ray: image reviewed Assessment and Plan Assessment: Acute hypoxemic respiratory failure, secondary to COVID 19 pneumoni a/pneumonitis. Mental status changes, which may relate to her her viral infection, or may be her baseline. History of dementia. Obesity. History of COPD from previous tobacco use. Diabetes mellitus. Hyperlipidemia. History of hypothyroidism. History of degenerative joint disease. History of sleep apnea syndrome, maintained on CPAP. History of chronic lower extremity cellulitis. History of previous urinary tract infection. Prior history of extended spectrum beta-lactamase producing urinary tract infection. Plan: Plan dated 04/30/2020. The patient will be placed back on BiPAP therapy. She apparently uses CPAP at home for sleep apnea syndrome. Her saturations were excellent and probably the FiO2 could be weaned down. She is beyond the window for the antiviral drug, and therefore we recommend more conservative therapy, vitamin C, vitamin D3, and z inc. In addition, we recommend an albuterol inhaler, melatonin, Pepcid, and Decadron 6 mg daily either orally or IV for 10 days. Additional recommendations and suggestions are forthcoming. The patient is a DO NOT RESUSCITATE. We'll continue to follow along with you. Time with Patient: Greater than 30
[2020-04-30 17:33] LABS: Glucose,Whole Blood 178 mg/dL (75-99)
[2020-04-30 20:57] LABS: Glucose,Whole Blood 178 mg/dL (75-99)
[2020-04-30] MEDS: MELATONIN 5 MG TABLET PO SCH (21:32)
[2020-05-01 06:47] LABS: Glucose,Whole Blood 169 mg/dL (75-99)
[2020-05-01] MEDS: DEXAMETHASONE SOD PHOSPHATE 10 MG/ML 1 ML VIAL IV SCH (07:32)
[2020-05-01] MEDS: CHOLECALCIFEROL 1,000 UNIT TAB PO SCH (07:32)
[2020-05-01] MEDS: ASCORBIC ACID 500 MG TAB PO SCH (07:32)
[2020-05-01] MEDS: ENOXAPARIN 40 MG/0.4 ML SYRINGE SQ SCH (07:32)
[2020-05-01] MEDS: INSULIN ASPART (NovoLOG) 100 UNIT/ML VIAL SQ SCH ×4 (07:33→20:45)
[2020-05-01] MEDS: ZINC SULFATE 220 MG CAP PO SCH (07:33)
[2020-05-01] MEDS ORDERED: LACTULOSE 20 GM/30 ML CUP PO PRN (07:55)
[2020-05-01 08:30] LABS: Basophils % (A) 0 %; Eosinophils % (A) 0 %; HCT 33.5 % (34.0-46.0); HGB 10.8 gm/dL (11.4-16.0); Hypochromasia Slight; Lymphocytes # (A) 0.8 k/uL (1.0-4.8); Lymphocytes % (A) 7 %; MCH 29.8 pg (25.0-35.0); MCHC 32.3 g/dL (31.0-37.0); MCV 92.1 fL (80.0-100.0); Monocytes # (A) 0.5 k/uL (0-1.0); Monocytes % (A) 4 %; Neutrophils # (A) 11.1 k/uL (1.3-7.7); Neutrophils % (A) 88 %; Platelet Count 383 k/uL (150-450); RBC 3.64 m/uL (3.80-5.40); RDW 14.2 % (11.5-15.5); WBC 12.5 k/uL (3.8-10.6)
[2020-05-01 08:47] LABS: Chloride 87 mmol/L (98-107)
[2020-05-01 08:52] LABS: African American GFR (CKD) 48 (>60 ml/min/1.73 sqM); Blood Urea Nitrogen 36 mg/dL (7-17); C Reactive Protein 53.7 mg/L (<10.0); Calcium 9.3 mg/dL (8.4-10.2); Glucose 236 mg/dL (74-99); LDH 531 U/L (313-618); Non-African American GFR(CKD) 42 (>60 ml/min/1.73 sqM); Potassium 4.4 mmol/L (3.5-5.1); Sodium 134 mmol/L (137-145)
[2020-05-01 08:56] LABS: Anion Gap 6 mmol/L
[2020-05-01 08:59] LABS: Carbon Dioxide 41 mmol/L (22-30)
[2020-05-01] MEDS ORDERED: BUDESONIDE 0.5 MG/2 ML NEBU INHALATION SCH (09:00)
--- NOTE | 2020-05-01 10:15 | P.PN ---
Subjective Progress Note Date: 05/01/20 Patient is doing a lot better today. Shortness of breath is improving. Her mentation is significantly better as well. No acute events overnight reported to me by nursing staff. Objective - Vital Signs Vital signs: Vital Signs Temp 98.0 F 05/01/20 06:06 Pulse 89 05/01/20 06:06 Resp 17 05/01/20 06:06 BP 123/75 05/01/20 06:06 Pulse Ox 98 05/01/20 06:06 Intake & Output 04/30/20 05/01/20 05/01/20 18:59 06:59 18:59 Output Total 325 Balance -325 Weight 123.196 kg Output: Urine 325 Other: Voiding Method External Catheter External Catheter # Voids 1 - Exam General: The patient is awake and alert, in no distress Eye: there is normal conjunctiva bilaterally. Neck: The neck is supple, there is no JVD. Cardiovascular: Normal S1-S2, no S3-S4, no murmurs. Respiratory: Lungs clear to auscultation bilaterally Gastrointestinal: Abdomen is soft, nontender Musculoskeletal: There is no pedal edema. Neurological:. Speech is normal. Skin: Skin is warm and dry - Labs CBC & Chem 7: 05/01/20 08:12 05/01/20 08:12 Labs: Abnormal Lab Results - Last 24 Hours (Table) 04/30/20 04/30/20 04/30/20 Range/Units 04:10 11:44 17:32 WBC (3.8-10.6) k/uL RBC (3.80-5.40) m/uL Hgb (11.4-16.0) gm/dL Hct (34.0-46.0) % Neutrophils # (1.3-7.7) k/uL Lymphocytes # (1.0-4.8) k/uL Sodium (137-145) mmol/L Chloride (98-107) mmol/L Carbon Dioxide (22-30) mmol/L BUN (7-17) mg/dL Creatinine (0.52-1.04) mg/dL Glucose (74-99) mg/dL POC Glucose (mg/dL) 240 H 178 H (75-99) mg/dL C-Reactive Protein (<10.0) mg/L Procalcitonin 0.29 H (0.02-0.09) ng/mL 04/30/20 05/01/20 05/01/20 Range/Units 20:56 06:45 08:12 WBC 12.5 H (3.8-10.6) k/uL RBC 3.64 L (3.80-5.40) m/uL Hgb 10.8 L (11.4-16.0) gm/dL Hct 33.5 L (34.0-46.0) % Neutrophils # 11.1 H (1.3-7.7) k/uL Lymphocytes # 0.8 L (1.0-4.8) k/uL Sodium (137-145) mmol/L Chloride (98-107) mmol/L Carbon Dioxide (22-30) mmol/L BUN (7-17) mg/dL Creatinine (0.52-1.04) mg/dL Glucose (74-99) mg/dL POC Glucose (mg/dL) 178 H 169 H (75-99) mg/dL C-Reactive Protein (<10.0) mg/L Procalcitonin (0.02-0.09) ng/mL 05/01/20 Range/Units 08:12 WBC (3.8-10.6) k/uL RBC (3.80-5.40) m/uL Hgb (11.4-16.0) gm/dL Hct (34.0-46.0) % Neutrophils # (1.3-7.7) k/uL Lymphocytes # (1.0-4.8) k/uL Sodium 134 L (137-145) mmol/L Chloride 87 L (98-107) mmol/L Carbon Dioxide 41 H* (22-30) mmol/L BUN 36 H (7-17) mg/dL Creatinine 1.24 H (0.52-1.04) mg/dL Glucose 236 H (74-99) mg/dL POC Glucose (mg/dL) (75-99) mg/dL C-Reactive Protein 53.7 H (<10.0) mg/L Procalcitonin (0.02-0.09) ng/mL Microbiology - Last 24 Hours (Table) 04/30/20 04:52 Blood Culture - Preliminary Blood No Growth after 24 hours 04/30/20 04:10 Blood Culture - Preliminary Blood No Growth after 24 hours Assessment and Plan Assessment: This is a 75-year-old female with complex past medical history noted below who was brought into the emergency room from [facility] on the [place] for further evaluation of hypoxia and a recent diagnosis of COVID-19. Patient was evaluated in the ER and will be admitted to the hospital for further management of her medical problems noted below. 1. COVID-19 pneumonia, started on Decadron 6 mg daily day #2. Start vitamin C, vitamin D, zinc, and melatonin daily. Pulmonary consulted for further evaluation. We will continue to monitor inflammatory markers. 2. Acute on chronic hypoxic respiratory failure requiring BiPAP on presentatio n. Wean off O2 as tolerated for O2 sats greater than 90%. Patient is on 3 L of oxygen at home. 3. Sepsis without septic shock, mild. Lactic acid normal on presentation. Blood cultures negative to date. We will continue supportive care. 4. Chronic medical problems: History of left nephrectomy, hypothyroidism, type 2 diabetes, obstructive sleep apnea on CPAP at night, hyperlipidemia, chronic hypercapnic respiratory failure, morbid obesity. 5. DVT prophylaxis with subcu Lovenox 6. CODE STATUS: DO NOT RESUSCITATE/DO NOT INTUBATE. According to paperwork signed by the patient at the longterm Today, I reviewed her medication list and lab work results. Continue supportive care. Sliding scale insulin before meals at bedtime. Repeat lab work in the morning. Appreciate lactation consultant's recommendations. Anticipate discharge back to longterm on Sunday
[2020-05-01] MEDS: METOPROLOL SUCCINATE (ER) 25 MG TAB.ER.24H PO SCH (10:16)
[2020-05-01] MEDS: FUROSEMIDE 40 MG TAB PO SCH ×2 (10:16→17:24)
[2020-05-01] MEDS: DULoxetine HCL 60 MG CAPSULE.DR PO SCH (10:16)
[2020-05-01] MEDS: FAMOTIDINE 20 MG TAB PO SCH ×2 (10:16→17:25)
[2020-05-01] MEDS: ATORVASTATIN 40 MG TAB PO SCH (10:16)
[2020-05-01] MEDS: RIVAROXABAN 10 MG TAB PO SCH (10:16)
[2020-05-01] MEDS: DORZOLAMIDE-TIMOLOL 2.23%/0.68 10ML BTL BOTH EYES SCH ×3 (10:17→20:45)
[2020-05-01 11:28] LABS: Glucose,Whole Blood 350 mg/dL (75-99)
[2020-05-01 12:31] LABS: Ferritin 472.8 ng/mL (10.0-291.0)
[2020-05-01] MEDS: INSULIN DETEMIR (LEVEMIR) 100 UNIT/ML SYR SQ SCH (13:02)
[2020-05-01] MEDS: SODIUM CHLORIDE 0.9% 1,000 ML IV SCH (13:03)
--- NOTE | 2020-05-01 14:38 | P.PN ---
Subjective Progress Note Date: 05/01/20 Principal diagnosis: Acute hypoxemic history failure secondary to CoVID 19 pneumonia 75-year-old female who resides at one of the local nursing homes. She was brought into the emergency room by EMS on April 30 at 3:42 AM, for apparent respiratory distress. The patient apparently had a positive COVID test last week. She apparently was complaining of shortness of breath at the [facility]. In addition apparently they had low pulse ox readings. She was placed on oxygen by EMS and transported in to the emergency department. Unfortunately, the patient is not able to give much of the history. Her mental status is poor. She does mumble a few words. Currently, the patient is on 15 L high flow oxygen therapy. She does not appear to be short of breath. Unfortunately, she cannot give any additional history. She carries with her a history of COPD, diabetes mellitus, memory impairment/dementia, osteoarthritis, pneumonia, sleep apnea syndrome, hypothyroidism, lower extremity cellulitis, urinary tract infection, among other things. She apparently is a former smoker. The patient is seen today 05/01/2020 in follow-up on the regular medical floor. She is currently resting comfortably in bed. Awake and alert in no acute distress. She is maintaining O2 saturation in the 90s on 6 L/m per nasal cannula. She's been refusing BiPAP. She has been afebrile. Hemodynamically stable. Blood cultures revealing no growth. White count 12.5. Hemoglobin 10.8. Lymphocytes 0.8. Sodium 134. Potassium 4.4. Bicarb 41. Creatinine 1.24. Ferritin 472. LDH 531. C-reactive protein 53.7. She is continued on dexamethasone, vitamin supplements, Pepcid, melatonin, Xarelto. Objective - Vital Signs Vital signs: Vital Signs Temp 98.4 F 05/01/20 10:44 Pulse 111 H 05/01/20 10:44 Resp 20 05/01/20 10:44 BP 135/72 05/01/20 10:44 Pulse Ox 95 05/01/20 10:44 Intake & Output 04/30/20 05/01/20 05/01/20 18:59 06:59 18:59 Output Total 325 Balance -325 Weight 123.196 kg Output: Urine 325 Other: Voiding Method External Catheter External Catheter # Voids 1 - Exam GENERAL EXAM: Alert, 75-year-old female patient, on 6 L nasal cannula, comfortable in no apparent distress. HEAD: Normocephalic. EYES: Normal reaction of pupils, equal size. NOSE: Clear with pink turbinates. THROAT: No erythema or exudates. NECK: No masses, no JVD. CHEST: No chest wall deformity. LUNGS: Equal air entry with bibasilar crackles CVS: S1 and S2 normal with no audible murmur, regular rhythm. ABDOMEN: No hepatosplenomegaly, normal bowel sounds, no guarding or rigidity. SPINE: No scoliosis or deformity SKIN: No rashes CENTRAL NERVOUS SYSTEM: No focal deficits, tone is normal in all 4 extremities. EXTREMITIES: There is no peripheral edema. No clubbing, no cyanosis. Peripheral pulses are intact. - Labs CBC & Chem 7: 05/01/20 08:12 05/01/20 08:12 Labs: Abnormal Lab Results - Last 24 Hours (Table) 04/30/20 04/30/20 05/01/20 Range/Units 17:32 20:56 06:45 WBC (3.8-10.6) k/uL RBC (3.80-5.40) m/uL Hgb (11.4-16.0) gm/dL Hct (34.0-46.0) % Neutrophils # (1.3-7.7) k/uL Lymphocytes # (1.0-4.8) k/uL Sodium (137-145) mmol/L Chloride (98-107) mmol/L Carbon Dioxide (22-30) mmol/L BUN (7-17) mg/dL Creatinine (0.52-1.04) mg/dL Glucose (74-99) mg/dL POC Glucose (mg/dL) 178 H 178 H 169 H (75-99) mg/dL Ferritin (10.0-291.0) ng/mL C-Reactive Protein (<10.0) mg/L 05/01/20 05/01/20 05/01/20 Range/Units 08:12 08:12 11:27 WBC 12.5 H (3.8-10.6) k/uL RBC 3.64 L (3.80-5.40) m/uL Hgb 10.8 L (11.4-16.0) gm/dL Hct 33.5 L (34.0-46.0) % Neutrophils # 11.1 H (1.3-7.7) k/uL Lymphocytes # 0.8 L (1.0-4.8) k/uL Sodium 134 L (137-145) mmol/L Chloride 87 L (98-107) mmol/L Carbon Dioxide 41 H* (22-30) mmol/L BUN 36 H (7-17) mg/dL Creatinine 1.24 H (0.52-1.04) mg/dL Glucose 236 H (74-99) mg/dL POC Glucose (mg/dL) 350 H (75-99) mg/dL Ferritin 472.8 H (10.0-291.0) ng/mL C-Reactive Protein 53.7 H (<10.0) mg/L Microbiology - Last 24 Hours (Table) 04/30/20 04:52 Blood Culture - Preliminary Blood No Growth after 24 hours 04/30/20 04:10 Blood Culture - Preliminary Blood No Growth after 24 hours Assessment and Plan Assessment: 1 Acute hypoxemic respiratory failure, secondary to COVID 19 pneumonia/pneumonitis. Outside the window for Remdesivir 2 Mental status changes, which may relate to her her viral infection, or may be her baseline. 3 History of dementia. 4 Obesity. 5 History of COPD from previous tobacco use. 6 Diabetes mellitus. 7 Hyperlipidemia. 8 History of hypothyroidism. 9 History of degenerative joint disease. 10 History of sleep apnea syndrome, maintained on CPAP. 11 History of chronic lower extremity cellulitis. 12 History of previous urinary tract infection. 13 Prior history of extended spectrum beta-lactamase producing urinary tract infection Plan: The patient was seen and evaluated by Dr. Rueda She is improved today compared to yesterday Continue to titrate down the FiO2 as tolerated Continue the current treatment plan DO NOT RESUSCITATE/DO NOT INTUBATE CODE STATUS We will continue to follow I, the cosigning physician, performed a history & physical examination of the patient. Lungs sounds with bibasilar crackles. Maintaining good O2 saturations in the 90s on 6 L/m per nasal cannula. I discussed the assessment and plan of care with my nurse practitioner, Grazyna Ricardo. I attest to the above note as dictated by her.
[2020-05-01 16:43] LABS: Glucose,Whole Blood 328 mg/dL (75-99)
[2020-05-01 20:22] LABS: Glucose,Whole Blood 275 mg/dL (75-99)
[2020-05-01] MEDS: LEVOTHYROXINE 50 MCG TAB PO SCH (20:45)
[2020-05-01] MEDS: MELATONIN 5 MG TABLET PO SCH (20:45)
[2020-05-01] MEDS: FLUTICASONE 110 MCG INHALER INHALATION SCH (21:27)
[2020-05-02 07:09] LABS: Glucose,Whole Blood 154 mg/dL (75-99)
[2020-05-02] MEDS: FLUTICASONE 110 MCG INHALER INHALATION SCH ×2 (07:33→21:09)
[2020-05-02 07:38] LABS: Basophils % (A) 0 %; Eosinophils # (A) 0.1 k/uL (0-0.7); Eosinophils % (A) 1 %; HCT 32.6 % (34.0-46.0); HGB 10.8 gm/dL (11.4-16.0); Lymphocytes # (A) 0.9 k/uL (1.0-4.8); Lymphocytes % (A) 9 %; MCH 30.1 pg (25.0-35.0); MCHC 33.1 g/dL (31.0-37.0); Mean Platelet Volume 8.5; Monocytes # (A) 0.6 k/uL (0-1.0); Monocytes % (A) 6 %; Neutrophils # (A) 8.3 k/uL (1.3-7.7); Neutrophils % (A) 83 %; Platelet Count 315 k/uL (150-450); RBC 3.59 m/uL (3.80-5.40)
[2020-05-02] MEDS: DULoxetine HCL 60 MG CAPSULE.DR PO SCH (08:00)
[2020-05-02] MEDS: CHOLECALCIFEROL 1,000 UNIT TAB PO SCH (08:00)
[2020-05-02] MEDS: dexAMETHasone 2 MG TAB PO SCH (08:00)
[2020-05-02] MEDS: ZINC SULFATE 220 MG CAP PO SCH (08:00)
[2020-05-02] MEDS: METOPROLOL SUCCINATE (ER) 25 MG TAB.ER.24H PO SCH (08:01)
[2020-05-02] MEDS: ASCORBIC ACID 500 MG TAB PO SCH (08:01)
[2020-05-02] MEDS: FUROSEMIDE 40 MG TAB PO SCH ×2 (08:01→17:27)
[2020-05-02] MEDS: ATORVASTATIN 40 MG TAB PO SCH (08:01)
[2020-05-02] MEDS: RIVAROXABAN 10 MG TAB PO SCH (08:01)
[2020-05-02] MEDS: FAMOTIDINE 20 MG TAB PO SCH ×2 (08:02→17:27)
[2020-05-02] MEDS: INSULIN ASPART (NovoLOG) 100 UNIT/ML VIAL SQ SCH ×6 (08:03→23:18)
[2020-05-02] MEDS: INSULIN DETEMIR (LEVEMIR) 100 UNIT/ML SYR SQ SCH (08:03)
[2020-05-02] MEDS: DORZOLAMIDE-TIMOLOL 2.23%/0.68 10ML BTL BOTH EYES SCH ×3 (08:06→21:56)
--- NOTE | 2020-05-02 10:37 | P.PN ---
Subjective Progress Note Date: 05/02/20 Patient is doing a lot better today. no Shortness of breath. No acute events overnight reported to me by nursing staff. Objective - Vital Signs Vital signs: Vital Signs Temp 98.0 F 05/02/20 10:09 Pulse 65 05/02/20 10:09 Resp 18 05/02/20 10:09 BP 127/76 05/02/20 10:09 Pulse Ox 93 L 05/02/20 10:09 Intake & Output 05/01/20 05/02/20 05/02/20 18:59 06:59 18:59 Output Total 600 1400 Balance -600 -1400 Output: Urine 600 1400 Other: Voiding Method External Catheter External Catheter External Catheter - Labs CBC & Chem 7: 05/02/20 07:26 05/01/20 08:12 Labs: Abnormal Lab Results - Last 24 Hours (Table) 05/01/20 05/01/20 05/01/20 Range/Units 08:12 11:27 16:41 RBC (3.80-5.40) m/uL Hgb (11.4-16.0) gm/dL Hct (34.0-46.0) % Neutrophils # (1.3-7.7) k/uL Lymphocytes # (1.0-4.8) k/uL POC Glucose (mg/dL) 350 H 328 H (75-99) mg/dL Ferritin 472.8 H (10.0-291.0) ng/mL 05/01/20 05/02/20 05/02/20 Range/Units 20:20 07:06 07:26 RBC 3.59 L (3.80-5.40) m/uL Hgb 10.8 L (11.4-16.0) gm/dL Hct 32.6 L (34.0-46.0) % Neutrophils # 8.3 H (1.3-7.7) k/uL Lymphocytes # 0.9 L (1.0-4.8) k/uL POC Glucose (mg/dL) 275 H 154 H (75-99) mg/dL Ferritin (10.0-291.0) ng/mL Microbiology - Last 24 Hours (Table) 04/30/20 04:52 Blood Culture - Preliminary Blood No Growth after 48 hours 04/30/20 04:10 Blood Culture - Preliminary Blood No Growth after 48 hours Assessment and Plan Assessment: This is a 75-year-old female with complex past medical history noted below who was brought into the emergency room from [facility] on the [place] for further evaluation of hypoxia and a recent diagnosis of COVID-19. Patient was evaluated in the ER and will be admitted to the hospital for further management of her medical problems noted below. 1. COVID-19 pneumonia, started on Decadron 6 mg daily day #3. Start vitamin C, vitamin D, zinc, and melatonin daily. Pulmonary consulted for further evaluation. We will continue to monitor inflammatory markers. 2. Acute on chronic hypoxic respiratory failure requiring BiPAP on presentation, currently on oxygen via nasal cannula. Patient is on 3 L of oxygen at home. 3. Sepsis without septic shock, mild. Lactic acid normal on presentation. Blood cultures negative to date. 4. Chronic medical problems: History of left nephrectomy, hypothyroidism, type 2 diabetes, obstructive sleep apnea on CPAP at night, hyperlipidemia, chronic hypercapnic respiratory failure, morbid obesity. 5. DVT prophylaxis with subcu Lovenox 6. CODE STATUS: DO NOT RESUSCITATE/DO NOT INTUBATE. According to paperwork [facility] by the [facility] at the [facility] Today, I reviewed her medication list and lab work results. Continue supportive care. Sliding scale insulin before meals at bedtime. Repeat lab work in the morning. Appreciate dairy consultant's recommendations. Anticipate discharge back to [facility] on Sunday
[2020-05-02 11:35] LABS: Glucose,Whole Blood 201 mg/dL (75-99)
[2020-05-02 12:17] LABS: African American GFR (CKD) 45.8 (60.0-200.0); Calcium 9.1 mg/dL (8.7-10.3); Chloride 91 mmol/L (96-109); Glucose 136 mg/dL (70-110); Non-African American GFR(CKD) 39.5 (60.0-200.0); Potassium 3.8 mmol/L (3.5-5.5); Sodium 138 mmol/L (135-145)
[2020-05-02] MEDS: SODIUM CHLORIDE 0.9% 1,000 ML IV SCH (12:38)
--- NOTE | 2020-05-02 15:38 | P.PN ---
Subjective Progress Note Date: 05/02/20 Principal diagnosis: Acute hypoxemic history failure secondary to CoVID 19 pneumonia 75-year-old female who resides at one of the local nursing homes. She was brought into the emergency room by EMS on April 30 at 3:42 AM, for apparent respiratory distress. The patient apparently had a positive COVID test last week. She apparently was complaining of shortness of breath at the skilled nursing. In addition apparently they had low pulse ox readings. She was placed on oxygen by EMS and transported in to the emergency department. Unfortunately, the patient is not able to give much of the history. Her mental status is poor. She does mumble a few words. Currently, the patient is on 15 L high flow oxygen therapy. She does not appear to be short of breath. Unfortunately, she cannot give any additional history. She carries with her a history of COPD, diabetes mellitus, memory impairment/dementia, osteoarthritis, pneumonia, sleep apnea syndrome, hypothyroidism, lower extremity cellulitis, urinary tract infection, among other things. She apparently is a former smoker. The patient is seen today 05/01/2020 in follow-up on the regular medical floor. She is currently resting comfortably in bed. Awake and alert in no acute distress. She is maintaining O2 saturation in the 90s on 6 L/m per nasal cannula. She's been refusing BiPAP. She has been afebrile. Hemodynamically stable. Blood cultures revealing no growth. White count 12.5. Hemoglobin 10.8. Lymphocytes 0.8. Sodium 134. Potassium 4.4. Bicarb 41. Creatinine 1.24. Ferritin 472. LDH 531. C-reactive protein 53.7. She is continued on dexamethasone, vitamin supplements, Pepcid, melatonin, Xarelto. The patient is seen today 05/02/2020 in follow-up on the regular medical floor. She is currently awake and alert in no acute distress. Maintaining O2 saturation in the 90s on 3 L/m per nasal cannula. White count 10.0. Hemoglobin 10.8. Lymphocytes 0.9. Sodium 138. Potassium 3.8. Creatinine 1.3. She is continued on dexamethasone, vitamin supplements, Pepcid, melatonin, Xarelto. Objective - Vital Signs Vital signs: Vital Signs Temp 98.4 F 05/02/20 14:00 Pulse 81 05/02/20 14:00 Resp 30 H 05/02/20 15:18 BP 127/77 05/02/20 14:00 Pulse Ox 97 05/02/20 15:18 Intake & Output 05/01/20 05/02/20 05/02/20 18:59 06:59 18:59 Output Total 600 1400 600 Balance -600 -1400 -600 Output: Urine 600 1400 600 Other: Voiding Method External Catheter External Catheter External Catheter - Exam GENERAL EXAM: Alert, 75-year-old female patient, on 3 L nasal cannula, comfortable in no apparent distress. HEAD: Normocephalic. EYES: Normal reaction of pupils, equal size. NOSE: Clear with pink turbinates. THROAT: No erythema or exudates. NECK: No masses, no JVD. CHEST: No chest wall deformity. LUNGS: Equal air entry with bibasilar crackles CVS: S1 and S2 normal with no audible murmur, regular rhythm. ABDOMEN: No hepatosplenomegaly, normal bowel sounds, no guarding or rigidity. SPINE: No scoliosis or deformity SKIN: No rashes CENTRAL NERVOUS SYSTEM: No focal deficits, tone is normal in all 4 extremities. EXTREMITIES: There is no peripheral edema. No clubbing, no cyanosis. Peripheral pulses are intact. - Labs CBC & Chem 7: 05/02/20 07:26 05/02/20 07:26 Labs: Abnormal Lab Results - Last 24 Hours (Table) 05/01/20 05/01/20 05/02/20 Range/Units 16:41 20:20 07:06 RBC (3.80-5.40) m/uL Hgb (11.4-16.0) gm/dL Hct (34.0-46.0) % Neutrophils # (1.3-7.7) k/uL Lymphocytes # (1.0-4.8) k/uL Chloride (96-109) mmol/L Carbon Dioxide (21.6-31.8) mmol/L BUN (9.0-27.0) mg/dL Est GFR (CKD-EPI)AfAm (60.0-200.0) Est GFR (CKD-EPI)NonAf (60.0-200.0) BUN/Creatinine Ratio (12.00-20.00) Ratio Glucose (70-110) mg/dL POC Glucose (mg/dL) 328 H 275 H 154 H (75-99) mg/dL 05/02/20 05/02/20 05/02/20 Range/Units 07:26 07:26 11:29 RBC 3.59 L (3.80-5.40) m/uL Hgb 10.8 L (11.4-16.0) gm/dL Hct 32.6 L (34.0-46.0) % Neutrophils # 8.3 H (1.3-7.7) k/uL Lymphocytes # 0.9 L (1.0-4.8) k/uL Chloride 91 L (96-109) mmol/L Carbon Dioxide >40.0 H* (21.6-31.8) mmol/L BUN 39.0 H (9.0-27.0) mg/dL Est GFR (CKD-EPI)AfAm 45.8 L (60.0-200.0) Est GFR (CKD-EPI)NonAf 39.5 L (60.0-200.0) BUN/Creatinine Ratio 30.00 H (12.00-20.00) Ratio Glucose 136 H (70-110) mg/dL POC Glucose (mg/dL) 201 H (75-99) mg/dL Microbiology - Last 24 Hours (Table) 04/30/20 04:52 Blood Culture - Preliminary Blood No Growth after 48 hours 04/30/20 04:10 Blood Culture - Preliminary Blood No Growth after 48 hours Assessment and Plan Assessment: 1 Acute hypoxemic respiratory failure, secondary to COVID 19 pneumonia/pneumonitis. Outside the window for Remdesivir. 2 Mental status changes, which may relate to her her viral infection, or may be her baseline. 3 History of dementia. 4 Obesity. 5 History of COPD from previous tobacco use. 6 Diabetes mellitus. 7 Hyperlipidemia. 8 History of hypothyroidism. 9 History of degenerative joint disease. 10 History of sleep apnea syndrome, maintained on CPAP. 11 History of chronic lower extremity cellulitis. 12 History of previous urinary tract infection. 13 Prior history of extended spectrum beta-lactamase producing urinary tract infection Plan: The patient was seen and evaluated by Dr. Rueda She is improved today compared to yesterday Continue to titrate down the FiO2 as tolerated Continue the current treatment plan Possible return to [facility] in a.m. I, the cosigning physician, performed a history & physical examination of the patient. Lungs sounds with bibasilar crackles. Maintaining good O2 saturations in the 90s on 3 L/m per nasal cannula. I discussed the assessment and plan of care with my nurse practitioner, Grazyna Ricardo. I attest to the above note as dictated by her.
[2020-05-02 16:40] LABS: Glucose,Whole Blood 245 mg/dL (75-99)
[2020-05-02 21:02] LABS: Glucose,Whole Blood 330 mg/dL (75-99)
[2020-05-02] MEDS: MELATONIN 5 MG TABLET PO SCH (21:55)
[2020-05-02] MEDS: LEVOTHYROXINE 50 MCG TAB PO SCH (21:55)
[2020-05-02] MEDS: TIOTROPIUM 2.5 MCG INHALER INHALATION SCH (22:20)
[2020-05-02] MEDS ORDERED: INSULIN ASPART (NovoLOG) 100 UNIT/ML VIAL SQ ONE (23:16)
[2020-05-02 23:18] LABS: Glucose,Whole Blood 306 mg/dL (75-99)
[2020-05-03 05:34] VITALS: RESP 18
[2020-05-03 06:07] LABS: Basophils # (A) 0.1 k/uL (0-0.2); Basophils % (A) 1 %; Eosinophils # (A) 0.1 k/uL (0-0.7); Eosinophils % (A) 1 %; HCT 33.7 % (34.0-46.0); Hypochromasia Slight; Lymphocytes # (A) 0.9 k/uL (1.0-4.8); Lymphocytes % (A) 9 %; MCH 29.9 pg (25.0-35.0); MCHC 32.6 g/dL (31.0-37.0); MCV 91.8 fL (80.0-100.0); Mean Platelet Volume 7.3; Monocytes # (A) 0.7 k/uL (0-1.0); Monocytes % (A) 7 %; Neutrophils # (A) 8.2 k/uL (1.3-7.7); Neutrophils % (A) 82 %; Platelet Count 331 k/uL (150-450); RBC 3.67 m/uL (3.80-5.40); RDW 13.9 % (11.5-15.5); WBC 10.1 k/uL (3.8-10.6)
[2020-05-03 06:54] LABS: Glucose,Whole Blood 188 mg/dL (75-99)
[2020-05-03] MEDS: ATORVASTATIN 40 MG TAB PO SCH (07:42)
[2020-05-03] MEDS: FAMOTIDINE 20 MG TAB PO SCH (07:42)
[2020-05-03] MEDS: FUROSEMIDE 40 MG TAB PO SCH (07:43)
[2020-05-03] MEDS: METOPROLOL SUCCINATE (ER) 25 MG TAB.ER.24H PO SCH (07:43)
[2020-05-03] MEDS: CHOLECALCIFEROL 1,000 UNIT TAB PO SCH (07:43)
[2020-05-03] MEDS: DULoxetine HCL 60 MG CAPSULE.DR PO SCH (07:43)
[2020-05-03] MEDS: ZINC SULFATE 220 MG CAP PO SCH (07:43)
[2020-05-03] MEDS: ASCORBIC ACID 500 MG TAB PO SCH (07:43)
[2020-05-03] MEDS: DORZOLAMIDE-TIMOLOL 2.23%/0.68 10ML BTL BOTH EYES SCH ×2 (07:44→12:03)
[2020-05-03] MEDS: dexAMETHasone 2 MG TAB PO SCH (07:44)
[2020-05-03] MEDS: RIVAROXABAN 10 MG TAB PO SCH (07:44)
[2020-05-03] MEDS: INSULIN ASPART (NovoLOG) 100 UNIT/ML VIAL SQ SCH ×4 (07:45→12:02)
[2020-05-03] MEDS: INSULIN DETEMIR (LEVEMIR) 100 UNIT/ML SYR SQ SCH (07:45)
[2020-05-03] MEDS: FLUTICASONE 110 MCG INHALER INHALATION SCH (08:20)
[2020-05-03 09:28] LABS: African American GFR (CKD) 45.8 (60.0-200.0); BUN/Creat Ratio 26.92 Ratio (12.00-20.00); Calcium 9.3 mg/dL (8.7-10.3); Chloride 96 mmol/L (96-109); Glucose 171 mg/dL (70-110); Non-African American GFR(CKD) 39.5 (60.0-200.0); Potassium 4.1 mmol/L (3.5-5.5); Sodium 140 mmol/L (135-145)
--- NOTE | 2020-05-03 09:59 | P.DS ---
Providers Date of admission: 04/30/20 06:57 Expected date of discharge: 05/03/20 Attending physician: Daniel Rubi MD Consults: 04/30/20 06:55 Consult Physician Routine Consulting Provider: Titi Rueda Consult Reason/Comments: Covid infection. Respiratory failure, on bipap Do you want consulting provider notified?: Yes Primary care physician: [facility] Course: This is a 75-year-old female with complex past medical history noted below who was brought into the emergency room from [facility] for further evaluation of hypoxia and a recent diagnosis of COVID-19. Patient was evaluated in the ER and will be admitted to the hospital for further management of her medical problems noted below. 1. COVID-19 pneumonia, started on Decadron 6 mg daily day #4. Start vitamin C, vitamin D, zinc, and melatonin daily. Pulmonary consulted for further evaluation. We will finish 10 days course of steroids. Patient overall condition improved significantly throughout her hospital stay. 2. Acute on chronic hypoxic respiratory failure requiring BiPAP on presentation, currently back to baseline. Patient is on 3 L of oxygen at home. 3. Sepsis without septic shock, mild. Lactic acid normal on presentation. Blood cultures negative to date. 4. Contraction alkalosis, home dose of Lasix decreased to 40 mg daily 5. Chronic medical problems: History of left nephrectomy, hypothyroidism, type 2 diabetes, obstructive sleep apnea on CPAP at night, hyperlipidemia, chronic hypercapnic respiratory failure, morbid obesity. 6. CODE STATUS: DO NOT RESUSCITATE/DO NOT INTUBATE. According to paperwork signed by the patient at the shelter Patient was not interested in going back to [facility] on [facility]. She would like to be discharged home with home healthcare services. She will be discharged in a stable condition. She will follow-up with her PCP as directed. Patient Condition at Discharge: Stable Plan - Discharge Summary Discharge Rx Participant: No New Discharge Prescriptions: New Dexamethasone [Decadron] 6 mg PO DAILY #6 tablet Zinc Sulfate [Orazinc] 220 mg PO DAILY #14 cap Ascorbic Acid [Vitamin C] 1,000 mg PO DAILY #28 tab Cholecalciferol [Vitamin D3 (25 Mcg = 1000 Iu)] 2,000 unit PO DAILY #30 tab Continue DULoxetine HCL [Cymbalta] 60 mg PO DAILY@0900 Dorzolamide/Timolol/Pf [Dorzolamide 2%-Timolol 0.5%] 1 drop BOTH EYES TID@0900,1300,2100 Budesonide [Pulmicort] 0.5 mg INHALATION RT-BID@0900,1700 Acetaminophen Tab [Tylenol] 650 mg PO Q6H PRN PRN Reason: Fever And/ Or Pain glipiZIDE [Glucotrol XL] 10 mg PO BID@0900,1700 Atorvastatin [Lipitor] 40 mg PO DAILY@0900 Levothyroxine Sodium [Synthroid] 50 mcg PO HS@2099 Albuterol Sulfate [Proventil Hfa] 2 puff INHALATION RT-Q6H PRN PRN Reason: Wheezing INSULIN LISPRO (humaLOG) [humaLOG] See Protocol SQ ACHS Rivaroxaban [Xarelto] 10 mg PO DAILY@0900 Famotidine 10 mg PO BID@0900,1700 Tiotropium [place] [Spiriva Respimat] 1 spray INHALATION RT-DAILY@0900 Metoprolol Succinate (ER) [Toprol XL] 25 mg PO DAILY@0900 Melatonin 3 mg PO HS@1999 PRN PRN Reason: Insomnia Furosemide [Lasix] 40 mg PO DAILY #0 Changed Lactulose [Cephulac] 20 gm PO TID@0900,1300,2100 PRN #0 PRN Reason: Constipation Potassium Chloride ER [K-Dur 10] 10 meq PO DAILY #0 Discontinued Loratadine 10 mg PO DAILY@0900 Discharge Medication List Budesonide [Pulmicort] 0.5 mg INHALATION RT-BID@0900,1700 03/06/19 [History] DULoxetine HCL [Cymbalta] 60 mg PO DAILY@0900 03/06/19 [History] Dorzolamide/Timolol/Pf [Dorzolamide 2%-Timolol 0.5%] 1 drop BOTH EYES TID@0900,1300,2100 03/06/19 [History] Acetaminophen Tab [Tylenol] 650 mg PO Q6H PRN 01/25/20 [History] glipiZIDE [Glucotrol XL] 10 mg PO BID@0900,1700 02/29/20 [History] Atorvastatin [Lipitor] 40 mg PO DAILY@0900 03/01/20 [History] Levothyroxine Sodium [Synthroid] 50 mcg PO HS@209903/01/20 [History] Albuterol Sulfate [Proventil Hfa] 2 puff INHALATION RT-Q6H PRN 04/30/20 [H istory] Famotidine 10 mg PO BID@0900,1700 04/30/20 [History] INSULIN LISPRO (humaLOG) [humaLOG] See Protocol SQ ACHS 04/30/20 [History] Melatonin 3 mg PO HS@2000 PRN 04/30/20 [History] Metoprolol Succinate (ER) [Toprol XL] 25 mg PO DAILY@0900 04/30/20 [History] Rivaroxaban [Xarelto] 10 mg PO DAILY@0900 04/30/20 [History] Tiotropium [place] [Spiriva Respimat] 1 spray INHALATION RT-DAILY@0900 04/30/20 [History] Ascorbic Acid [Vitamin C] 1,000 mg PO DAILY #28 tab 05/03/20 [Rx] Cholecalciferol [Vitamin D3 (25 Mcg = 1000 Iu)] 2,000 unit PO DAILY #30 tab 05/03/20 [Rx] Dexamethasone [Decadron] 6 mg PO DAILY #6 tablet 05/03/20 [Rx] Furosemide [Lasix] 40 mg PO DAILY #0 05/03/20 [Rx] Lactulose [Cephulac] 20 gm PO TID@0900,1300,2100 PRN #0 05/03/20 [Rx] Potassium Chloride ER [K-Dur 10] 10 meq PO DAILY #0 05/03/20 [Rx] Zinc Sulfate [Orazinc] 220 mg PO DAILY #14 cap 05/03/20 [Rx] Follow up Appointment(s)/Referral(s): Calos Winston MD [Primary Care Provider] - 3 Days Discharge Disposition: HOME WITH HOME HEALTH SERVICES
[2020-05-03 10:50] LABS: Carbon Dioxide >40.0 mmol/L (21.6-31.8)
[2020-05-03 11:14] LABS: Carbon Dioxide >40.0 mmol/L (21.6-31.8)
[2020-05-03 11:22] LABS: Glucose,Whole Blood 566 mg/dL (75-99)
[2020-05-03 11:22] LABS: Glucose,Whole Blood 219 mg/dL (75-99)
[2020-05-03 11:23] LABS: Glucose,Whole Blood 215 mg/dL (75-99)
--- NOTE | 2020-05-03 11:35 | P.PN ---
Subjective Progress Note Date: 05/03/20 75-year-old female who resides at one of the local nursing homes. She was brought into the emergency room by EMS on April 30 at 3:42 AM, for apparent respiratory distress. The patient apparently had a positive COVID test last week. She apparently was complaining of shortness of breath at the assisted. In addition apparently they had low pulse ox readings. She was placed on oxygen by EMS and transported in to the emergency department. On 05/03/2020, seeing the patient for a follow-up. The patient is doing well. The patient is currently on oxygen at 3 L per minute nasal cannula which is essentially the same as yesterday. She is also getting a combination of Decadron, vitamins, Pepcid, melatonin and Xarelto. She is utilizing the BiPAP. No nausea. No vomiting. No diarrhea. No abdominal pain. No chest pain. Note that she was initially on high flow oxygen at 15 L and she gradually improved. She has COPD and diabetes mellitus and dementia sleep apnea and hypothyroidism a nd chronic lower extremity cellulitis and recurrent UTIs among her comorbid conditions. Objective - Vital Signs Vital signs: Vital Signs Temp 98.2 F 05/03/20 10:00 Pulse 67 05/03/20 10:00 Resp 18 05/03/20 10:00 BP 138/83 05/03/20 10:00 Pulse Ox 95 05/03/20 10:00 Intake & Output 05/02/20 05/03/20 05/03/20 18:59 06:59 18:59 Output Total 600 400 Balance -600 -400 Output: Urine 600 400 Other: Voiding Method External Catheter External Catheter External Catheter # Voids 4 - Exam GENERAL EXAM: Alert, 75-year-old female patient, on 3 L nasal cannula, comfortable in no apparent distress. HEAD: Normocephalic. EYES: Normal reaction of pupils, equal size. NOSE: Clear with pink turbinates. THROAT: No erythema or exudates. NECK: No masses, no JVD. CHEST: No chest wall deformity. LUNGS: Equal air entry with bibasilar crackles CVS: S1 and S2 normal with no audible murmur, regular rhythm. ABDOMEN: No hepatosplenomegaly, normal bowel sounds, no guarding or rigidity. SPINE: No scoliosis or deformity SKIN: No rashes CENTRAL NERVOUS SYSTEM: No focal deficits, tone is normal in all 4 extremities. EXTREMITIES: There is no peripheral edema. No clubbing, no cyanosis. Peripheral pulses are intact. - Labs CBC & Chem 7: 05/03/20 05:39 05/03/20 05:39 Labs: Abnormal Lab Results - Last 24 Hours (Table) 05/02/20 05/02/20 05/02/20 Range/Units 07:26 11:29 16:35 RBC (3.80-5.40) m/uL Hgb (11.4-16.0) gm/dL Hct (34.0-46.0) % Neutrophils # (1.3-7.7) k/uL Lymphocytes # (1.0-4.8) k/uL Chloride 91 L (96-109) mmol/L Carbon Dioxide >40.0 H* (21.6-31.8) mmol/L BUN 39.0 H (9.0-27.0) mg/dL Est GFR (CKD-EPI)AfAm 45.8 L (60.0-200.0) Est GFR (CKD-EPI)NonAf 39.5 L (60.0-200.0) BUN/Creatinine Ratio 30.00 H (12.00-20.00) Ratio Glucose 136 H (70-110) mg/dL POC Glucose (mg/dL) 201 H 245 H (75-99) mg/dL 05/02/20 05/02/20 05/03/20 Range/Units 21:01 23:16 05:39 RBC 3.67 L (3.80-5.40) m/uL Hgb 11.0 L (11.4-16.0) gm/dL Hct 33.7 L (34.0-46.0) % Neutrophils # 8.2 H (1.3-7.7) k/uL Lymphocytes # 0.9 L (1.0-4.8) k/uL Chloride (96-109) mmol/L Carbon Dioxide (21.6-31.8) mmol/L BUN (9.0-27.0) mg/dL Est GFR (CKD-EPI)AfAm (60.0-200.0) Est GFR (CKD-EPI)NonAf (60.0-200.0) BUN/Creatinine Ratio (12.00-20.00) Ratio Glucose (70-110) mg/dL POC Glucose (mg/dL) 330 H 306 H (75-99) mg/dL 05/03/20 05/03/20 05/03/20 Range/Units 05:39 06:53 11:19 RBC (3.80-5.40) m/uL Hgb (11.4-16.0) gm/dL Hct (34.0-46.0) % Neutrophils # (1.3-7.7) k/uL Lymphocytes # (1.0-4.8) k/uL Chloride (96-109) mmol/L Carbon Dioxide >40.0 H* (21.6-31.8) mmol/L BUN 35.0 H (9.0-27.0) mg/dL Est GFR (CKD-EPI)AfAm 45.8 L (60.0-200.0) Est GFR (CKD-EPI)NonAf 39.5 L (60.0-200.0) BUN/Creatinine Ratio 26.92 H (12.00-20.00) Ratio Glucose 171 H (70-110) mg/dL POC Glucose (mg/dL) 188 H 566 H (75-99) mg/dL 05/03/20 05/03/20 Range/Units 11:20 11:22 RBC (3.80-5.40) m/uL Hgb (11.4-16.0) gm/dL Hct (34.0-46.0) % Neutrophils # (1.3-7.7) k/uL Lymphocytes # (1.0-4.8) k/uL Chloride (96-109) mmol/L Carbon Dioxide (21.6-31.8) mmol/L BUN (9.0-27.0) mg/dL Est GFR (CKD-EPI)AfAm (60.0-200.0) Est GFR (CKD-EPI)NonAf (60.0-200.0) BUN/Creatinine Ratio (12.00-20.00) Ratio Glucose (70-110) mg/dL POC Glucose (mg/dL) 219 H 215 H (75-99) mg/dL Microbiology - Last 24 Hours (Table) 04/30/20 04:52 Blood Culture - Preliminary Blood No Growth after 72 hours 04/30/20 04:10 Blood Culture - Preliminary Blood No Growth after 72 hours Assessment and Plan Plan: 1 Acute hypoxemic respiratory failure, secondary to COVID 19 pneumonia/pneumonitis. Outside the window for Remdesivir. 2 Mental status changes, which may relate to her her viral infection, or may be her baseline. 3 History of dementia. 4 Obesity. 5 History of COPD from previous tobacco use. 6 Diabetes mellitus. 7 Hyperlipidemia. 8 History of hypothyroidism. 9 History of degenerative joint disease. 10 History of sleep apnea syndrome, maintained on CPAP. 11 History of chronic lower extremity cellulitis. 12 History of previous urinary tract infection. 13 Prior history of extended spectrum beta-lactamase producing urinary tract infection Plan: The patient is stable for now3 liters by nasal cannula Completed the course of Decadron, offered her a ten-day course She typically wears 3 L at home and she has her own CPAP unit Continue to titrate down the FiO2 as tolerated Continue the current treatment plan
[2020-05-03] MEDS: SODIUM CHLORIDE 0.9% 1,000 ML IV SCH (12:03)
[2020-05-03 15:35] VITALS: BP 134/82; PULSE 78; TEMP 98.4
== END 2020-05-03 15:35 | disposition home health service (06) | DRG 871 ==
LOC: EC 03:42 → 6NMEDSUR 06:57 → 4SSUR 12:39
PROVIDERS: ADMIT Internal Medicine; ATTEND Internal Medicine
PROC: 5A09457 Assistance with Respiratory Ventilation, 24-96 Consecutive Hours, Continuous Positive Airway Pressure (ICD-10-PCS; principal; 2020-04-30)
DX: A41.89 Other specified sepsis (principal); U07.1 COVID-19; J12.82 Pneumonia due to coronavirus disease 2019; J96.21 Acute and chronic respiratory failure with hypoxia; J96.22 Acute and chronic respiratory failure with hypercapnia; J44.0 Chronic obstructive pulmonary disease with (acute) lower respiratory infection; Z68.42 Body mass index [BMI] 45.0-49.9, adult; E87.3 Alkalosis; J44.9 Chronic obstructive pulmonary disease, unspecified; F03.90 Unspecified dementia, unspecified severity, without behavioral disturbance, psychotic disturbance, mood disturbance, and anxiety; E03.9 Hypothyroidism, unspecified; E66.9 Obesity, unspecified; Z66 Do not resuscitate; E11.9 Type 2 diabetes mellitus without complications; Z79.4 Long term (current) use of insulin; R41.3 Other amnesia; M19.90 Unspecified osteoarthritis, unspecified site; G47.30 Sleep apnea, unspecified; E07.9 Disorder of thyroid, unspecified; E78.5 Hyperlipidemia, unspecified; Z90.49 Acquired absence of other specified parts of digestive tract; Z98.890 Other specified postprocedural states; Z88.5 Allergy status to narcotic agent; Z79.899 Other long term (current) drug therapy; Z79.82 Long term (current) use of aspirin; Z79.890 Hormone replacement therapy; Z79.2 Long term (current) use of antibiotics; Z79.52 Long term (current) use of systemic steroids; Z87.01 Personal history of pneumonia (recurrent); Z86.19 Personal history of other infectious and parasitic diseases; Z87.891 Personal history of nicotine dependence; Z80.8 Family history of malignant neoplasm of other organs or systems; Z90.710 Acquired absence of both cervix and uterus; Z90.5 Acquired absence of kidney; Z79.01 Long term (current) use of anticoagulants; Z87.440 Personal history of urinary (tract) infections
CPT/HCPCS: 36415; 71045; 80048; 80053; 82728; 82803; 83605; 83615; 83735; 84145; 85025; 85379; 85610; 85730; 86140; 87040; 87635; 93005; 94640; 94660; 96372; 96374; 96375; 96376; 99285

== ENCOUNTER 2020-05-13 11:50 | Inpatient (IN) | payer MEDICARE, BC ==
[2020-05-13] MEDS ORDERED: ALBUTEROL HFA INHALER INHALATION STA (12:10)
[2020-05-13] MEDS ORDERED: methylPREDNISolone SOD SUCCI 125 MG/2 ML VIAL IV STA (12:10)
--- NOTE | 2020-05-13 12:23 | ED ---
General Adult HPI - General Chief complaint: Shortness of Breath Stated complaint: SHILPI Time Seen by Provider: 05/13/20 11:59 Source: patient, EMS, RN notes reviewed, old records reviewed Mode of arrival: EMS Limitations: no limitations - History of Present Illness Initial comments: 75-year-old female presenting for evaluation of hypoxia and dyspnea. Patient coming from senior living with an episode of hypoxia. She is currently on 3 L by nasal cannula according to staff she had had a very low desaturation just after eating. There was no reported vomiting. No reported preceding cough or fevers. She was admitted to this institution with respiratory issues in the recent past. She has a history of both COPD and CHF. She had been given a DuoNeb with improvement in respiratory status. She is currently on 3 L which is baseline for this patient. - Related Data Home Medications Medication Instructions Recorded Confirmed Budesonide [Pulmicort] 0.5 mg INHALATION RT-BID@0900,1700 03/06/19 05/13/20 DULoxetine HCL [Cymbalta] 60 mg PO DAILY@0900 03/06/19 05/13/20 Dorzolamide/Timolol/Pf 1 drop BOTH EYES TID@0900,1300,2100 03/06/19 05/13/20 [Dorzolamide 2%-Timolol 0.5%] Acetaminophen Tab [Tylenol] 650 mg PO Q6H PRN 01/25/20 05/13/20 glipiZIDE [Glucotrol XL] 10 mg PO BID@0900,1700 02/29/20 05/13/20 Atorvastatin [Lipitor] 40 mg PO DAILY@209903/01/20 05/13/20 Levothyroxine Sodium [Synthroid] 50 mcg PO HS@2100 03/01/20 05/13/20 Albuterol Sulfate [Proventil Hfa] 2 puff INHALATION RT-Q6H PRN 04/30/20 05/13/20 Famotidine 10 mg PO BID@0900,1700 04/30/20 05/13/20 INSULIN LISPRO (humaLOG) [humaLOG] See Protocol SQ ACHS 04/30/20 05/13/20 Melatonin 3 mg PO HS@1999 PRN 04/30/20 05/13/20 Metoprolol Succinate (ER) [Toprol 25 mg PO DAILY@0900 04/30/2028/21 XL] Rivaroxaban [Xarelto] 10 mg PO DAILY@89904/30/20 05/13/20 Ascorbic Acid [Vitamin C] 1,000 mg PO DAILY@89905/13/20 05/13/20 Cholecalciferol [Vitamin D3 (25 50 mcg PO DAILY@89905/13/20 05/13/20 Mcg = 1000 Iu)] Furosemide [Lasix] 40 mg PO DAILY@59905/13/20 05/13/20 Lactulose [Cephulac] 20 gm PO TID PRN 05/13/20 05/13/20 Potassium Chloride ER [K-Dur 10] 10 meq PO DAILY@89905/13/20 05/13/20 Zinc Sulfate [Orazinc] 220 mg PO DAILY@89905/13/20 05/13/20 clonazePAM [KlonoPIN] 0.5 mg PO DAILY PRN 05/13/20 05/13/20 traMADol HCL [Ultram] 50 mg PO Q8HR PRN 05/13/20 05/13/20 Allergies Allergy/AdvReac Type Severity Reaction Status Date / Time codeine AdvReac Nausea & Verified 05/13/20 12:55 Vomiting Review of Systems ROS Statement: Those systems with pertinent positive or pertinent negative responses have been documented in the HPI. ROS Other: All systems not noted in ROS Statement are negative. Past Medical History Past Medical History: COPD, Dementia, Diabetes Mellitus, Eye Disorder, Hyperlipidemia, Memory Impairment, Osteoarthritis (OA), Pneumonia, Renal Disease, Sleep Apnea/CPAP/BIPAP, Thyroid Disorder Additional Past Medical History / Comment(s): Chronic respiratory failure, home oxygen at 3L/NC ATC, KEEGAN without device at [facility], + covid diagnosed 04/01/20 at [facility], IDDM type II, neuropathy bilateral feet, CKD stage III-pt had L nephrectomy but bertha cannot recall reason, anemia, UTIs, glaucoma bilateral eyes, muscle weakness, gait dysfunction, incontinence urine/stool, allergic rhinitis, troponin leak -unsure if SD. History of Any Multi-Drug Resistant Organisms: ESBL Date of last positivie culture/infection: 03/20/19 MDRO Source:: Urine Past Surgical History: Appendectomy, Cholecystectomy, Hernia Repair, Hysterectomy, Tonsillectomy Additional Past Surgical History / Comment(s): L nephrectomy, colonoscopy Past Anesthesia/Blood Transfusion Reactions: No Reported Reaction Past Psychological History: Depression Smoking Status: Former smoker Past Alcohol Use History: None Reported Past Drug Use History: None Reported - Past Family History Mother Family Medical History: Cancer Additional Family Medical History / Comment(s): throat cancer General Exam Limitations: no limitations General appearance: alert, in no apparent distress Head exam: Present: atraumatic, normocephalic Eye exam: Present: normal appearance, PERRL ENT exam: Present: normal exam Neck exam: Present: normal inspection. Absent: tenderness, meningismus Respiratory exam: Present: respiratory distress (mild), wheezes, decreased breath sounds Cardiovascular Exam: Present: regular rate, normal rhythm GI/Abdominal exam: Present: soft. Absent: distended, tenderness Extremities exam: Present: pedal edema (trace), other (Bilateral erythema) Neurological exam: Present: alert, oriented X3, CN II-XII intact. Absent: motor sensory deficit Psychiatric exam: Present: normal affect, normal mood Skin exam: Present: warm, dry Course Vital Signs 05/13/20 11:52 Temperature 97.8 F Pulse Rate 84 Respiratory 20 Rate Blood Pressure 142/89 O2 Sat by Pulse 100 Oximetry - Reevaluation(s) Reevaluation #1: 05/13/20 14:[address] Rivera who will admit EKG Findings - EKG Comments: EKG Findings:: EKG: Normal sinus rhythm, left atrial enlargement, right superior axis deviation, rate of 88, VA interval 126, QRS duration 76, QTC [address] segment elevation. Medical Decision Making - Medical Decision Making 75-year-old female presenting with hypoxia, dyspnea. Patient wheezing with very poor air entry bilaterally. She is on 3 L with good saturation. Given albuterol, steroids in the emergency department. Chest x-ray is concerning for basilar infiltrate versus atelectasis. In the setting of an elevated white blood cell count at 20,008, this patient with antibiotics although I suspect this is predominantly COPD exacerbation. She will be admitted for management of COPD exacerbation, case discussed with the admitting physician. - Lab Data Result diagrams: 05/13/20 12:30 05/13/20 12:30 Lab Results 05/13/20 05/13/20 05/13/20 Range/Units 12:30 12:30 12:30 WBC (3.8-10.6) k/uL RBC (3.80-5.40) m/uL Hgb (11.4-16.0) gm/dL Hct (34.0-46.0) % MCV (80.0-100.0) fL MCH (25.0-35.0) pg MCHC (31.0-37.0) g/dL RDW (11.5-15.5) % Plt Count (150-450) k/uL MPV Neutrophils % % Lymphocytes % % Monocytes % % Eosinophils % % Basophils % % Neutrophils # (1.3-7.7) k/uL Lymphocytes # (1.0-4.8) k/uL Monocytes # (0-1.0) k/uL Eosinophils # (0-0.7) k/uL Basophils # (0-0.2) k/uL PT 11.8 (9.0-12.0) sec INR 1.1 (<1.2) APTT 27.3 (22.0-30.0) sec Sodium 135 L (137-145) mmol/L Potassium 4.6 (3.5-5.1) mmol/L Chloride 88 L (98-107) mmol/L Carbon Dioxide 41 H* (22-30) mmol/L Anion Gap 6 mmol/L BUN 21 H (7-17) mg/dL Creatinine 0.92 (0.52-1.04) mg/dL Est GFR (CKD-EPI)AfAm 70 (>60 ml/min/1.73 sqM) Est GFR (CKD-EPI)NonAf 60 (>60 ml/min/1.73 sqM) Glucose 236 H (74-99) mg/dL Plasma Lactic Acid Taz (0.7-2.0) mmol/L Calcium 9.1 (8.4-10.2) mg/dL Magnesium 1.7 (1.6-2.3) mg/dL Total Bilirubin 1.4 H (0.2-1.3) mg/dL AST 21 (14-36) U/L ALT 26 (4-34) U/L Alkaline Phosphatase 122 (38-126) U/L Troponin I <0.012 (0.000-0.034) ng/mL Total Protein 5.7 L (6.3-8.2) g/dL Albumin 3.1 L (3.5-5.0) g/dL Coronavirus (PCR) Influenza Type A RNA (Not Detectd) Influenza Type B (PCR) (Not Detectd) 05/13/20 05/13/20 05/13/20 Range/Units 12:30 12:30 12:57 WBC 21.3 H (3.8-10.6) k/uL RBC 4.46 (3.80-5.40) m/uL Hgb 13.7 (11.4-16.0) gm/dL Hct 41.1 (34.0-46.0) % MCV 92.1 (80.0-100.0) fL MCH 30.7 (25.0-35.0) pg MCHC 33.4 (31.0-37.0) g/dL RDW 14.5 (11.5-15.5) % Plt Count 407 (150-450) k/uL MPV 7.4 Neutrophils % 86 % Lymphocytes % 4 % Monocytes % 4 % Eosinophils % 4 % Basophils % 1 % Neutrophils # 18.2 H (1.3-7.7) k/uL Lymphocytes # 1.0 (1.0-4.8) k/uL Monocytes # 0.9 (0-1.0) k/uL Eosinophils # 0.8 H (0-0.7) k/uL Basophils # 0.2 (0-0.2) k/uL PT (9.0-12.0) sec INR (<1.2) APTT (22.0-30.0) sec Sodium (137-145) mmol/L Potassium (3.5-5.1) mmol/L Chloride (98-107) mmol/L Carbon Dioxide (22-30) mmol/L Anion Gap mmol/L BUN (7-17) mg/dL Creatinine (0.52-1.04) mg/dL Est GFR (CKD-EPI)AfAm (>60 ml/min/1.73 sqM) Est GFR (CKD-EPI)NonAf (>60 ml/min/1.73 sqM) Glucose (74-99) mg/dL Plasma Lactic Acid Taz 1.1 (0.7-2.0) mmol/L Calcium (8.4-10.2) mg/dL Magnesium (1.6-2.3) mg/dL Total Bilirubin (0.2-1.3) mg/dL AST (14-36) U/L ALT (4-34) U/L Alkaline Phosphatase (38-126) U/L Troponin I (0.000-0.034) ng/mL Total Protein (6.3-8.2) g/dL Albumin (3.5-5.0) g/dL Coronavirus (PCR) Cancelled Influenza Type A RNA Not Detected (Not Detectd) Influenza Type B (PCR) Not Detected (Not Detectd) Disposition Clinical Impression: COPD with exacerbation Disposition: ADMITTED IP TO THIS [facility] Condition: Stable Is patient prescribed a controlled substance at d/c from ED?: No Referrals: Obdulio Chun MD [Primary Care Provider] - 1-2 days Decision to Admit Reason: Admit from EC Decision Date: 05/13/20 Decision Time: 14:38
--- NOTE | 2020-05-13 13:04 | XR ---
EXAMINATION TYPE: XR chest 1V portable DATE OF EXAM: 05/13/2020 COMPARISON: 04/30/2020 INDICATION: Difficulty breathing TECHNIQUE: Single frontal view of the chest is obtained. FINDINGS: The heart size is probably prominent. The pulmonary vasculature is normal. Mild bibasilar infiltrate is present. This nonspecific. Correlate for atelectasis. Stimulator leads are noted in the thoracic region. IMPRESSION: 1. Mild bibasilar infiltrates likely on the basis of atelectasis.
[2020-05-13 13:10] LABS: Basophils # (A) 0.2 k/uL (0-0.2); Basophils % (A) 1 %; Eosinophils # (A) 0.8 k/uL (0-0.7); Eosinophils % (A) 4 %; HCT 41.1 % (34.0-46.0); HGB 13.7 gm/dL (11.4-16.0); Lymphocytes % (A) 4 %; MCH 30.7 pg (25.0-35.0); MCHC 33.4 g/dL (31.0-37.0); MCV 92.1 fL (80.0-100.0); Mean Platelet Volume 7.4; Monocytes # (A) 0.9 k/uL (0-1.0); Monocytes % (A) 4 %; Neutrophils # (A) 18.2 k/uL (1.3-7.7); Neutrophils % (A) 86 %; Platelet Count 407 k/uL (150-450); RBC 4.46 m/uL (3.80-5.40); RDW 14.5 % (11.5-15.5); WBC 21.3 k/uL (3.8-10.6)
[2020-05-13 13:17] LABS: INR 1.1 (<1.2); Partial Thromboplastin Time 27.3 sec (22.0-30.0); Prothrombin Time 11.8 sec (9.0-12.0)
[2020-05-13 13:20] LABS: Albumin 3.1 g/dL (3.5-5.0); Calcium 9.1 mg/dL (8.4-10.2); Magnesium 1.7 mg/dL (1.6-2.3); Potassium 4.6 mmol/L (3.5-5.1); Total Bilirubin 1.4 mg/dL (0.2-1.3); Total Protein 5.7 g/dL (6.3-8.2)
[2020-05-13] MEDS ORDERED: IPRATROPIUM-ALBUTEROL 3 ML NEB INHALATION PRN (14:35)
[2020-05-13] MEDS ORDERED: cefTRIAXone IN SWFI 1,000 MG/10 ML SYRINGE IVP STA (14:36)
[2020-05-13] MEDS ORDERED: AZITHROMYCIN 500 MG in SODIUM CHLORIDE 0.9% 250 ML IVPB STA (14:36)
[2020-05-13] MEDS: IPRATROPIUM-ALBUTEROL 3 ML NEB INHALATION SCH ×2 (15:37→20:09)
[2020-05-13 17:13] LABS: Glucose,Whole Blood 243 mg/dL (75-99)
[2020-05-13] MEDS ORDERED: traMADol 50 MG TAB PO PRN (17:16)
[2020-05-13] MEDS ORDERED: ACETAMINOPHEN TAB 325 MG TAB PO PRN (17:16)
[2020-05-13] MEDS ORDERED: clonazePAM 0.5 MG TAB PO PRN (17:16)
[2020-05-13] MEDS ORDERED: LACTULOSE 20 GM/30 ML CUP PO PRN (17:16)
[2020-05-13] MEDS ORDERED: ALBUTEROL HFA INHALER INHALATION PRN (17:16)
[2020-05-13] MEDS: methylPREDNISolone SOD SUCCI 125 MG/2 ML VIAL IV SCH ×2 (17:25→23:05)
[2020-05-13] MEDS: INSULIN ASPART (NovoLOG) 100 UNIT/ML VIAL SQ SCH ×2 (17:26→20:47)
[2020-05-13 18:17] VITALS: RESP 18
[2020-05-13] MEDS ORDERED: MELATONIN 3 MG TABLET PO PRN (20:00)
[2020-05-13 20:42] LABS: Glucose,Whole Blood 242 mg/dL (75-99)
[2020-05-13] MEDS: DORZOLAMIDE-TIMOLOL 2.23%/0.68 10ML BTL BOTH EYES SCH (20:47)
[2020-05-13] MEDS ORDERED: ATORVASTATIN 40 MG TAB PO SCH (21:00)
[2020-05-13] MEDS ORDERED: LEVOTHYROXINE 50 MCG TAB PO SCH (21:00)
[2020-05-14] MEDS: methylPREDNISolone SOD SUCCI 125 MG/2 ML VIAL IV SCH (05:05)
[2020-05-14] MEDS ORDERED: FUROSEMIDE 40 MG TAB PO SCH (06:00)
[2020-05-14 06:47] LABS: Glucose,Whole Blood 333 mg/dL (75-99)
[2020-05-14] MEDS: IPRATROPIUM-ALBUTEROL 3 ML NEB INHALATION SCH ×2 (07:28→10:53)
[2020-05-14] MEDS: INSULIN ASPART (NovoLOG) 100 UNIT/ML VIAL SQ SCH ×2 (07:29→12:09)
[2020-05-14] MEDS: DORZOLAMIDE-TIMOLOL 2.23%/0.68 10ML BTL BOTH EYES SCH (07:29)
[2020-05-14] MEDS ORDERED: CHOLECALCIFEROL 25 MCG (1000 IU) TABLET PO SCH (09:00)
[2020-05-14] MEDS ORDERED: ASCORBIC ACID 500 MG TAB PO SCH (09:00)
[2020-05-14] MEDS ORDERED: METOPROLOL SUCCINATE (ER) 25 MG TAB.ER.24H PO SCH (09:00)
[2020-05-14] MEDS ORDERED: RIVAROXABAN 10 MG TAB PO SCH (09:00)
[2020-05-14] MEDS ORDERED: DULoxetine HCL 60 MG CAPSULE.DR PO SCH (09:00)
[2020-05-14] MEDS ORDERED: glipiZIDE 10 MG TAB PO SCH (09:00)
[2020-05-14] MEDS ORDERED: BUDESONIDE 0.5 MG/2 ML NEBU INHALATION SCH (09:00)
[2020-05-14] MEDS ORDERED: FAMOTIDINE 20 MG TAB PO SCH (09:00)
[2020-05-14] MEDS ORDERED: POTASSIUM CHLORIDE ER 10 MEQ TAB.ER.PRT PO SCH (09:00)
[2020-05-14] MEDS ORDERED: ZINC SULFATE 220 MG CAP PO SCH (09:00)
[2020-05-14 09:59] VITALS: BP 113/67; PULSE 69; TEMP 97.8
--- NOTE | 2020-05-14 10:10 | P.HPIM ---
History of Present Illness Patient is a pleasant 75-year-old female was sent in from [facility] because of hypoxia patient was not noted to be desaturating at nighttime. Does have history of COPD as well as sleep apnea supposed with CPAP at nighttime up and he patient was not wearing CPAP. Patient occasionally uses 2-3 units of oxygen. Patient was recently in the hospital treated for COPD and asthma CHF patient was also treated for Covid recently. Patient was comparing of cough without any significant sputum production chest x-ray showing some nonspecific infiltrate with some atelectasis patient does have leukocytosis no fever. Patient has white blood cell count of 21,000 and patient is admitted with the IV antibiotics that is Rocephin and azithromycin for Possible pneumonia. Patient was also started on systemic steroids Review of Systems REVIEW OF SYSTEMS: CONSTITUTIONAL: No fever, no malaise, no fatigue. HEENT: No recent visual problems or hearing problems. Denied any sore throat. CARDIOVASCULAR: No chest pain, orthopnea, PND, no palpitations, no syncope. PULMONARY: no hemoptysis. GASTROINTESTINAL: No diarrhea, no nausea, no vomiting, no abdominal pain. NEUROLOGICAL: No headaches, no weakness, no numbness. HEMATOLOGICAL: Denies any bleeding or petechiae. GENITOURINARY: Denies any burning micturition, frequency, or urgency. MUSCULOSKELETAL/RHEUMATOLOGICAL: Denies any joint pain, swelling, or any muscle pain. ENDOCRINE: Denies any polyuria or polydipsia. The rest of the 14-point review of systems is negative. Past Medical History Past Medical History: COPD, Dementia, Diabetes Mellitus, Eye Disorder, Hyperlipidemia, Memory Impairment, Osteoarthritis (OA), Pneumonia, Renal Disease, Sleep Apnea/CPAP/BIPAP, Thyroid Disorder Additional Past Medical History / Comment(s): Chronic respiratory failure, home oxygen at 3L/[place] ATC, KEEGAN without device at [facility], + covid diagnosed 04/01/20 at [facility], IDDM type II, neuropathy bilateral feet, CKD stage III-pt had L nephrectomy but bertha cannot recall reason, anemia, UTIs, glaucoma bilateral eyes, muscle weakness, gait dysfunction, incontinence urine/stool, allergic rhinitis, troponin leak -unsure if PR. History of Any Multi-Drug Resistant Organisms: ESBL Date of last positivie culture/infection: 03/20/19 MDRO Source:: Urine Past Surgical History: Appendectomy, Cholecystectomy, Hernia Repair, Hysterectomy, Tonsillectomy Additional Past Surgical History / Comment(s): L nephrectomy, colonoscopy Past Anesthesia/Blood Transfusion Reactions: No Reported Reaction Past Psychological History: Depression Additional Psychological History / Comment(s): Pt resides at [facility]. She gets up occasionally with walker and PT. She uses O2 at 3L/NC ATC. She is incontinent of urine and stool. Smoking Status: Former smoker Past Alcohol Use History: None Reported Additional Past Alcohol Use History / Comment(s): Pt started smoking in 1958 and quit in 1988. Past Drug Use History: None Reported - Past Family History Mother Family Medical History: Cancer Additional Family Medical History / Comment(s): throat cancer Medications and Allergies Home Medications Medication Instructions Recorded Confirmed Type Budesonide [Pulmicort] 0.5 mg INHALATION RT-BID@0900,1700 03/06/19 05/13/20 History DULoxetine HCL [Cymbalta] 60 mg PO DAILY@0900 03/06/19 05/13/20 History Dorzolamide/Timolol/Pf 1 drop BOTH EYES TID@0900,1300,209903/06/19 05/13/20 History [Dorzolamide 2%-Timolol 0.5%] Acetaminophen Tab [Tylenol] 650 mg PO Q6H PRN 01/25/20 05/13/20 History glipiZIDE [Glucotrol XL] 10 mg PO BID@0900,1700 02/29/20 05/13/20 History Atorvastatin [Lipitor] 40 mg PO DAILY@209903/01/20 05/13/20 History Levothyroxine Sodium [Synthroid] 50 mcg PO HS@209903/01/20 05/13/20 History Albuterol Sulfate [Proventil Hfa] 2 puff INHALATION RT-Q6H PRN 04/30/20 05/13/20 History Famotidine 10 mg PO BID@0900,1700 04/30/20 05/13/20 History INSULIN LISPRO (humaLOG) [humaLOG] See Protocol SQ ACHS 04/30/20 05/13/20 History Melatonin 3 mg PO HS@1999 PRN 04/30/20 05/13/20 History Metoprolol Succinate (ER) [Toprol 25 mg PO DAILY@0900 04/30/20 05/13/20 History XL] Rivaroxaban [Xarelto] 10 mg PO DAILY@0900 04/30/20 05/13/20 History Ascorbic Acid [Vitamin C] 1,000 mg PO DAILY@0905/13/20 05/13/20 History Cholecalciferol [Vitamin D3 (25 50 mcg PO DAILY@0905/13/20 05/13/20 History Mcg = 1000 Iu)] Lactulose [Cephulac] 20 gm PO TID PRN 05/13/20 05/13/20 History Potassium Chloride ER [K-Dur 10] 10 meq PO DAILY@0905/13/20 05/13/20 History Zinc Sulfate [Orazinc] 220 mg PO DAILY@0905/13/20 05/13/20 History clonazePAM [KlonoPIN] 0.5 mg PO DAILY PRN 05/13/20 05/13/20 History traMADol HCL [Ultram] 50 mg PO Q8HR PRN 05/13/20 05/13/20 History Cefuroxime Axetil [Ceftin] 500 mg PO BID 4 Days #8 tab 05/14/20 Rx Furosemide [Lasix] 20 mg PO DAILY@0600 tab 05/14/20 Rx Furosemide [Lasix] 20 mg PO DAILY@0600 #0 05/14/20 05/13/20 Rx Allergies Allergy/AdvReac Type Severity Reaction Status Date / Time codeine AdvReac Nausea & Verified 05/13/20 12:55 Vomiting Physical Exam Vitals: Vital Signs Temp Pulse Pulse Resp BP BP Pulse Ox 05/14/20 08:53 97.8 F 69 18 113/67 97 05/14/20 07:42 80 05/14/20 07:28 80 05/14/20 05:41 99.0 F 79 132/73 94 L 05/14/20 01:23 98.2 F 84 121/75 92 L 05/13/20 20:21 78 05/13/20 20:09 78 05/13/20 17:10 97.2 F L 74 18 123/79 99 05/13/20 15:46 76 05/13/20 15:42 98 05/13/20 15:37 78 05/13/20 15:30 69 14 120/65 99 05/13/20 15:00 68 14 130/79 98 05/13/20 14:30 68 16 130/79 98 05/13/20 11:52 97.8 F 84 20 142/89 100 Intake and Output 05/13/20 05/14/20 05/14/20 22:59 06:59 14:59 Intake Total 250 Output Total 400 Balance 250 -400 Intake: IV 250 Azithromycin 500 mg In 250 Sodium Chloride 0.9% 250 ml @ 250 mls/hr IVPB ONCE STA Rx#:[id number] Output: Urine 400 Other: Voiding Method External Catheter Weight 110.223 kg PHYSICAL EXAMINATION: GENERAL: The patient is alert and oriented x3, not in any acute distress. Obese HEENT: Pupils are round and equally reacting to light. EOMI. No scleral icterus. No conjunctival pallor. Normocephalic, atraumatic. No pharyngeal erythema. No thyromegaly. CARDIOVASCULAR: S1 and S2 present. No murmurs, rubs, or gallops. No JVD PULMONARY: Mildly diminished air entry into bilateral lung price no wheezing was appreciated no crackles were appreciated. ABDOMEN: Soft, nontender, nondistended, normoactive bowel sounds. No palpable organomegaly. MUSCULOSKELETAL: No joint swelling or deformity. EXTREMITIES: No cyanosis, clubbing, or pedal edema. NEUROLOGICAL: Gross neurological examination did not reveal any focal deficits. SKIN: No rashes. Results CBC & Chem 7: 05/13/20 12:30 05/13/20 12:30 Labs: Abnormal Lab Results - Last 24 Hours (Table) 05/13/20 05/13/20 05/13/20 Range/Units 12:30 12:30 17:09 WBC 21.3 H (3.8-10.6) k/uL Neutrophils # 18.2 H (1.3-7.7) k/uL Eosinophils # 0.8 H (0-0.7) k/uL Sodium 135 L (137-145) mmol/L Chloride 88 L (98-107) mmol/L Carbon Dioxide 41 H* (22-30) mmol/L BUN 21 H (7-17) mg/dL Glucose 236 H (74-99) mg/dL POC Glucose (mg/dL) 243 H (75-99) mg/dL Total Bilirubin 1.4 H (0.2-1.3) mg/dL Total Protein 5.7 L (6.3-8.2) g/dL Albumin 3.1 L (3.5-5.0) g/dL 05/13/20 05/14/20 Range/Units 20:41 06:45 WBC (3.8-10.6) k/uL Neutrophils # (1.3-7.7) k/uL Eosinophils # (0-0.7) k/uL Sodium (137-145) mmol/L Chloride (98-107) mmol/L Carbon Dioxide (22-30) mmol/L BUN (7-17) mg/dL Glucose (74-99) mg/dL POC Glucose (mg/dL) 242 H 333 H (75-99) mg/dL Total Bilirubin (0.2-1.3) mg/dL Total Protein (6.3-8.2) g/dL Albumin (3.5-5.0) g/dL Thrombosis Risk Factor Assmnt - Choose All That Apply Each Factor Represents 1 point: Obesity (BMI >25) Each Risk Factor Represents 3 Points: Age 75 years or older Thrombosis Risk Factor Assessment Total Risk Factor Score: 4 Thrombosis Risk Factor Assessment Level: Moderate Risk Assessment and Plan Plan: -Acute on chronic hypoxic and hypercapnic respiratory failure: Secondary to COPD exacerbation with intubation from sleep apnea. There is no clear evidence of pneumonia constant leukocytosis or discharged on 5 days of Ceftin. Will repeat basic metabolic profile and CBC to be today morning. -Metabolic alkalosis: Multifactorial secondary to chronic respiratory acidosis and contraction alkalosis from Lasix Lasix will be held for next couple days and and we'll cut down the Lasix to 20 mg daily instead of 40 mg after that. -COPD with mild acute exacerbation patient will not treat need any systemic steroids patient will be started on inhaled steroids patient was pretty status is at her baseline. -CHF chronic diastolic dysfunction with mild acute exacerbation -Sleep apnea: Patient will continue with CPAP machine. -Obesity -Type 2 diabetes mellitus blood sugars are bit elevated because of the systemic steroids patient may need to increase dose of glipizide but I'll leave the decision to physician at the rehabilitation facility -Hyperlipidemia -Hypothyroidism Patient will be discharged back to subacute rehabitation.
--- NOTE | 2020-05-14 10:11 | P.DS ---
Providers Date of admission: 05/13/20 14:35 Attending physician: Josiah Rivera Consults: 05/14/20 09:35 Consult Physician Urgent Consulting Provider: Randolph Cole Consult Reason/Comments: need for CPAP Do you want consulting provider notified?: Yes Primary care physician: Obdulio Allredqvi [facility] Course: Please refer to HPI for further details Patient Condition at Discharge: Stable Plan - Discharge Summary Discharge Rx Participant: No New Discharge Prescriptions: New Furosemide [Lasix] 20 mg PO DAILY@0600 tab Cefuroxime Axetil [Ceftin] 500 mg PO BID 4 Days #8 tab Continue DULoxetine HCL [Cymbalta] 60 mg PO DAILY@0900 Dorzolamide/Timolol/Pf [Dorzolamide 2%-Timolol 0.5%] 1 drop BOTH EYES TID@0900,1300,2100 Budesonide [Pulmicort] 0.5 mg INHALATION RT-BID@0900,1700 Acetaminophen Tab [Tylenol] 650 mg PO Q6H PRN PRN Reason: Fever And/ Or Pain glipiZIDE [Glucotrol XL] 10 mg PO BID@0900,1700 Atorvastatin [Lipitor] 40 mg PO DAILY@2100 Levothyroxine Sodium [Synthroid] 50 mcg PO HS@2100 Albuterol Sulfate [Proventil Hfa] 2 puff INHALATION RT-Q6H PRN PRN Reason: Shortness Of Breath INSULIN LISPRO (humaLOG) [humaLOG] See Protocol SQ ACHS Rivaroxaban [Xarelto] 10 mg PO DAILY@0900 Famotidine 10 mg PO BID@0900,1700 Metoprolol Succinate (ER) [Toprol XL] 25 mg PO DAILY@0900 Melatonin 3 mg PO HS@2000 PRN PRN Reason: Insomnia traMADol HCL [Ultram] 50 mg PO Q8HR PRN PRN Reason: Pain clonazePAM [KlonoPIN] 0.5 mg PO DAILY PRN PRN Reason: Anxiety Lactulose [Cephulac] 20 gm PO TID PRN PRN Reason: Constipation Zinc Sulfate [Orazinc] 220 mg PO DAILY@0900 Cholecalciferol [Vitamin D3 (25 Mcg = 1000 Iu)] 50 mcg PO DAILY@0900 Potassium Chloride ER [K-Dur 10] 10 meq PO DAILY@0900 Ascorbic Acid [Vitamin C] 1,000 mg PO DAILY@0900 Changed Furosemide [Lasix] 20 mg PO DAILY@0600 #0 Discharge Medication List Budesonide [Pulmicort] 0.5 mg INHALATION RT-BID@0900,1700 03/06/19 [History] DULoxetine HCL [Cymbalta] 60 mg PO DAILY@0900 03/06/19 [History] Dorzolamide/Timolol/Pf [Dorzolamide 2%-Timolol 0.5%] 1 drop BOTH EYES TID@0900,1300,209903/06/19 [History] Acetaminophen Tab [Tylenol] 650 mg PO Q6H PRN 01/25/20 [History] glipiZIDE [Glucotrol XL] 10 mg PO BID@0900,17002/29/20 [History] Atorvastatin [Lipitor] 40 mg PO DAILY@209903/01/20 [History] Levothyroxine Sodium [Synthroid] 50 mcg PO HS@209903/01/20 [History] Albuterol Sulfate [Proventil Hfa] 2 puff INHALATION RT-Q6H PRN 04/30/20 [History] Famotidine 10 mg PO BID@0900,1700 04/30/20 [History] INSULIN LISPRO (humaLOG) [humaLOG] See Protocol SQ ACHS 04/30/20 [History] Melatonin 3 mg PO HS@1999 PRN 04/30/20 [History] Metoprolol Succinate (ER) [Toprol XL] 25 mg PO DAILY@0904/30/20 [History] Rivaroxaban [Xarelto] 10 mg PO DAILY@89904/30/20 [History] Ascorbic Acid [Vitamin C] 1,000 mg PO DAILY@0905/13/20 [History] Cholecalciferol [Vitamin D3 (25 Mcg = 1000 Iu)] 50 mcg PO DAILY@0905/13/20 [History] Lactulose [Cephulac] 20 gm PO TID PRN 05/13/20 [History] Potassium Chloride ER [K-Dur 10] 10 meq PO DAILY@0900 05/13/20 [History] Zinc Sulfate [Orazinc] 220 mg PO DAILY@0900 05/13/20 [History] clonazePAM [KlonoPIN] 0.5 mg PO DAILY PRN 05/13/20 [History] traMADol HCL [Ultram] 50 mg PO Q8HR PRN 05/13/20 [History] Cefuroxime Axetil [Ceftin] 500 mg PO BID 4 Days #8 tab 05/14/20 [Rx] Furosemide [Lasix] 20 mg PO DAILY@0600 tab 05/14/20 [Rx] Furosemide [Lasix] 20 mg PO DAILY@0600 #0 05/14/20 [Rx] Follow up Appointment(s)/Referral(s): Obdulio Chun MD [Primary Care Provider] - 1-2 Days [facility], [NON-STAFF] - As Needed Activity/Diet/Wound Care/Special Instructions: CPAP at night as per pulmonary instructions. Hold off on Lasix for next couple days. Diabetic and cardiac diet Discharge Disposition: TRANSFER TO SNF/ECF
[2020-05-14 10:45] LABS: HCT 36.1 % (34.0-46.0); HGB 11.5 gm/dL (11.4-16.0); Hypochromasia Moderate; MCH 30.2 pg (25.0-35.0); MCHC 31.8 g/dL (31.0-37.0); Mean Platelet Volume 7.4; Platelet Count 390 k/uL (150-450); RDW 14.3 % (11.5-15.5); WBC 20.6 k/uL (3.8-10.6)
[2020-05-14 11:50] LABS: Glucose,Whole Blood 260 mg/dL (75-99)
--- NOTE | 2020-05-14 12:20 | P.CNPUL ---
History of Present Illness Consult date: 05/14/20 Requesting physician: Josiah Rivera Reason for consult: dyspnea, hypoxemia, other Chief complaint: CPAP settings History of present illness: This is 75-year-old white female patient with history of obstructive sleep apnea without a device at the [facility], recent history of hospit alization for COVID 19 related pneumonia from 04/30/2020 through 05/03/2020 and the discharge back to the [facility], [facility]. She was beyond the Remdesivir window, she was treated with Decadron, zinc, vitamin D, vitamin C. Patient is on Xarelto, not clear if it is for chronic A. fib or previous PE or DVT history. She is chronically on oxygen at 3 L on the regular basis, she has a history of diabetes mellitus type 2, and kidney disease stage III with previous history of left nephrectomy, ESBL urinary tract infections, gait dysfunction, urine and stool incontinence, and former smoking. On 05/13/2020 patient was brought into the emergency department per EMS for evaluation of hypoxia and dyspnea from a [facility]. She was in her usual 3 L of oxygen per nasal cannula when she had very low desaturation after eating. No reported nausea or vomiting, no reports of cough, no fever or chills. No chest discomfort, chest x-ray shows mild bibasilar infiltrates favoring atelectasis. Lab data showed a white blood cell count 21.3, hemoglobin of 13.7, INR is 1.1, sodium is 135, potassium is 4.6, chloride is 88, CO2 is 41, B1 is 21 creatinine 0.92, troponin was less than 0.012, proBNP was 947, LFTs were unremarkable, lactic acid was 1.1, influenza, RSV, and COVID 19 PCR were negative. Patient has been afebrile since she came into the hospital, vital signs have been stable, she is on her usual 3 L after her pulse ox between 94-97%, she is awake and alert, oriented 3, denies any acute distress, no worsening dyspnea, she is answering questions appropriately. Patient has had no worsening of her hypoxia or dyspnea, no acute events overnight, she is being discharged back to the [facility] today and we were asked to make a recommendation on the CPAP settings. Review of Systems All systems: negative Constitutional: Denies chills, Denies fever Eyes: denies blurred vision, denies pain Ears, nose, mouth and throat: Denies headache, Denies sore throat Cardiovascular: Denies chest pain, Denies shortness of breath Respiratory: Reports dyspnea, Reports home oxygen, Denies cough Gastrointestinal: Denies abdominal pain, Denies diarrhea, Denies nausea, Denies vomiting Genitourinary: Denies dysuria, Denies hematuria Musculoskeletal: Denies myalgias Integumentary: Denies pruritus, Denies rash Neurological: Denies numbness, Denies weakness Psychiatric: Denies anxiety, Denies depression Endocrine: Denies fatigue, Denies weight change Past Medical History Past Medical History: COPD, Dementia, Diabetes Mellitus, Eye Disorder, Hyperlipidemia, Memory Impairment, Osteoarthritis (OA), Pneumonia, Renal Dise ase, Sleep Apnea/CPAP/BIPAP, Thyroid Disorder Additional Past Medical History / Comment(s): Chronic respiratory failure, home oxygen at 3L/[place] ATC, KEEGAN without device at [facility], + covid diagnosed 04/01/20 at [facility], IDDM type II, neuropathy bilateral feet, CKD stage III-pt had L nephrectomy but bertha cannot recall reason, anemia, UTIs, glaucoma bilateral eyes, muscle weakness, gait dysfunction, incontinence urine/stool, allergic rhinitis, troponin leak -unsure if [place]. History of Any Multi-Drug Resistant Organisms: ESBL Date of last positivie culture/infection: 03/20/19 MDRO Source:: Urine Past Surgical History: Appendectomy, Cholecystectomy, Hernia Repair, Hysterec christy, Tonsillectomy Additional Past Surgical History / Comment(s): L nephrectomy, colonoscopy Past Anesthesia/Blood Transfusion Reactions: No Reported Reaction Past Psychological History: Depression Additional Psychological History / Comment(s): Pt resides at [facility]. She gets up occasionally with walker and PT. She uses O2 at 3L/NC ATC. She is incontinent of urine and stool. Smoking Status: Former smoker Past Alcohol Use History: None Reported Additional Past Alcohol Use History / Comment(s): Pt started smoking in 7 and quit in 1988. Past Drug Use History: None Reported - Past Family History Mother Family Medical History: Cancer Additional Family Medical History / Comment(s): throat cancer Medications and Allergies Home Medications Medication Instructions Recorded Confirmed Type Budesonide [Pulmicort] 0.5 mg INHALATION RT-BID@0900,1700 03/06/19 05/13/20 History DULoxetine HCL [Cymbalta] 60 mg PO DAILY@0900 03/06/19 05/13/20 History Dorzolamide/Timolol/Pf 1 drop BOTH EYES TID@0900,1300,2100 03/06/19 05/13/20 History [Dorzolamide 2%-Timolol 0.5%] Acetaminophen Tab [Tylenol] 650 mg PO Q6H PRN 01/25/20 05/13/20 History glipiZIDE [Glucotrol XL] 10 mg PO BID@0900,1700 02/29/20 05/13/20 History Atorvastatin [Lipitor] 40 mg PO DAILY@209903/01/20 05/13/20 History Levothyroxine Sodium [Synthroid] 50 mcg PO HS@209903/01/20 05/13/20 History Albuterol Sulfate [Proventil Hfa] 2 puff INHALATION RT-Q6H PRN 04/30/20 05/13/20 History Famotidine 10 mg PO BID@0900,1700 04/30/20 05/13/20 History INSULIN LISPRO (humaLOG) [humaLOG] See Protocol SQ ACHS 04/30/20 05/13/20 History Melatonin 3 mg PO HS@1999 PRN 04/30/20 05/13/20 History Metoprolol Succinate (ER) [Toprol 25 mg PO DAILY@0904/30/20 05/13/20 History XL] Rivaroxaban [Xarelto] 10 mg PO DAILY@0904/30/20 05/13/20 History Ascorbic Acid [Vitamin C] 1,000 mg PO DAILY@89905/13/20 05/13/20 History Cholecalciferol [Vitamin D3 (25 50 mcg PO DAILY@89905/13/20 05/13/20 History Mcg = 1000 Iu)] Lactulose [Cephulac] 20 gm PO TID PRN 05/13/20 05/13/20 History Potassium Chloride ER [K-Dur 10] 10 meq PO DAILY@0900 05/13/20 05/13/20 History Zinc Sulfate [Orazinc] 220 mg PO DAILY@0900 05/13/20 05/13/20 History clonazePAM [KlonoPIN] 0.5 mg PO DAILY PRN 05/13/20 05/13/20 History traMADol HCL [Ultram] 50 mg PO Q8HR PRN 05/13/20 05/13/20 History Cefuroxime Axetil [Ceftin] 500 mg PO BID 4 Days #8 tab 05/14/20 Rx Furosemide [Lasix] 20 mg PO DAILY@0600 tab 05/14/20 Rx Furosemide [Lasix] 20 mg PO DAILY@0600 #0 05/14/20 05/13/20 Rx Allergies Allergy/AdvReac Type Severity Reaction Status Date / Time codeine AdvReac Nausea & Verified 05/13/20 12:55 Vomiting Physical Exam Vitals: Vital Signs Temp Pulse Pulse Resp BP BP Pulse Ox 05/14/20 08:53 97.8 F 69 18 113/67 97 05/14/20 07:42 80 05/14/20 07:28 80 05/14/20 05:41 99.0 F 79 132/73 94 L 05/14/20 01:23 98.2 F 84 121/75 92 L 05/13/20 20:21 78 05/13/20 20:09 78 05/13/20 17:10 97.2 F L 74 18 123/79 99 05/13/20 15:46 76 05/13/20 15:42 98 05/13/20 15:37 78 05/13/20 15:30 69 14 120/65 99 05/13/20 15:00 68 14 130/79 98 05/13/20 14:30 68 16 130/79 98 Intake and Output 05/13/20 05/14/20 05/14/20 22:59 06:59 14:59 Intake Total 250 Output Total 400 Balance 250 -400 Intake: IV 250 Azithromycin 500 mg In 250 Sodium Chloride 0.9% 250 ml @ 250 mls/hr IVPB ONCE STA Rx#:[id number] Output: Urine 400 Other: Voiding Method External Catheter Weight 110.223 kg GENERAL EXAM: Alert, very pleasant, 75-year-old obese white female, on 3 L of oxygen a pulse ox between 93.7% comfortable in no apparent distress. HEAD: Normocephalic/atraumatic. EYES: Normal reaction of pupils, equal size. Conjunctiva pink, sclera white. NOSE: Clear with pink turbinates. THROAT: No erythema or exudates. NECK: No masses, no JVD, no thyroid enlargement, no adenopathy. CHEST: No chest wall deformity. Symmetrical expansion. LUNGS: Equal air entry with no crackles, wheeze, rhonchi or dullness. CVS: Regular rate and rhythm, normal S1 and S2, no gallops, no murmurs, no rubs ABDOMEN: Soft, nontender. No hepatosplenomegaly, normal bowel sounds, no guarding or rigidity. EXTREMITIES: No clubbing, no edema, no cyanosis, 2+ pulses and upper and lower extremities. MUSCULOSKELETAL: Muscle strength and tone normal. SPINE: No scoliosis or deformity SKIN: No rashes CENTRAL NERVOUS SYSTEM: Alert and oriented -3. No focal deficits, tone is normal in all 4 extremities. PSYCHIATRIC: Alert and oriented -3. Appropriate affect. Intact judgment and insight. Results - Laboratory Findings CBC and BMP: 05/14/20 10:16 05/13/20 12:30 PT/INR, D-dimer PT 11.8 sec (9.0-12.0) 05/13/20 12:30 INR 1.1 (<1.2) 05/13/20 12:30 Abnormal lab findings: Abnormal Labs 05/13/20 05/13/20 05/13/20 12:30 12:30 17:09 WBC 21.3 H Neutrophils # 18.2 H Eosinophils # 0.8 H Sodium 135 L Chloride 88 L Carbon Dioxide 41 H* BUN 21 H Glucose 236 H POC Glucose (mg/dL) 243 H Total Bilirubin 1.4 H Total Protein 5.7 L Albumin 3.1 L 05/13/20 05/14/20 05/14/20 20:41 06:45 10:16 WBC 20.6 H Neutrophils # Eosinophils # Sodium Chloride Carbon Dioxide BUN Glucose POC Glucose (mg/dL) 242 H 333 H Total Bilirubin Total Protein Albumin 05/14/20 11:48 WBC Neutrophils # Eosinophils # Sodium Chloride Carbon Dioxide BUN Glucose POC Glucose (mg/dL) 260 H Total Bilirubin Total Protein Albumin - Diagnostic Findings Chest x-ray: report reviewed, image reviewed Assessment and Plan Plan: Assessment: #1. Acute on chronic hypoxic respiratory failure after an episode of eating at the [facility], patient has recovered, unclear what this was related to. Chest x-ray showed bibasilar atelectasis, has had no fever or chills, no significant pulmonary symptoms no cough no phlegm production, no fever. #2. Obstructive sleep apnea, compliant with CPAP on a regular basis, we'll make a recommendation to start the patient on sleep CPAP with a pressure of 12 cm of water #3. Chronic hypercapnic respiratory failure related to morbid obesity, obstructive sleep apnea #4. Recent history of COVID 19 pneumonia patient was hospitalized from 04/30/2020 through 05/03/2020 discharged to the [facility] on the [facility] #5. History of COPD, with chronic hypoxic respiratory failure patient wears 3 L of oxygen on a regular basis #6. History of dementia #7. Hypothyroidism #8. Diabetes mellitus type 2 #9. Previous history of left nephrectomy #10. Chronic kidney disease stage III #11. General medical debility, dysfunction, incontinence of urine and stool #12. Previous history of ESBL urinary tract infections #13. Former smoker Plan: Patient is stable from pulmonary perspective, vital signs have been stable, she is on her usual 3 L of oxygen and this is what she usually wears a regular b asis, denies any pulmonary symptoms no cough, no fever, no chest discomfort no phlegm production. Chest x-ray reviewed showing some bibasilar minimal infiltrates likely related to atelectasis. She is being discharged back to the [facility] on the [place] today and will recommend CPAP at bedtime at a pressure of 12 cm of water. I performed a history & physical examination of the patient and discussed their management with my nurse practitioner, Candace Blackwood. I reviewed the nurse practitioner's note and agree with the documented findings and plan of care. Lung sounds are positive for diminished breath sounds The findings and the impression was discussed with the patient. I attest to the documentation by the nurse practitioner. Time with Patient: Greater than 30
== END 2020-05-14 13:29 | DRG 190 ==
LOC: EC 11:50 → 4SSUR 14:35
PROVIDERS: ADMIT Internal Medicine; ATTEND Internal Medicine
DX: J44.1 Chronic obstructive pulmonary disease with (acute) exacerbation (principal); J96.21 Acute and chronic respiratory failure with hypoxia; J96.22 Acute and chronic respiratory failure with hypercapnia; I50.33 Acute on chronic diastolic (congestive) heart failure; Z68.41 Body mass index [BMI] 40.0-44.9, adult; E87.4 Mixed disorder of acid-base balance; J98.11 Atelectasis; E03.9 Hypothyroidism, unspecified; E11.22 Type 2 diabetes mellitus with diabetic chronic kidney disease; E66.01 Morbid (severe) obesity due to excess calories; E78.5 Hyperlipidemia, unspecified; F03.90 Unspecified dementia, unspecified severity, without behavioral disturbance, psychotic disturbance, mood disturbance, and anxiety; F32.9 Major depressive disorder, single episode, unspecified; G47.33 Obstructive sleep apnea (adult) (pediatric); N18.30 Chronic kidney disease, stage 3 unspecified; R32 Unspecified urinary incontinence; R15.2 Fecal urgency; Z79.01 Long term (current) use of anticoagulants; Z79.84 Long term (current) use of oral hypoglycemic drugs; Z79.890 Hormone replacement therapy; Z79.899 Other long term (current) drug therapy; Z80.8 Family history of malignant neoplasm of other organs or systems; Z86.16 Personal history of COVID-19; Z86.19 Personal history of other infectious and parasitic diseases; Z87.01 Personal history of pneumonia (recurrent); Z87.891 Personal history of nicotine dependence; Z90.5 Acquired absence of kidney; Z90.710 Acquired absence of both cervix and uterus; Z90.89 Acquired absence of other organs; Z90.49 Acquired absence of other specified parts of digestive tract; Z53.8 Procedure and treatment not carried out for other reasons; Z86.718 Personal history of other venous thrombosis and embolism; Z86.711 Personal history of pulmonary embolism; Z79.51 Long term (current) use of inhaled steroids; M19.90 Unspecified osteoarthritis, unspecified site; Z88.5 Allergy status to narcotic agent
CPT/HCPCS: 36415; 71045; 80053; 83605; 83735; 83880; 84484; 85025; 85027; 85610; 85730; 87502; 87636; 93005; 94640; 96374; 99285

== ENCOUNTER 2020-05-17 00:29 | Emergency (ER) | payer MEDICARE, BC ==
[2020-05-17] MEDS ORDERED: SODIUM CHLORIDE 0.9% 1,000 ML IV STA (00:37)
[2020-05-17] MEDS ORDERED: IPRATROPIUM-ALBUTEROL 3 ML NEB INHALATION STA (00:44)
--- NOTE | 2020-05-17 00:49 | ED ---
SOB HPI - General Chief Complaint: Weakness Stated Complaint: SOB,weakness Time Seen by Provider: 05/17/20 00:35 Source: patient, EMS, RN notes reviewed, old records reviewed Mode of arrival: EMS Limitations: no limitations, altered mental status (Ho Dementia) - History of Present Illness Initial Comments: This is a 75 female to the ED co SOB, patient has history of dementia but giving history of no complaints. Patient is brought in by EMS for evaluation, patient is here for SOB, weakness, history of COPD on home O2. Patient denies fever or pain. Patient states that she doesnot want to be in the hospital. Patient is a DNR but accepts hospitilizations. MD Complaint: shortness of breath (per record patient Denies and wants to leave) -: unknown Severity: mild Severity scale (1-10): 3 Quality: dull Consistency: constant Improves With: nothing Worsens With: nothing Context: recent illness, other (history of same) Associated Symptoms: denies other symptoms Treatments Prior to Arrival: oxygen - Related Data Home Medications Medication Instructions Recorded Confirmed DULoxetine HCL [Cymbalta] 60 mg PO DAILY@0900 03/06/19 05/17/20 Dorzolamide/Timolol/Pf 1 drop BOTH EYES TID@0900,1300,209903/06/19 05/17/20 [Dorzolamide 2%-Timolol 0.5%] Acetaminophen Tab [Tylenol] 650 mg PO Q6H PRN 01/25/20 05/17/20 glipiZIDE [Glucotrol XL] 10 mg PO BID@0900,1700 02/29/20 05/17/20 Atorvastatin [Lipitor] 40 mg PO DAILY@209903/01/20 05/17/20 Levothyroxine Sodium [Synthroid] 50 mcg PO HS@209903/01/20 05/17/20 Albuterol Sulfate [Proventil Hfa] 2 puff INHALATION RT-Q6H PRN 04/30/20 05/17/20 Famotidine 10 mg PO BID@0900,1700 04/30/20 05/17/20 INSULIN LISPRO (humaLOG) [humaLOG] See Protocol SQ ACHS@08,12,17,04/30/20 05/17/20 Melatonin 3 mg PO HS@1999 PRN 04/30/20 05/17/20 Metoprolol Succinate (ER) [Toprol 25 mg PO DAILY@89904/30/20 05/17/20 XL] Rivaroxaban [Xarelto] 10 mg PO DAILY@89904/30/20 05/17/20 Ascorbic Acid [Vitamin C] 1,000 mg PO DAILY@0905/13/20 05/17/20 Cholecalciferol [Vitamin D3 (25 50 mcg PO DAILY@89905/13/20 05/17/20 Mcg = 1000 Iu)] Lactulose [Cephulac] 20 gm PO TID PRN 05/13/20 05/17/20 Potassium Chloride ER [K-Dur 10] 10 meq PO DAILY@89905/13/20 05/17/20 Zinc Sulfate [Orazinc] 220 mg PO DAILY@89905/13/20 05/17/20 clonazePAM [KlonoPIN] 0.5 mg PO DAILY PRN 05/13/20 05/17/20 traMADol HCL [Ultram] 50 mg PO Q8HR PRN 05/13/20 05/17/20 Cefuroxime Axetil [Ceftin] 500 mg PO BID@0900,2100 05/17/20 05/17/20 Ipratropium-Albuterol Nebulize 3 ml INHALATION RT-Q6H PRN 05/17/20 05/17/20 [Duoneb 0.5 mg-3 mg/3 ml Soln] Previous Rx's Medication Instructions Recorded Furosemide [Lasix] 20 mg PO DAILY@0600 #0 05/14/20 Allergies Allergy/AdvReac Type Severity Reaction Status Date / Time codeine AdvReac Nausea & Verified 05/17/20 22:01 Vomiting Review of Systems ROS Statement: Those systems with pertinent positive or pertinent negative responses have been documented in the HPI. ROS Other: All systems not noted in ROS Statement are negative. Past Medical History Past Medical History: COPD, Dementia, Diabetes Mellitus, Eye Disorder, Hyperlipidemia, Memory Impairment, Osteoarthritis (OA), Pneumonia, Renal Disease, Sleep Apnea/CPAP/BIPAP, Thyroid Disorder Additional Past Medical History / Comment(s): Chronic respiratory failure, home oxygen at 3L/[place] ATC, KEEGAN without device at [facility], + covid diagnosed 04/01/20 at [facility], IDDM type II, neuropathy bilateral feet, CKD stage III-pt had L nephrectomy but bertha cannot recall reason, anemia, UTIs, glaucoma bilateral eyes, muscle weakness, gait dysfunction, incontinence urine/stool, allergic rhinitis, troponin leak -unsure if [place]. History of Any Multi-Drug Resistant Organisms: ESBL Date of last positivie culture/infection: 03/20/19 MDRO Source:: Urine Past Surgical History: Appendectomy, Cholecystectomy, Hernia Repair, Hysterectomy, Tonsillectomy Additional Past Surgical History / Comment(s): L nephrectomy, colonoscopy Past Anesthesia/Blood Transfusion Reactions: No Reported Reaction Past Psychological History: Depression Smoking Status: Former smoker Past Alcohol Use History: None Reported Past Drug Use History: None Reported - Past Family History Mother Family Medical History: Cancer Additional Family Medical History / Comment(s): throat cancer General Exam Limitations: no limitations General appearance: alert, in no apparent distress, lethargic (sleepy), obese Head exam: Present: atraumatic, normocephalic, normal inspection Eye exam: Present: normal appearance, PERRL, EOMI. Absent: scleral icterus, conjunctival injection, periorbital swelling ENT exam: Present: normal exam, mucous membranes moist Neck exam: Present: normal inspection. Absent: tenderness, meningismus, lymphadenopathy Respiratory exam: Present: wheezes, decreased breath sounds, prolonged expiratory. Absent: respiratory distress, rales, rhonchi, stridor Cardiovascular Exam: Present: regular rate, normal rhythm, normal heart sounds. Absent: systolic murmur, diastolic murmur, rubs, gallop, clicks GI/Abdominal exam: Present: soft, normal bowel sounds. Absent: distended, tenderness, guarding, rebound, rigid Extremities exam: Present: normal inspection, full ROM, normal capillary refill. Absent: tenderness, pedal edema, joint swelling, calf tenderness Back exam: Present: normal inspection Neurological exam: Present: alert, oriented X3, CN II-XII intact Psychiatric exam: Present: normal affect, normal mood Skin exam: Present: warm, dry, intact, normal color. Absent: rash Course Vital Signs 05/17/20 05/17/20 05/17/20 00:30 00:55 01:25 Temperature 97.8 F Pulse Rate 78 72 Respiratory 14 14 16 Rate Blood Pressure 138/70 141/72 O2 Sat by Pulse 94 L 98 Oximetry 05/17/20 02:11 Temperature 98.9 F Pulse Rate 68 Respiratory 16 Rate Blood Pressure 142/82 O2 Sat by Pulse 99 Oximetry - Reevaluation(s) Reevaluation #1: medical record is reviewed patient is refusing IV starts patient refusing breathing treatments, denies shortness of breath patient wants to go to sleep and be discharged Medical Decision Making - Medical Decision Making 68 female to the ER per EMS poor historian but history states shortness of breath and diffuse swelling. Patient does have diffuse anasarca edema but chest x-ray is clear. Patient throughout ER stay denies complaints refusing breathing treatments or any other supplement here. Patient be discharged back to ECF in no distress with normal vital signs - EKG Data -: EKG Interpreted by Me (EKG shows sinus rhythm 77 OK 132 QRS 78 QTc 425) - Radiology Data Radiology results: report reviewed (CXR is negative for acute disease), image reviewed Disposition Clinical Impression: Weakness Disposition: HOME SELF-CARE Condition: Fair Instructions (If sedation given, give patient instructions): Weakness (ED) Is patient prescribed a controlled substance at d/c from ED?: No Referrals: Obdulio Chun MD [Primary Care Provider] - 1-2 days
--- NOTE | 2020-05-17 01:16 | XR ---
EXAM: XR Chest, 1 View CLINICAL HISTORY: ITS.REASON XR Reason: Weakness TECHNIQUE: Frontal view of the chest. COMPARISON: 05/13/2020 FINDINGS: Lungs: Stable mild chronic increased interstitial lung markings. Discoid atelectasis left perihilar region and right lung base. Pleural space: Unremarkable. No pneumothorax. Heart: Stable enlarged cardiac silhouette. Mediastinum: Unremarkable. Bones/joints: No acute osseous abnormality. Tubes, lines and devices: Thoracic spinal stimulator. IMPRESSION: Stable enlarged cardiac silhouette.
[2020-05-17 01:26] VITALS: RESP 16
[2020-05-17 02:13] VITALS: BP 142/82; PULSE 68
[2020-05-17] MEDS: DEXAMETHASONE SOD PHOSPHATE 10 MG/ML 1 ML VIAL IM STA ×2 (02:28→02:29)
[2020-05-17 02:46] VITALS: TEMP 98.9
== END 2020-05-17 02:46 | disposition home or self-care (01) ==
LOC: EC 00:29
DX: R53.1 Weakness (principal); R06.02 Shortness of breath; F32.9 Major depressive disorder, single episode, unspecified; J44.9 Chronic obstructive pulmonary disease, unspecified; E11.9 Type 2 diabetes mellitus without complications; E78.5 Hyperlipidemia, unspecified; M19.90 Unspecified osteoarthritis, unspecified site; E07.9 Disorder of thyroid, unspecified; G47.33 Obstructive sleep apnea (adult) (pediatric); Z79.4 Long term (current) use of insulin; Z79.890 Hormone replacement therapy; Z79.899 Other long term (current) drug therapy; Z88.5 Allergy status to narcotic agent; Z87.891 Personal history of nicotine dependence; Z90.49 Acquired absence of other specified parts of digestive tract; Z90.710 Acquired absence of both cervix and uterus; Z90.5 Acquired absence of kidney
CPT/HCPCS: 71045; 93005; 99285

== ENCOUNTER 2020-05-17 21:43 | Observation (INO) | payer MEDICARE, BC ==
--- NOTE | 2020-05-17 22:28 | ED ---
SOB HPI - General Chief Complaint: Shortness of Breath Stated Complaint: SOB,altered Time Seen by Provider: 05/17/20 21:45 Source: EMS Mode of arrival: EMS Limitations: no limitations, altered mental status - History of Present Illness Initial Comments: Patient is a 75-year-old female with multiple medical conditions to include osteoarthritis, diabetes, memory impairment, chronic kidney disease and obstructive sleep apnea who presents to the emergency department with reported altered mental status and shortness of breath. Patient resides at [facility] on [facility]. Patient has been seen in the emergency department several times for similar complaint. Dr. Chun called the ED to report the patient was increasing short of breath with bilateral rales. She was recently hospitalized and her lasix was decreased. Patient reports to worsening le edema. Denies chest pain. No fevers or chills. No cough. No alleviating, precipitating or modifying fact ors - Related Data Home Medications Medication Instructions Recorded Confirmed DULoxetine HCL [Cymbalta] 60 mg PO DAILY@0900 03/06/19 05/17/20 Dorzolamide/Timolol/Pf 1 drop BOTH EYES TID@0900,1300,209903/06/19 05/17/20 [Dorzolamide 2%-Timolol 0.5%] Acetaminophen Tab [Tylenol] 650 mg PO Q6H PRN 01/25/20 05/17/20 Atorvastatin [Lipitor] 40 mg PO DAILY@209903/01/20 05/17/20 Levothyroxine Sodium [Synthroid] 50 mcg PO HS@209903/01/20 05/17/20 Albuterol Sulfate [Proventil Hfa] 2 puff INHALATION RT-Q6H PRN 04/30/20 05/17/20 Famotidine 10 mg PO BID@0900,1700 04/30/20 05/17/20 INSULIN LISPRO (humaLOG) [humaLOG] See Protocol SQ ACHS@08,12,17,04/30/20 05/17/20 Melatonin 3 mg PO HS@1999 PRN 04/30/20 05/17/20 Metoprolol Succinate (ER) [Toprol 25 mg PO DAILY@0900 04/30/20 05/17/20 XL] Rivaroxaban [Xarelto] 10 mg PO DAILY@0900 04/30/20 05/17/20 Ascorbic Acid [Vitamin C] 1,000 mg PO DAILY@89905/13/20 05/17/20 Cholecalciferol [Vitamin D3 (25 50 mcg PO DAILY@89905/13/20 05/17/20 Mcg = 1000 Iu)] Lactulose [Cephulac] 20 gm PO TID PRN 05/13/20 05/17/20 Zinc Sulfate [Orazinc] 220 mg PO DAILY@89905/13/20 05/17/20 Ipratropium-Albuterol Nebulize 3 ml INHALATION RT-Q6H PRN 05/17/20 05/17/20 [Duoneb 0.5 mg-3 mg/3 ml Soln] Previous Rx's Medication Instructions Recorded metFORMIN HCL [Glucophage] 500 mg PO BID #1 tab 05/20/20 Allergies Allergy/AdvReac Type Severity Reaction Status Date / Time codeine AdvReac Nausea & Verified 05/17/20 22:01 Vomiting Review of Systems ROS Statement: Those systems with pertinent positive or pertinent negative responses have been documented in the HPI. ROS Other: All systems not noted in ROS Statement are negative. Past Medical History Past Medical History: COPD, Dementia, Diabetes Mellitus, Eye Disorder, Hyperlipidemia, Memory Impairment, Osteoarthritis (OA), Pneumonia, Renal Disease, Sleep Apnea/CPAP/BIPAP, Thyroid Disorder Additional Past Medical History / Comment(s): Chronic respiratory failure, home oxygen at /[facility], [place] without device at [facility], + covid diagnosed 04/01/20 at [facility], IDDM type II, neuropathy bilateral feet, CKD stage III-pt had L nephrectomy but bertha cannot recall reason, anemia, UTIs, glaucoma bilateral eyes, muscle weakness, gait dysfunction, incontinence urine/stool, allergic rhinitis, troponin leak -unsure if AR. History of Any Multi-Drug Resistant Organisms: ESBL Date of last positivie culture/infection: 03/20/19 MDRO Source:: Urine Past Surgical History: Appendectomy, Cholecystectomy, Hernia Repair, Hysterectomy, Tonsillectomy Additional Past Surgical History / Comment(s): L nephrectomy, colonoscopy Past Anesthesia/Blood Transfusion Reactions: No Reported Reaction Past Psychological History: Depression Smoking Status: Former smoker Past Alcohol Use History: None Reported Past Drug Use History: None Reported - Past Family History Mother Family Medical History: Cancer Additional Family Medical History / Comment(s): throat cancer General Exam Limitations: altered mental status General appearance: alert, in no apparent distress, lethargic, obese Head exam: Present: atraumatic, normocephalic, normal inspection Eye exam: Present: normal appearance, PERRL, EOMI. Absent: scleral icterus, conjunctival injection, periorbital swelling ENT exam: Present: normal exam, mucous membranes moist Neck exam: Present: normal inspection. Absent: tenderness, meningismus, lymphadenopathy Respiratory exam: Present: decreased breath sounds. Absent: respiratory distress, wheezes, rales, rhonchi, stridor Cardiovascular Exam: Present: regular rate, normal rhythm, normal heart sounds. Absent: systolic murmur, diastolic murmur, rubs, gallop, clicks GI/Abdominal exam: Present: soft, normal bowel sounds. Absent: distended, tenderness, guarding, rebound, rigid Extremities exam: Present: normal inspection, full ROM, normal capillary refill. Absent: tenderness, pedal edema, joint swelling, calf tenderness Back exam: Present: normal inspection Neurological exam: Present: alert (to verbal and light stimuli. dozes off during exam quickly), CN II-XII intact Psychiatric exam: Present: normal mood, flat affect Skin exam: Present: warm, dry, intact, normal color. Absent: rash Course Vital Signs 05/17/20 05/17/20 05/17/20 21:45 23:05 23:59 Temperature 97.4 F L 97.6 F Pulse Rate 79 82 75 Respiratory 24 24 22 Rate Blood Pressure 141/89 138/93 148/88 O2 Sat by Pulse 95 95 98 Oximetry Medical Decision Making - Medical Decision Making Upon arrival patient is placed in room 5. A thorough history and physical exam was performed. Laboratory studies were conducted. CO2 comes back elevated at 43. BNP is 1360. Chest x-ray demonstrates minimal atelectasis left posterior lung base which is likely not changed. Patient given a additional dose of Lasix in the emergency department because of her reported worsening lower externally swelling. Dr. Chun requested hospital admission. Spoke with Dr. Wilkins - requesting CT brain which is ordered. Dr. Solano will follow up with CT results. Orders placed for the floor. Patient remained in stable condition awaiting a bed - Lab Data Result diagrams: 05/18/20 07:10 05/19/20 06:05 Lab Results 05/17/20 05/17/20 05/17/20 Range/Units 22:46 22:46 22:46 WBC 15.3 H (3.8-10.6) k/uL RBC 4.29 (3.80-5.40) m/uL Hgb 12.9 (11.4-16.0) gm/dL Hct 40.2 (34.0-46.0) % MCV 93.6 (80.0-100.0) fL MCH 30.1 (25.0-35.0) pg MCHC 32.2 (31.0-37.0) g/dL RDW 14.5 (11.5-15.5) % Plt Count 389 (150-450) k/uL MPV 7.0 Neutrophils % 80 % Lymphocytes % 6 % Monocytes % 7 % Eosinophils % 5 % Basophils % 0 % Neutrophils # 12.3 H (1.3-7.7) k/uL Lymphocytes # 0.9 L (1.0-4.8) k/uL Monocytes # 1.0 (0-1.0) k/uL Eosinophils # 0.8 H (0-0.7) k/uL Basophils # 0.1 (0-0.2) k/uL Hypochromasia Slight PT 12.5 H (9.0-12.0) sec INR 1.2 H (<1.2) APTT 28.4 (22.0-30.0) sec Sodium 135 L (137-145) mmol/L Potassium 4.3 (3.5-5.1) mmol/L Chloride 87 L (98-107) mmol/L Carbon Dioxide 43 H* (22-30) mmol/L Anion Gap 5 mmol/L BUN 18 H (7-17) mg/dL Creatinine 0.84 (0.52-1.04) mg/dL Est GFR (CKD-EPI)AfAm 78 (>60 ml/min/1.73 sqM) Est GFR (CKD-EPI)NonAf 67 (>60 ml/min/1.73 sqM) Glucose 163 H (74-99) mg/dL Plasma Lactic Acid Taz (0.7-2.0) mmol/L Calcium 8.8 (8.4-10.2) mg/dL Magnesium 1.9 (1.6-2.3) mg/dL Total Bilirubin 1.5 H (0.2-1.3) mg/dL AST 17 (14-36) U/L ALT 23 (4-34) U/L Alkaline Phosphatase 108 (38-126) U/L Creatine Kinase <20 L (30-135) U/L Troponin I (0.000-0.034) ng/mL NT-Pro-B Natriuret Pep pg/mL Total Protein 5.5 L (6.3-8.2) g/dL Albumin 3.0 L (3.5-5.0) g/dL Urine Color Urine Appearance (Clear) Urine pH (5.0-8.0) Ur Specific [place] (1.001-1.035) Urine Protein (Negative) Urine Glucose (UA) (Negative) Urine Ketones (Negative) Urine Blood (Negative) Urine Nitrite (Negative) Urine Bilirubin (Negative) Urine Urobilinogen (<2.0) mg/dL Ur Leukocyte Esterase (Negative) Urine RBC (0-5) /hpf Urine WBC (0-5) /hpf Ur Squamous Epith Cells (0-4) /hpf Urine Bacteria (None) /hpf Hyaline Casts (0-2) /lpf Urine Mucus (None) /hpf Urine Yeast (Budding) (None) /hpf Influenza Type A RNA (Not Detectd) Influenza Type B (PCR) (Not Detectd) 05/17/20 05/17/20 05/17/20 Range/Units 22:46 22:46 22:46 WBC (3.8-10.6) k/uL RBC (3.80-5.40) m/uL Hgb (11.4-16.0) gm/dL Hct (34.0-46.0) % MCV (80.0-100.0) fL MCH (25.0-35.0) pg MCHC (31.0-37.0) g/dL RDW (11.5-15.5) % Plt Count (150-450) k/uL MPV Neutrophils % % Lymphocytes % % Monocytes % % Eosinophils % % Basophils % % Neutrophils # (1.3-7.7) k/uL Lymphocytes # (1.0-4.8) k/uL Monocytes # (0-1.0) k/uL Eosinophils # (0-0.7) k/uL Basophils # (0-0.2) k/uL Hypochromasia PT (9.0-12.0) sec INR (<1.2) APTT (22.0-30.0) sec Sodium (137-145) mmol/L Potassium (3.5-5.1) mmol/L Chloride (98-107) mmol/L Carbon Dioxide (22-30) mmol/L Anion Gap mmol/L BUN (7-17) mg/dL Creatinine (0.52-1.04) mg/dL Est GFR (CKD-EPI)AfAm (>60 ml/min/1.73 sqM) Est GFR (CKD-EPI)NonAf (>60 ml/min/1.73 sqM) Glucose (74-99) mg/dL Plasma Lactic Acid Taz 1.0 (0.7-2.0) mmol/L Calcium (8.4-10.2) mg/dL Magnesium (1.6-2.3) mg/dL Total Bilirubin (0.2-1.3) mg/dL AST (14-36) U/L ALT (4-34) U/L Alkaline Phosphatase (38-126) U/L Creatine Kinase (30-135) U/L Troponin I <0.012 (0.000-0.034) ng/mL NT-Pro-B Natriuret Pep 1360 pg/mL Total Protein (6.3-8.2) g/dL Albumin (3.5-5.0) g/dL Urine Color Urine Appearance (Clear) Urine pH (5.0-8.0) Ur Specific [place] (1.001-1.035) Urine Protein (Negative) Urine Glucose (UA) (Negative) Urine Ketones (Negative) Urine Blood (Negative) Urine Nitrite (Negative) Urine Bilirubin (Negative) Urine Urobilinogen (<2.0) mg/dL Ur Leukocyte Esterase (Negative) Urine RBC (0-5) /hpf Urine WBC (0-5) /hpf Ur Squamous Epith Cells (0-4) /hpf Urine Bacteria (None) /hpf Hyaline Casts (0-2) /lpf Urine Mucus (None) /hpf Urine Yeast (Budding) (None) /hpf Influenza Type A RNA (Not Detectd) Influenza Type B (PCR) (Not Detectd) 05/17/20 05/17/20 Range/Units 23:23 23:23 WBC (3.8-10.6) k/uL RBC (3.80-5.40) m/uL Hgb (11.4-16.0) gm/dL Hct (34.0-46.0) % MCV (80.0-100.0) fL MCH (25.0-35.0) pg MCHC (31.0-37.0) g/dL RDW (11.5-15.5) % Plt Count (150-450) k/uL MPV Neutrophils % % Lymphocytes % % Monocytes % % Eosinophils % % Basophils % % Neutrophils # (1.3-7.7) k/uL Lymphocytes # (1.0-4.8) k/uL Monocytes # (0-1.0) k/uL Eosinophils # (0-0.7) k/uL Basophils # (0-0.2) k/uL Hypochromasia PT (9.0-12.0) sec INR (<1.2) APTT (22.0-30.0) sec Sodium (137-145) mmol/L Potassium (3.5-5.1) mmol/L Chloride (98-107) mmol/L Carbon Dioxide (22-30) mmol/L Anion Gap mmol/L BUN (7-17) mg/dL Creatinine (0.52-1.04) mg/dL Est GFR (CKD-EPI)AfAm (>60 ml/min/1.73 sqM) Est GFR (CKD-EPI)NonAf (>60 ml/min/1.73 sqM) Glucose (74-99) mg/dL Plasma Lactic Acid Taz (0.7-2.0) mmol/L Calcium (8.4-10.2) mg/dL Magnesium (1.6-2.3) mg/dL Total Bilirubin (0.2-1.3) mg/dL AST (14-36) U/L ALT (4-34) U/L Alkaline Phosphatase (38-126) U/L Creatine Kinase (30-135) U/L Troponin I (0.000-0.034) ng/mL NT-Pro-B Natriuret Pep pg/mL Total Protein (6.3-8.2) g/dL Albumin (3.5-5.0) g/dL Urine Color Yellow Urine Appearance Clear (Clear) Urine pH 5.5 (5.0-8.0) Ur Specific [place] 1.019 (1.001-1.035) Urine Protein Trace H (Negative) Urine Glucose (UA) Negative (Negative) Urine Ketones Negative (Negative) Urine Blood Negative (Negative) Urine Nitrite Negative (Negative) Urine Bilirubin Negative (Negative) Urine Urobilinogen <2.0 (<2.0) mg/dL Ur Leukocyte Esterase Moderate H (Negative) Urine RBC 2 (0-5) /hpf Urine WBC 26 H (0-5) /hpf Ur Squamous Epith Cells 1 (0-4) /hpf Urine Bacteria Occasional H (None) /hpf Hyaline Casts 4 H (0-2) /lpf Urine Mucus Occasional H (None) /hpf Urine Yeast (Budding) Moderate H (None) /hpf Influenza Type A RNA Not Detected (Not Detectd) Influenza Type B (PCR) Not Detected (Not Detectd) - EKG Data EKG Comments: EKG demonstrates normal sinus rhythm with a ventricular rate of 78. Appearance: 30. QRS 76. QTC of 458. No acute ST segment elevations or depressions Disposition Clinical Impression: COPD with exacerbation, Weakness, Respiratory distress, acute Disposition: ADMITTED IP TO THIS HOSP Condition: Stable Is patient prescribed a controlled substance at d/c from ED?: No Decision to Admit Reason: Admit from EC Decision Date: 05/17/20 Decision Time: 23:11
[2020-05-17 23:04] LABS: Basophils # (A) 0.1 k/uL (0-0.2); Basophils % (A) 0 %; Eosinophils # (A) 0.8 k/uL (0-0.7); Eosinophils % (A) 5 %; HCT 40.2 % (34.0-46.0); HGB 12.9 gm/dL (11.4-16.0); Hypochromasia Slight; Lymphocytes # (A) 0.9 k/uL (1.0-4.8); Lymphocytes % (A) 6 %; MCH 30.1 pg (25.0-35.0); MCHC 32.2 g/dL (31.0-37.0); MCV 93.6 fL (80.0-100.0); Monocytes % (A) 7 %; Neutrophils # (A) 12.3 k/uL (1.3-7.7); Neutrophils % (A) 80 %; Platelet Count 389 k/uL (150-450); RBC 4.29 m/uL (3.80-5.40); RDW 14.5 % (11.5-15.5); WBC 15.3 k/uL (3.8-10.6)
--- NOTE | 2020-05-17 23:14 | XR ---
EXAMINATION TYPE: XR chest 2V DATE OF EXAM: 05/17/2020 COMPARISON: Today HISTORY: Short of breath TECHNIQUE: FINDINGS: There is no heart failure. Lungs are clear of consolidation. There are chest leads. There a re no hilar masses. There is osteopenia. There is some coarse density behind the heart in the left lo wer lobe. IMPRESSION: Minimal atelectasis left posterior lung base probably not changed compared to exam this m orning. No heart failure. Mild atelectasis left midlung field also unchanged.
[2020-05-17 23:17] LABS: ALT 23 U/L (4-34); AST 17 U/L (14-36); African American GFR (CKD) 78 (>60 ml/min/1.73 sqM); Alkaline Phosphatase 108 U/L (38-126); Blood Urea Nitrogen 18 mg/dL (7-17); Calcium 8.8 mg/dL (8.4-10.2); Chloride 87 mmol/L (98-107); Creatine Kinase <20 U/L (30-135); Glucose 163 mg/dL (74-99); Magnesium 1.9 mg/dL (1.6-2.3); Non-African American GFR(CKD) 67 (>60 ml/min/1.73 sqM); Potassium 4.3 mmol/L (3.5-5.1); Sodium 135 mmol/L (137-145); Total Bilirubin 1.5 mg/dL (0.2-1.3); Total Protein 5.5 g/dL (6.3-8.2)
[2020-05-17 23:23] LABS: Anion Gap 5 mmol/L
[2020-05-17] MEDS ORDERED: FUROSEMIDE 10 MG/ML 4 ML VIAL IV STA (23:24)
[2020-05-17] MEDS ORDERED: NALOXONE 0.4 MG/ML 1 ML VIAL IV PRN (23:24)
[2020-05-17 23:25] LABS: Carbon Dioxide 43 mmol/L (22-30); INR 1.2 (<1.2); Partial Thromboplastin Time 28.4 sec (22.0-30.0); Prothrombin Time 12.5 sec (9.0-12.0)
[2020-05-17] MEDS ORDERED: ALBUTEROL HFA INHALER INHALATION PRN (23:30)
[2020-05-17] MEDS ORDERED: IPRATROPIUM-ALBUTEROL 3 ML NEB INHALATION PRN (23:30)
[2020-05-17 23:46] LABS: Appearance,Urine Clear (Clear); Bacteria,Urine Occasional /hpf; Bilirubin,Urine Negative (Negative); Blood,Urine Negative (Negative); Budding Yeast,Urine Moderate /hpf; Color,Urine Yellow; Glucose,Urine (UA) Negative (Negative); Hyaline Casts,Urine 4 /lpf (0-2); Ketones,Urine Negative (Negative); Leukocyte Esterase,Urine Moderate (Negative); Mucus,Urine Occasional /hpf; Nitrite,Urine Negative (Negative); PH, Urine 5.5 (5.0-8.0); Protein,Urine Trace (Negative); RBC,Urine 2 /hpf (0-5); Specific Gravity,Urine 1.019 (1.001-1.035); Squamous Epithelial Cell,Urine 1 /hpf (0-4); Urobilinogen,Urine <2.0 mg/dL (<2.0); WBC,Urine 26 /hpf (0-5)
[2020-05-18] MEDS ORDERED: IPRATROPIUM-ALBUTEROL 3 ML NEB INHALATION SCH
[2020-05-18] MEDS ORDERED: traMADol 50 MG TAB PO PRN
--- NOTE | 2020-05-18 00:02 | CT ---
EXAMINATION TYPE: CT brain wo con DATE OF EXAM: 05/17/2020 COMPARISON: None HISTORY: Altered mental status CT DLP: mGycm Automated exposure control for dose reduction was used. There is cerebral atrophy. There is patchy hypodensity in the periventricular white matter. This is m ore noticeable around the frontal horns of the lateral ventricles. There is enlargement of the right sylvian fissure compared to the left. There is more hypodensity around the frontal horn right lateral ventricle. The calvarium is intact. Skull base is intact. IMPRESSION: Cerebral atrophy. There is more noticeable atrophy in the right frontal and temporal lobes with chron ic small vessel ischemia. No acute intracranial abnormality.
[2020-05-18 07:06] LABS: Glucose,Whole Blood 130 mg/dL (75-99)
[2020-05-18] MEDS ORDERED: TIOTROPIUM 2.5 MCG INHALER INHALATION SCH (08:00)
[2020-05-18] MEDS ORDERED: POTASSIUM CHLORIDE ER 10 MEQ TAB.ER.PRT PO SCH (09:00)
[2020-05-18] MEDS ORDERED: LACTULOSE 20 GM/30 ML CUP PO PRN (09:00)
[2020-05-18] MEDS ORDERED: DORZOLAMIDE BOTH EYES SCH (09:00)
[2020-05-18] MEDS ORDERED: TIMOLOL BOTH EYES SCH (09:00)
[2020-05-18] MEDS: METOPROLOL SUCCINATE (ER) 25 MG TAB.ER.24H PO SCH (09:08)
[2020-05-18] MEDS: CHOLECALCIFEROL 25 MCG (1000 IU) TABLET PO SCH (09:08)
[2020-05-18] MEDS: FAMOTIDINE 20 MG TAB PO SCH ×2 (09:08→17:13)
[2020-05-18] MEDS: ASCORBIC ACID 500 MG TAB PO SCH (09:09)
[2020-05-18] MEDS: RIVAROXABAN 10 MG TAB PO SCH (09:09)
[2020-05-18] MEDS: DULoxetine HCL 60 MG CAPSULE.DR PO SCH (09:09)
[2020-05-18] MEDS: ZINC SULFATE 220 MG CAP PO SCH (09:09)
[2020-05-18] MEDS: CEFDINIR 300 MG CAP PO SCH ×2 (09:10→20:11)
[2020-05-18 09:39] LABS: Basophils # (A) 0.1 k/uL (0-0.2); Basophils % (A) 1 %; Eosinophils # (A) 0.7 k/uL (0-0.7); Eosinophils % (A) 6 %; HCT 38.1 % (34.0-46.0); HGB 12.7 gm/dL (11.4-16.0); Lymphocytes # (A) 0.9 k/uL (1.0-4.8); Lymphocytes % (A) 7 %; MCH 30.7 pg (25.0-35.0); MCHC 33.2 g/dL (31.0-37.0); MCV 92.6 fL (80.0-100.0); Mean Platelet Volume 8.6; Monocytes # (A) 1.2 k/uL (0-1.0); Monocytes % (A) 10 %; Neutrophils # (A) 9.1 k/uL (1.3-7.7); Neutrophils % (A) 75 %; Platelet Count 279 k/uL (150-450); RBC 4.12 m/uL (3.80-5.40); RDW 14.8 % (11.5-15.5); WBC 12.2 k/uL (3.8-10.6)
[2020-05-18] MEDS ORDERED: IPRATROPIUM-ALBUTEROL 3 ML NEB INHALATION PRN (10:42)
[2020-05-18] MEDS: IPRATROPIUM-ALBUTEROL 3 ML NEB INHALATION SCH ×3 (11:08→21:28)
[2020-05-18 11:24] LABS: African American GFR (CKD) >90 (>60 ml/min/1.73 sqM); Anion Gap 7 mmol/L; Blood Urea Nitrogen 18 mg/dL (7-17); Calcium 8.9 mg/dL (8.4-10.2); Chloride 86 mmol/L (98-107); Glucose 116 mg/dL (74-99); Non-African American GFR(CKD) 79 (>60 ml/min/1.73 sqM); Potassium 5.3 mmol/L (3.5-5.1); Sodium 133 mmol/L (137-145)
[2020-05-18 11:41] LABS: Carbon Dioxide >40 mmol/L (22-30)
[2020-05-18 11:44] LABS: Glucose,Whole Blood 170 mg/dL (75-99)
[2020-05-18] MEDS: predniSONE 20 MG TAB PO SCH (12:06)
--- NOTE | 2020-05-18 12:08 | P.HPIM ---
History of Present Illness Patient is a very pleasant 75-year-old female with multiple medical conditions to include osteoarthritis, diabetes, memory impairment, chronic kidney disease and obstructive sleep apnea who presents to the emergency department with reported altered mental status and shortness of breath. Patient resides at [facility] on the [place]. Patient has been seen in the emergency department several times for similar complaint. Dr. Chun called the ED to report the patient was increasing short of breath with bilateral rales. Patient was subsequently admitted for respiratory failure. Patient is supposed to wear CPAP machine at nighttime but patient usually noncompliant with that. Patient chest x-ray did not show any pulmonary edema did show some atelectasis patient was discharged on antibiotics for possible pneumonia during her last hospitalization. Patient is not in heart failure exacerbation at this time. Patient has some contraction alkalosis may be CO2 retention leading to respiratory alkalosis. Pulmonology was consulted patient will be started on low-dose of oral steroids patient is diabetic patient will be started on sliding scale insulin patient blood sugars are expected to go. Patient is quite weak and tired compared to last hospitalization probably secondary to CO2 retention. Review of Systems REVIEW OF SYSTEMS: CONSTITUTIONAL: No fever, no malaise, no fatigue. HEENT: No recent visual problems or hearing problems. Denied any sore throat. CARDIOVASCULAR: No chest pain, orthopnea, PND, no palpitations, no syncope. PULMONARY: no hemoptysis. GASTROINTESTINAL: No diarrhea, no nausea, no vomiting, no abdominal pain. NEUROLOGICAL: No headaches, no weakness, no numbness. HEMATOLOGICAL: Denies any bleeding or petechiae. GENITOURINARY: Denies any burning micturition, frequency, or urgency. MUSCULOSKELETAL/RHEUMATOLOGICAL: Denies any joint pain, swelling, or any muscle pain. ENDOCRINE: Denies any polyuria or polydipsia. The rest of the 14-point review of systems is negative. Past Medical History Past Medical History: COPD, Dementia, Diabetes Mellitus, Eye Disorder, Hyperlipidemia, Memory Impairment, Osteoarthritis (OA), Pneumonia, Renal Disease, Sleep Apnea/CPAP/BIPAP, Thyroid Disorder Additional Past Medical History / Comment(s): Chronic respiratory failure, home oxygen at 3L/NC ATC, KEEGAN without device at [facility], + covid diagnosed 04/01/20 at [facility], IDDM type II, neuropathy bilateral feet, CKD stage III-pt had L nephrectomy but bertha cannot recall reason, anemia, UTIs, glaucoma bilateral eyes, muscle weakness, gait dysfunction, incontinence urine/stool, allergic rhinitis, troponin leak -unsure if [place]. History of Any Multi-Drug Resistant Organisms: ESBL Date of last positivie culture/infection: 03/20/19 MDRO Source:: Urine Past Surgical History: Appendectomy, Cholecystectomy, Hernia Repair, Hysterectomy, Tonsillectomy Additional Past Surgical History / Comment(s): L nephrectomy, colonoscopy Past Anesthesia/Blood Transfusion Reactions: No Reported Reaction Past Psychological History: Depression Additional Psychological History / Comment(s): Pt resides at [facility]. She gets up occasionally with walker and PT. She uses O2 at 3L/NC ATC. She is incontinent of urine and stool. Smoking Status: Former smoker Past Alcohol Use History: None Reported Additional Past Alcohol Use History / Comment(s): Pt started smoking in 1958 and quit in 1988. Past Drug Use History: None Reported - Past Family History Mother Family Medical History: Cancer Additional Family Medical History / Comment(s): throat cancer Medications and Allergies Home Medications Medication Instructions Recorded Confirmed Type DULoxetine HCL [Cymbalta] 60 mg PO DAILY@0900 03/06/19 05/17/20 History Dorzolamide/Timolol/Pf 1 drop BOTH EYES TID@0900,1300,209903/06/19 05/17/20 H istory [Dorzolamide 2%-Timolol 0.5%] Acetaminophen Tab [Tylenol] 650 mg PO Q6H PRN 01/25/20 05/17/20 History glipiZIDE [Glucotrol XL] 10 mg PO BID@0900,1700 02/29/20 05/17/20 History Atorvastatin [Lipitor] 40 mg PO DAILY@2100 03/01/20 05/17/20 History Levothyroxine Sodium [Synthroid] 50 mcg PO HS@209903/01/20 05/17/20 History Albuterol Sulfate [Proventil Hfa] 2 puff INHALATION RT-Q6H PRN 04/30/20 05/17/20 History Famotidine 10 mg PO BID@0900,1700 04/30/20 05/17/20 History INSULIN LISPRO (humaLOG) [humaLOG] See Protocol SQ ACHS@08,12,17,04/30/20 05/17/20 History Melatonin 3 mg PO HS@1999 PRN 04/30/20 05/17/20 History Metoprolol Succinate (ER) [Toprol 25 mg PO DAILY@89904/30/20 05/17/20 History XL] Rivaroxaban [Xarelto] 10 mg PO DAILY@89904/30/20 05/17/20 History Ascorbic Acid [Vitamin C] 1,000 mg PO DAILY@89905/13/20 05/17/20 History Cholecalciferol [Vitamin D3 (25 50 mcg PO DAILY@89905/13/20 05/17/20 History Mcg = 1000 Iu)] Lactulose [Cephulac] 20 gm PO TID PRN 05/13/20 05/17/20 History Potassium Chloride ER [K-Dur 10] 10 meq PO DAILY@89905/13/20 05/17/20 History Zinc Sulfate [Orazinc] 220 mg PO DAILY@89905/13/20 05/17/20 History clonazePAM [KlonoPIN] 0.5 mg PO DAILY PRN 05/13/20 05/17/20 History traMADol HCL [Ultram] 50 mg PO Q8HR PRN 05/13/20 05/17/20 History Furosemide [Lasix] 20 mg PO DAILY@0600 #0 05/14/20 05/17/20 Rx Cefuroxime Axetil [Ceftin] 500 mg PO BID@0900,2100 05/17/20 05/17/20 History Ipratropium-Albuterol Nebulize 3 ml INHALATION RT-Q6H PRN 05/17/20 05/17/20 History [Duoneb 0.5 mg-3 mg/3 ml Soln] Allergies Allergy/AdvReac Type Severity Reaction Status Date / Time codeine AdvReac Nausea & Verified 05/17/20 22:01 Vomiting Physical Exam Vitals: Vital Signs Temp Pulse Pulse Resp BP BP Pulse Ox 05/18/20 09:26 92 L 05/18/20 08:00 97.6 F 73 16 135/80 97 05/18/20 01:41 97.6 F 69 141/70 95 05/17/20 23:59 97.6 F 75 22 148/88 98 05/17/20 23:05 82 24 138/93 95 05/17/20 21:45 97.4 F L 79 24 141/89 95 Intake and Output 05/17/20 05/18/20 05/18/20 22:59 06:59 14:59 Intake Total 180 Output Total 1800 Balance -1800 180 Intake: Oral 180 Output: Urine 1800 Other: Voiding Method Indwelling Catheter Indwelling Catheter Weight 111.13 kg 111.13 kg PHYSICAL EXAMINATION: GENERAL: The patient is alert and oriented x3, not in any acute distress. Obese HEENT: Pupils are round and equally reacting to light. EOMI. No scleral icterus. No conjunctival pallor. Normocephalic, atraumatic. No pharyngeal erythema. No thyromegaly. CARDIOVASCULAR: S1 and S2 present. No murmurs, rubs, or gallops. PULMONARY: No significant air movement in the chest no wheezing was appreciated ABDOMEN: Soft, nontender, nondistended, normoactive bowel sounds. No palpable organomegaly. MUSCULOSKELETAL: No joint swelling or deformity. EXTREMITIES: No cyanosis, clubbing, or pedal edema. NEUROLOGICAL: Gross neurological examination did not reveal any focal deficits. SKIN: No rashes. Results CBC & Chem 7: 05/18/20 07:10 05/18/20 07:10 Labs: Abnormal Lab Results - Last 24 Hours (Table) 05/17/20 05/17/20 05/17/20 Range/Units 22:46 22:46 22:46 WBC 15.3 H (3.8-10.6) k/uL Neutrophils # 12.3 H (1.3-7.7) k/uL Lymphocytes # 0.9 L (1.0-4.8) k/uL Monocytes # (0-1.0) k/uL Eosinophils # 0.8 H (0-0.7) k/uL PT 12.5 H (9.0-12.0) sec INR 1.2 H (<1.2) Sodium 135 L (137-145) mmol/L Potassium (3.5-5.1) mmol/L Chloride 87 L (98-107) mmol/L Carbon Dioxide 43 H* (22-30) mmol/L BUN 18 H (7-17) mg/dL Glucose 163 H (74-99) mg/dL POC Glucose (mg/dL) (75-99) mg/dL Total Bilirubin 1.5 H (0.2-1.3) mg/dL Creatine Kinase <20 L (30-135) U/L Total Protein 5.5 L (6.3-8.2) g/dL Albumin 3.0 L (3.5-5.0) g/dL Urine Protein (Negative) Ur Leukocyte Esterase (Negative) Urine WBC (0-5) /hpf Urine Bacteria (None) /hpf Hyaline Casts (0-2) /lpf Urine Mucus (None) /hpf Urine Yeast (Budding) (None) /hpf 05/17/20 05/18/20 05/18/20 Range/Units 23:23 07:04 07:10 WBC 12.2 H (3.8-10.6) k/uL Neutrophils # 9.1 H (1.3-7.7) k/uL Lymphocytes # 0.9 L (1.0-4.8) k/uL Monocytes # 1.2 H (0-1.0) k/uL Eosinophils # (0-0.7) k/uL PT (9.0-12.0) sec INR (<1.2) Sodium (137-145) mmol/L Potassium (3.5-5.1) mmol/L Chloride (98-107) mmol/L Carbon Dioxide (22-30) mmol/L BUN (7-17) mg/dL Glucose (74-99) mg/dL POC Glucose (mg/dL) 130 H (75-99) mg/dL Total Bilirubin (0.2-1.3) mg/dL Creatine Kinase (30-135) U/L Total Protein (6.3-8.2) g/dL Albumin (3.5-5.0) g/dL Urine Protein Trace H (Negative) Ur Leukocyte Esterase Moderate H (Negative) Urine WBC 26 H (0-5) /hpf Urine Bacteria Occasional H (None) /hpf Hyaline Casts 4 H (0-2) /lpf Urine Mucus Occasional H (None) /hpf Urine Yeast (Budding) Moderate H (None) /hpf 05/18/20 05/18/20 Range/Units 07:10 11:43 WBC (3.8-10.6) k/uL Neutrophils # (1.3-7.7) k/uL Lymphocytes # (1.0-4.8) k/uL Monocytes # (0-1.0) k/uL Eosinophils # (0-0.7) k/uL PT (9.0-12.0) sec INR (<1.2) Sodium 133 L (137-145) mmol/L Potassium 5.3 H (3.5-5.1) mmol/L Chloride 86 L (98-107) mmol/L Carbon Dioxide >40 H* (22-30) mmol/L BUN 18 H (7-17) mg/dL Glucose 116 H (74-99) mg/dL POC Glucose (mg/dL) 170 H (75-99) mg/dL Total Bilirubin (0.2-1.3) mg/dL Creatine Kinase (30-135) U/L Total Protein (6.3-8.2) g/dL Albumin (3.5-5.0) g/dL Urine Protein (Negative) Ur Leukocyte Esterase (Negative) Urine WBC (0-5) /hpf Urine Bacteria (None) /hpf Hyaline Casts (0-2) /lpf Urine Mucus (None) /hpf Urine Yeast (Budding) (None) /hpf Microbiology - Last 24 Hours (Table) 05/17/20 23:00 Urine Culture - Preliminary Urine,Voided Thrombosis Risk Factor Assmnt - Choose All That Apply Any of the Below Risk Factors Present?: Yes Each Factor Represents 1 point: Medical pt on bed rest, Obesity (BMI >25) Each Risk Factor Represents 3 Points: Age 75 years or older Thrombosis Risk Factor Assessment Total Risk Factor Score: 5 Thrombosis Risk Factor Assessment Level: High Risk Assessment and Plan Plan: Acute on chronic hypoxic and hypercapnic respiratory failure secondary to COPD exacerbation which I believe is mild and mostly patient has sleep apnea will need to continue her CPAP machine. Patient will be resumed on CPAP machine continue on Ceftin probably will not require any antibiotics upon discharge patient doesn't have any clear evidence of pneumonia on this hospitalization either. There is no evidence of CHF exacerbation patient was given oral Lasix leading to hyponatremia because of which I'll hold of Lasix temporarily for now. COPD with mild acute exacerbation -CHF chronic diastolic dysfunction without any acute exacerbation -Sleep apnea -Obese to -Type 2 diabetes mellitus patient is on glipizide which will be continued patient blood sugars are expected to go will be on sliding scale insulin patient was started on oral steroids 20 mg Possible COPD exacerbation -hyperlipidemia -Hypothyroidism -Patient is a long-term anticoagulation which will be continued
[2020-05-18] MEDS: DORZOLAMIDE-TIMOLOL 2.23%/0.68 10ML BTL BOTH EYES SCH ×2 (12:18→20:10)
[2020-05-18] MEDS: INSULIN ASPART (NovoLOG) 100 UNIT/ML VIAL SQ SCH ×3 (12:18→20:10)
--- NOTE | 2020-05-18 16:08 | P.CNPUL ---
History of Present Illness Consult date: 05/18/20 Requesting physician: Jeanette Quiros Reason for consult: dyspnea, cough, COPD, hypoxemia, abnormal CXR/CT, obstructive sleep apnea Chief complaint: Shortness of breath. History of present illness: 75-year-old female who presents to the emergency department on 05/17/2020, brought in by EMS, from one of the local nursing homes. The patient apparently was complaining of increasing and progressive shortness of breath. The patient apparently has been to the emergency department several times for similar complaints. Her primary care provider apparently called the emergency room to say that she was coming back in again for further evaluation. Currently, the patient complains of shortness of breath. She is normally on 2-3 L of O2 . She likely has some underlying COPD from previous tobacco use, and also some congestive heart failure. She also suffers from osteoarthritis, diabetes, dementia, chronic kidney disease, and obstructive sleep apnea syndrome, for which she uses CPAP. In addition, the patient has a history of hyperlipidemia, hypothyroidism, chronic respiratory failure, previous left nephrectomy, and stage III chronic kidney disease, as well as diabetic neuropathy. The patient is not a particularly good historian. History of a hard to get any history from her. She apparently is still feeling short of breath we'll reevaluate her today. Currently, she is on 2 L and saturations are 94%. Current laboratory data includes a white count of 12.2, hemoglobin 12.7, hematocrit 38.1, and platelet count 279,000. PT is 12.5, INR 1.2, PTT 28.4. Sodium is 133, potassium 5.3, chlorides 86, CO2 greater than 40, anion gap is 7, and BUN and creatinine were 18, and 0.74. N-terminal proBNP was 1360. Urine, was consistent with a possible urinary tract infection. Review of Systems REVIEW OF SYSTEMS: CONSTITUTIONAL: Weakness. NEUROLOGIC: Mental status changes. HEENT: [ Negative.] CARDIAC: Lower extremity edema. PULMONARY: Shortness of breath, a dry cough. GI: [Negative.] : Dysuria. RHEUMATOLOGIC: [ Negative.] IMMUNOLOGIC: [ Negative.] ENDOCRINE: [Negative. ] DERMATOLOGIC: [Negative.] Past Medical History Past Medical History: COPD, Dementia, Diabetes Mellitus, Eye Disorder, Hyperlipi demia, Memory Impairment, Osteoarthritis (OA), Pneumonia, Renal Disease, Sleep Apnea/CPAP/BIPAP, Thyroid Disorder Additional Past Medical History / Comment(s): Chronic respiratory failure, home oxygen at 3L/NC ATC, KEEGAN without device at [facility], + covid diagnosed 04/01/20 at [facility], IDDM type II, neuropathy bilateral feet, CKD stage III-pt had L nephrectomy but bertha cannot recall reason, anemia, UTIs, glaucoma bilateral eyes, muscle weakness, gait dysfunction, incontinence urine/stool, allergic rhinitis, troponin leak -unsure if [place]. History of Any Multi-Drug Resistant Organisms: ESBL Date of last positivie culture/infection: 03/20/19 MDRO Source:: Urine Past Surgical History: Appendectomy, Cholecystectomy, Hernia Repair, Hysterectomy, Tonsillectomy Additional Past Surgical History / Comment(s): L nephrectomy, colonoscopy Past Anesthesia/Blood Transfusion Reactions: No Reported Reaction Past Psychological History: Depression Additional Psychological History / Comment(s): Pt resides at [facility]. She gets up occasionally with walker and PT. She uses O2 at 3L/NC ATC. She is incontinent of urine and stool. Smoking Status: Former smoker Past Alcohol Use History: None Reported Additional Past Alcohol Use History / Comment(s): Pt started smoking in 1958 and quit in 1988. Past Drug Use History: None Reported - Past Family History Mother Family Medical History: Cancer Additional Family Medical History / Comment(s): throat cancer Medications and Allergies Home Medications Medication Instructions Recorded Confirmed Type DULoxetine HCL [Cymbalta] 60 mg PO DAILY@0900 03/06/19 05/17/20 History Dorzolamide/Timolol/Pf 1 drop BOTH EYES TID@0900,1300,2100 03/06/19 05/17/20 History [Dorzolamide 2%-Timolol 0.5%] Acetaminophen Tab [Tylenol] 650 mg PO Q6H PRN 01/25/20 05/17/20 History glipiZIDE [Glucotrol XL] 10 mg PO BID@0900,1700 02/29/20 05/17/20 History Atorvastatin [Lipitor] 40 mg PO DAILY@2100 03/01/20 05/17/20 History Levothyroxine Sodium [Synthroid] 50 mcg PO HS@2100 03/01/20 05/17/20 History Albuterol Sulfate [Proventil Hfa] 2 puff INHALATION RT-Q6H PRN 04/30/20 05/17/20 History Famotidine 10 mg PO BID@0900,1700 04/30/20 05/17/20 History INSULIN LISPRO (humaLOG) [humaLOG] See Protocol SQ ACHS@08,12,17,04/30/20 05/17/20 History Melatonin 3 mg PO HS@2000 PRN 04/30/20 05/17/20 History Metoprolol Succinate (ER) [Toprol 25 mg PO DAILY@0900 04/30/20 05/17/20 History XL] Rivaroxaban [Xarelto] 10 mg PO DAILY@0900 04/30/20 05/17/20 History Ascorbic Acid [Vitamin C] 1,000 mg PO DAILY@0900 05/13/20 05/17/20 History Cholecalciferol [Vitamin D3 (25 50 mcg PO DAILY@0900 05/13/20 05/17/20 History Mcg = 1000 Iu)] Lactulose [Cephulac] 20 gm PO TID PRN 05/13/20 05/17/20 History Potassium Chloride ER [K-Dur 10] 10 meq PO DAILY@0900 05/13/20 05/17/20 History Zinc Sulfate [Orazinc] 220 mg PO DAILY@0900 05/13/20 05/17/20 History clonazePAM [KlonoPIN] 0.5 mg PO DAILY PRN 05/13/20 05/17/20 History traMADol HCL [Ultram] 50 mg PO Q8HR PRN 05/13/20 05/17/20 History Furosemide [Lasix] 20 mg PO DAILY@0600 #0 05/14/20 05/17/20 Rx Cefuroxime Axetil [Ceftin] 500 mg PO BID@0900,2100 05/17/20 05/17/20 History Ipratropium-Albuterol Nebulize 3 ml INHALATION RT-Q6H PRN 05/17/20 05/17/20 History [Duoneb 0.5 mg-3 mg/3 ml Soln] Allergies Allergy/AdvReac Type Severity Reaction Status Date / Time codeine AdvReac Nausea & Verified 05/17/20 22:01 Vomiting Physical Exam Osteopathic Statement: *. No significant issues noted on an osteopathic structural exam other than those noted in the History and Physical/Consult. Vitals: Vital Signs Temp Pulse Pulse Resp BP BP Pulse Ox 05/18/20 15:23 72 05/18/20 15:11 72 05/18/20 14:59 97.5 F L 65 18 143/83 94 L 05/18/20 12:37 72 146/78 95 05/18/20 09:26 92 L 05/18/20 08:00 97.6 F 73 16 135/80 97 05/18/20 01:41 97.6 F 69 141/70 95 05/17/20 23:59 97.6 F 75 22 148/88 98 05/17/20 23:05 82 24 138/93 95 05/17/20 21:45 97.4 F L 79 24 141/89 95 Intake and Output 05/18/20 05/18/20 05/18/20 06:59 14:59 22:59 Intake Total 476 Output Total 1800 Balance -1800 476 Intake: Oral 476 Output: Urine 1800 Other: Voiding Method Indwelling Catheter Indwelling Catheter Weight 111.13 kg No acute distress, oriented 3. Nasal O2 at 2 L/m. HEENT examination is grossly unremarkable. Mucous membranes are moist. No oral lesions. Neck supple. Full range of motion. No adenopathy thyromegaly or neck vein distention. Cardiovascular examination reveals regular rhythm rate. S1-S2 normal. No S3 or S4. No discernible murmur noted. Heart sounds are distant and heart rate is 72 bpm. Lungs reveal bilateral rhonchi and a few scattered wheezes. Some mild basilar crackles are noted. Breath sounds are equal bilaterally. Breath sounds are diminished throughout. Patient does not take deep breaths. Abdomen soft bowel sounds are heard. No masses or tenderness. Extremities are intact. No cyanosis or clubbing. Mild lower extremity edema is noted bilaterally. Skin is without rash or lesion. Neurologic examination is brief but nonfocal. The patient is not a very good historian and seems a bit confused as to her symptoms and events. Results - Laboratory Findings CBC and BMP: 05/18/20 07:10 05/18/20 07:10 PT/INR, D-dimer PT 12.5 sec (9.0-12.0) H 05/17/20 22:46 INR 1.2 (<1.2) H 05/17/20 22:46 Abnormal lab findings: Abnormal Labs 05/17/20 05/17/20 05/17/20 22:46 22:46 22:46 WBC 15.3 H Neutrophils # 12.3 H Lymphocytes # 0.9 L Monocytes # Eosinophils # 0.8 H PT 12.5 H INR 1.2 H Sodium 135 L Potassium Chloride 87 L Carbon Dioxide 43 H* BUN 18 H Glucose 163 H POC Glucose (mg/dL) Total Bilirubin 1.5 H Creatine Kinase <20 L Total Protein 5.5 L Albumin 3.0 L Urine Protein Ur Leukocyte Esterase Urine WBC Urine Bacteria Hyaline Casts Urine Mucus Urine Yeast (Budding) 05/17/20 05/18/20 05/18/20 23:23 07:04 07:10 WBC 12.2 H Neutrophils # 9.1 H Lymphocytes # 0.9 L Monocytes # 1.2 H Eosinophils # PT INR Sodium Potassium Chloride Carbon Dioxide BUN Glucose POC Glucose (mg/dL) 130 H Total Bilirubin Creatine Kinase Total Protein Albumin Urine Protein Trace H Ur Leukocyte Esterase Moderate H Urine WBC 26 H Urine Bacteria Occasional H Hyaline Casts 4 H Urine Mucus Occasional H Urine Yeast (Budding) Moderate H 05/18/20 05/18/20 07:10 11:43 WBC Neutrophils # Lymphocytes # Monocytes # Eosinophils # PT INR Sodium 133 L Potassium 5.3 H Chloride 86 L Carbon Dioxide >40 H* BUN 18 H Glucose 116 H POC Glucose (mg/dL) 170 H Total Bilirubin Creatine Kinase Total Protein Albumin Urine Protein Ur Leukocyte Esterase Urine WBC Urine Bacteria Hyaline Casts Urine Mucus Urine Yeast (Budding) - Diagnostic Findings Chest x-ray: image reviewed Assessment and Plan Assessment: Shortness of breath, which is likely multifactorial, in part related to COPD exacerbation but also mild CHF. History of sleep apnea syndrome, currently on CPAP at the retirement. Prior diagnoses of COVID 19 infection, 04/01/2020. Possible acute urinary tract infection. History of dementia. History of diabetes mellitus and diabetic neuropathy. History of hyperlipidemia. Osteoarthritis. History of pneumonia. History of stage III chronic kidney disease. History of hypothyroidism. Chronic hypoxemic and hypercapnic respiratory failure. History of glaucoma. Urinary incontinence. Previous left nephrectomy for unclear reasons. History of chronic urinary tract infection. History of anemia. Plan: Plan dated 05/18/2020. Currently, the patient is on Omnicef, 300 mg twice a day, along with Pulmicort, and DuoNeb. The patient is also on prednisone 20 mg a day. Her other med ications seem appropriate. The patient will have the Pulmicort increase to 1 mg twice a day, and I will also add some formoterol, 20 g, twice a day. Additional recommendations and suggestions are forthcoming. A d-dimer will be checked. Additional recommendations and suggestions are forthcoming. Prognosis is guarded. The patient is a no code patient. I would add vitamin C, vitamin D3, and zinc, if not already added. Time with Patient: Greater than 30
[2020-05-18 16:59] LABS: Glucose,Whole Blood 175 mg/dL (75-99)
[2020-05-18] MEDS ORDERED: BUDESONIDE 0.5 MG/2 ML NEBU INHALATION SCH (20:00)
[2020-05-18 20:08] LABS: Glucose,Whole Blood 254 mg/dL (75-99)
[2020-05-18] MEDS: ATORVASTATIN 40 MG TAB PO SCH (20:11)
[2020-05-18] MEDS: LEVOTHYROXINE 50 MCG TAB PO SCH (20:11)
[2020-05-18] MEDS: BUDESONIDE 1 MG/2 ML NEBU INHALATION SCH (21:28)
[2020-05-18] MEDS: FORMOTEROL FUMARATE 20 MCG/2 ML NEBU INHALATION SCH (21:28)
[2020-05-19 06:56] LABS: Glucose,Whole Blood 114 mg/dL (75-99)
[2020-05-19] MEDS: INSULIN ASPART (NovoLOG) 100 UNIT/ML VIAL SQ SCH ×4 (07:11→20:52)
[2020-05-19] MEDS: METOPROLOL SUCCINATE (ER) 25 MG TAB.ER.24H PO SCH (07:23)
[2020-05-19] MEDS: predniSONE 20 MG TAB PO SCH (07:23)
[2020-05-19] MEDS: ASCORBIC ACID 500 MG TAB PO SCH (07:23)
[2020-05-19] MEDS: RIVAROXABAN 10 MG TAB PO SCH (07:23)
[2020-05-19] MEDS: CHOLECALCIFEROL 25 MCG (1000 IU) TABLET PO SCH (07:23)
[2020-05-19] MEDS: FAMOTIDINE 20 MG TAB PO SCH ×2 (07:24→17:18)
[2020-05-19] MEDS: ZINC SULFATE 220 MG CAP PO SCH (07:24)
[2020-05-19] MEDS: DULoxetine HCL 60 MG CAPSULE.DR PO SCH (07:24)
[2020-05-19] MEDS: DORZOLAMIDE-TIMOLOL 2.23%/0.68 10ML BTL BOTH EYES SCH ×3 (07:24→20:52)
[2020-05-19] MEDS: CEFDINIR 300 MG CAP PO SCH ×2 (07:26→20:52)
[2020-05-19] MEDS: FORMOTEROL FUMARATE 20 MCG/2 ML NEBU INHALATION SCH ×2 (08:05→20:57)
[2020-05-19] MEDS: BUDESONIDE 1 MG/2 ML NEBU INHALATION SCH ×2 (08:05→20:57)
[2020-05-19] MEDS: IPRATROPIUM-ALBUTEROL 3 ML NEB INHALATION SCH ×4 (08:05→20:57)
[2020-05-19 10:33] LABS: African American GFR (CKD) 72 (>60 ml/min/1.73 sqM); Blood Urea Nitrogen 19 mg/dL (7-17); Calcium 8.9 mg/dL (8.4-10.2); Chloride 87 mmol/L (98-107); Glucose 105 mg/dL (74-99); Non-African American GFR(CKD) 63 (>60 ml/min/1.73 sqM); Potassium 4.4 mmol/L (3.5-5.1); Sodium 132 mmol/L (137-145)
[2020-05-19 10:39] LABS: Anion Gap 6 mmol/L; Carbon Dioxide 39 mmol/L (22-30)
[2020-05-19 11:37] LABS: Glucose,Whole Blood 266 mg/dL (75-99)
--- NOTE | 2020-05-19 14:45 | P.PN ---
Subjective Progress Note Date: 05/19/20 Principal diagnosis: Respiratory failure. 75-year-old female who presents to the emergency department on 05/17/2020, brought in by EMS, from one of the local nursing homes. The patient apparently was complaining of increasing and progressive shortness of breath. The patient apparently has been to the emergency department several times for similar complaints. Her primary care provider apparently called the emergency room to say that she was coming back in again for further evaluation. Currently, the patient complains of shortness of breath. She is normally on 2-3 L of O2 . She likely has some underlying COPD from previous tobacco use, and also some congestive heart failure. She also suffers from osteoarthritis, diabetes, dementia, chronic kidney disease, and obstructive sleep apnea syndrome, for which she uses CPAP. In addition, the patient has a history of hyperlipidemia, hypothyroidism, chronic respiratory failure, previous left nephrectomy, and stage III chronic kidney disease, as well as diabetic neuropathy. The patient is not a particularly good historian. History of a hard to get any history from her. She apparently is still feeling short of breath we'll reevaluate her today. Currently, she is on 2 L and saturations are 94%. Current laboratory data includes a white count of 12.2, hemoglobin 12.7, hematocrit 38.1, and platelet count 279,000. PT is 12.5, INR 1.2, PTT 28.4. Sodium is 133, potassium 5.3, chlorides 86, CO2 greater than 40, anion gap is 7, and BUN and creatinine were 18, and 0.74. N-terminal proBNP was 1360. Urine, was consistent with a possible urinary tract infection. Progress note dated 05/19/2020. 75-year-old female was seen in the emergency department on 05/17/2020. The patient was brought in from one of the local nursing homes shortness of breath. She was thought to have a COPD exacerbation, and possibly some congestive heart failure. In addition, the patient has a history of sleep apnea syndrome, and apparently was using CPAP at the residential, but has refused it here. Currently, she is on 2 L nasal cannula. Today's lab data includes a sodium 132, potassium 4.4, chloride 87, CO2 39, anion gap 6, BUN 19, creatinine 0.8. Currently, the patient is on Omnicef for possible urinary tract infection. Her other medications are appropriate and include DuoNeb, formoterol, and Pulmicort. The patient was also on prednisone, 20 mg a day. She has not been real compliant with the nursing staff. Objective - Vital Signs Vital signs: Vital Signs Temp 98.3 F 05/19/20 07:19 Pulse 75 05/19/20 12:41 Resp 17 05/19/20 12:36 BP 127/81 05/19/20 07:19 Pulse Ox 98 05/19/20 07:19 Intake & Output 05/18/20 05/19/20 05/19/20 18:59 06:59 18:59 Intake Total 1076 Output Total 650 Balance 1076 -650 Intake: Oral 1076 Output: Urine 650 Other: Voiding Method Indwelling Catheter Indwelling Catheter Indwelling Catheter - Exam No acute distress. Nasal O2 at 2 L/m. Lethargic and somnolent. HEENT examination is grossly unremarkable. Mucous membranes are moist. No oral lesions. Neck supple. Full range of motion. No adenopathy thyromegaly or neck vein distention. Cardiovascular examination reveals regular rhythm rate. S1-S2 normal. No S3 or S4. No discernible murmur noted. Heart sounds are distant and heart rate is 75 bpm. Lungs reveal bilateral rhonchi and a few scattered wheezes. Some mild basilar crackles are noted. Breath sounds are equal bilaterally. Breath sounds are diminished throughout. Patient does not take deep breaths. Abdomen soft bowel sounds are heard. No masses or tenderness. Extremities are intact. No cyanosis or clubbing. Mild lower extremity edema is noted bilaterally. Skin is without rash or lesion. Neurologic examination is brief but nonfocal. The patient is not a very good historian and seems a bit confused as to her symptoms and events. - Labs CBC & Chem 7: 05/18/20 07:10 05/19/20 06:05 Labs: Abnormal Lab Results - Last 24 Hours (Table) 05/18/20 05/18/20 05/19/20 Range/Units 16:53 20:06 06:05 Sodium 132 L (137-145) mmol/L Chloride 87 L (98-107) mmol/L Carbon Dioxide 39 H (22-30) mmol/L BUN 19 H (7-17) mg/dL Glucose 105 H (74-99) mg/dL POC Glucose (mg/dL) 175 H 254 H (75-99) mg/dL 05/19/20 05/19/20 Range/Units 06:55 11:35 Sodium (137-145) mmol/L Chloride (98-107) mmol/L Carbon Dioxide (22-30) mmol/L BUN (7-17) mg/dL Glucose (74-99) mg/dL POC Glucose (mg/dL) 114 H 266 H (75-99) mg/dL Microbiology - Last 24 Hours (Table) 05/17/20 23:00 Urine Culture - Final Urine,Voided Assessment and Plan Assessment: Shortness of breath, which is likely multifactorial, in part related to COPD exacerbation but also mild CHF. History of sleep apnea syndrome, currently on CPAP at the residential. Prior diagnoses of COVID 19 infection, 04/01/2020. Possible acute urinary tract infection. History of dementia. History of diabetes mellitus and diabetic neuropathy. History of hyperlipidemia. Osteoarthritis. History of pneumonia. History of stage III chronic kidney disease. History of hypothyroidism. Chronic hypoxemic and hypercapnic respiratory failure. History of glaucoma. Urinary incontinence. Previous left nephrectomy for unclear reasons. History of chronic urinary tract infection. History of anemia. Plan: Plan dated 05/18/2020. Currently, the patient is on Omnicef, 300 mg twice a day, along with Pulmicort, and DuoNeb. The patient is also on prednisone 20 mg a day. Her other medications seem appropriate. The patient will have the Pulmicort increase to 1 mg twice a day, and I will also add some formoterol, 20 g, twice a day. Additional recommendations and suggestions are forthcoming. A d-dimer will be checked. Additional recommendations and suggestions are forthcoming. Prognosis is guarded. The patient is a no code patient. I would add vitamin C, vitamin D3, and zinc, if not already added. Plan dated 05/19/2020. Currently, the patient seems to be resting comfortably. She seems a bit lethargic and somnolent today, likely because she is refusing CPAP at nighttime. The patient's on appropriate medications including DuoNeb, Pulmicort, formoterol, and oral prednisone. She is also on a cephalosporin for a possible urinary tract infection. We will continue to follow. We did recommend vitamin C, vitamin D3, and zinc. Additional recommendations and suggestions are forthcoming. Prognosis is guarded. Time with Patient: Less than 30
[2020-05-19 17:09] LABS: Glucose,Whole Blood 222 mg/dL (75-99)
--- NOTE | 2020-05-19 20:42 | P.PN ---
Progress Note - Text Progress Note Date: 05/19/20 Chief Complaint: Short of breath History of presenting complaint: This is a pleasant 74-year-old patient of Dr. Winston. Currently at [facility] in [facility]. Chronic stable medical conditions include diabetes, some memory impairment, left nephrectomy, osteoarthritis, chronic kidney disease, obstructive sleep apnea uses CPAP, hypothyroid. Normally uses a 4 wheel walker to get about. home oxygen about 3 L. Patient now admitted with acute on chronic hypoxic and hypercapnic respiratory failure secondary to COPD exacerbation and sleep apnea. Today-a bit sleepy. On nasal cannula. Patient ate all her breakfast. Patient has refused to use a CPAP here.. Review of systems: Was done for constitutional, cardiovascular, GI, pulmonary. relevant finding as above Active Medications Acetaminophen (Acetaminophen Tab 325 Mg Tab) 650 mg PO Q6H PRN PRN Reason: Fever and/ or Pain Albuterol/Ipratropium (Ipratropium-Albuterol 3 Ml Neb) 3 ml INHALATION RT-QID PRN PRN Reason: Shortness Of Breath Or Wheezing Albuterol/Ipratropium (Ipratropium-Albuterol 3 Ml Neb) 3 ml INHALATION RT-QID [facility] Last Admin: 05/19/20 16:56 Dose: Not Given Documented by: Ascorbic Acid (Ascorbic Acid 500 Mg Tab) 1,000 mg PO DAILY@0900 [facility] Last Admin: 05/19/20 07:23 Dose: 1,000 mg Documented by: Atorvastatin Calcium (Atorvastatin 40 Mg Tab) 40 mg PO DAILY@2100 [facility] Last Admin: 05/18/20 20:11 Dose: 40 mg Documented by: Budesonide (Budesonide 1 Mg/2 Ml Nebu) 1 mg INHALATION RT-BID [facility] Last Admin: 05/19/20 08:05 Dose: 1 mg Documented by: Cefdinir (Cefdinir 300 Mg Cap) 300 mg PO BID@0900,2100 [facility] Last Admin: 05/19/20 07:26 Dose: 300 mg Documented by: Cholecalciferol (Cholecalciferol 25 Mcg (1000 Iu) Tablet) 50 mcg PO DAILY@0900 [facility] Last Admin: 05/19/20 07:23 Dose: 50 mcg Documented by: Dorzolamide/Timolol (Dorzolamide-Timolol 2.23%/0.68 10ml Btl) 1 drops BOTH EYES TID@0900,1300,2100 [facility] Last Admin: 05/19/20 12:34 Dose: 1 drops Documented by: Duloxetine HCl (Duloxetine Hcl 60 Mg Capsule.Dr) 60 mg PO DAILY@0900 [facility] Last Admin: 05/19/20 07:24 Dose: 60 mg Documented by: Famotidine (Famotidine 20 Mg Tab) 10 mg PO BID@0900,1700 [facility] Last Admin: 05/19/20 17:18 Dose: 10 mg Documented by: Formoterol Fumarate (Formoterol Fumarate 20 Mcg/2 Ml Nebu) 20 mcg INHALATION RT-BID [facility] Last Admin: 05/19/20 08:05 Dose: 20 mcg Documented by: Insulin Aspart (Insulin Aspart (Novolog) 100 Unit/Ml Vial) 0 unit SQ [facility]; Protocol Last Admin: 05/19/20 17:19 Dose: 4 unit Documented by: Lactulose (Lactulose 20 Gm/30 Ml Cup) 20 gm PO TID PRN PRN Reason: Constipation Levothyroxine Sodium (Levothyroxine 50 Mcg Tab) 50 mcg PO HS@2100 [facility] Last Admin: 05/18/20 20:11 Dose: 50 mcg Documented by: Metoprolol Succinate (Metoprolol Succinate (Er) 25 Mg Tab.Er.24h) 25 mg PO DAILY@0900 [facility] Last Admin: 05/19/20 07:23 Dose: 25 mg Documented by: Naloxone HCl (Naloxone 0.4 Mg/Ml 1 Ml Vial) 0.2 mg IV Q2M PRN PRN Reason: Opioid Reversal Prednisone (Prednisone 20 Mg Tab) 20 mg PO DAILY [facility] Last Admin: 05/19/20 07:23 Dose: 20 mg Documented by: Rivaroxaban (Rivaroxaban 10 Mg Tab) 10 mg PO DAILY@0900 [facility] Last Admin: 05/19/20 07:23 Dose: 10 mg Documented by: Zinc Sulfate (Zinc Sulfate 220 Mg Cap) 220 mg PO DAILY@0900 [facility] Last Admin: 05/19/20 07:24 Dose: 220 mg Documented by: Physical examination: VITAL SIGNS: 98.1, 71, 18, 1 4682, 92% on 2 L GENERAL: Propped up in bed, sleepy lethargic, arousable EYES: Pupils equal. Conjunctiva normal. HEENT: External appearance of nose and ears normal, oral cavity grossly normal. NECK: JVD unable to assess; masses not palpable. HEART: [Heart sounds distant; some edema. LUNGS: Respiratory rate increased, diminished breath sounds , prolonged expiration. ABDOMEN: Soft, nontender, liver spleen not palpable, no masses palpable. PSYCH: Able to answer questions INVESTIGATIONS, reviewed in the clinical context: Potassium 4.4 creatinine 0.89 Admission labs: White count 15.3 hemoglobin 12.9 potassium 4.3 bicarb 43 creatinine 0.84 UA positive for leukoesterase, bacteria Influenza type A type B-not detected EKG tracing personally reviewed by me-normal sinus rhythm. Nonspecific T-wave changes Chest x-ray film personally reviewed by me-possible atelectasis Computed tomography scan of the brain-cerebral atrophy Assessment: -Acute COPD exacerbation in an ex-smoker. POA,-slow to respond -Acute hypoxic and hypercapnic respiratory failure f, POA, -Acute hypoxic encephalopathy from not using CPAP -Chronic hypoxic and hypercapnic respiratory failure from underlying COPD -Diabetes mellitus type 2, chronically on insulin, -Hypothyroid -Primary osteoarthritis -Hyperlipidemia -Chronic medical debility. -Mild cognitive impairment -Obstructive sleep apnea, uses CPAP at the [facility]. -Acute UTI with cystitis -DO NOT RESUSCITATE Plan: We'll follow with pulmonary. Patient is to use a CPAP. We will complete the course of oral antibiotic for the UTI. Prognosis guarded.
[2020-05-19 20:44] LABS: Glucose,Whole Blood 211 mg/dL (75-99)
[2020-05-19] MEDS: ATORVASTATIN 40 MG TAB PO SCH (20:52)
[2020-05-19] MEDS: LEVOTHYROXINE 50 MCG TAB PO SCH (20:52)
[2020-05-19] MEDS: ACETAMINOPHEN TAB 325 MG TAB PO PRN (22:12)
[2020-05-20 06:56] LABS: Glucose,Whole Blood 140 mg/dL (75-99)
[2020-05-20] MEDS: BUDESONIDE 1 MG/2 ML NEBU INHALATION SCH (08:21)
[2020-05-20] MEDS: FORMOTEROL FUMARATE 20 MCG/2 ML NEBU INHALATION SCH (08:21)
[2020-05-20] MEDS: IPRATROPIUM-ALBUTEROL 3 ML NEB INHALATION SCH ×3 (08:21→15:38)
[2020-05-20] MEDS: INSULIN ASPART (NovoLOG) 100 UNIT/ML VIAL SQ SCH ×2 (08:42→11:47)
[2020-05-20] MEDS: METOPROLOL SUCCINATE (ER) 25 MG TAB.ER.24H PO SCH (09:46)
[2020-05-20] MEDS: predniSONE 20 MG TAB PO SCH (09:47)
[2020-05-20] MEDS: DULoxetine HCL 60 MG CAPSULE.DR PO SCH (09:48)
[2020-05-20] MEDS: CHOLECALCIFEROL 25 MCG (1000 IU) TABLET PO SCH (09:48)
[2020-05-20] MEDS: RIVAROXABAN 10 MG TAB PO SCH (09:48)
[2020-05-20] MEDS: FAMOTIDINE 20 MG TAB PO SCH (09:49)
[2020-05-20] MEDS: ZINC SULFATE 220 MG CAP PO SCH (09:51)
[2020-05-20] MEDS: ASCORBIC ACID 500 MG TAB PO SCH (09:51)
[2020-05-20] MEDS: CEFDINIR 300 MG CAP PO SCH (09:52)
[2020-05-20] MEDS: DORZOLAMIDE-TIMOLOL 2.23%/0.68 10ML BTL BOTH EYES SCH ×2 (09:53→12:19)
[2020-05-20] MEDS: ACETAMINOPHEN TAB 325 MG TAB PO PRN (10:45)
[2020-05-20 11:40] LABS: Glucose,Whole Blood 120 mg/dL (75-99)
[2020-05-20 12:56] VITALS: BP 144/68; PULSE 77; RESP 20; TEMP 98.6
--- NOTE | 2020-05-20 13:52 | P.PN ---
Subjective Progress Note Date: 05/20/20 Principal diagnosis: acute exacerbation of COPD and mild CHF. 75-year-old female who presents to the emergency department on 05/17/2020, brought in by EMS, from one of the local nursing homes. The patient apparently was complaining of increasing and progressive shortness of breath. The patient apparently has been to the emergency department several times for similar complaints. Her primary care provider apparently called the emergency room to say that she was coming back in again for further evaluation. Currently, the patient complains of shortness of breath. She is normally on 2-3 L of O2 . She likely has some underlying COPD from previous tobacco use, and also some congestive heart failure. She also suffers from osteoarthritis, diabetes, dementia, chronic kidney disease, and obstructive sleep apnea syndrome, for which she uses CPAP. In addition, the patient has a history of hyperlipidemia, hypothyroidism, chronic respiratory failure, previous left nephrectomy, and stage III chronic kidney disease, as well as diabetic neuropathy. The patient is not a particularly good historian. History of a hard to get any history from her. She apparently is still feeling short of breath we'll reevaluate her today. Currently, she is on 2 L and saturations are 94%. Current laboratory data includes a white count of 12.2, hemoglobin 12.7, hematocrit 38.1, and platelet count 279,000. PT is 12.5, INR 1.2, PTT 28.4. Sodium is 133, potassium 5.3, chlorides 86, CO2 greater than 40, anion gap is 7, and BUN and creatinine were 18, and 0.74. N-terminal proBNP was 1360. Urine, was consistent with a possible urinary tract infection. Progress note dated 05/19/2020. 75-year-old female was seen in the emergency department on 05/17/2020. The patient was brought in from one of the local nursing homes shortness of breath. She was thought to have a COPD exacerbation, and possibly some congestive heart failure. In addition, the patient has a history of sleep apnea syndrome, and apparently was using CPAP at the [place] [facility], but has refused it here. Currently, she is on 2 L nasal cannula. Today's lab data includes a sodium 132, potassium 4.4, chloride 87, CO2 39, anion gap 6, BUN 19, creatinine 0.8. Currently, the patient is on Omnicef for possible urinary tract infection. Her other medications are appropriate and include DuoNeb, formoterol, and Pulmicort. The patient was also on prednisone, 20 mg a day. She has not been real compliant with the nursing staff. On 05/20/2020 patient seen in follow-up on medical floor.she is in no acute distress, she is on 2 L of oxygen and pulse ox of 98%, patient has not been able to tolerate the CPAP provided by the hospital, she wants her home device from home. vital signs are stable, she's been afebrile, she's had no acute events overnight, no altered mentation, she is answering questions appropriately. Objective - Vital Signs Vital signs: Vital Signs Temp 98.6 F 05/20/20 12:54 Pulse 77 05/20/20 12:54 Resp 20 05/20/20 12:54 BP 144/68 05/20/20 12:54 Pulse Ox 98 05/20/20 12:54 Intake & Output 05/19/20 05/20/20 05/20/20 18:59 06:59 18:59 Output Total 700 700 Balance -700 -700 Output: Urine 700 700 Other: Voiding Method Indwelling Catheter Indwelling Catheter Indwelling Catheter - Exam GENERAL EXAM: Alert, very pleasant, 75-year-old white female, on 2 L of oxygen a pulse ox of 98%, comfortable in no apparent distress. HEAD: Normocephalic/atraumatic. EYES: Normal reaction of pupils, equal size. Conjunctiva pink, sclera white. NOSE: Clear with pink turbinates. THROAT: No erythema or exudates. NECK: No masses, no JVD, no thyroid enlargement, no adenopathy. CHEST: No chest wall deformity. Symmetrical expansion. LUNGS: Equal air entry with no crackles, wheeze, rhonchi or dullness. CVS: Regular rate and rhythm, normal S1 and S2, no gallops, no murmurs, no rubs ABDOMEN: Soft, nontender. No hepatosplenomegaly, normal bowel sounds, no guarding or rigidity. EXTREMITIES: No clubbing, no edema, no cyanosis, 2+ pulses and upper and lower extremities. MUSCULOSKELETAL: Muscle strength and tone normal. SPINE: No scoliosis or deformity SKIN: No rashes CENTRAL NERVOUS SYSTEM: Alert and oriented -3. No focal deficits, tone is normal in all 4 extremities. PSYCHIATRIC: Alert and oriented -3. Appropriate affect. Intact judgment and insight. - Labs CBC & Chem 7: 05/18/20 07:10 05/19/20 06:05 Labs: Abnormal Lab Results - Last 24 Hours (Table) 05/19/20 05/19/20 05/20/20 Range/Units 17:06 20:42 06:55 POC Glucose (mg/dL) 222 H 211 H 140 H (75-99) mg/dL 05/20/20 Range/Units 11:38 POC Glucose (mg/dL) 120 H (75-99) mg/dL Assessment and Plan Plan: Shortness of breath, which is likely multifactorial, in part related to COPD exacerbation but also mild CHF. History of sleep apnea syndrome, currently on CPAP at the [place] [facility]. Prior diagnoses of COVID 19 infection, 04/01/2020. Possible acute urinary tract infection. History of dementia. History of diabetes mellitus and diabetic neuropathy. History of hyperlipidemia. Osteoarthritis. History of pneumonia. History of stage III chronic kidney disease. History of hypothyroidism. Chronic hypoxemic and hypercapnic respiratory failure. History of glaucoma. Urinary incontinence. Previous left nephrectomy for unclear reasons. History of chronic urinary tract infection. History of anemia. Plan: Patient is clinically stable, she has had no fever or chills, her mentation is appropriate, answering questions appropriately, continue nebulized bronchodilators, continue oral prednisone, patient continues on oral antibiotics, culture data is negative thus far, her son is supposed to bring her CPAP unit from home, can wear that at bedtime at 12 cm of water. Weaning FiO2, from pulmonary perspective patient could be considered for discharge back to the [facility] I performed a history & physical examination of the patient and discussed their management with my nurse practitioner, Candace Blackwood. I reviewed the nurse practitioner's note and agree with the documented findings and plan of care. Lung sounds are positive for diminished breath sounds. The findings and the impression was discussed with the patient. I attest to the documentation by the nurse practitioner. Time with Patient: Less than 30
--- NOTE | 2020-05-20 14:08 | P.DS ---
Providers Date of admission: 05/17/20 23:24 Expected date of discharge: 05/20/20 Attending physician: Terry Ghotra Consults: 05/17/20 23:34 Consult Physician Urgent Consulting Provider: Fabiola Lorenzo Consult Reason/Comments: acute/chronic resp failure Do you want consulting provider notified?: Yes, Notify in am Primary care physician: [facility]io [facility] Course: Chief Complaint: Short of breath History of presenting complaint: This is a pleasant 74-year-old patient of Dr. Winston. Currently at [facility] in [facility]. Chronic stable medical conditions include diabetes, some memory impairment, left nephrectomy, osteoarthritis, chronic kidney disease, obstructive sleep apnea uses CPAP, hypothyroid. Normally uses a 4 wheel walker to get about. home oxygen about 3 L. Patient now admitted with acute on chronic hypoxic and hypercapnic respiratory failure secondary to COPD exacerbation and sleep apnea. Also treated for UTI. Completed course of antibiotic. Lasix discontinued because of being alkalotic. Patient has refused to use a CPAP here.. Today-eating well. Told to use a CPAP when she gets back to the [facility]. Cleared by Dr. Rueda from pulmonary. Consultation: Dr. Rueda from pulmonary Physical examination: VITAL SIGNS: 98.6, 77, 20, 140/68, 98% on 2 L GENERAL: Propped up in bed, sleepy, arousable EYES: Pupils equal. Conjunctiva normal. HEENT: External appearance of nose and ears normal, oral cavity grossly normal. NECK: JVD unable to assess; masses not palpable. HEART: [Heart sounds distant; some edema. LUNGS: Respiratory rate increased, diminished breath sounds , prolonged expiration. ABDOMEN: Soft, nontender, liver spleen not palpable, no masses palpable. PSYCH: Answering questions INVESTIGATIONS, reviewed in the clinical context: Potassium 4.4 creatinine 0.89 Admission labs: White count 15.3 hemoglobin 12.9 potassium 4.3 bicarb 43 creatinine 0.84 UA positive for leukoesterase, bacteria Urine culture-negative Influenza type A type B-not detected EKG tracing personally reviewed by me-normal sinus rhythm. Nonspecific T-wave changes Chest x-ray film personally reviewed by me-possible atelectasis Computed tomography scan of the brain-cerebral atrophy Assessment: -Acute COPD exacerbation in an ex-smoker. POA, -Acute hypoxic and hypercapnic respiratory failure , POA, -Acute hypoxic encephalopathy from not using CPAP -Chronic hypoxic and hypercapnic respiratory failure from underlying COPD -Diabetes mellitus type 2, chronically on insulin, -Hypothyroid -Primary osteoarthritis -Hyperlipidemia -Chronic medical debility. -Mild cognitive impairment -Obstructive sleep apnea, uses CPAP at the [facility]. -Acute UTI with cystitis-completed course of antibiotic. -DO NOT RESUSCITATE Disposition: [facility] Patient Condition at Discharge: Stable Plan - Discharge Summary Discharge Rx Participant: No New Discharge Prescriptions: No Action DULoxetine HCL [Cymbalta] 60 mg PO DAILY@0900 Dorzolamide/Timolol/Pf [Dorzolamide 2%-Timolol 0.5%] 1 drop BOTH EYES TID@0900,1300,2100 Acetaminophen Tab [Tylenol] 650 mg PO Q6H PRN PRN Reason: Fever And/ Or Pain glipiZIDE [Glucotrol XL] 10 mg PO BID@0900,1700 Atorvastatin [Lipitor] 40 mg PO DAILY@2100 Levothyroxine Sodium [Synthroid] 50 mcg PO HS@2100 Albuterol Sulfate [Proventil Hfa] 2 puff INHALATION RT-Q6H PRN PRN Reason: Shortness Of Breath INSULIN LISPRO (humaLOG) [humaLOG] See Protocol SQ ACHS@08,12,17,21 Rivaroxaban [Xarelto] 10 mg PO DAILY@0900 Famotidine 10 mg PO BID@0900,1700 Metoprolol Succinate (ER) [Toprol XL] 25 mg PO DAILY@0900 Melatonin 3 mg PO HS@2000 PRN PRN Reason: Insomnia traMADol HCL [Ultram] 50 mg PO Q8HR PRN PRN Reason: Pain clonazePAM [KlonoPIN] 0.5 mg PO DAILY PRN PRN Reason: Anxiety Lactulose [Cephulac] 20 gm PO TID PRN PRN Reason: Constipation Zinc Sulfate [Orazinc] 220 mg PO DAILY@0900 Cholecalciferol [Vitamin D3 (25 Mcg = 1000 Iu)] 50 mcg PO DAILY@0900 Potassium Chloride ER [K-Dur 10] 10 meq PO DAILY@0900 Ascorbic Acid [Vitamin C] 1,000 mg PO DAILY@0900 Furosemide [Lasix] 20 mg PO DAILY@0600 #0 Cefuroxime Axetil [Ceftin] 500 mg PO BID@0900,2099 Ipratropium-Albuterol Nebulize [Duoneb 0.5 mg-3 mg/3 ml Soln] 3 ml INHALATION RT-Q6H PRN PRN Reason: Shortness Of Breath Discharge Medication List DULoxetine HCL [Cymbalta] 60 mg PO DAILY@0900 03/06/19 [History] Dorzolamide/Timolol/Pf [Dorzolamide 2%-Timolol 0.5%] 1 drop BOTH EYES TID@0900,1300,209903/06/19 [History] Acetaminophen Tab [Tylenol] 650 mg PO Q6H PRN 01/25/20 [History] glipiZIDE [Glucotrol XL] 10 mg PO BID@0900,169902/29/20 [History] Atorvastatin [Lipitor] 40 mg PO DAILY@209903/01/20 [History] Levothyroxine Sodium [Synthroid] 50 mcg PO HS@209903/01/20 [History] Albuterol Sulfate [Proventil Hfa] 2 puff INHALATION RT-Q6H PRN 04/30/20 [History] Famotidine 10 mg PO BID@0900,17004/30/20 [History] INSULIN LISPRO (humaLOG) [humaLOG] See Protocol SQ ACHS@08,12,,04/30/20 [History] Melatonin 3 mg PO HS@1999 PRN 04/30/20 [History] Metoprolol Succinate (ER) [Toprol XL] 25 mg PO DAILY@89904/30/20 [History] Rivaroxaban [Xarelto] 10 mg PO DAILY@89904/30/20 [History] Ascorbic Acid [Vitamin C] 1,000 mg PO DAILY@89905/13/20 [History] Cholecalciferol [Vitamin D3 (25 Mcg = 1000 Iu)] 50 mcg PO DAILY@89905/13/20 [History] Lactulose [Cephulac] 20 gm PO TID PRN 05/13/20 [History] Potassium Chloride ER [K-Dur 10] 10 meq PO DAILY@00 05/13/20 [History] Zinc Sulfate [Orazinc] 220 mg PO DAILY@89905/13/20 [History] clonazePAM [KlonoPIN] 0.5 mg PO DAILY PRN 05/13/20 [History] traMADol HCL [Ultram] 50 mg PO Q8HR PRN 05/13/20 [History] Furosemide [Lasix] 20 mg PO DAILY@0600 #0 05/14/20 [Rx] Cefuroxime Axetil [Ceftin] 500 mg PO BID@0900,2100 05/17/20 [History] Ipratropium-Albuterol Nebulize [Duoneb 0.5 mg-3 mg/3 ml Soln] 3 ml INHALATION RT-Q6H PRN 05/17/20 [History] Follow up Appointment(s)/Referral(s): Obdulio Chun MD [Primary Care Provider] - 1-2 days
[2020-05-20 16:24] LABS: Glucose,Whole Blood 290 mg/dL (75-99)
== END 2020-05-20 16:43 ==
LOC: EC 21:43 → 4SSUR 23:24
PROVIDERS: ADMIT Hospitalist; ATTEND Hospitalist
DX: J44.1 Chronic obstructive pulmonary disease with (acute) exacerbation (principal); J96.21 Acute and chronic respiratory failure with hypoxia; J96.22 Acute and chronic respiratory failure with hypercapnia; G93.1 Anoxic brain damage, not elsewhere classified; E11.22 Type 2 diabetes mellitus with diabetic chronic kidney disease; N18.30 Chronic kidney disease, stage 3 unspecified; I50.32 Chronic diastolic (congestive) heart failure; Z79.4 Long term (current) use of insulin; E03.9 Hypothyroidism, unspecified; M19.91 Primary osteoarthritis, unspecified site; E78.5 Hyperlipidemia, unspecified; F03.90 Unspecified dementia, unspecified severity, without behavioral disturbance, psychotic disturbance, mood disturbance, and anxiety; G47.33 Obstructive sleep apnea (adult) (pediatric); N30.90 Cystitis, unspecified without hematuria; Z66 Do not resuscitate; R41.3 Other amnesia; M19.90 Unspecified osteoarthritis, unspecified site; Z99.89 Dependence on other enabling machines and devices; Z90.5 Acquired absence of kidney; Z99.81 Dependence on supplemental oxygen; E87.4 Mixed disorder of acid-base balance; Z87.891 Personal history of nicotine dependence; R53.81 Other malaise; K59.00 Constipation, unspecified; F41.9 Anxiety disorder, unspecified; G47.00 Insomnia, unspecified; E66.9 Obesity, unspecified; Z68.41 Body mass index [BMI] 40.0-44.9, adult; Z91.19 Patient's noncompliance with other medical treatment and regimen; E11.40 Type 2 diabetes mellitus with diabetic neuropathy, unspecified; H40.9 Unspecified glaucoma; Z87.01 Personal history of pneumonia (recurrent); Z86.16 Personal history of COVID-19; D64.9 Anemia, unspecified; Z87.440 Personal history of urinary (tract) infections; R26.9 Unspecified abnormalities of gait and mobility; R32 Unspecified urinary incontinence; R15.9 Full incontinence of feces; Z90.49 Acquired absence of other specified parts of digestive tract; Z16.24 Resistance to multiple antibiotics; F32.9 Major depressive disorder, single episode, unspecified; Z90.710 Acquired absence of both cervix and uterus; Z79.899 Other long term (current) drug therapy; Z79.890 Hormone replacement therapy; Z79.01 Long term (current) use of anticoagulants; Z79.891 Long term (current) use of opiate analgesic; Z88.5 Allergy status to narcotic agent; Z80.8 Family history of malignant neoplasm of other organs or systems
CPT/HCPCS: 96374; 99285; 51702; 36415; 94660; 94640 ×3; 93005; 83880; 80053; 80048 ×2; 82550; 83605; 83735; 84484; 85025 ×2; 85610; 85730; 81001; 87086; 87502; 71045; 71046; 70450; G0378 ×4; J1940; J7512 ×3

== ENCOUNTER 2020-05-30 15:23 | Inpatient (IN) | payer MEDICARE, BC ==
[2020-05-30] MEDS ORDERED: MAGNESIUM SULFATE-D5W PMX 1 GM in DEXTROSE/WATER 1 100ML.BAG IVPB STA (15:30)
[2020-05-30] MEDS ORDERED: methylPREDNISolone SOD SUCCI 125 MG/2 ML VIAL IV STA (15:30)
[2020-05-30 15:52] LABS: Basophils # (A) 0.1 k/uL (0-0.2); Basophils % (A) 1 %; Eosinophils # (A) 0.2 k/uL (0-0.7); Eosinophils % (A) 1 %; HCT 40.8 % (34.0-46.0); HGB 13.8 gm/dL (11.4-16.0); Hypochromasia Slight; Lymphocytes # (A) 1.3 k/uL (1.0-4.8); Lymphocytes % (A) 6 %; MCH 31.9 pg (25.0-35.0); MCHC 33.9 g/dL (31.0-37.0); MCV 94.2 fL (80.0-100.0); Mean Platelet Volume 7.5; Monocytes # (A) 1.1 k/uL (0-1.0); Monocytes % (A) 5 %; Neutrophils # (A) 19.1 k/uL (1.3-7.7); Neutrophils % (A) 87 %; Platelet Count 432 k/uL (150-450); RBC 4.33 m/uL (3.80-5.40); RDW 15.4 % (11.5-15.5); WBC 21.9 k/uL (3.8-10.6)
[2020-05-30 16:05] LABS: Albumin 3.6 g/dL (3.5-5.0); Calcium 9.4 mg/dL (8.4-10.2); Potassium 5.3 mmol/L (3.5-5.1); Total Bilirubin 1.9 mg/dL (0.2-1.3); Total Protein 6.5 g/dL (6.3-8.2)
--- NOTE | 2020-05-30 16:11 | XR ---
EXAMINATION TYPE: XR chest 1V portable DATE OF EXAM: 05/30/2020 COMPARISON: 05/17/2020. HISTORY: Shortness of breath/respiratory failure. TECHNIQUE: Single frontal view of the chest is obtained. FINDINGS: There is new moderate left pleural effusion with adjacent opacity. No pneumothorax seen. The cardiac silhouette size is borderline enlarged. The osseous structures are intact. Neurostimulator device overlying the thoracic spine seen. IMPRESSION: Moderate left pleural effusion with adjacent atelectasis.
[2020-05-30 16:35] LABS: INR 1.2 (<1.2); Partial Thromboplastin Time 34.5 sec (22.0-30.0); Prothrombin Time 12.3 sec (9.0-12.0)
--- NOTE | 2020-05-30 16:40 | ED ---
SOB HPI - General Chief Complaint: Shortness of Breath Stated Complaint: RESP DISTRESS Time Seen by Provider: 05/30/20 15:25 Source: EMS Mode of arrival: EMS Limitations: altered mental status - History of Present Illness Initial Comments: Patient is a 75-year-old female with past medical history of chronic respiratory insufficiency, COPD, obstructive sleep apnea and non-compliance with CPAP who presents from [facility] with reported respiratory distress. EMS report that the patient was noted to be hypoxic and altered early this morning. He attempted to adjust some of the patient's oxygen settings however during med past it was noted that the patient was getting worse. Patient's pulse ox was noted to be 55%. She is normally on 3 L of oxygen at all times. They denying any fevers or chills. patient has a depressed mentation therefore cannot provide any history. Review the patient's chart demonstrates that she has COPD and is supposed to wear CPAP at night. She is normally not compliant with this. She did have covid in April. no report of any chest pain. Patient does have chronic lower extremity swelling. She is on anticoagulation. No history of DVT or PE. The remainder of HPI is limited - Related Data Home Medications Medication Instructions Recorded Confirmed DULoxetine HCL [Cymbalta] 60 mg PO DAILY@0900 03/06/19 05/30/20 Dorzolamide/Timolol/Pf 1 drop BOTH EYES TID@0900,1300,2100 03/06/19 05/30/20 [Dorzolamide 2%-Timolol 0.5%] Acetaminophen Tab [Tylenol] 650 mg PO Q6H PRN 01/25/20 05/30/20 Atorvastatin [Lipitor] 40 mg PO DAILY@2100 03/01/20 05/30/20 Levothyroxine Sodium [Synthroid] 50 mcg PO DAILY@0600 03/01/20 05/30/20 Albuterol Sulfate [Proventil Hfa] 2 puff INHALATION RT-Q6H PRN 04/30/20 05/30/20 Famotidine 10 mg PO BID@0900,1700 04/30/20 05/30/20 INSULIN LISPRO (humaLOG) [humaLOG] See Protocol SQ ACHS@08,11,,04/30/20 05/30/20 Melatonin 3 mg PO HS@1999 PRN 04/30/20 05/30/20 Metoprolol Succinate (ER) [Toprol 25 mg PO DAILY@0900 04/30/20 05/30/20 XL] Rivaroxaban [Xarelto] 10 mg PO DAILY@0900 04/30/20 05/30/20 Ipratropium-Albuterol Nebulize 3 ml INHALATION RT-Q6H PRN 05/17/20 05/30/20 [Duoneb 0.5 mg-3 mg/3 ml Soln] Lactulose 20 gm PO TID PRN 05/30/20 05/30/20 Nitrofurantoin Monohyd/M-Cryst 100 mg PO BID@0600,1600 05/30/20 05/30/20 [Macrobid] clonazePAM [KlonoPIN] 0.5 mg PO Q6H PRN 05/30/20 05/30/20 metFORMIN HCL [Glucophage] 500 mg PO BID@0900,2100 05/30/20 05/30/20 traMADol HCL [Ultram] 50 mg PO Q8H PRN 05/30/20 05/30/20 Allergies Allergy/AdvReac Type Severity Reaction Status Date / Time codeine AdvReac Nausea & Verified 05/30/20 15:59 Vomiting Review of Systems ROS Statement: Those systems with pertinent positive or pertinent negative responses have been documented in the HPI. ROS Other: All systems not noted in ROS Statement are negative. Past Medical History Past Medical History: COPD, Dementia, Diabetes Mellitus, Eye Disorder, Hyperlipidemia, Memory Impairment, Osteoarthritis (OA), Pneumonia, Renal Disease, Sleep Apnea/CPAP/BIPAP, Thyroid Disorder Additional Past Medical History / Comment(s): Chronic respiratory failure, home oxygen at 3L/NC ATC, KEEGAN without device at [facility], + covid diagnosed 04/01/20 at [facility], IDDM type II, neuropathy bilateral feet, CKD stage III-pt had L nephrectomy but bertha cannot recall reason, anemia, UTIs, glaucoma bilateral eyes, muscle weakness, gait dysfunction, incontinence urine/stool, allergic rhinitis, troponin leak -unsure if SD. History of Any Multi-Drug Resistant Organisms: ESBL Date of last positivie culture/infection: 03/20/19 MDRO Source:: Urine Past Surgical History: Appendectomy, Cholecystectomy, Hernia Repair, Hysterectomy, Tonsillectomy Additional Past Surgical History / Comment(s): L nephrectomy, colonoscopy Past Anesthesia/Blood Transfusion Reactions: No Reported Reaction Past Psychological History: Depression Smoking Status: Former smoker Past Alcohol Use History: None Reported Past Drug Use History: None Reported - Past Family History Mother Family Medical History: Cancer Additional Family Medical History / Comment(s): throat cancer General Exam Limitations: altered mental status General appearance: obtunded, in distress, obese Head exam: Present: atraumatic, normocephalic, normal inspection Eye exam: Present: normal appearance, PERRL, EOMI. Absent: scleral icterus, conjunctival injection, periorbital swelling ENT exam: Present: mucous membranes dry Neck exam: Present: normal inspection. Absent: tenderness, meningismus, lymphadenopathy Respiratory exam: Present: rales, decreased breath sounds Cardiovascular Exam: Present: regular rate, normal rhythm, normal heart sounds. Absent: systolic murmur, diastolic murmur, rubs, gallop, clicks GI/Abdominal exam: Present: soft, normal bowel sounds. Absent: distended, tenderness, guarding, rebound, rigid Extremities exam: Present: pedal edema Neurological exam: Present: altered Skin exam: Present: warm, dry, intact, normal color. Absent: rash Course Vital Signs 05/30/20 05/30/20 05/30/20 15:24 15:53 16:17 Temperature 97.4 F L 97.4 F L 97.6 F Pulse Rate 98 95 90 Respiratory 35 H 32 H 33 H Rate Blood Pressure 137/98 128/89 143/86 O2 Sat by Pulse 98 94 L 95 Oximetry 05/30/20 16:59 Temperature 97.6 F Pulse Rate 86 Respiratory 32 H Rate Blood Pressure 152/89 O2 Sat by Pulse 97 Oximetry Procedures - [place] Protocol (Time Out) Nurse: Tanja Christopher Medical Decision Making - Medical Decision Making Upon arrival patient is probably placed in trauma bay 1. A thorough history and physical exam was performed. IV was established using the ultrasound to the right brachial vein. Patient does arrive with 32 respirations minute. She is saturating 99% on a nonrebreather. Due to her increased work of breathing the patient is placed on BiPAP. Laboratory studies were conducted. She was given 1 g of magnesium and 125 mg of Solu-Medrol due to her known history of COPD. Portable chest x-ray was performed. I will try studies demonstrate a leukocytosis of 21.9. Troponin 0.035. BNP 7150. Chest x-ray demonstrates a left-sided pleural effusion with compressive atelectasis. Patient is covered with antibiotics. 40 mg lasix given. Spoke with Dr. Quiros who agreed to admit the patient. We'll place cardiology and pulmonology on consult. patient remained in stable condition with a guarded prognosis - Lab Data Result diagrams: 05/31/20 07:49 05/31/20 12:09 Lab Results 05/30/20 05/30/20 05/30/20 Range/Units 15:35 15:35 15:35 WBC 21.9 H (3.8-10.6) k/uL RBC 4.33 (3.80-5.40) m/uL Hgb 13.8 (11.4-16.0) gm/dL Hct 40.8 (34.0-46.0) % MCV 94.2 (80.0-100.0) fL MCH 31.9 (25.0-35.0) pg MCHC 33.9 (31.0-37.0) g/dL RDW 15.4 (11.5-15.5) % Plt Count 432 (150-450) k/uL MPV 7.5 Neutrophils % 87 % Lymphocytes % 6 % Monocytes % 5 % Eosinophils % 1 % Basophils % 1 % Neutrophils # 19.1 H (1.3-7.7) k/uL Lymphocytes # 1.3 (1.0-4.8) k/uL Monocytes # 1.1 H (0-1.0) k/uL Eosinophils # 0.2 (0-0.7) k/uL Basophils # 0.1 (0-0.2) k/uL Hypochromasia Slight PT 12.3 H (9.0-12.0) sec INR 1.2 H (<1.2) APTT 34.5 H (22.0-30.0) sec Sodium 137 (137-145) mmol/L Potassium 5.3 H (3.5-5.1) mmol/L Chloride 93 L (98-107) mmol/L Carbon Dioxide 36 H (22-30) mmol/L Anion Gap 8 mmol/L BUN 17 (7-17) mg/dL Creatinine 0.97 (0.52-1.04) mg/dL Est GFR (CKD-EPI)AfAm 65 (>60 ml/min/1.73 sqM) Est GFR (CKD-EPI)NonAf 57 (>60 ml/min/1.73 sqM) Glucose 143 H (74-99) mg/dL Plasma Lactic Acid Taz (0.7-2.0) mmol/L Calcium 9.4 (8.4-10.2) mg/dL Total Bilirubin 1.9 H (0.2-1.3) mg/dL AST 29 (14-36) U/L ALT 24 (4-34) U/L Alkaline Phosphatase 116 (38-126) U/L Troponin I (0.000-0.034) ng/mL NT-Pro-B Natriuret Pep pg/mL Total Protein 6.5 (6.3-8.2) g/dL Albumin 3.6 (3.5-5.0) g/dL Coronavirus (PCR) (Not Detectd) 05/30/20 05/30/20 05/30/20 Range/Units 15:35 15:35 15:35 WBC (3.8-10.6) k/uL RBC (3.80-5.40) m/uL Hgb (11.4-16.0) gm/dL Hct (34.0-46.0) % MCV (80.0-100.0) fL MCH (25.0-35.0) pg MCHC (31.0-37.0) g/dL RDW (11.5-15.5) % Plt Count (150-450) k/uL MPV Neutrophils % % Lymphocytes % % Monocytes % % Eosinophils % % Basophils % % Neutrophils # (1.3-7.7) k/uL Lymphocytes # (1.0-4.8) k/uL Monocytes # (0-1.0) k/uL Eosinophils # (0-0.7) k/uL Basophils # (0-0.2) k/uL Hypochromasia PT (9.0-12.0) sec INR (<1.2) APTT (22.0-30.0) sec Sodium (137-145) mmol/L Potassium (3.5-5.1) mmol/L Chloride (98-107) mmol/L Carbon Dioxide (22-30) mmol/L Anion Gap mmol/L BUN (7-17) mg/dL Creatinine (0.52-1.04) mg/dL Est GFR (CKD-EPI)AfAm (>60 ml/min/1.73 sqM) Est GFR (CKD-EPI)NonAf (>60 ml/min/1.73 sqM) Glucose (74-99) mg/dL Plasma Lactic Acid Taz 2.0 (0.7-2.0) mmol/L Calcium (8.4-10.2) mg/dL Total Bilirubin (0.2-1.3) mg/dL AST (14-36) U/L ALT (4-34) U/L Alkaline Phosphatase (38-126) U/L Troponin I 0.035 H* (0.000-0.034) ng/mL NT-Pro-B Natriuret Pep 7150 pg/mL Total Protein (6.3-8.2) g/dL Albumin (3.5-5.0) g/dL Coronavirus (PCR) (Not Detectd) 05/30/20 Range/Units 15:48 WBC (3.8-10.6) k/uL RBC (3.80-5.40) m/uL Hgb (11.4-16.0) gm/dL Hct (34.0-46.0) % MCV (80.0-100.0) fL MCH (25.0-35.0) pg MCHC (31.0-37.0) g/dL RDW (11.5-15.5) % Plt Count (150-450) k/uL MPV Neutrophils % % Lymphocytes % % Monocytes % % Eosinophils % % Basophils % % Neutrophils # (1.3-7.7) k/uL Lymphocytes # (1.0-4.8) k/uL Monocytes # (0-1.0) k/uL Eosinophils # (0-0.7) k/uL Basophils # (0-0.2) k/uL Hypochromasia PT (9.0-12.0) sec INR (<1.2) APTT (22.0-30.0) sec Sodium (137-145) mmol/L Potassium (3.5-5.1) mmol/L Chloride (98-107) mmol/L Carbon Dioxide (22-30) mmol/L Anion Gap mmol/L BUN (7-17) mg/dL Creatinine (0.52-1.04) mg/dL Est GFR (CKD-EPI)AfAm (>60 ml/min/1.73 sqM) Est GFR (CKD-EPI)NonAf (>60 ml/min/1.73 sqM) Glucose (74-99) mg/dL Plasma Lactic Acid Taz (0.7-2.0) mmol/L Calcium (8.4-10.2) mg/dL Total Bilirubin (0.2-1.3) mg/dL AST (14-36) U/L ALT (4-34) U/L Alkaline Phosphatase (38-126) U/L Troponin I (0.000-0.034) ng/mL NT-Pro-B Natriuret Pep pg/mL Total Protein (6.3-8.2) g/dL Albumin (3.5-5.0) g/dL Coronavirus (PCR) Not Detected (Not Detectd) - EKG Data EKG Comments: EKG demonstrates a sinus tachycardia with a ventricular rate of 102. DE interval 142. QRS 82. QTC of 466. No acute ST segment elevations or depressions Critical Care Time Critical Care Time: Yes Critical Care Time: 32 minutes for stabilization of patient presenting with acute respiratory distress Disposition Clinical Impression: Leukocytosis, Respiratory distress, acute, Dependence on non-invasive ventilat ion, COPD with exacerbation, Non-STEMI (non-ST elevated myocardial infarction) Disposition: ADMITTED IP TO THIS HOSP Condition: Serious Is patient prescribed a controlled substance at d/c from ED?: No Decision to Admit Reason: Admit from EC Decision Date: 05/30/20 Decision Time: 16:58
[2020-05-30] MEDS ORDERED: PIPERACILLIN-TAZOBACTAM 3.375 GM in SODIUM CHLORIDE 0.9% 100 ML IVPB STA (16:46)
[2020-05-30] MEDS ORDERED: VANCOMYCIN IV PER PHARMACY 1 EACH MISC MISCELLANE PRN (16:56)
[2020-05-30] MEDS ORDERED: NALOXONE 0.4 MG/ML 1 ML VIAL IV PRN (17:04)
[2020-05-30] MEDS ORDERED: LACTULOSE 20 GM/30 ML CUP PO PRN (17:09)
[2020-05-30] MEDS ORDERED: IPRATROPIUM-ALBUTEROL 3 ML NEB INHALATION PRN (17:09)
[2020-05-30] MEDS ORDERED: VANCOMYCIN 1,750 MG in SODIUM CHLORIDE 0.9% 500 ML 500 ML IVPB ONE (17:15)
[2020-05-30] MEDS ORDERED: FUROSEMIDE 10 MG/ML 4 ML VIAL IV STA (17:43)
[2020-05-30 18:33] LABS: Glucose,Whole Blood 150 mg/dL (75-99)
[2020-05-30] MEDS: INSULIN ASPART (NovoLOG) 100 UNIT/ML VIAL SQ SCH (18:36)
[2020-05-30 19:10] LABS: Appearance,Urine Turbid (Clear); Bacteria,Urine Many /hpf; Bilirubin,Urine Negative (Negative); Blood,Urine Moderate (Negative); Color,Urine Red; Glucose,Urine (UA) Trace (Negative); Ketones,Urine Negative (Negative); Leukocyte Esterase,Urine Large (Negative); Mucus,Urine Few /hpf; Nitrite,Urine Positive (Negative); PH, Urine 5.5 (5.0-8.0); Protein,Urine 2+ (Negative); RBC,Urine 22 /hpf (0-5); Specific Gravity,Urine 1.021 (1.001-1.035); Urobilinogen,Urine <2.0 mg/dL (<2.0); WBC,Urine >182 /hpf (0-5)
--- NOTE | 2020-05-30 20:31 | HP ---
HISTORY AND PHYSICAL DATE OF SERVICE: 05/30/2020. CHIEF COMPLAINT: Shortness of breath. HISTORY OF PRESENT ILLNESS: This 75-year-old woman with a past medical history of multiple medical issues, COPD, dementia, diabetes mellitus, type 2, hypertension, hyperlipidemia, DJD, history of chronic respiratory failure, being followed by Dr. Chun at [facility], was recently admitted to [facility] and was discharged with COPD acute exacerbation. The patient also had acute on chronic hypoxic respiratory failure, encephalopathy. The patient was admitted from [facility] due to respiratory distress. The patient was found to be hypoxic and altered this morning and the pulse ox about 55%. The patient normally on 3 L nasal cannula. The patient was monitored closely and in the ER BiPAP was initiated with a 12 lead EPAP and 5 BiPAP and the patient is saturating in the low 90s at this time. The patient is still confused, unable to give a coherent history. Most of the history taken from my discussion with the ER physician as well as review of chart at this time. PAST MEDICAL HISTORY: History of COPD, dementia, diabetes mellitus, type 2, hyperlipidemia, history of DJD, history of pneumonia, history of chronic hypoxic respiratory failure. MEDICATIONS: Home medications are: Ultram. Tylenol, lactulose, Proventil. Klonopin. DuoNeb, dorzolamide, Glucophage, Macrobid, Xarelto, Toprol-XL, famotidine, Synthroid, Cymbalta, Lipitor. ALLERGIES: CODEINE. FAMILY HISTORY: History of throat cancer in the family. SOCIAL HISTORY: Previous history of smoking. No history of alcohol intake. REVIEW OF SYSTEMS: Could not be taken due to the patient's mental status. PHYSICAL EXAMINATION: The patient is on BiPAP. BiPAP settings are noted. Pulse 81. Blood pressure 124/70, respiration 18, temperature 96.9, pulse ox is up to 98% on BiPAP, 50% FiO2. HEENT: Conjunctivae normal. NECK: No JVD. CARDIOVASCULAR: S1, S2 muffled. RESPIRATORY: Breath sounds diminished in the bases. A few scattered rhonchi and crackles. ABDOMEN: Soft, obese, nontender. LEGS: No edema. No swelling. NERVOUS SYSTEM: Diffusely weak, cannot be examined. SKIN: No ulcers, rashes or bleeding. JOINTS: No active deforming arthropathy. LABS: WBC 21.2, hemoglobin 13.9, sodium 137, potassium 5.3. Troponin 0.035. Covid 19 is negative. Chest x-ray which was personally reviewed showed increased bronchovascular markings and left pleural effusion, blunting of the costophrenic angles. ASSESSMENT: 1. Chronic obstructive pulmonary disease, obesity hypoventilation syndrome exacerbation with acute hypoxic hypercarbic respiratory failure on BiPAP. 2. Acute purulent tracheobronchitis. 3. Moderate left pleural effusion with atelectasis. 4. History of dementia. 5. Diabetes mellitus type 2. 6. Change in mental status, acute on chronic metabolic encephalopathy multifactorial. 7. Hyperlipidemia. 8. History of degenerative joint disease. 9. History of pneumonia. 10.History of sleep apnea. 11.History of chronic hypoxic respiratory failure on home O2, 3 L nasal cannula. 12.Obstructive sleep apnea. 13.Covid diagnosed in 2019. 14.Diabetes mellitus type 2 with peripheral neuropathy. 15.History of left nephrectomy. 16.History of glaucoma. 17.Gait dysfunction. 18.ESBL in the urine history. 19.History of appendectomy. 20.History of cholecystectomy. 21.History of depression. 22.Obesity with body mass index 39.1. 23.NO CODE, NO CPR, NO VENT. 24.Remote history of nicotine dependence. RECOMMENDATIONS AND DISCUSSION: This 75-year-old woman who presented with multiple complex medical issues, we will monitor the patient closely, continue the current medications, management and symptomatic treatment. Otherwise, at this time, I recommend intensive bronchodilators, empiric antibiotics and continue with BiPAP. Consult Dr. Cole as well as Cardiology. The 2D echo with Doppler done in 2019, which was reviewed personally by me showed ejection fraction about 55-60 and mild valvular abnormalities. Overall prognosis is extremely guarded because of multiple complex medical problems. See orders for details. A copy of this dictation being forwarded to Dr. Chun who is the primary physician. Home medications will be reconciled and started on broad-spectrum IV antibiotics. MMODL / IJN: [id number] /
[2020-05-30] MEDS: IPRATROPIUM-ALBUTEROL 3 ML NEB INHALATION SCH (20:47)
[2020-05-30] MEDS: FORMOTEROL FUMARATE 20 MCG/2 ML NEBU INHALATION SCH (20:47)
[2020-05-30] MEDS: BUDESONIDE 1 MG/2 ML NEBU INHALATION SCH (20:47)
[2020-05-30] MEDS: methylPREDNISolone SOD SUCCI 125 MG/2 ML VIAL IV SCH ×2 (20:52→23:29)
[2020-05-30] MEDS: ATORVASTATIN 40 MG TAB PO SCH (20:53)
[2020-05-30 21:05] LABS: Glucose,Whole Blood 137 mg/dL (75-99)
[2020-05-30] MEDS: PIPERACILLIN-TAZOBACTAM 3.375 GM in SODIUM CHLORIDE 0.9% 100 ML IVPB SCH (23:29)
[2020-05-31] MEDS: DORZOLAMIDE-TIMOLOL 2.23%/0.68 10ML BTL BOTH EYES SCH ×5 (03:41→21:38)
[2020-05-31] MEDS: INSULIN ASPART (NovoLOG) 100 UNIT/ML VIAL SQ SCH ×5 (03:43→21:38)
[2020-05-31 06:14] LABS: Glucose,Whole Blood 147 mg/dL (75-99)
[2020-05-31] MEDS: PANTOPRAZOLE 40 MG TABLET PO SCH (06:37)
[2020-05-31] MEDS: LEVOTHYROXINE 50 MCG TAB PO SCH (06:37)
[2020-05-31] MEDS: NITROFURANTOIN MONOHYD/M-CRYST 100 MG CAP PO SCH ×2 (06:37→18:29)
[2020-05-31] MEDS: methylPREDNISolone SOD SUCCI 125 MG/2 ML VIAL IV SCH (06:37)
[2020-05-31] MEDS: IPRATROPIUM-ALBUTEROL 3 ML NEB INHALATION SCH ×4 (08:36→19:51)
[2020-05-31] MEDS: FORMOTEROL FUMARATE 20 MCG/2 ML NEBU INHALATION SCH ×2 (08:36→19:51)
[2020-05-31] MEDS: BUDESONIDE 1 MG/2 ML NEBU INHALATION SCH ×2 (08:36→19:51)
[2020-05-31 08:41] LABS: Basophils % (A) 0 %; Eosinophils # (A) 0.1 k/uL (0-0.7); Eosinophils % (A) 1 %; HCT 37.6 % (34.0-46.0); HGB 11.8 gm/dL (11.4-16.0); Hypochromasia Slight; Lymphocytes # (A) 0.7 k/uL (1.0-4.8); Lymphocytes % (A) 8 %; MCH 29.2 pg (25.0-35.0); MCHC 31.5 g/dL (31.0-37.0); MCV 92.8 fL (80.0-100.0); Mean Platelet Volume 8.1; Monocytes # (A) 0.3 k/uL (0-1.0); Monocytes % (A) 3 %; Neutrophils # (A) 8.1 k/uL (1.3-7.7); Neutrophils % (A) 87 %; Platelet Count 293 k/uL (150-450); RBC 4.05 m/uL (3.80-5.40); RDW 15.4 % (11.5-15.5); WBC 9.3 k/uL (3.8-10.6)
[2020-05-31] MEDS: FAMOTIDINE 20 MG TAB PO SCH ×2 (08:48→18:26)
[2020-05-31] MEDS: PIPERACILLIN-TAZOBACTAM 3.375 GM in SODIUM CHLORIDE 0.9% 100 ML IVPB SCH ×2 (08:48→21:22)
[2020-05-31] MEDS: RIVAROXABAN 10 MG TAB PO SCH (08:48)
[2020-05-31] MEDS: METOPROLOL SUCCINATE (ER) 25 MG TAB.ER.24H PO SCH (08:48)
[2020-05-31] MEDS: DULoxetine HCL 60 MG CAPSULE.DR PO SCH (08:49)
[2020-05-31 09:01] LABS: Potassium 6.4 mmol/L (3.5-5.1)
[2020-05-31] MEDS: FUROSEMIDE 10 MG/ML 4 ML VIAL IV SCH ×2 (09:44→21:37)
--- NOTE | 2020-05-31 12:00 | P.CRDCN ---
History of Present Illness Consult date: 05/31/20 History of present illness: CHIEF COMPLAINT: Hypoxic respiratory failure HISTORY OF PRESENT ILLNESS: This is a 75-year-old female with a past medical history significant for COPD, chronic hypoxic respiratory failure on home O2 at 3 L, diabetes mellitus, obstructive sleep apnea without CPAP use, hypertension and hyperlipidemia. 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 We have been asked to see the patient in consultation for hypoxic respiratory failure. Patient was transferred from [facility] on the [place]. Patient apparently had oxygen saturations in the 50-60s and was in respiratory distress. Patient examined this morning at the bedside. Patient is awake and alert. She is confused and is unable to provide much history. Majority obtained from the chart. Patient currently denies chest pain or pressure. She denies shortness of breath. Patient was originally placed on Bipap in the ER but has been weaned down to nasal cannula. DIAGNOSTICS: EKG reveals sinus tachycardia without signs of acute ischemia Chest xray moderate left pleural effusion with adjacent atelectasis Laboratory data: WBC on admission 21.9. WBC 9.3. Hemoglobin 11.8. Platelet count 293. Sodium 135. Potassium 6.4 (specimen noted to be hemolyzed), BUN 23. Creatinine 1.02. Troponin 0.035. 0.060. 0.045. BNP 7150. Current home cardiac medications include Xarelto 10 mg daily, metoprolol succinate 25 mg daily, and Lipitor 40 mg daily REVIEW OF SYSTEMS: Unable to obtain thorough review of systems secondary to confusion PHYSICAL EXAM: VITAL SIGNS: Reviewed. GENERAL: Well-developed in no acute distress. HEENT: Head is normocephalic. Pupils are equal, round. Sclerae anicteric. Mucous membranes of the mouth are moist. Neck supple. No JVD or thyromegaly LUNGS: Respirations even and unlabored. Lungs diminished bilaterally with scattered rhonchi. Congested cough noted during examination. HEART: Regular rate and rhythm. S1 and S2 heard. ABDOMEN: Soft. Nondistended. Nontender. EXTREMITIES: Normal range of motion. No clubbing or cyanosis. Peripheral p ulses intact. 2+ bilateral lower extremity edema NEUROLOGIC: Awake and alert. Oriented x 1-2. ASSESSMENT: Acute on chronic hypoxic respiratory failure Acute exacerbation of chronic diastolic heart failure, ejection fraction 55% Moderate sized left pleural effusion Acute exacerbation of COPD Obstructive sleep apnea, noncompliant with CPAP History of Covid April 2020 Hypertension Hyperlipidemia Diabetes mellitus PLAN: Pulmonary consulted. Await evaluation Resume home cardiac medications Obtain 2-D echo to assess cardiac structure and function Begin IV Lasix 40mg IV every 12 hours Monitor kidney function Accurate I&O Daily weights Further recommendations pending patient's course Nurse practitioner note has been reviewed by physician. Signing provider agrees with the documented findings, assessment, and plan of care. Past Medical History Past Medical History: COPD, Dementia, Diabetes Mellitus, Eye Disorder, Hyperlipidemia, Memory Impairment, Osteoarthritis (OA), Pneumonia, Renal Disease, Sleep Apnea/CPAP/BIPAP, Thyroid Disorder Additional Past Medical History / Comment(s): Chronic respiratory failure, home oxygen at 3L/[facility], [place] without device at [facility], + covid diagnosed 04/01/20 at [facility], IDDM type II, neuropathy bilateral feet, CKD stage III-pt had L nephrectomy but bertha cannot recall reason, anemia, UTIs, glaucoma bilateral eyes, muscle weakness, gait dysfunction, incontinence urine/stool, allergic rhinitis, troponin leak -unsure if DE. History of Any Multi-Drug Resistant Organisms: ESBL Date of last positivie culture/infection: 03/20/19 MDRO Source:: Urine Past Surgical History: Appendectomy, Cholecystectomy, Hernia Repair, Hysterectomy, Tonsillectomy Additional Past Surgical History / Comment(s): L nephrectomy, colonoscopy Past Anesthesia/Blood Transfusion Reactions: No Reported Reaction Past Psychological History: Depression Smoking Status: Former smoker Past Alcohol Use History: None Reported Past Drug Use History: None Reported - Past Family History Mother Family Medical History: Cancer Additional Family Medical History / Comment(s): throat cancer Medications and Allergies Home Medications Medication Instructions Recorded Confirmed Type DULoxetine HCL [Cymbalta] 60 mg PO DAILY@0900 03/06/19 05/30/20 History Dorzolamide/Timolol/Pf 1 drop BOTH EYES TID@0900,1300,2100 03/06/19 05/30/20 History [Dorzolamide 2%-Timolol 0.5%] Acetaminophen Tab [Tylenol] 650 mg PO Q6H PRN 01/25/20 05/30/20 History Atorvastatin [Lipitor] 40 mg PO DAILY@2100 03/01/20 05/30/20 History Levothyroxine Sodium [Synthroid] 50 mcg PO DAILY@0600 03/01/20 05/30/20 History Albuterol Sulfate [Proventil Hfa] 2 puff INHALATION RT-Q6H PRN 04/30/20 05/30/20 History Famotidine 10 mg PO BID@0900,1700 04/30/20 05/30/20 History INSULIN LISPRO (humaLOG) [humaLOG] See Protocol SQ ACHS@08,,,04/30/20 05/30/20 History Melatonin 3 mg PO HS@2000 PRN 04/30/20 05/30/20 History Metoprolol Succinate (ER) [Toprol 25 mg PO DAILY@0900 04/30/20 05/30/20 History XL] Rivaroxaban [Xarelto] 10 mg PO DAILY@0900 04/30/20 05/30/20 History Ipratropium-Albuterol Nebulize 3 ml INHALATION RT-Q6H PRN 05/17/20 05/30/20 History [Duoneb 0.5 mg-3 mg/3 ml Soln] Lactulose 20 gm PO TID PRN 05/30/20 05/30/20 History Nitrofurantoin Monohyd/M-Cryst 100 mg PO BID@0600,1600 05/30/20 05/30/20 History [Macrobid] clonazePAM [KlonoPIN] 0.5 mg PO Q6H PRN 05/30/20 05/30/20 History metFORMIN HCL [Glucophage] 500 mg PO BID@0900,2100 05/30/20 05/30/20 History traMADol HCL [Ultram] 50 mg PO Q8H PRN 05/30/20 05/30/20 History Allergies Allergy/AdvReac Type Severity Reaction Status Date / Time codeine AdvReac Nausea & Verified 05/30/20 15:59 Vomiting Physical Exam Vitals: Vital Signs Temp Pulse Pulse Resp BP BP Pulse Ox 05/31/20 08:58 80 05/31/20 08:51 84 05/31/20 08:50 84 05/31/20 08:39 82 05/31/20 08:00 98.0 F 84 18 129/84 98 05/31/20 03:36 97.1 F L 76 18 132/69 99 05/31/20 01:40 78 18 05/31/20 00:00 97.1 F L 78 18 124/77 99 05/30/20 21:09 72 05/30/20 20:50 68 05/30/20 20:49 68 17 100/64 100 05/30/20 20:00 68 17 05/30/20 18:37 97.6 F 84 33 H 132/89 95 05/30/20 18:07 96.9 F L 81 18 129/70 98 05/30/20 16:59 97.6 F 86 32 H 152/89 97 05/30/20 16:17 97.6 F 90 33 H 143/86 95 05/30/20 15:53 97.4 F L 95 32 H 128/89 94 L 05/30/20 15:24 97.4 F L 98 35 H 137/98 98 Intake and Output 05/30/20 05/31/20 05/31/20 22:59 06:59 14:59 Intake Total 600 Output Total 800 Balance -200 Intake: Intake, IV Titration 600 Amount Piperacillin-Tazobactam 3 100 .375 gm In Sodium Chloride 0.9% 100 ml @ 200 mls/hr IVPB ONCE STA Rx#:[id number] Vancomycin 1,750 mg In 500 Sodium Chloride 0.9% 500 ml 500 ml @ 167 mls/hr IVPB ONCE ONE Rx#: [id number] Output: Urine 800 Other: Voiding Method Indwelling Catheter Indwelling Catheter Indwelling Catheter Weight 113.115 kg 107.8 kg Results 05/31/20 07:49 05/31/20 07:49 Cardiac Enzymes 05/30/20 05/30/20 05/30/20 Range/Units 15:35 15:35 19:03 AST 29 (14-36) U/L Troponin I 0.035 H* 0.060 H* (0.000-0.034) ng/mL 05/30/20 Range/Units 22:44 AST (14-36) U/L Troponin I 0.045 H* (0.000-0.034) ng/mL Coagulation 05/30/20 Range/Units 15:35 PT 12.3 H (9.0-12.0) sec APTT 34.5 H (22.0-30.0) sec CBC 05/30/20 05/31/20 Range/Units 15:35 07:49 WBC 21.9 H 9.3 (3.8-10.6) k/uL RBC 4.33 4.05 (3.80-5.40) m/uL Hgb 13.8 11.8 (11.4-16.0) gm/dL Hct 40.8 37.6 (34.0-46.0) % Plt Count 432 293 (150-450) k/uL Comprehensive Metabolic Panel 05/30/20 05/31/20 Range/Units 15:35 07:49 Sodium 137 135 L (137-145) mmol/L Potassium 5.3 H 6.4 H* (3.5-5.1) mmol/L Chloride 93 L 94 L (98-107) mmol/L Carbon Dioxide 36 H 30 (22-30) mmol/L BUN 17 23 H (7-17) mg/dL Creatinine 0.97 1.02 (0.52-1.04) mg/dL Glucose 143 H 210 H (74-99) mg/dL Calcium 9.4 9.0 (8.4-10.2) mg/dL AST 29 (14-36) U/L ALT 24 (4-34) U/L Alkaline Phosphatase 116 (38-126) U/L Total Protein 6.5 (6.3-8.2) g/dL Albumin 3.6 (3.5-5.0) g/dL Current Medications Generic Name Dose Route Start Last Admin Trade Name Freq PRN Reason Stop Dose Admin Albuterol/Ipratropium 3 ml 05/30/20 17:09 Ipratropium-Albuterol 3 Ml Neb INHALATION RT-Q6H PRN Shortness Of Breath Albuterol/Ipratropium 3 ml 05/30/20 20:00 05/31/20 08:36 Ipratropium-Albuterol 3 Ml Neb INHALATION 3 ml RT-QID JOANNE Administration Atorvastatin Calcium 40 mg 05/30/20 21:00 05/30/20 20:53 Atorvastatin 40 Mg Tab PO Not Given DAILY@2100 [facility] Budesonide 1 mg 05/30/20 20:00 05/31/20 08:36 Budesonide 1 Mg/2 Ml Nebu INHALATION 1 mg RT-BID JOANNE Administration Dorzolamide/Timolol 1 drops 05/30/20 21:00 05/31/20 09:45 Dorzolamide-Timolol 2.23%/0.68 10ml Btl BOTH EYES 1 drops TID@0900,1300,2100 [facility] Administration Duloxetine HCl 60 mg 05/31/20 09:00 05/31/20 08:49 Duloxetine Hcl 60 Mg Capsule.Dr PO 60 mg DAILY@0900 JOANNE Administration Famotidine 10 mg 05/31/20 09:00 05/31/20 08:48 Famotidine 20 Mg Tab PO 10 mg BID@0900,1700 JOANNE Administration Formoterol Fumarate 20 mcg 05/30/20 20:00 05/31/20 08:36 Formoterol Fumarate 20 Mcg/2 Ml Nebu INHALATION 20 mcg RT-BID JOANNE Administration Furosemide 40 mg 05/31/20 09:00 05/31/20 09:44 Furosemide 10 Mg/Ml 4 Ml Vial IV 40 mg Q12HR [facility] Administration Vancomycin HCl 1,750 mg/ 500 mls @ 167 mls/hr 05/31/20 17:00 Sodium Chloride IVPB Q24H JOANNE Piperacillin Sod/Tazobactam 100 mls @ 25 mls/hr 05/31/20 00:00 05/31/20 08:48 Sod 3.375 gm/ Sodium Chloride IVPB 25 mls/hr Q8HR [facility] Administration Insulin Aspart 0 unit 05/30/20 17:30 05/31/20 09:45 Insulin Aspart (Novolog) 100 Unit/Ml Vial SQ Not Given ACHS [facility] Protocol Lactulose 20 gm 05/30/20 17:09 Lactulose 20 Gm/30 Ml Cup PO TID PRN Constipation Levothyroxine Sodium 50 mcg 05/31/20 06:00 05/31/20 06:37 Levothyroxine 50 Mcg Tab PO 50 mcg DAILY@0600 [facility] Administration Methylprednisolone Sodium Succinate 40 mg 05/31/20 16:00 Methylprednisolone Sod Succi 40 Mg/Ml 1 Ml Vial IV Q8HR [facility] Metoprolol Succinate 25 mg 05/31/20 09:00 05/31/20 08:48 Metoprolol Succinate (Er) 25 Mg Tab.Er.24h PO 25 mg DAILY@0900 [facility] Administration Naloxone HCl 0.2 mg 05/30/20 17:04 Naloxone 0.4 Mg/Ml 1 Ml Vial IV Q2M PRN Opioid Reversal Nitrofurantoin Macrocrystals 100 mg 05/31/20 06:00 05/31/20 06:37 Nitrofurantoin Monohyd/M-Cryst 100 Mg Cap PO 100 mg BID@0600,1600 [facility] Administration Pantoprazole Sodium 40 mg 05/31/20 07:30 05/31/20 06:37 Pantoprazole 40 Mg Tablet PO 40 mg AC-BRKFST JOANNE Administration Rivaroxaban 10 mg 05/31/20 09:00 05/31/20 08:48 Rivaroxaban 10 Mg Tab PO 10 mg DAILY@0900 [facility] Administration Tramadol HCl 50 mg 05/30/20 17:09 Tramadol 50 Mg Tab PO Q8H PRN Pain Intake and Output 05/30/20 05/31/20 05/31/20 22:59 06:59 14:59 Intake Total 600 Output Total 800 Balance -200 Intake: Intake, IV Titration 600 Amount Piperacillin-Tazobactam 3 100 .375 gm In Sodium Chloride 0.9% 100 ml @ 200 mls/hr IVPB ONCE STA Rx#:[id number] Vancomycin 1,750 mg In 500 Sodium Chloride 0.9% 500 ml 500 ml @ 167 mls/hr IVPB ONCE ONE Rx#: [id number] Output: Urine 800 Other: Voiding Method Indwelling Catheter Indwelling Catheter Indwelling Catheter Weight 113.115 kg 107.8 kg 05/31/20 07:49 05/31/20 07:49
[2020-05-31 12:18] LABS: Glucose,Whole Blood 204 mg/dL (75-99)
--- NOTE | 2020-05-31 15:49 | PN ---
PROGRESS NOTE DATE OF SERVICE: 05/31/2020 This 75-year-old woman with a past medical history of multiple medical problems was admitted with COPD, acute exacerbation, acute on chronic hypoxic respiratory failure, on BiPAP yesterday. The patient is on intensive bronchodilator treatment. Pulmonary and Cardiology are following the patient closely. Cardiology is considering also the CHF, acute exacerbation, ejection fraction 55%, acute on chronic diastolic dysfunction. The patient was started on Lasix, also. Sensorium has improved. The patient received BiPAP yesterday. Past medical history reviewed. REVIEW OF SYSTEMS: CARDIOVASCULAR SYSTEM: No angina, palpitations. RESPIRATORY SYSTEM: As mentioned earlier. GI: As mentioned earlier. : No dysuria or retention. NERVOUS SYSTEM: Diffusely weak. CURRENT MEDICATIONS: Reviewed. They include DuoNeb, Lipitor, Pulmicort, Cosopt, Cymbalta, Pepcid, Perforomist, Synthroid, Solu-Medrol, Protonix, Zosyn. PHYSICAL EXAMINATION: Patient is alert, oriented x2. Pulse 82, blood pressure 110/84, respiration 18, temperature 98 degrees, pulse ox 98% on 3 L. HEENT: Conjunctivae normal. NECK: No jugular venous distention. CARDIOVASCULAR SYSTEM: S1, S2 muffled. RESPIRATORY SYSTEM: Breath sounds diminished at the bases. A few scattered rhonchi and crackles. ABDOMEN: Soft, obese. LEGS: Minimal edema. NERVOUS SYSTEM: Diffusely weak. LABS: Sodium 138. Potassium 6.4 and then 4.2 on repeat. Sugars are 204. ASSESSMENT: 1. Chronic obstructive pulmonary disease, acute exacerbation, as well as obesity hypoventilation syndrome, acute exacerbation, with acute hypoxic hypercarbic respiratory failure, status post BiPAP. 2. Acute purulent tracheobronchitis. 3. Moderate left pleural effusion, atelectasis. 4. Possible congestive heart failure, acute exacerbation, with acute on chronic diastolic dysfunction, ejection fraction 50% to 55%. 5. History of dementia. 6. Diabetes mellitus, type 2. 7. Change in mental status, acute on chronic metabolic encephalopathy, multifactorial. 8. Hyperlipidemia. 9. History of degenerative joint disease. 10.History of pneumonia. 11.History of sleep apnea. 12.History of chronic hypoxic respiratory failure, on home oxygen at 3 liters nasal cannula. 13.Obstructive sleep apnea. 14.COVID diagnosed in 2019. 15.Diabetes mellitus, type 2, with peripheral neuropathy. 16.History of left nephrectomy. 17.History of glaucoma. 18.Gait dysfunction. 19.Extended-spectrum beta-lactamase in the urine, history. 20.History of appendectomy. 21.History of cholecystectomy. 22.History of depression. 23.Obesity with body mass index of 39.1. 24.Remote history of nicotine dependence. 25.NO CODE, NO CPR, NO VENT. RECOMMENDATIONS AND DISCUSSION: I recommend to continue current medications, continue with symptomatic treatment. Continue with BiPAP p.r.n. Continue with Lasix. Potassium has improved significantly. Repeat labs. Intensive bronchodilators. Antibiotics. Closely follow with Pulmonary. Guarded prognosis. Further recommendations to follow. MMODL / IJN: [id number] /
[2020-05-31] MEDS: traMADol 50 MG TAB PO PRN ×2 (16:00→21:38)
[2020-05-31 16:43] LABS: Glucose,Whole Blood 293 mg/dL (75-99)
--- NOTE | 2020-05-31 19:00 | ECHOF ---
Referral Reason:LV function MEASUREMENTS -------- HEIGHT: 170.2 cm WEIGHT: 107.5 kg BP: 132/69 IVSd: 1.2 cm (0.6 - 1.1) LVIDd: 3.8 cm (3.9 - 5.3) LVPWd: 1.2 cm (0.6 - 1.1) IVSs: 1.8 cm LVIDs: 2.4 cm LVPWs: 1.9 cm LA Diam: 2.9 cm (2.7 - 3.8) RVIDd: 2.6 cm (< 3.3) Ao Diam: 3.3 cm (2.0 - 3.7) EPSS: 0.1 cm MV E Lavon: 0.75 m/s MV DecT: 158 ms MV A Lavon: 0.53 m/s MV E/A Ratio: 1.42 MV EF SLOPE: 89.45 mm/s (70 - 150) MV EXCURSION: 13.45 mm (> 18.000) FINDINGS -------- Sinus rhythm. This was a technically difficult study with suboptimal views. The left ventricular size is normal. There is borderline concentric left ventricular hypertrophy. Overall left ventricular systolic function is normal with, an EF between 60 - 65 %. The right ventricle is normal in size. The left atrium is normal in size. The right atrium is normal in size. Interatrial and interventricular septum intact. The aortic root size is normal. Normal inferior vena cava with normal inspiratory collapse consistent with estimated right atrial pre ssure of 5 mmHg. There is no pericardial effusion. CONCLUSIONS -------- 1. The left ventricular size is normal. 2. There is borderline concentric left ventricular hypertrophy. 3. Overall left ventricular systolic function is normal with, an EF between 60 - 65 %. 4. There is no pericardial effusion. COMMERCIAL CORRESPONDENT: Odalis Negrete RDCS
[2020-05-31 20:09] LABS: Glucose,Whole Blood 356 mg/dL (75-99)
[2020-05-31] MEDS: methylPREDNISolone SOD SUCCI 40 MG/ML 1 ML VIAL IV SCH ×2 (21:21→23:28)
[2020-05-31] MEDS: ATORVASTATIN 40 MG TAB PO SCH (21:38)
[2020-06-01] MEDS: VANCOMYCIN 1,750 MG in SODIUM CHLORIDE 0.9% 500 ML 500 ML IVPB SCH ×2 (01:30→16:35)
[2020-06-01] MEDS: PIPERACILLIN-TAZOBACTAM 3.375 GM in SODIUM CHLORIDE 0.9% 100 ML IVPB SCH ×3 (04:56→16:15)
[2020-06-01 06:09] LABS: Glucose,Whole Blood 277 mg/dL (75-99)
[2020-06-01] MEDS: LEVOTHYROXINE 50 MCG TAB PO SCH (07:12)
[2020-06-01] MEDS: NITROFURANTOIN MONOHYD/M-CRYST 100 MG CAP PO SCH ×2 (07:12→16:17)
[2020-06-01] MEDS: INSULIN ASPART (NovoLOG) 100 UNIT/ML VIAL SQ SCH ×4 (07:12→21:19)
[2020-06-01] MEDS: PANTOPRAZOLE 40 MG TABLET PO SCH (07:13)
[2020-06-01] MEDS: BUDESONIDE 1 MG/2 ML NEBU INHALATION SCH ×2 (08:23→19:49)
[2020-06-01] MEDS: IPRATROPIUM-ALBUTEROL 3 ML NEB INHALATION SCH ×4 (08:23→19:49)
[2020-06-01] MEDS: FORMOTEROL FUMARATE 20 MCG/2 ML NEBU INHALATION SCH ×2 (08:23→19:48)
[2020-06-01] MEDS: DORZOLAMIDE-TIMOLOL 2.23%/0.68 10ML BTL BOTH EYES SCH ×3 (09:12→20:37)
[2020-06-01] MEDS: RIVAROXABAN 10 MG TAB PO SCH (09:13)
[2020-06-01] MEDS: methylPREDNISolone SOD SUCCI 40 MG/ML 1 ML VIAL IV SCH (09:13)
[2020-06-01] MEDS: FAMOTIDINE 20 MG TAB PO SCH ×2 (09:13→16:14)
[2020-06-01] MEDS: DULoxetine HCL 60 MG CAPSULE.DR PO SCH (09:13)
[2020-06-01] MEDS: FUROSEMIDE 10 MG/ML 4 ML VIAL IV SCH ×2 (09:13→20:37)
[2020-06-01] MEDS: METOPROLOL SUCCINATE (ER) 25 MG TAB.ER.24H PO SCH (09:14)
[2020-06-01 09:26] LABS: Basophils % (A) 0 %; Eosinophils % (A) 0 %; HCT 36.2 % (34.0-46.0); HGB 11.2 gm/dL (11.4-16.0); Hypochromasia Slight; Lymphocytes # (A) 0.6 k/uL (1.0-4.8); Lymphocytes % (A) 5 %; MCH 29.4 pg (25.0-35.0); MCV 94.9 fL (80.0-100.0); Mean Platelet Volume 7.3; Monocytes # (A) 0.4 k/uL (0-1.0); Monocytes % (A) 3 %; Neutrophils % (A) 91 %; Platelet Count 316 k/uL (150-450); RBC 3.82 m/uL (3.80-5.40); RDW 15.1 % (11.5-15.5); WBC 12.1 k/uL (3.8-10.6)
[2020-06-01 09:34] LABS: Calcium 8.2 mg/dL (8.4-10.2); Potassium 3.8 mmol/L (3.5-5.1)
[2020-06-01 11:44] LABS: Glucose,Whole Blood 271 mg/dL (75-99)
--- NOTE | 2020-06-01 11:58 | XR ---
EXAMINATION TYPE: XR chest 1V portable DATE OF EXAM: 06/01/2020 Comparison: 05/30/2020 Clinical History: 75 year-old female COPD Findings: Spinal stimulator replacement along the mid thoracic spinal canal. Leftward patient rotation ultrason ography mediastinal contours. Heart remains upper limits of normal in size. Continued moderate left e ffusion with patchy bibasilar opacities, probably atelectasis. Impression: Rotated exam. Continued moderate left effusion with mild patchy bibasilar opacities, likely atelectas is.
[2020-06-01] MEDS: predniSONE 20 MG TAB PO SCH (12:09)
--- NOTE | 2020-06-01 13:27 | P.PN ---
Subjective Progress Note Date: 06/01/20 CHIEF COMPLAINT: Hypoxic respiratory failure HISTORY OF PRESENT ILLNESS: 05/31/2020 This is a 75-year-old female with a past medical history significant for COPD, chronic hypoxic respiratory failure on home O2 at 3 L, diabetes mellitus, obstructive sleep apnea without CPAP use, hypertension and hyperlipidemia. 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 We have been asked to see the patient in consultation for hypoxic respiratory failure. Patient was transferred from [facility] on the [place]. Patient apparently had oxygen saturations in the 50-60s and was in respiratory distress. Patient examined this morning at the bedside. Patient is awake and alert. She is confused and is unable to provide much history. Majority obtained from the chart. Patient currently denies chest pain or pressure. She denies shortness of breath. Patient was originally placed on Bipap in the ER but has been weaned down to nasal cannula. 06/01/2020 Patient examined this morning at the bedside. Patient denies chest pain or pressure. She denies shortness of breath. She remains on IV Lasix 40 mg every 12 hours. Fluid balance over the last 24 hours is -3300 mL. BUN 29. Creatinine 1.07. Echocardiogram completed revealed ejection fraction 60-65% PHYSICAL EXAM: VITAL SIGNS: Reviewed. GENERAL: Well-developed in no acute distress. HEENT: Head is normocephalic. Pupils are equal, round. Sclerae anicteric. Mucous membranes of the mouth are moist. Neck supple. No JVD or thyromegaly LUNGS: Respirations even and unlabored. Lungs diminished bilaterally. HEART: Regular rate and rhythm. S1 and S2 heard. ABDOMEN: Soft. Nondistended. Nontender. EXTREMITIES: Normal range of motion. No clubbing or cyanosis. Peripheral pulses intact. 1+ bilateral lower extremity edema ASSESSMENT: Acute on chronic hypoxic respiratory failure Acute exacerbation of chronic diastolic heart failure, ejection fraction 60-65% Moderate sized left pleural effusion Acute exacerbation of COPD Obstructive sleep apnea, noncompliant with CPAP History of Covid April 2020 Hypertension Hyperlipidemia Diabetes mellitus PLAN: Pulmonary consulted. Await evaluation Continue IV Lasix 40mg IV every 12 hours Monitor kidney function Accurate I&O Daily weights Further recommendations pending patient's course Nurse practitioner note has been reviewed by physician. Signing provider agrees with the documented findings, assessment, and plan of care. Objective - Vital Signs Vital signs: Vital Signs Temp 97.8 F 06/01/20 08:00 Pulse 92 06/01/20 11:34 Resp 18 06/01/20 08:00 BP 137/65 06/01/20 08:00 Pulse Ox 98 06/01/20 08:00 Intake & Output 05/31/20 06/01/20 06/01/20 18:59 06:59 18:59 Intake Total 462 180 300 Output Total 700 3340 Balance -238 -3160 300 Weight 112.5 kg Intake: Oral 462 180 300 Output: Urine 700 3340 Other: Voiding Method Indwelling Catheter Indwelling Catheter Indwelling Catheter - Labs CBC & Chem 7: 06/01/20 08:39 06/01/20 08:39 Labs: Abnormal Lab Results - Last 24 Hours (Table) 05/31/20 05/31/20 06/01/20 Range/Units 16:42 20:07 06:08 WBC (3.8-10.6) k/uL Hgb (11.4-16.0) gm/dL Neutrophils # (1.3-7.7) k/uL Lymphocytes # (1.0-4.8) k/uL Sodium (137-145) mmol/L Chloride (98-107) mmol/L Carbon Dioxide (22-30) mmol/L BUN (7-17) mg/dL Creatinine (0.52-1.04) mg/dL Glucose (74-99) mg/dL POC Glucose (mg/dL) 293 H 356 H 277 H (75-99) mg/dL Calcium (8.4-10.2) mg/dL 06/01/20 06/01/20 06/01/20 Range/Units 08:39 08:39 11:41 WBC 12.1 H (3.8-10.6) k/uL Hgb 11.2 L (11.4-16.0) gm/dL Neutrophils # 11.0 H (1.3-7.7) k/uL Lymphocytes # 0.6 L (1.0-4.8) k/uL Sodium 132 L (137-145) mmol/L Chloride 87 L (98-107) mmol/L Carbon Dioxide 39 H (22-30) mmol/L BUN 29 H (7-17) mg/dL Creatinine 1.07 H (0.52-1.04) mg/dL Glucose 226 H (74-99) mg/dL POC Glucose (mg/dL) 271 H (75-99) mg/dL Calcium 8.2 L (8.4-10.2) mg/dL Microbiology - Last 24 Hours (Table) 05/30/20 18:30 Urine Culture - Preliminary Urine,Voided Gram Neg Bacilli
--- NOTE | 2020-06-01 14:16 | PN ---
PROGRESS NOTE DATE OF SERVICE: 06/01/2020 This 75-year-old woman who was admitted with COPD acute exacerbation with acute hypoxic respiratory failure possibly also suspect to have possible acute pneumonia, left more than the right. Patient will be closely monitored. Patient is on broad-spectrum IV antibiotics, steroids. The patient is confused initially. Patient was on and off BiPAP. PAST MEDICAL HISTORY: Reviewed. REVIEW OF SYSTEMS: CARDIOVASCULAR SYSTEM: No angina. RESPIRATORY SYSTEM: As mentioned earlier. GI: As mentioned earlier. : No dysuria. NERVOUS SYSTEM: No numbness or weakness. CURRENT MEDICATIONS: Current medications are DuoNeb, Lipitor, Pulmicort, Cozaar, Cymbalta, Pepcid, Perforomist, Lasix, NovoLog, Cephulac, Synthroid, Toprol-XL, Macrobid, Zosyn. Doses are reviewed. PHYSICAL EXAMINATION: Patient is alert, oriented x2. Pulse 68, blood pressure 137/65, respiration 18, temperature 97.8, pulse ox 98% on 3 L. HEENT: Conjunctivae normal. NECK: No jugular venous distention. CARDIOVASCULAR: S1, S2 muffled. RESPIRATORY: Breath sounds diminished at the bases. A few scattered rhonchi and crackles. ABDOMEN: Soft, obese, nontender. LEGS: No edema, no swelling. NERVOUS SYSTEM: No focal deficits. LABS: Creatinine 1.07. WBC 12.1. Accu-Cheks 271. ASSESSMENT: 1. Chronic obstructive pulmonary disease acute exacerbation as well as obesity hypoventilation syndrome, acute exacerbation with acute hypoxic hypercarbic respiratory failure status post BiPAP. 2. Possibly acute left lower lobe pneumonia possibly gram-negative possibly hospital acute pneumonia. 3. Moderate left pleural effusion, atelectasis. 4. Congestive heart failure acute exacerbation acute on chronic diastolic dysfunction, ejection fraction 50% to 55%. 5. History of dementia. 6. Diabetes mellitus type 2, uncontrolled with hyperglycemia. 7. Change in mental status acute on chronic metabolic encephalopathy multifactorial. 8. Hyperlipidemia. 9. History of degenerative joint disease. 10.History of pneumonia. 11.History of sleep apnea. 12.History of chronic hypoxic respiratory failure on home oxygen 3 L nasal cannula. 13.Obstructive sleep apnea. 14.COVID diagnosed in March. 15.Diabetes mellitus type 2 with peripheral neuropathy. 16.History of left nephrectomy. 17.History of glaucoma. 18.Gait dysfunction. 19.ESBL in the urine history. 20.History of appendectomy. 21.History of cholecystectomy. 22.History of depression. 23.Obesity with body mass index of 39.1. 24.Remote history of nicotine dependence. 25.NO CODE, NO CPR, NO VENT. RECOMMENDATIONS AND DISCUSSION: Recommend to continue current medications, continue with monitoring and symptomatic treatment. Otherwise at this time continue the bronchodilators. Continue with tapering steroids. Monitor blood sugars closely. Continue the empiric antibiotics. Follow the cultures. Guarded prognosis because of multiple complex medical issues and further recommendation to follow. MMODL / IJN: [id number] /
--- NOTE | 2020-06-01 15:46 | P.PN ---
Subjective Progress Note Date: 06/01/20 Principal diagnosis: Acute exacerbation of COPD, acute on chronic hypoxic respiratory failure. This is a 75-year-old female with history of multiple medical problems including severe COPD, chronic hypoxic respiratory failure, type 2 diabetes, hypertension, obstructive sleep apnea syndrome, patient was admitted from the [facility] with mostly symptoms of increased shortness of breath, her admission date was 05/30/19. Initially, the patient was placed on BiPAP with IPAP of 12 and EPAP of 5, patient was also confused, apparently had in terms of metabolic encephalopathy and hypercapnia. Patient was placed on bronchodilators, and today she seems to be doing much better, breathing a lot easier, less cough and less wheezing and she is not as confused. Patient is asking to be discharged back to the [facility], however I believe the patient will likely benefit from one more day of bronchodilators and diuretics. Patient had history of covid 19 infection on April 17, and she had history of moderate sized left pleural effusion. With atelectasis involving the left lower lobe. Patient remains on diuretics, and seems to be improving. Labs today showed WBC count of 12.1 hemoglobin 11.2. Electrolytes are normal bicarb is 39 BUN is 29 creatinine is 1.07. Her urinalysis was suspicious for urinary tract infection. And the initial report is showing gram-negative bacilli. Patient is on Zosyn, she is also on Macrobid. And today I switch the patient to oral prednisone at 20 mg daily, hoping we could the patient is shows the patient home in the next 24 hours Objective - Vital Signs Vital signs: Vital Signs Temp 97.8 F 06/01/20 08:00 Pulse 92 06/01/20 11:34 Resp 18 06/01/20 08:00 BP 137/65 06/01/20 08:00 Pulse Ox 98 06/01/20 08:00 Intake & Output 05/31/20 06/01/20 06/01/20 18:59 06:59 18:59 Intake Total 462 180 600 Output Total 700 3340 Balance -238 -3160 600 Weight 112.5 kg Intake: Oral 462 180 600 Output: Urine 700 3340 Other: Voiding Method Indwelling Catheter Indwelling Catheter Indwelling Catheter - Exam Physical Exam: Revealed 75-year-old female in no distress. Patient is on room air, O2 saturation is ranging between 88-92%. HEENT:[Neck is supple.] [No neck masses.] [No thyromegaly.] [No JVD.] Chest: [Diminished breath sounds at the left base, some wheezing on forced expir atory maneuver. Cardiac Exam: [Normal S1 and S2, no S3 gallop, no murmur.] Abdomen: [Obese, Soft, nontender, no megaly, no rebound, no guarding, normal bowel sounds.] Extremities: [No clubbing, no edema, no cyanosis.] Neurological Exam: [No focal neurologic deficit.] Alert and oriented 3. Psychiatric: Normal mood, blunt affect, no gross focal neurologic deficit mental status is waxing and waning sometimes she seems to be quite confused but today she is not as confused. - Labs CBC & Chem 7: 06/01/20 08:39 06/01/20 08:39 Labs: Abnormal Lab Results - Last 24 Hours (Table) 05/31/20 05/31/20 06/01/20 Range/Units 16:42 20:07 06:08 WBC (3.8-10.6) k/uL Hgb (11.4-16.0) gm/dL Neutrophils # (1.3-7.7) k/uL Lymphocytes # (1.0-4.8) k/uL Sodium (137-145) mmol/L Chloride (98-107) mmol/L Carbon Dioxide (22-30) mmol/L BUN (7-17) mg/dL Creatinine (0.52-1.04) mg/dL Glucose (74-99) mg/dL POC Glucose (mg/dL) 293 H 356 H 277 H (75-99) mg/dL Calcium (8.4-10.2) mg/dL 06/01/20 06/01/20 06/01/20 Range/Units 08:39 08:39 11:41 WBC 12.1 H (3.8-10.6) k/uL Hgb 11.2 L (11.4-16.0) gm/dL Neutrophils # 11.0 H (1.3-7.7) k/uL Lymphocytes # 0.6 L (1.0-4.8) k/uL Sodium 132 L (137-145) mmol/L Chloride 87 L (98-107) mmol/L Carbon Dioxide 39 H (22-30) mmol/L BUN 29 H (7-17) mg/dL Creatinine 1.07 H (0.52-1.04) mg/dL Glucose 226 H (74-99) mg/dL POC Glucose (mg/dL) 271 H (75-99) mg/dL Calcium 8.2 L (8.4-10.2) mg/dL Microbiology - Last 24 Hours (Table) 05/30/20 18:30 Urine Culture - Preliminary Urine,Voided Gram Neg Bacilli Assessment and Plan Assessment: Impression: Acute on chronic hypoxic and short failure, multifactorial as noted below. Shortness of breath, which is likely multifactorial, in part related to COPD exacerbation and acute on chronic diastolic congestive heart failure. History of sleep apnea syndrome, currently on CPAP at the residential. Prior diagnoses of COVID 19 infection, 04/01/2020. Possible acute urinary tract infection. History of dementia. History of diabetes mellitus and diabetic neuropathy. History of hyperlipidemia. Osteoarthritis. History of pneumonia. History of stage III chronic kidney disease. History of hypothyroidism. Chronic hypoxemic and hypercapnic respiratory failure. History of glaucoma. Urinary incontinence. Previous left nephrectomy for unclear reasons. History of chronic urinary tract infection. History of anemia. Recommendation: Continue present course of treatment including bronchodilators. Continue antibiotics. Continue prednisone at 20 mg daily. Continue diuretics. Continue home medications. Consider discharge planning in the next 24 hours. Address her urinary tract infection accordingly with appropriate antibiotic depending on the cultures tomorrow. We'll continue to follow and again I believe the patient could be considered for discharge tomorrow. Time with Patient: Less than 30
--- NOTE | 2020-06-01 15:52 | P.CNPUL ---
History of Present Illness Consult date: 05/31/20 Requesting physician: Jeanette Quiros Reason for consult: COPD Chief complaint: Shortness of breath History of present illness: This is a 75-year-old female with history of multiple medical problems including severe COPD, chronic hypoxic respiratory failure, type 2 diabetes, hypertension, obstructive sleep apnea syndrome, patient was admitted from the [facility] with mostly symptoms of increased shortness of breath, her admission date was 05/30/19. Initially, the patient was placed on BiPAP with IPAP of 12 and EPAP of 5, patient was also confused, apparently had in terms of metabolic encephalopathy and hypercapnia. Patient was placed on bronchodilators, and today she seems to be doing much better, breathing a lot easier, less cough and less wheezing and she is not as confused. Patient is asking to be discharged back to the [facility], however I believe the patient will likely benefit from one more day of bronchodilators and diuretics. Patient had history of covid 19 infection on April 17, and she had history of moderate sized left pleural effusion. With atelectasis involving the left lower lobe. Patient remains on diuretics, and seems to be improving. Labs today showed WBC count of 12.1 hemoglobin 11.2. Electrolytes are normal bicarb is 39 BUN is 29 creatinine is 1.07. Her urinalysis was suspicious for urinary tract infection. And the initial report is showing gram-negative bacilli. Patient is on Zosyn, she is also on Macrobid. And today I switch the patient to oral prednisone at 20 mg daily, hoping we could the patient is shows the patient home in the next 24 hours Review of Systems REVIEW OF SYSTEMS: CONSTITUTIONAL: Weakness. NEUROLOGIC: Mental status changes. HEENT: [ Negative.] CARDIAC: Lower extremity edema. PULMONARY: Shortness of breath, a dry cough. GI: [Negative.] : Dysuria. RHEUMATOLOGIC: [ Negative.] IMMUNOLOGIC: [ Negative.] ENDOCRINE: [Negative. ] DERMATOLOGIC: [Negative.] Past Medical History Past Medical History: COPD, Dementia, Diabetes Mellitus, Eye Disorder, Hyperlipidemia, Memory Impairment, Osteoarthritis (OA), Pneumonia, Renal Disease, Sleep Apnea/CPAP/BIPAP, Thyroid Disorder Additional Past Medical History / Comment(s): Chronic respiratory failure, home oxygen at 3L/NC ATC, KEEGAN without device at [facility], + covid diagnosed 04/01/20 at [facility], IDDM type II, neuropathy bilateral feet, CKD stage III-pt had L nephrectomy but bertha cannot recall reason, anemia, UTIs, glaucoma bilateral eyes, muscle weakness, gait dysfunction, incontinence urine/stool, allergic rhinitis, troponin leak -unsure if UT. History of Any Multi-Drug Resistant Organisms: ESBL Date of last positivie culture/infection: 03/20/19 MDRO Source:: Urine Past Surgical History: Appendectomy, Cholecystectomy, Hernia Repair, Hysterectomy, Tonsillectomy Additional Past Surgical History / Comment(s): L nephrectomy, colonoscopy Past Anesthesia/Blood Transfusion Reactions: No Reported Reaction Past Psychological History: Depression Smoking Status: Former smoker Past Alcohol Use History: None Reported Past Drug Use History: None Reported - Past Family History Mother Family Medical History: Cancer Additional Family Medical History / Comment(s): throat cancer Medications and Allergies Home Medications Medication Instructions Recorded Confirmed Type DULoxetine HCL [Cymbalta] 60 mg PO DAILY@0900 03/06/19 05/30/20 History Dorzolamide/Timolol/Pf 1 drop BOTH EYES TID@0900,1300,2100 03/06/19 05/30/20 History [Dorzolamide 2%-Timolol 0.5%] Acetaminophen Tab [Tylenol] 650 mg PO Q6H PRN 01/25/20 05/30/20 History Atorvastatin [Lipitor] 40 mg PO DAILY@2100 03/01/20 05/30/20 History Levothyroxine Sodium [Synthroid] 50 mcg PO DAILY@0600 03/01/20 05/30/20 History Albuterol Sulfate [Proventil Hfa] 2 puff INHALATION RT-Q6H PRN 04/30/20 05/30/20 History Famotidine 10 mg PO BID@0900,1700 04/30/20 05/30/20 History INSULIN LISPRO (humaLOG) [humaLOG] See Protocol SQ ACHS@08,,,04/30/20 05/30/20 History Melatonin 3 mg PO HS@2000 PRN 04/30/20 05/30/20 History Metoprolol Succinate (ER) [Toprol 25 mg PO DAILY@0900 04/30/20 05/30/20 History XL] Rivaroxaban [Xarelto] 10 mg PO DAILY@0900 04/30/20 05/30/20 History Ipratropium-Albuterol Nebulize 3 ml INHALATION RT-Q6H PRN 05/17/20 05/30/20 History [Duoneb 0.5 mg-3 mg/3 ml Soln] Lactulose 20 gm PO TID PRN 05/30/20 05/30/20 History Nitrofurantoin Monohyd/M-Cryst 100 mg PO BID@0600,1600 05/30/20 05/30/20 History [Macrobid] clonazePAM [KlonoPIN] 0.5 mg PO Q6H PRN 05/30/20 05/30/20 History metFORMIN HCL [Glucophage] 500 mg PO BID@0900,2100 05/30/20 05/30/20 History traMADol HCL [Ultram] 50 mg PO Q8H PRN 05/30/20 05/30/20 History Allergies Allergy/AdvReac Type Severity Reaction Status Date / Time codeine AdvReac Nausea & Verified 05/30/20 15:59 Vomiting Physical Exam Vitals: Vital Signs Temp Pulse Pulse Resp BP Pulse Ox 06/01/20 11:34 92 06/01/20 11:23 88 06/01/20 08:46 92 06/01/20 08:38 92 06/01/20 08:23 88 06/01/20 08:00 97.8 F 68 18 137/65 98 06/01/20 04:00 98.2 F 73 18 121/74 98 06/01/20 02:00 90 18 06/01/20 00:00 98.2 F 90 18 119/82 100 05/31/20 20:10 94 05/31/20 20:01 96 05/31/20 20:00 98.0 F 96 98 18 117/89 98 05/31/20 19:51 95 98 05/31/20 16:10 88 05/31/20 16:00 98.3 F 88 94 18 135/62 96 Intake and Output 06/01/20 06/01/20 06/01/20 06:59 14:59 22:59 Intake Total 180 600 Output Total 3140 Balance -2960 600 Intake: Oral 180 600 Output: Urine 3140 Other: Voiding Method Indwelling Catheter Indwelling Catheter Weight 112.5 kg GENERAL EXAM: Alert, very pleasant, 75-year-old white female, on 2 L of oxygen a pulse ox of 98%, comfortable in no apparent distress. Head: Atraumatic, normocephalic. EENT: PERRLA, EOMI, nonicteric, dry mucous membranes, no oral thrush, CHEST: No chest wall deformity. Symmetrical expansion. LUNGS: Diffuse rhonchi and wheezes. More so on forced expiratory maneuver. CVS: Regular rate and rhythm, normal S1 and S2, no gallops, no murmurs, no rubs ABDOMEN: Soft, nontender. No hepatosplenomegaly, normal bowel sounds, no guarding or rigidity. EXTREMITIES: No clubbing, no edema, no cyanosis, 2+ pulses and upper and lower extremities. MUSCULOSKELETAL: Muscle strength and tone normal. SKIN: No rashes CENTRAL NERVOUS SYSTEM: Confused, unable to assess fully. Patient cannot give adequate history. PSYCHIATRIC: Anxious mood, blunt affect, poor mental status mostly confused. Results - Laboratory Findings CBC and BMP: 06/01/20 08:39 06/01/20 08:39 PT/INR, D-dimer PT 12.3 sec (9.0-12.0) H 05/30/20 15:35 INR 1.2 (<1.2) H 05/30/20 15:35 Abnormal lab findings: Abnormal Labs 05/30/20 05/30/20 05/30/20 15:35 15:35 15:35 WBC 21.9 H Hgb Neutrophils # 19.1 H Lymphocytes # Monocytes # 1.1 H PT 12.3 H INR 1.2 H APTT 34.5 H Sodium Potassium 5.3 H Chloride 93 L Carbon Dioxide 36 H BUN Creatinine Glucose 143 H POC Glucose (mg/dL) Calcium Total Bilirubin 1.9 H Troponin I Urine Appearance Urine Protein Urine Glucose (UA) Urine Blood Urine Nitrite Ur Leukocyte Esterase Urine RBC Urine WBC Urine WBC Clumps Urine Bacteria Urine Mucus 05/30/20 05/30/20 05/30/20 15:35 18:28 18:30 WBC Hgb Neutrophils # Lymphocytes # Monocytes # PT INR APTT Sodium Potassium Chloride Carbon Dioxide BUN Creatinine Glucose POC Glucose (mg/dL) 150 H Calcium Total Bilirubin Troponin I 0.035 H* Urine Appearance Turbid H Urine Protein 2+ H Urine Glucose (UA) Trace H Urine Blood Moderate H Urine Nitrite Positive H Ur Leukocyte Esterase Large H Urine RBC 22 H Urine WBC >182 H Urine WBC Clumps Many H Urine Bacteria Many H Urine Mucus Few H 05/30/20 05/30/20 05/30/20 19:03 21:03 22:44 WBC Hgb Neutrophils # Lymphocytes # Monocytes # PT INR APTT Sodium Potassium Chloride Carbon Dioxide BUN Creatinine Glucose POC Glucose (mg/dL) 137 H Calcium Total Bilirubin Troponin I 0.060 H* 0.045 H* Urine Appearance Urine Protein Urine Glucose (UA) Urine Blood Urine Nitrite Ur Leukocyte Esterase Urine RBC Urine WBC Urine WBC Clumps Urine Bacteria Urine Mucus 05/31/20 05/31/20 05/31/20 06:11 07:49 07:49 WBC Hgb Neutrophils # 8.1 H Lymphocytes # 0.7 L Monocytes # PT INR APTT Sodium 135 L Potassium 6.4 H* Chloride 94 L Carbon Dioxide BUN 23 H Creatinine Glucose 210 H POC Glucose (mg/dL) 147 H Calcium Total Bilirubin Troponin I Urine Appearance Urine Protein Urine Glucose (UA) Urine Blood Urine Nitrite Ur Leukocyte Esterase Urine RBC Urine WBC Urine WBC Clumps Urine Bacteria Urine Mucus 05/31/20 05/31/20 05/31/20 12:17 16:42 20:07 WBC Hgb Neutrophils # Lymphocytes # Monocytes # PT INR APTT Sodium Potassium Chloride Carbon Dioxide BUN Creatinine Glucose POC Glucose (mg/dL) 204 H 293 H 356 H Calcium Total Bilirubin Troponin I Urine Appearance Urine Protein Urine Glucose (UA) Urine Blood Urine Nitrite Ur Leukocyte Esterase Urine RBC Urine WBC Urine WBC Clumps Urine Bacteria Urine Mucus 06/01/20 06/01/20 06/01/20 06:08 08:39 08:39 WBC 12.1 H Hgb 11.2 L Neutrophils # 11.0 H Lymphocytes # 0.6 L Monocytes # PT INR APTT Sodium 132 L Potassium Chloride 87 L Carbon Dioxide 39 H BUN 29 H Creatinine 1.07 H Glucose 226 H POC Glucose (mg/dL) 277 H Calcium 8.2 L Total Bilirubin Troponin I Urine Appearance Urine Protein Urine Glucose (UA) Urine Blood Urine Nitrite Ur Leukocyte Esterase Urine RBC Urine WBC Urine WBC Clumps Urine Bacteria Urine Mucus 06/01/20 11:41 WBC Hgb Neutrophils # Lymphocytes # Monocytes # PT INR APTT Sodium Potassium Chloride Carbon Dioxide BUN Creatinine Glucose POC Glucose (mg/dL) 271 H Calcium Total Bilirubin Troponin I Urine Appearance Urine Protein Urine Glucose (UA) Urine Blood Urine Nitrite Ur Leukocyte Esterase Urine RBC Urine WBC Urine WBC Clumps Urine Bacteria Urine Mucus - Diagnostic Findings Chest x-ray: image reviewed (Chest x-ray showed atelectasis and possibly a small to moderate left pleural effusion) Assessment and Plan Assessment: Impression: Acute on chronic hypoxic and short failure, multifactorial as noted below. Shortness of breath, which is likely multifactorial, in part related to COPD exacerbation and acute on chronic diastolic congestive heart failure. History of sleep apnea syndrome, [facility] the [facility]. Prior diagnoses of COVID 19 infection, 04/01/2020. Possible acute urinary tract infection. History of dementia. History of diabetes mellitus and diabetic neuropathy. History of hyperlipidemia. Osteoarthritis. History of pneumonia. History of stage III chronic kidney disease. History of hypothyroidism. Chronic hypoxemic and hypercapnic respiratory failure. History of glaucoma. Urinary incontinence. Previous left nephrectomy for unclear reasons. History of chronic urinary tract infection. History of anemia. Recommendation: Continue present course of treatment including bronchodilators. Continue antibiotics. Switch methylprednisolone to prednisone since the steroids may be causing some component of steroid-induced psychosis. Continue diuretics. Continue home medications. No plans to perform thoracentesis on this patient, patient will likely improve with diuretics. We'll continue to follow. Time with Patient: Greater than 30
[2020-06-01 17:06] LABS: Glucose,Whole Blood 278 mg/dL (75-99)
[2020-06-01] MEDS: ATORVASTATIN 40 MG TAB PO SCH (20:37)
[2020-06-01] MEDS: traMADol 50 MG TAB PO PRN (20:37)
[2020-06-01 20:47] LABS: Glucose,Whole Blood 289 mg/dL (75-99)
[2020-06-02] MEDS: PIPERACILLIN-TAZOBACTAM 3.375 GM in SODIUM CHLORIDE 0.9% 100 ML IVPB SCH ×2 (00:19→08:41)
[2020-06-02] MEDS: traMADol 50 MG TAB PO PRN ×2 (05:00→19:52)
[2020-06-02 06:03] LABS: Glucose,Whole Blood 219 mg/dL (75-99)
[2020-06-02] MEDS: NITROFURANTOIN MONOHYD/M-CRYST 100 MG CAP PO SCH (06:42)
[2020-06-02] MEDS: LEVOTHYROXINE 50 MCG TAB PO SCH (06:42)
[2020-06-02] MEDS: INSULIN ASPART (NovoLOG) 100 UNIT/ML VIAL SQ SCH ×4 (06:42→21:55)
[2020-06-02] MEDS: PANTOPRAZOLE 40 MG TABLET PO SCH (06:42)
[2020-06-02] MEDS: BUDESONIDE 1 MG/2 ML NEBU INHALATION SCH ×2 (07:10→20:07)
[2020-06-02] MEDS: FORMOTEROL FUMARATE 20 MCG/2 ML NEBU INHALATION SCH ×2 (07:10→20:07)
[2020-06-02] MEDS: IPRATROPIUM-ALBUTEROL 3 ML NEB INHALATION SCH ×4 (07:10→20:07)
[2020-06-02 08:19] LABS: Basophils % (A) 0 %; Eosinophils % (A) 0 %; HCT 37.1 % (34.0-46.0); HGB 11.5 gm/dL (11.4-16.0); Hypochromasia Slight; Lymphocytes # (A) 0.7 k/uL (1.0-4.8); Lymphocytes % (A) 6 %; MCH 29.4 pg (25.0-35.0); MCHC 31.2 g/dL (31.0-37.0); MCV 94.2 fL (80.0-100.0); Mean Platelet Volume 7.5; Monocytes # (A) 0.7 k/uL (0-1.0); Monocytes % (A) 6 %; Neutrophils # (A) 10.6 k/uL (1.3-7.7); Neutrophils % (A) 88 %; Platelet Count 325 k/uL (150-450); RBC 3.93 m/uL (3.80-5.40); WBC 12.1 k/uL (3.8-10.6)
[2020-06-02 08:27] LABS: Calcium 8.1 mg/dL (8.4-10.2); Potassium 4.2 mmol/L (3.5-5.1)
[2020-06-02] MEDS: DULoxetine HCL 60 MG CAPSULE.DR PO SCH (08:41)
[2020-06-02] MEDS: METOPROLOL SUCCINATE (ER) 25 MG TAB.ER.24H PO SCH (08:41)
[2020-06-02] MEDS: predniSONE 20 MG TAB PO SCH (08:41)
[2020-06-02] MEDS: DORZOLAMIDE-TIMOLOL 2.23%/0.68 10ML BTL BOTH EYES SCH ×3 (08:41→19:53)
[2020-06-02] MEDS: FAMOTIDINE 20 MG TAB PO SCH ×2 (08:41→17:27)
[2020-06-02] MEDS: RIVAROXABAN 10 MG TAB PO SCH (08:41)
[2020-06-02] MEDS: FUROSEMIDE 10 MG/ML 4 ML VIAL IV SCH ×2 (08:42→19:53)
[2020-06-02 12:11] LABS: Glucose,Whole Blood 314 mg/dL (75-99)
--- NOTE | 2020-06-02 12:48 | P.PN ---
Subjective Progress Note Date: 06/02/20 This is a 75-year-old female with history of multiple medical problems including severe COPD, chronic hypoxic respiratory failure, type 2 diabetes, hypertension, obstructive sleep apnea syndrome, patient was admitted from the [facility] with mostly symptoms of increased shortness of breath, her admission date was 05/30/19. Initially, the patient was placed on BiPAP with IPAP of 12 and EPAP of 5, patient was also confused, apparently had in terms of metabolic encephalopathy and hypercapnia. Patient was placed on bronchodilators, and today she seems to be doing much better, breathing a lot easier, less cough and less wheezing and she is not as confused. Patient is asking to be discharged back to the [facility], however I believe the patient will likely benefit from one more day of bronchodilators and diuretics. Patient had history of covid 19 infection on April 17, and she had history of moderate sized left pleural effusion. With atelectasis involving the left lower lobe. Patient remains on diuretics, and seems to be improving. Labs today showed WBC count of 12.1 hemoglobin 11.2. Electrolytes are normal bicarb is 39 BUN is 29 creatinine is 1.07. Her urinalysis was suspicious for urinary tract infection. And the initial report is showing gram-negative bacilli. Patient is on Zosyn, she is also on Macrobid. And today I switch the patient to oral prednisone at 20 mg daily, hoping we could the patient is shows the patient home in the next 24 hours. The patient is seen today 06/02/2020 in follow-up on the [facility]. She is currently awake and alert in no acute distress. Resting fairly comfortably in bed. Maintaining good O2 saturations in the upper 90s on 3 L/m per nasal cannula. She has been afebrile. Hemodynamically stable. Urine culture positive for Klebsiella pneumoniae. ESBL. White count 12.1. Hemoglobin 11.5. Sodium 1:30. Potassium 4.0. Creatinine 1.08. She is continued on DuoNeb inhalations, Pulmicort and Perforomist inhalations, predni sone, IV diuretics in the form of Lasix 40 mg every 12 hours. Antibiotics in the form of Macrobid, vancomycin and Zosyn. Anticoagulated with Xarelto Objective - Vital Signs Vital signs: Vital Signs Temp 97.9 F 06/02/20 04:00 Pulse 74 06/02/20 11:04 Resp 18 06/02/20 08:00 BP 115/62 06/02/20 08:00 Pulse Ox 98 06/02/20 08:00 Intake & Output 06/01/20 06/02/20 06/02/20 18:59 06:59 18:59 Intake Total 840 480 Output Total 1400 1500 500 Balance -560 -1500 -20 Weight 98.5 kg Intake: Oral 840 480 Output: Urine 1400 1500 500 Other: Voiding Method Indwelling Catheter Indwelling Catheter Indwelling Catheter - Exam GENERAL EXAM: Alert, very pleasant, 75-year-old female patient, on 3 L of oxygen a pulse ox of 98%, comfortable in no apparent distress. Head: Atraumatic, normocephalic. EENT: PERRLA, EOMI, nonicteric, dry mucous membranes, no oral thrush, CHEST: No chest wall deformity. Symmetrical expansion. LUNGS: With bilateral scattered rhonchi and wheezes. CVS: Regular rate and rhythm, normal S1 and S2, no gallops, no murmurs, no rubs ABDOMEN: Soft, nontender. No hepatosplenomegaly, normal bowel sounds, no guarding or rigidity. EXTREMITIES: No clubbing, no edema, no cyanosis, 2+ pulses and upper and lower extremities. MUSCULOSKELETAL: Muscle strength and tone normal. SKIN: No rashes CENTRAL NERVOUS SYSTEM: Confused, unable to assess fully. Patient cannot give adequate history. PSYCHIATRIC: Anxious mood, blunt affect, poor mental status mostly confused. - Labs CBC & Chem 7: 06/02/20 07:17 06/02/20 07:17 Labs: Abnormal Lab Results - Last 24 Hours (Table) 06/01/20 06/01/20 06/02/20 Range/Units 17:04 20:45 05:55 WBC (3.8-10.6) k/uL Neutrophils # (1.3-7.7) k/uL Lymphocytes # (1.0-4.8) k/uL Sodium (137-145) mmol/L Chloride (98-107) mmol/L Carbon Dioxide (22-30) mmol/L BUN (7-17) mg/dL Creatinine (0.52-1.04) mg/dL Glucose (74-99) mg/dL POC Glucose (mg/dL) 278 H 289 H 219 H (75-99) mg/dL Calcium (8.4-10.2) mg/dL 06/02/20 06/02/20 06/02/20 Range/Units 07:17 07:17 12:00 WBC 12.1 H (3.8-10.6) k/uL Neutrophils # 10.6 H (1.3-7.7) k/uL Lymphocytes # 0.7 L (1.0-4.8) k/uL Sodium 130 L (137-145) mmol/L Chloride 84 L (98-107) mmol/L Carbon Dioxide 38 H (22-30) mmol/L BUN 32 H (7-17) mg/dL Creatinine 1.08 H (0.52-1.04) mg/dL Glucose 206 H (74-99) mg/dL POC Glucose (mg/dL) 314 H (75-99) mg/dL Calcium 8.1 L (8.4-10.2) mg/dL Microbiology - Last 24 Hours (Table) 05/30/20 18:30 Urine Culture - Final Urine,Voided Klebsiella pneumoniae Assessment and Plan Assessment: Acute on chronic hypoxic and short failure, multifactorial as noted below. Shortness of breath, which is likely multifactorial, in part related to COPD exacerbation and acute on chronic diastolic congestive heart failure. Acute urinary tract infection secondary to Klebsiella pneumoniae, ESBL History of sleep apnea syndrome, currently on CPAP at the [facility]. Prior diagnoses of COVID 19 infection, 04/01/2020. Possible acute urinary tract infection. History of dementia. History of diabetes mellitus and diabetic neuropathy. History of hyperlipidemia. Osteoarthritis. History of pneumonia. History of stage III chronic kidney disease. History of hypothyroidism. Chronic hypoxemic and hypercapnic respiratory failure. History of glaucoma. Urinary incontinence. Previous left nephrectomy for unclear reasons. History of chronic urinary tract infection. History of anemia. Plan: The patient was seen and evaluated by Dr. Lorenzo Discontinue macrobid, vancomycin and Zosyn Initiate meropenem Consult infectious disease Continue bronchodilators, prednisone Continue diuretics We'll continue to follow I, the cosigning physician, performed a history & physical examination of the patient. Lungs sounds with bilateral scattered rhonchi. Maintaining good O2 saturations in the 90s on 3 L/m per nasal cannula. I discussed the assessment and plan of care with my nurse practitioner, Grazyna Ricardo. I attest to the above note as dictated by her.
[2020-06-02] MEDS: MEROPENEM 2 GM in SODIUM CHLORIDE 0.9% 100 ML IVPB SCH ×2 (12:58→20:37)
--- NOTE | 2020-06-02 13:16 | P.PN ---
Subjective Progress Note Date: 06/02/20 Principal diagnosis: Shortness of breath This is a 75-year-old female patient was admitted to the hospital with acute hypoxic respiratory failure secondary to COPD exacerbation as well as heart failure with preserved ejection fraction exacerbation. The patient was seen today. She stated that she is feeling better. The shortness of breath is better. No symptoms of chest pain or chest discomfort which she continues to be on Lasix IV. The creatinine seems to be stable. I advise continue the patient on IV Lasix for additional 24 hour and possible discharge home tomorrow. Hemodynamically she continues to be stable. Objective - Vital Signs Vital signs: Vital Signs Temp 97.9 F 06/02/20 04:00 Pulse 74 06/02/20 11:04 Resp 18 06/02/20 08:00 BP 115/62 06/02/20 08:00 Pulse Ox 98 06/02/20 08:00 Intake & Output 06/01/20 06/02/20 06/02/20 18:59 06:59 18:59 Intake Total 840 480 Output Total 1400 1500 500 Balance -560 -1500 -20 Weight 98.5 kg Intake: Oral 840 480 Output: Urine 1400 1500 500 Other: Voiding Method Indwelling Catheter Indwelling Catheter Indwelling Catheter - Constitutional General appearance: Present: no acute distress - Respiratory Respiratory: bilateral: diminished - Cardiovascular Heart sounds: normal: S1, S2 - Labs CBC & Chem 7: 06/02/20 07:17 06/02/20 07:17 Labs: Abnormal Lab Results - Last 24 Hours (Table) 06/01/20 06/01/20 06/02/20 Range/Units 17:04 20:45 05:55 WBC (3.8-10.6) k/uL Neutrophils # (1.3-7.7) k/uL Lymphocytes # (1.0-4.8) k/uL Sodium (137-145) mmol/L Chloride (98-107) mmol/L Carbon Dioxide (22-30) mmol/L BUN (7-17) mg/dL Creatinine (0.52-1.04) mg/dL Glucose (74-99) mg/dL POC Glucose (mg/dL) 278 H 289 H 219 H (75-99) mg/dL Calcium (8.4-10.2) mg/dL 06/02/20 06/02/20 06/02/20 Range/Units 07:17 07:17 12:00 WBC 12.1 H (3.8-10.6) k/uL Neutrophils # 10.6 H (1.3-7.7) k/uL Lymphocytes # 0.7 L (1.0-4.8) k/uL Sodium 130 L (137-145) mmol/L Chloride 84 L (98-107) mmol/L Carbon Dioxide 38 H (22-30) mmol/L BUN 32 H (7-17) mg/dL Creatinine 1.08 H (0.52-1.04) mg/dL Glucose 206 H (74-99) mg/dL POC Glucose (mg/dL) 314 H (75-99) mg/dL Calcium 8.1 L (8.4-10.2) mg/dL Microbiology - Last 24 Hours (Table) 05/30/20 18:30 Urine Culture - Final Urine,Voided Klebsiella pneumoniae Assessment and Plan Assessment: Assessment #1 acute hypoxic respiratory failure #2 acute exacerbation of COPD #3 acute exacerbation of heart failure with preserved ejection fraction next #4 shortness of breath likely to be multifocal related to COPD and CHF and obesity #4 multiple comorbid conditions Plan #1 continue the current medical regimen #2 continue the Lasix for additional 24 hours #3 continue monitor the kidney function and electrolytes #4 follow-up with the patient
--- NOTE | 2020-06-02 15:32 | PN ---
PROGRESS NOTE DATE OF SERVICE: 06/02/2020. This 75-year-old woman who was admitted with COPD acute exacerbation as well as obesity hypoventilation syndrome, also had pneumonia possible hospital-acquired pneumonia. The patient is on broad-spectrum IV antibiotics. The urine culture shows Klebsiella pneumoniae which is ESBL. No chest pain. No palpitations. No fever. PHYSICAL EXAMINATION: Alert and oriented x3. Pulse 66 with blood pressure 138/84, respiration 18, temperature normal, pulse ox 98% on 3 L. HEENT: Conjunctivae normal. NECK: No jugular venous distention. CARDIOVASCULAR: S1, S2 muffled. RESPIRATORY: Breath sounds diminished at the bases. Scattered rhonchi. ABDOMEN: Soft. LEGS: No edema. No swelling. NERVOUS SYSTEM: No focal deficits. LABS: WBC 12.1. Sodium 130, potassium 4.2. ASSESSMENT: 1. Chronic obstructive pulmonary disease acute exacerbation as well as obesity hypoventilation syndrome with acute exertional acute exacerbation with acute hypoxic hypercapnic respiratory failure, status post BiPAP. 2. Acute left lower lobe pneumonia, possibly gram-negative possibly hospital acquired pneumonia. 3. Moderate left pleural effusion, atelectasis. 4. Congestive heart failure acute exacerbation acute on chronic diastolic dysfunction ejection fraction 50% to 55%. 5. ESBL Klebsiella pneumoniae urinary tract infection, acute, present on admission. 6. History of dementia. 7. Diabetes mellitus type 2, uncontrolled with hyperglycemia. 8. Change in mental status acute metabolic encephalopathy multifactorial. 9. Hyperlipidemia. 10.History of degenerative joint disease. 11.History of pneumonia. 12.History of sleep apnea. 13.History of chronic hypoxic respiratory failure on home oxygen 3 L nasal cannula. 14.Obstructive sleep apnea. 15.COVID diagnosed in 2019. 16.Diabetes mellitus type 2 with peripheral neuropathy. 17.History of left nephrectomy. 18.History of glaucoma. 19.Gait dysfunction. 20.ESBL in the urine history. 21.History of appendectomy. 22.History of cholecystectomy. 23.History of depression. 24.Obesity with body mass index of 39.1. 25.Remote history of nicotine dependence. 26.NO CODE, NO CPR, NO VENT. RECOMMENDATIONS AND DISCUSSION: I recommend to continue current medications, continue symptomatic treatment. Repeat labs. I would also recommend consultation with Dr. Laguerre regarding ESBL UTI. Prognosis guarded because of multiple complex medical issues. Further recommendations to follow. MMODL / IJN: [id number] /
[2020-06-02 17:00] LABS: Glucose,Whole Blood 345 mg/dL (75-99)
[2020-06-02] MEDS: ATORVASTATIN 40 MG TAB PO SCH (19:53)
[2020-06-02 21:10] LABS: Glucose,Whole Blood 196 mg/dL (75-99)
--- NOTE | 2020-06-03 00:15 | CONS ---
CONSULTATION DATE OF SERVICE: 06/02/2020. REASON FOR CONSULTATION: ESBL Klebsiella urinary tract infection. HISTORY OF PRESENT ILLNESS: The patient is a 75-year-old female [facility] resident with history of COPD. The patient has been brought to the hospital on Saturday May 30, 2020 for evaluation of mental status changes and hypoxemia. The patient has started having problem with low pulse ox the morning of presentation to the hospital. She was noticed to be saturating 55% on 3 L nasal cannula. The patient did have chest pain. Her oxygen without any improvement. The patient was noticed having some confusion and mental status changes for which the patient was brought into the ER. On arrival to the ER, the patient has been afebrile and no fever has been recorded with this admission. She has been sating around on 3 L nasal cannula. The patient did have a white count of 21,000 on admission, which is down to 12,000. Did have a positive UA with large leukocyte esterases. Cantor PCR was negative. The patient did have a chest x- ray, reported moderate left pleural effusion with the atelectasis. The patient was admitted to the hospital and was treated for urinary tract infection and a question of possible pneumonia, being seen by Cardiology and pulmonary services. Urine cultures came back positive with ESBL. Antibiotic was switched to meropenem 2 grams q.12 hours. Infectious Disease was consulted for further management of antibiotic therapy. The patient, at the time of evaluation, denies having any fever or any chills. Patient denies having any chest pain, shortness of breath. Occasional cough. No nausea. No vomiting. No abdominal pain or diarrhea. The patient did have indwelling Castaneda catheter. However, unclear for how she has had it. She was not able to answer any questions. Patient's history remains to be limited and most of the information has been obtained from review of the chart. REVIEW OF SYSTEMS: Positive points have been mentioned in HPI. Rest of the systems negative. PAST MEDICAL HISTORY: COPD, dementia, diabetes mellitus, hyperlipidemia, osteoarthritis, pneumonia, renal insufficiency, sleep apnea, hypothyroidism, previous history ESBL infection. PAST SURGICAL HISTORY: Appendectomy, cholecystectomy, hernia repair, hysterectomy. Tonsillectomy. SOCIAL HISTORY: Remote history of smoking, no drinking or drug use. FAMILY HISTORY: Mother history of throat cancer. ALLERGIES: TO CODEINE. MEDICATIONS: The patient is currently on meropenem 2 g q 12h. Apparently she was on Zosyn, vancomycin. She is on Xarelto, prednisone, Protonix, Narcan, Synthroid, NovoLog, Lasix, Pepcid, Cymbalta, Pulmicort, Lipitor and DuoNeb. PHYSICAL EXAMINATION: Her blood pressure is 120/74 with a pulse of 81, temperature 98.1. She is 97% on 2 L nasal cannula. General description is an elderly female lying in bed in no distress. No tachypnea or accessory muscles of respiration use. HEENT: Examination shows slight pallor. No scleral icterus. Oral mucous membranes dry. No pharyngeal erythema or thrush. Neck: Trachea central. No thyromegaly. Lungs: Unlabored breathing with decreased breath sounds at the bases. No wheeze. HEART: S1, S2. Regular rate and rhythm. ABDOMEN: Soft, no tenderness. No guarding. No rigidity. EXTREMITIES: No edema of the feet. SKIN examination: No rash or mass palpable. NEUROLOGIC: The patient is awake, alert and oriented times two. Mood and affect normal. LABS: Hemoglobin is 11.5, white count 7.1. BUN of 32, creatinine 1.08. Urine was positive with large leukocyte esterase, more than 1 to 2 WBC, 182 WBCs. Cantor PCR was negative. Urine is positive for Klebsiella pneumoniae. DIAGNOSTIC IMPRESSION AND PLAN: Patient admitted to the hospital with mental status changes, multifactorial in this patient who did have a component of urinary tract infection. Urine has been finalized as ESBL Klebsiella and this patient did have previous history of ESBL infection. The patient with no fever or concern for deep infection. PLAN: 1. Meropenem dose to be adjusted to 1 g q.8 hours. 2. She will get a midline and continue antibiotic adjusted to Invanz 1 g daily for another 7 days to finish a course of therapy. Thank you for this consultation. Will follow the patient along with you. MMODL / IJN: [id number] /
[2020-06-03] MEDS ORDERED: MEROPENEM 1 GM in SODIUM CHLORIDE 0.9% 100 ML IVPB SCH (05:00)
[2020-06-03] MEDS: LEVOTHYROXINE 50 MCG TAB PO SCH (05:34)
[2020-06-03] MEDS: DORZOLAMIDE-TIMOLOL 2.23%/0.68 10ML BTL BOTH EYES SCH ×3 (07:33→22:18)
[2020-06-03] MEDS: INSULIN ASPART (NovoLOG) 100 UNIT/ML VIAL SQ SCH ×4 (07:33→22:19)
[2020-06-03] MEDS: RIVAROXABAN 10 MG TAB PO SCH (07:46)
[2020-06-03] MEDS: PANTOPRAZOLE 40 MG TABLET PO SCH (07:46)
[2020-06-03] MEDS: DULoxetine HCL 60 MG CAPSULE.DR PO SCH (07:46)
[2020-06-03] MEDS: METOPROLOL SUCCINATE (ER) 25 MG TAB.ER.24H PO SCH (07:46)
[2020-06-03] MEDS: FAMOTIDINE 20 MG TAB PO SCH ×2 (07:47→16:08)
[2020-06-03] MEDS: predniSONE 20 MG TAB PO SCH (07:47)
[2020-06-03] MEDS: FUROSEMIDE 10 MG/ML 4 ML VIAL IV SCH (07:48)
[2020-06-03 08:31] VITALS: RESP 16
[2020-06-03] MEDS: traMADol 50 MG TAB PO PRN (08:38)
--- NOTE | 2020-06-03 11:13 | CDI ---
Documentation Clarification Form Date: 06/03/2020 From: Louisa Hudson RN, CCDS] Admit date: 05/30/2020 Patient Name: Raven Carrillo Visit Number: [id number] Discharge date: Dr. Azael Palomino The patient presented 05/30 with complaints of shortness of breath in respiratory distress. ED assessment has Non-STEMI (non-ST elevated myocardial infarction). Please render your opinion on the diagnosis if ruled in or out, or indicate other specified diagnosis. History/Risk Factors: COPD, Diabetes mellitus, Renal Disease, Chronic respiratory failure, home oxygen at 3L/NC ATC, KEEGAN, Positive Covid diagnosed 04/01/20 Clinical Indicators: 75-year-old female present from [facility], with reported respiratory distress. EMS report pulse ox 55 %. She has chronic lower extremity swelling. She denies any chest pain. She has altered mental status. Respiratory exam: Present: rales, decreased breath sounds. She has increased work of breathing and was placed on BiPAP. Cardiovascular Exam: Present: regular rate, normal rhythm, normal heart sounds 05/30 Lab findings: Troponin 0.035, 0.060, 0.045 BNP 7150, WBC 21.9 05/30 Vital signs on admission: 137/98 98 35 97.4 98 % Non-Rebreater O2 flow rate 15/L 05/30 CXR: moderate left pleural effusion with adjacent atelectasis 05/31 ECHO: Sinus rhythm Overall left ventricular systolic function is normal with, an EF between 60-65 % Treatment: Lipitor 40 Mg po daily Lasix 40 Mg IV Q 12 hrs (05/31-06/03) change to 40 Mg po bid Toprol xL 25 Mg po daily Monitor O2 Sat's (titrate) Asbuterol/Ipratropium Duoneb 0.5 Mg-3 Mg/ soln. Solu-Medrol 125 IV once then 60 Mg IV q6 hrs (taper per orders) In your professional opinion, can you please clarify Non-ST elevated myocardial infarction: Non-ST elevated MS (NSTEMI) ruled out Non-ST elevated MS ruled in Other, please specify Unable to determine (Last Revision: July 2017) 05/31 addendum: Abnormal troponins, secondary to CHF exacerbation, no evidence of NSTEMI MTDD
--- NOTE | 2020-06-03 11:21 | P.PN ---
Subjective This is a pleasant 75-year-old female past medical history significant for COPD, diabetes mellitus, hypertension, dyslipidemia and dementia. She does not follow regularly in our office with a hand stripper. She is seen and examined sitting up in bed in no acute distress. She denies shortness of breath, chest pain or dizziness. Blood pressure 112/75 heart rate 67 afebrile and maintaining oxygen saturation on nasal cannula. No daily labs to review. She is currently being diuresed with IV lasix and has had good urine output. 24-hour total urine output 2100ml and maintaining a negative fluid balance. GENERAL: Well-appearing, well-nourished and in no acute distress. NECK: Supple without JVD or thyromegaly. LUNGS: Breath sounds clear to auscultation bilaterally. Respiration equal and unlabored. No wheezes, rales or rhonchi. Diminished bilaterally. HEART: Regular rate and rhythm without murmurs, rubs or gallops. S1 and S2 heard. EXTREMITIES: Normal range of motion, trace bilateral lower extremity nonpitting edema. No clubbing or cyanosis. Peripheral pulses intact. ASSESSMENT Acute exacerbation of heart failure with preserved ejection fraction Acute exacerbation of COPD Acute exacerbation Of respiratory failure Urinary tract infection Hypertension Dyslipidemia Diabetes mellitus Dementia PLAN Transition to oral diuretics. Unclear why she is taking xarelto 10 mg. There is no documented history of afib and this dose is sub-therapeutic if that is the case. Review of her records indicate it was started at some point between 02/2020 and 04/2020 however there is no documentation to support the reasoning. Further recommendations per the medical team as to its use. Stable for discharge back to [facility] from a cardiology perspective. Nurse Practitioner note has been reviewed, I agree with a documented findings and plan of care. Patient was seen and examined. Objective - Vital Signs Vital signs: Vital Signs Temp 98.2 F 06/03/20 08:00 Pulse 67 06/03/20 08:00 Resp 16 06/03/20 08:00 BP 112/75 06/03/20 08:00 Pulse Ox 98 06/03/20 08:00 Intake & Output 06/02/20 06/03/20 06/03/20 18:59 06:59 18:59 Intake Total 960 100 Output Total 1100 1000 Balance -140 -900 Weight 106.5 kg Intake: Oral 960 100 Output: Urine 1100 1000 Uretheral (Castaneda) 600 Other: Voiding Method Indwelling Catheter Diaper Incontinent # Voids 3 - Labs CBC & Chem 7: 06/02/20 07:17 06/02/20 07:17 Labs: Abnormal Lab Results - Last 24 Hours (Table) 06/02/20 06/02/20 06/02/20 Range/Units 12:00 16:54 21:10 POC Glucose (mg/dL) 314 H 345 H 196 H (75-99) mg/dL
[2020-06-03] MEDS: IPRATROPIUM-ALBUTEROL 3 ML NEB INHALATION SCH ×4 (11:29→20:46)
[2020-06-03] MEDS: FORMOTEROL FUMARATE 20 MCG/2 ML NEBU INHALATION SCH ×2 (11:29→20:46)
[2020-06-03] MEDS: BUDESONIDE 1 MG/2 ML NEBU INHALATION SCH ×2 (11:29→20:46)
--- NOTE | 2020-06-03 12:13 | P.PN ---
Subjective Progress Note Date: 06/03/20 Principal diagnosis: Multifactorial acute on chronic hypoxic respiratory failure, ESBL Klebsiella pneumonia urinary tract infection This is a 75-year-old female with history of multiple medical problems including severe COPD, chronic hypoxic respiratory failure, type 2 diabetes, hypertension, obstructive sleep apnea syndrome, patient was admitted from the [facility] with mostly symptoms of increased shortness of breath, her admission date was 05/30/19. Initially, the patient was placed on BiPAP with IPAP of 12 and EPAP of 5, patient was also confused, apparently had in terms of metabolic encephalopathy and hypercapnia. Patient was placed on bronchodilators, and today she seems to be doing much better, breathing a lot easier, less cough and less wheezing and she is not as confused. Patient is asking to be discharged back to the [facility], however I believe the patient will likely benefit from one more day of bronchodilators and diuretics. Patient had history of covid 19 infection on April 17, and she had history of moderate sized left pleural effusion. With atelectasis involving the left lower lobe. Patient remains on diuretics, and seems to be improving. Labs today showed WBC count of 12.1 hemoglobin 11.2. Electrolytes are normal bicarb is 39 BUN is 29 creatinine is 1.07. Her urinalysis was suspicious for urinary tract infection. And the initial report is showing gram-negative bacilli. Patient is on Zosyn, she is also on Macrobid. And today I switch the patient to oral prednisone at 20 mg daily, hoping we could the patient is shows the patient home in the next 24 hours. The patient is seen today 06/02/2020 in follow-up on the selective care unit. She is currently awake and alert in no acute distress. Resting fairly comfortably in bed. Maintaining good O2 saturations in the upper 90s on 3 L/m per nasal cannula. She has been afebrile. Hemodynamically stable. Urine culture positive for Klebsiella pneumoniae. ESBL. White count 12.1. Hemoglobin 11.5. Sodium 1:30. Potassium 4.0. Creatinine 1.08. She is continued on DuoNeb inhalations, Pulmicort and Perforomist inhalations, prednisone, IV diuretics in the form of Lasix 40 mg every 12 hours. Antibiotics in the form of Macrobid, vancomycin and Zosyn. Anticoagulated with Xarelto On 06/03/2000 patient seen in follow-up on medical floor. Resting comfortably in bed, breathing comfortably, she is on 3 L of oxygen her pulse ox 98%, she's been afebrile, hemodynamically stable, arouses easily to voice, she is alert and oriented 2, person and place, but not to month or the year. Less confused, less agitated, she is quite cooperative, she denies any acute distress, no coughing wheezing, no chest pain, no fever chills, blood pressure is stable, lung sounds reveal some scattered crackles bilaterally. No new labs today, urine cultures positive for ESBL Klebsiella pneumonia, sepsis following patient is currently on meropenem Objective - Vital Signs Vital signs: Vital Signs Temp 98.2 F 06/03/20 08:00 Pulse 67 06/03/20 08:00 Resp 16 06/03/20 08:00 BP 112/75 06/03/20 08:00 Pulse Ox 98 06/03/20 08:00 Intake & Output 06/02/20 06/03/20 06/03/20 18:59 06:59 18:59 Intake Total 960 100 Output Total 1100 1000 Balance -140 -900 Weight 106.5 kg Intake: Oral 960 100 Output: Urine 1100 1000 Uretheral (Castaneda) 600 Other: Voiding Method Indwelling Catheter Diaper Incontinent # Voids 3 - Exam GENERAL EXAM: Lethargic but easily arousable pleasant 75-year-old white female on 3 L of oxygen pulse ox of 98% comfortable in no apparent distress. HEAD: Normocephalic/atraumatic. EYES: Normal reaction of pupils, equal size. Conjunctiva pink, sclera white. NOSE: Clear with pink turbinates. THROAT: No erythema or exudates. NECK: No masses, no JVD, no thyroid enlargement, no adenopathy. CHEST: No chest wall deformity. Symmetrical expansion. LUNGS: Equal air entry with a few scattered rales CVS: Regular rate and rhythm, normal S1 and S2, no gallops, no murmurs, no rubs ABDOMEN: Soft, nontender. No hepatosplenomegaly, normal bowel sounds, no guarding or rigidity. EXTREMITIES: No clubbing, no edema, no cyanosis, 2+ pulses and upper and lower extremities. MUSCULOSKELETAL: Muscle strength and tone normal. SPINE: No scoliosis or deformity SKIN: No rashes CENTRAL NERVOUS SYSTEM: Alert and oriented -2. No focal deficits, tone is normal in all 4 extremities. PSYCHIATRIC: Alert and oriented -2. Appropriate affect. Intact judgment and insight. - Labs CBC & Chem 7: 06/02/20 07:17 06/02/20 07:17 Labs: Abnormal Lab Results - Last 24 Hours (Table) 06/02/20 06/02/20 06/02/20 Range/Units 12:00 16:54 21:10 POC Glucose (mg/dL) 314 H 345 H 196 H (75-99) mg/dL Assessment and Plan Plan: Assessment: Acute on chronic hypoxic and short failure, multifactorial as noted below. Shortness of breath, which is likely multifactorial, in part related to COPD exacerbation and acute on chronic diastolic congestive heart failure. Acute urinary tract infection secondary to Klebsiella pneumoniae, ESBL History of sleep apnea syndrome, [facility] the [facility]. Prior diagnoses of COVID 19 infection, 04/01/2020. Possible acute urinary tract infection. History of dementia. History of diabetes mellitus and diabetic neuropathy. History of hyperlipidemia. Osteoarthritis. History of pneumonia. History of stage III chronic kidney disease. History of hypothyroidism. Chronic hypoxemic and hypercapnic respiratory failure. History of glaucoma. Urinary incontinence. Previous left nephrectomy for unclear reasons. History of chronic urinary tract infection. History of anemia. Plan: Continue the antibiotics per ID service recommendations, vital signs are stable, wean FiO2, no worsening dyspnea, continue oral Lasix, continue breathing treatments, continue oral prednisone and anticoagulation. From pulmonary is back to patient is stable for discharge back to the [facility] today or tomorrow. I performed a history & physical examination of the patient and discussed their management with my nurse practitioner, Candace Blackwood. I reviewed the nurse practitioner's note and agree with the documented findings and plan of care. Lung sounds are positive for a few scattered crackles. The findings and the impression was discussed with the patient. I attest to the documentation by the nurse practitioner. Time with Patient: Less than 30
[2020-06-03 12:14] LABS: Appearance,Urine Clear (Clear); Bilirubin,Urine Negative (Negative); Blood,Urine Negative (Negative); Budding Yeast,Urine Rare /hpf; Color,Urine Light Yellow; Glucose,Urine (UA) Negative (Negative); Ketones,Urine Trace (Negative); Leukocyte Esterase,Urine Moderate (Negative); Nitrite,Urine Negative (Negative); PH, Urine 6.5 (5.0-8.0); Protein,Urine Negative (Negative); RBC,Urine 1 /hpf (0-5); Specific Gravity,Urine 1.012 (1.001-1.035); Squamous Epithelial Cell,Urine 8 /hpf (0-4); Urobilinogen,Urine <2.0 mg/dL (<2.0); WBC,Urine 6 /hpf (0-5)
[2020-06-03] MEDS: TAMSULOSIN 0.4 MG CAP.ER.24H PO SCH (12:33)
[2020-06-03] MEDS: FLUCONAZOLE 100 MG TAB PO SCH (14:33)
[2020-06-03] MEDS: FUROSEMIDE 40 MG TAB PO SCH (16:07)
--- NOTE | 2020-06-03 16:09 | P.PN ---
Subjective Progress Note Date: 06/03/20 This is a 75-year-old female who was recently admitted with COPD acute exacerbation also pneumonia with possibly hospital acquired pneumonia and is being closely monitored. She is currently maintained on IV antibiotics and will continue at this time. Patient was also found to have Klebsiella pneumonia with ESBL in the urine and infectious disease is following. Repeat urinalysis done and awaiting urine cultures to determine discharge antibiotic therapy. Patient currently denies any dysuria or retention and is currently using a purewick device for voiding. Patient currently denies any chest pain or palpitations. Patient denies worsening shortness of breath. Patient is afebrile. Review of systems: Constitutional: No reports of fatigue, fever, or chills Cardiovascular: No reports of chest pain or palpitations Respiratory: No reports of worsening shortness of breath GI: No reports of nausea, vomiting, or diarrhea : No reports of dysuria or retention Neurovascular: Reports weakness All medications have been reviewed Active Medications Albuterol/Ipratropium (Ipratropium-Albuterol 3 Ml Neb) 3 ml INHALATION RT-Q6H PRN PRN Reason: Shortness Of Breath Albuterol/Ipratropium (Ipratropium-Albuterol 3 Ml Neb) 3 ml INHALATION RT-QID [facility] Last Admin: 06/03/20 15:38 Dose: Not Given Documented by: Atorvastatin Calcium (Atorvastatin 40 Mg Tab) 40 mg PO DAILY@2100 [facility] Last Admin: 06/02/20 19:53 Dose: 40 mg Documented by: Budesonide (Budesonide 1 Mg/2 Ml Nebu) 1 mg INHALATION RT-BID [facility] Last Admin: 06/03/20 11:29 Dose: Not Given Documented by: Dorzolamide/Timolol (Dorzolamide-Timolol 2.23%/0.68 10ml Btl) 1 drops BOTH EYES TID@0900,1300,2100 [facility] Last Admin: 06/03/20 12:33 Dose: 1 drops Documented by: Duloxetine HCl (Duloxetine Hcl 60 Mg Capsule.Dr) 60 mg PO DAILY@0900 [facility] Last Admin: 06/03/20 07:46 Dose: 60 mg Documented by: Famotidine (Famotidine 20 Mg Tab) 10 mg PO BID@0900,1700 [facility] Last Admin: 06/03/20 07:47 Dose: 10 mg Documented by: Fluconazole (Fluconazole 100 Mg Tab) 100 mg PO DAILY [facility] Last Admin: 06/03/20 14:33 Dose: 100 mg Documented by: Formoterol Fumarate (Formoterol Fumarate 20 Mcg/2 Ml Nebu) 20 mcg INHALATION RT-BID [facility] Last Admin: 06/03/20 11:29 Dose: Not Given Documented by: Furosemide (Furosemide 40 Mg Tab) 40 mg PO BID@0900,1600 [facility] Meropenem 1 gm/ Sodium (Chloride) 100 mls @ 33.3 mls/hr IVPB Q12H [facility]; Protocol Insulin Aspart (Insulin Aspart (Novolog) 100 Unit/Ml Vial) 0 unit SQ ACHS [facility]; Protocol Last Admin: 06/03/20 12:30 Dose: Not Given Documented by: Lactulose (Lactulose 20 Gm/30 Ml Cup) 20 gm PO TID PRN PRN Reason: Constipation Levothyroxine Sodium (Levothyroxine 50 Mcg Tab) 50 mcg PO DAILY@0600 [facility] Last Admin: 06/03/20 05:34 Dose: 50 mcg Documented by: Metoprolol Succinate (Metoprolol Succinate (Er) 25 Mg Tab.Er.24h) 25 mg PO DAILY@0900 [facility] Last Admin: 06/03/20 07:46 Dose: 25 mg Documented by: Naloxone HCl (Naloxone 0.4 Mg/Ml 1 Ml Vial) 0.2 mg IV Q2M PRN PRN Reason: Opioid Reversal Pantoprazole Sodium (Pantoprazole 40 Mg Tablet) 40 mg PO -BRKT [facility] Last Admin: 06/03/20 07:46 Dose: 40 mg Documented by: Prednisone (Prednisone 20 Mg Tab) 20 mg PO DAILY [facility] Last Admin: 06/03/20 07:47 Dose: 20 mg Documented by: Rivaroxaban (Rivaroxaban 10 Mg Tab) 10 mg PO DAILY@0900 [facility] Last Admin: 06/03/20 07:46 Dose: 10 mg Documented by: Tamsulosin HCl (Tamsulosin 0.4 Mg Cap.Er.24h) 0.4 mg PO -BRKFST [facility] Last Admin: 06/03/20 12:33 Dose: 0.4 mg Documented by: Tramadol HCl (Tramadol 50 Mg Tab) 50 mg PO Q8H PRN PRN Reason: Pain Last Admin: 06/03/20 08:38 Dose: 50 mg Documented by: Objective - Vital Signs Vital signs: Vital Signs Temp 97.4 F L 06/03/20 14:49 Pulse 84 06/03/20 14:49 Resp 16 06/03/20 14:49 BP 108/72 06/03/20 14:49 Pulse Ox 91 L 06/03/20 14:49 Intake & Output 06/02/20 06/03/20 06/03/20 18:59 06:59 18:59 Intake Total 960 100 Output Total 1100 1000 700 Balance -140 -900 -700 Weight 106.5 kg Intake: Oral 960 100 Output: Urine 1100 1000 700 Uretheral (Castaneda) 600 Other: Voiding Method Indwelling Catheter Diaper Incontinent # Voids 3 - Exam Gen: This is a 75-year-old female lying in bed awake, alert and oriented 3, well-developed, well-nourished, obese. Temp is 98.2F, pulse is 67, respirations are 16, blood pressure 112/75, oxygen saturation is 98% on 3 L nasal cannula HEENT: Head is atraumatic, normocephalic. Pupils equal, round. Sclerae is anicteric. NECK: Supple. No JVD. No lymphadenopathy. No thyromegaly. LUNGS: Diminished breath sounds bilaterally with some scattered rhonchi noted. No intercostal retractions. HEART: S1, S2 are muffled ABDOMEN: Soft. Bowel sounds are present. No masses. No tenderness. EXTREMITIES: No pedal edema. No calf tenderness. NEUROLOGICAL: Patient is awake, alert and oriented x3. Diffusely weak. No focal deficits noted - Labs CBC & Chem 7: 06/02/20 07:17 06/02/20 07:17 Labs: Abnormal Lab Results - Last 24 Hours (Table) 06/02/20 06/02/20 06/03/20 Range/Units 16:54 21:10 10:30 POC Glucose (mg/dL) 345 H 196 H (75-99) mg/dL Urine Ketones Trace H (Negative) Ur Leukocyte Esterase Moderate H (Negative) Urine WBC 6 H (0-5) /hpf Ur Squamous Epith Cells 8 H (0-4) /hpf Urine Yeast (Budding) Rare H (None) /hpf Assessment and Plan Assessment: Chronic obstructive pulmonary disease, acute exacerbation as well as obesity hypoventilation syndrome with acute exertional acute exacerbation with acute hypoxic hypercapnic respiratory failure, status post BiPAP Acute left lower lobe pneumonia, possibly gram-negative, possibly hospital- acquired pneumonia Moderate left pleural effusion, atelectasis Congestive heart failure acute exacerbation acute on chronic diastolic dysfunction ejection fraction 50-55% ESBL Klebsiella pneumonia urinary tract infection, acute, present on admission history of dementia Diabetes mellitus type 2 uncontrolled with hyperglycemia Change in mental status acute metabolic encephalopathy, multifactorial Hyperlipidemia History of degenerative joint disease history of pneumonia history of sleep apnea history of chronic hypoxic respiratory failure on home oxygen 3 L nasal cannula Obstructive sleep apnea Covid diagnosed in March 2020 Diabetes mellitus type 2 with peripheral neuropathy History of left nephrectomy History of glaucoma gait dysfunction ESBL in the urine history history of appendectomy history of cholecystectomy history of depression obesity with a BMI of 39.1 remote history of nicotine dependence No code, no CPR, no vent Recommendations and discussion: Recommend continue with current medications, management, and symptomatic treatment. Patient is maintained on IV antibiotics and will continue at this time. Repeat urinalysis was done and awaiting cultures to determine discharge antibiotic therapy. Infectious disease is following. Patient has been refusing Accu-Cheks along with labs per nursing staff. Discussed with the patient the importance of monitoring blood sugars given her history of diabetes. Patient is tolerating diet and denies any nausea or vomiting. Due to multiple complex medical issues, prognosis is guarded. Case management and social work following as patient will be returning to [facility] once stabilized and discharged.
[2020-06-03 17:14] LABS: Glucose,Whole Blood 263 mg/dL (75-99)
[2020-06-03] MEDS: MEROPENEM 1 GM in SODIUM CHLORIDE 0.9% 100 ML IVPB SCH (17:16)
[2020-06-03 20:54] LABS: Glucose,Whole Blood 273 mg/dL (75-99)
[2020-06-03] MEDS: ATORVASTATIN 40 MG TAB PO SCH (22:18)
--- NOTE | 2020-06-03 23:27 | PN ---
PROGRESS NOTE DATE OF SERVICE: 06/03/2020 REASON FOR FOLLOWUP: ESBL E coli urinary tract infection. INTERVAL HISTORY: The patient is currently afebrile. The patient is breathing comfortably. The patient's Castaneda catheter has been discontinued and the patient is currently able to urinate the patient denies having any chest pain or shortness of breath or cough. No abdominal pain or diarrhea. PHYSICAL EXAMINATION: Blood pressure 119/77 with a pulse of 90, temperature 98.1. She is 93% on 3 L nasal cannula. General description is an elderly female lying in bed in no distress. RESPIRATORY SYSTEM: Unlabored breathing. Clear to auscultation anteriorly. HEART: S1, S2. Regular rate and rhythm. ABDOMEN: Soft. No tenderness. LABS: Repeat urine is relatively not strongly positive compared to previous UA. DIAGNOSTIC IMPRESSION AND PLAN: Patient with ESBL Escherichia coli positive urine culture with repeat urine not significantly positive. It shows some budding yeast. Diflucan has been added. If those cultures are negative by tomorrow, meropenem will be discontinued. Plan will be to finish therapy with oral Diflucan for one week. MMODL / IJN: [id number] /
[2020-06-04] MEDS: MEROPENEM 1 GM in SODIUM CHLORIDE 0.9% 100 ML IVPB SCH (05:29)
[2020-06-04] MEDS: LEVOTHYROXINE 50 MCG TAB PO SCH (05:29)
[2020-06-04] MEDS: traMADol 50 MG TAB PO PRN (06:01)
[2020-06-04 06:45] LABS: Glucose,Whole Blood 127 mg/dL (75-99)
[2020-06-04] MEDS: BUDESONIDE 1 MG/2 ML NEBU INHALATION SCH (07:30)
[2020-06-04] MEDS: IPRATROPIUM-ALBUTEROL 3 ML NEB INHALATION SCH ×3 (07:30→15:33)
[2020-06-04] MEDS: FORMOTEROL FUMARATE 20 MCG/2 ML NEBU INHALATION SCH (07:30)
[2020-06-04] MEDS: INSULIN ASPART (NovoLOG) 100 UNIT/ML VIAL SQ SCH ×2 (08:39→12:38)
[2020-06-04 08:42] VITALS: BMI 36.9
[2020-06-04 08:43] VITALS: BP 131/74
[2020-06-04] MEDS: FUROSEMIDE 40 MG TAB PO SCH ×2 (08:46→16:02)
[2020-06-04] MEDS: DULoxetine HCL 60 MG CAPSULE.DR PO SCH (08:46)
[2020-06-04] MEDS: predniSONE 20 MG TAB PO SCH (08:46)
[2020-06-04] MEDS: METOPROLOL SUCCINATE (ER) 25 MG TAB.ER.24H PO SCH (08:46)
[2020-06-04] MEDS: RIVAROXABAN 10 MG TAB PO SCH (08:47)
[2020-06-04] MEDS: FAMOTIDINE 20 MG TAB PO SCH ×2 (08:47→16:02)
[2020-06-04] MEDS: FLUCONAZOLE 100 MG TAB PO SCH (08:47)
[2020-06-04] MEDS: TAMSULOSIN 0.4 MG CAP.ER.24H PO SCH (08:47)
[2020-06-04] MEDS: DORZOLAMIDE-TIMOLOL 2.23%/0.68 10ML BTL BOTH EYES SCH ×2 (08:47→12:38)
[2020-06-04] MEDS: PANTOPRAZOLE 40 MG TABLET PO SCH (08:47)
[2020-06-04 11:59] LABS: Glucose,Whole Blood 172 mg/dL (75-99)
--- NOTE | 2020-06-04 13:01 | P.PN ---
Subjective Progress Note Date: 06/04/20 This is a 75-year-old female with history of multiple medical problems including severe COPD, chronic hypoxic respiratory failure, type 2 diabetes, hypertension, obstructive sleep apnea syndrome, patient was admitted from the [facility] with mostly symptoms of increased shortness of breath, her admission date was 05/30/19. Initially, the patient was placed on BiPAP with IPAP of 12 and EPAP of 5, patient was also confused, apparently had in terms of metabolic encephalopathy and hypercapnia. Patient was placed on bronchodilators, and today she seems to be doing much better, breathing a lot easier, less cough and less wheezing and she is not as confused. Patient is asking to be discharged back to the [facility], however I believe the patient will likely benefit from one more day of bronchodilators and diuretics. Patient had history of covid 19 infection on April 17, and she had history of moderate sized left pleural effusion. With atelectasis involving the left lower lobe. Patient remains on diuretics, and seems to be improving. Labs today showed WBC count of 12.1 hemoglobin 11.2. Electrolytes are normal bicarb is 39 BUN is 29 creatinine is 1.07. Her urinalysis was suspicious for urinary tract infection. And the initial report is showing gram-negative bacilli. Patient is on Zosyn, she is also on Macrobid. And today I switch the patient to oral prednisone at 20 mg daily, hoping we could the patient is shows the patient home in the next 24 hours. The patient is seen today 06/02/2020 in follow-up on the selective care unit. She is currently awake and alert in no acute distress. Resting fairly comfortably in bed. Maintaining good O2 saturations in the upper 90s on 3 L/m per nasal cannula. She has been afebrile. Hemodynamically stable. Urine culture positive for Klebsiella pneumoniae. ESBL. White count 12.1. Hemoglobin 11.5. Sodium 1:30. Potassium 4.0. Creatinine 1.08. She is continued on DuoNeb inhalations, Pulmicort and Perforomist inhalations, predni sone, IV diuretics in the form of Lasix 40 mg every 12 hours. Antibiotics in the form of Macrobid, vancomycin and Zosyn. Anticoagulated with Xarelto. On 06/03/2000 patient seen in follow-up on medical floor. Resting comfortably in bed, breathing comfortably, she is on 3 L of oxygen her pulse ox 98%, she's been afebrile, hemodynamically stable, arouses easily to voice, she is alert and oriented 2, person and place, but not to month or the year. Less confused, less agitated, she is quite cooperative, she denies any acute distress, no coughing wheezing, no chest pain, no fever chills, blood pressure is stable, lung sounds reveal some scattered crackles bilaterally. No new labs today, uri ne cultures positive for ESBL Klebsiella pneumonia, sepsis following patient is currently on meropenem The patient is seen today 06/04/2020 in follow-up on the regular medical floor. She is currently sitting up in bed. Awake and alert in no acute distress. Maintaining O2 saturations in the mid 90s on room air. She's afebrile. Hemodynamically stable. Urine culture positive for Klebsiella pneumoniae. Follow-up culture pending. Currently on meropenem. She remains on bronchodilators, oral prednisone. Anticoagulated with Xarelto. Objective - Vital Signs Vital signs: Vital Signs Temp 97.5 F L 06/04/20 08:00 Pulse 65 06/04/20 08:00 Resp 16 06/04/20 08:00 BP 131/74 06/04/20 08:00 Pulse Ox 95 06/04/20 08:00 Intake & Output 06/03/20 06/04/20 06/04/20 18:59 06:59 18:59 Intake Total 200 Output Total 700 450 Balance -700 -250 Weight 107 kg 107 kg Intake: Oral 200 Output: Urine 700 450 Other: Voiding Method Incontinent Incontinent Incontinent - Exam GENERAL EXAM: Alert, more cooperative, 75-year-old female patient, on on room air with a pulse ox of 95%, comfortable in no apparent distress. Head: Atraumatic, normocephalic. EENT: PERRLA, EOMI, nonicteric, dry mucous membranes, no oral thrush, CHEST: No chest wall deformity. Symmetrical expansion. LUNGS: With bilateral scattered rhonchi. CVS: Regular rate and rhythm, normal S1 and S2, no gallops, no murmurs, no rubs ABDOMEN: Soft, nontender. No hepatosplenomegaly, normal bowel sounds, no guarding or rigidity. EXTREMITIES: No clubbing, no edema, no cyanosis, 2+ pulses and upper and lower extremities. MUSCULOSKELETAL: Muscle strength and tone normal. SKIN: No rashes CENTRAL NERVOUS SYSTEM: Confused, unable to assess fully. Patient cannot give adequate history. PSYCHIATRIC: Anxious mood, blunt affect, poor mental status mostly confused. - Labs CBC & Chem 7: 06/02/20 07:17 06/02/20 07:17 Labs: Abnormal Lab Results - Last 24 Hours (Table) 06/03/20 06/03/20 06/04/20 Range/Units 17:12 20:51 06:43 POC Glucose (mg/dL) 263 H 273 H 127 H (75-99) mg/dL 06/04/20 Range/Units 11:57 POC Glucose (mg/dL) 172 H (75-99) mg/dL Assessment and Plan Assessment: Acute on chronic hypoxic and short failure, multifactorial as noted below. Shortness of breath, which is likely multifactorial, in part related to COPD exacerbation and acute on chronic diastolic congestive heart failure. Acute urinary tract infection secondary to Klebsiella pneumoniae, ESBL History of sleep apnea syndrome, currently on CPAP at the halfway. Prior diagnoses of COVID 19 infection, 04/01/2020. Possible acute urinary tract infection. History of dementia. History of diabetes mellitus and diabetic neuropathy. History of hyperlipidemia. Osteoarthritis. History of pneumonia. History of stage III chronic kidney disease. History of hypothyroidism. Chronic hypoxemic and hypercapnic respiratory failure. History of glaucoma. Urinary incontinence. Previous left nephrectomy for unclear reasons. History of chronic urinary tract infection. History of anemia. Plan: The patient was seen and evaluated by Dr. Bj Reed from the pulmonary standpoint Continue bronchodilators, prednisone Antibiotics per ID services Plan is to transfer back to [facility] on the v[place] I, the cosigning physician, performed a history & physical examination of the patient. Lungs sounds with bilateral scattered rhonchi. Maintaining good O2 saturations in the 90s on room air. I discussed the assessment and plan of care with my nurse practitioner, Grazyna Ricardo. I attest to the above note as dictated by her.
--- NOTE | 2020-06-04 14:09 | PN ---
PROGRESS NOTE DATE OF SERVICE: 06/04/2020 REASON FOR FOLLOWUP: Urinary tract infection. INTERVAL HISTORY: The patient is currently afebrile. The patient is breathing comfortably. Denies having any chest pain, shortness of breath or cough. No abdominal pain. No diarrhea. PHYSICAL EXAMINATION: Blood pressure 131/74, pulse of 65, temperature 97.5. She is 95% on room air. General description is an elderly female lying in bed in no distress. RESPIRATORY SYSTEM: Unlabored breathing, clear to auscultation anteriorly. HEART: S1, S2. Regular rate and rhythm. ABDOMEN: Soft, no tenderness. LABS: Repeat urine not significantly positive. DIAGNOSTIC IMPRESSION AND PLAN: Patient with ESBL Escherichia coli positive urine culture. Repeat culture has been negative, did show some yeast. Recommending a 7-day course of oral Diflucan on discharged. Discussed with the admitting physician working on discharge. MMODL / IJN: [id number] /
--- NOTE | 2020-06-04 14:50 | P.DS ---
Providers Date of admission: 05/30/20 17:09 Expected date of discharge: 06/04/20 Attending physician: Terry Ghotra Consults: 05/30/20 17:07 Consult Physician Urgent Consulting Provider: Cardiology Phillip Consult Reason/Comments: acute/chronic hypoxic resp failure, NIVDRF, NSTEMI Do you want consulting provider notified?: Yes Consult Physician Urgent Consulting Provider: Fabiola Lorenzo Consult Reason/Comments: acute/chronic hypoxic resp failure, NIVDRF, AECOPD, left pleural effusion Do you want consulting provider notified?: Yes 06/02/20 10:20 Consult Physician Routine Consulting Provider: Abbi Laguerre Consult Reason/Comments: ESBL UTI Do you want consulting provider notified?: Yes Primary care physician: [facility] Course: Chief Complaint: Short of breath History of presenting complaint: This is a pleasant 75-year-old patient of Dr. Winston. Currently at [facility] in [facility]. Chronic stable medical conditions include diabetes, some memory impairment, left nephrectomy, osteoarthritis, chronic kidney disease, obstructive sleep apnea uses CPAP, hypothyroid. Normally uses a 4 wheel walker to get about. home oxygen about 3 L. Patient now admitted with acute on chronic hypoxic and hypercapnic respiratory failure secondary to COPD exacerbation and sleep apnea. Also treated for UTI- Klebsiella pneumoniae/ESBL. Treated with IV meropenem that was discontinued today. Urine positive for [place]-with Diflucan. Also treated for acute CHF exacerbation Today-breathing stable. On oxygen. Oral intake fair. Discussed with Dr. Gold from ID. [place] IV meropenem. Complete a course of Diflucan. Patient return to the [facility].. Communicated with discharge planners. Discussion and discharge planning more than 35 minutes Consultation: Cardiology associates Dr. Laguerre from ID Dr. Lorenzo in partners from pulmonary Physical examination: VITAL SIGNS: 97.5, 65, 16, 131/74, 95% on room air GENERAL: In a tanning bed, awake EYES: Pupils equal. Conjunctiva normal. HEENT: External appearance of nose and ears normal, oral cavity grossly normal. NECK: JVD unable to assess; masses not palpable. HEART: [Heart sounds distant; some edema. LUNGS: Respiratory rate increased, diminished breath sounds , ABDOMEN: Soft, nontender, liver spleen not palpable, no masses palpable. PSYCH: Answering questions INVESTIGATIONS, reviewed in the clinical context: White count 12.1 hemoglobin 11.5 platelets 325 potassium 4.2 bun 32 creatinine 1.08 2-D echocardiogram-EF 60-75% Chest x-ray film-infiltrate. Some pleural effusion Assessment: -Acute COPD exacerbation in an ex-smoker. POA, bronchodilators -Acute on chronic congestive heart failure exacerbation from diastolic dy sfunction EF 60-65%. Continue Lasix -Acute on chronic hypoxic and hypercapnic respiratory failure , POA, oxygen supplementation -Acute hypoxic encephalopathy , POA -Diabetes mellitus type 2, chronically on insulin, continue with insulin for Accu-Cheks -Hypothyroid, continue Synthroid -Primary osteoarthritis, pain medications when necessary -Hyperlipidemia, on Lipitor -Chronic medical debility., Physical therapy -Mild cognitive impairment -Obstructive sleep apnea, uses CPAP -Acute UTI with cystitis secondary to Pneumoniae/ESBL and yeast. Computed course of IV meropenem, being discharged in Diflucan -DO NOT RESUSCITATE Disposition: [facility] [place] Labs: BMP-3 days Plan - Discharge Summary Discharge Rx Participant: No New Discharge Prescriptions: New Fluconazole [Diflucan] 100 mg PO DAILY #7 tab Tamsulosin [Flomax] 0.4 mg PO PC-BRKFST #30 cap.er.24h Furosemide [Lasix] 40 mg PO BID@0900,1600 tab predniSONE 0 mg PO DIRECTED #1 tab Continue DULoxetine HCL [Cymbalta] 60 mg PO DAILY@0900 Dorzolamide/Timolol/Pf [Dorzolamide 2%-Timolol 0.5%] 1 drop BOTH EYES TID@09 00,1300,2100 Acetaminophen Tab [Tylenol] 650 mg PO Q6H PRN PRN Reason: Fever And/ Or Pain Atorvastatin [Lipitor] 40 mg PO DAILY@2100 Levothyroxine Sodium [Synthroid] 50 mcg PO DAILY@0600 Albuterol Sulfate [Proventil Hfa] 2 puff INHALATION RT-Q6H PRN PRN Reason: Shortness Of Breath INSULIN LISPRO (humaLOG) [humaLOG] See Protocol SQ ACHS@08,11,16,21 Rivaroxaban [Xarelto] 10 mg PO DAILY@0900 Famotidine 10 mg PO BID@0900,1700 Metoprolol Succinate (ER) [Toprol XL] 25 mg PO DAILY@0900 Melatonin 3 mg PO HS@1999 PRN PRN Reason: Insomnia Ipratropium-Albuterol Nebulize [Duoneb 0.5 mg-3 mg/3 ml Soln] 3 ml INHALATION RT-Q6H PRN PRN Reason: Shortness Of Breath traMADol HCL [Ultram] 50 mg PO Q8H PRN PRN Reason: Pain Lactulose 20 gm PO TID PRN PRN Reason: Constipation clonazePAM [KlonoPIN] 0.5 mg PO Q6H PRN PRN Reason: Anxiety metFORMIN HCL [Glucophage] 500 mg PO BID@0900,2100 Discontinued Nitrofurantoin Monohyd/M-Cryst [Macrobid] 100 mg PO BID@0600,1600 Discharge Medication List DULoxetine HCL [Cymbalta] 60 mg PO DAILY@0900 03/06/19 [History] Dorzolamide/Timolol/Pf [Dorzolamide 2%-Timolol 0.5%] 1 drop BOTH EYES TID@0900,1300,209903/06/19 [History] Acetaminophen Tab [Tylenol] 650 mg PO Q6H PRN 01/25/20 [History] Atorvastatin [Lipitor] 40 mg PO DAILY@209903/01/20 [History] Levothyroxine Sodium [Synthroid] 50 mcg PO DAILY@0600 03/01/20 [History] Albuterol Sulfate [Proventil Hfa] 2 puff INHALATION RT-Q6H PRN 04/30/20 [History] Famotidine 10 mg PO BID@0900,1700 04/30/20 [History] INSULIN LISPRO (humaLOG) [humaLOG] See Protocol SQ ACHS@,,,04/30/20 [History] Melatonin 3 mg PO HS@1999 PRN 04/30/20 [History] Metoprolol Succinate (ER) [Toprol XL] 25 mg PO DAILY@0900 04/30/20 [History] Rivaroxaban [Xarelto] 10 mg PO DAILY@0900 04/30/20 [History] Ipratropium-Albuterol Nebulize [Duoneb 0.5 mg-3 mg/3 ml Soln] 3 ml INHALATION RT-Q6H PRN 05/17/20 [History] Lactulose 20 gm PO TID PRN 05/30/20 [History] clonazePAM [KlonoPIN] 0.5 mg PO Q6H PRN 05/30/20 [History] metFORMIN HCL [Glucophage] 500 mg PO BID@0900,2100 05/30/20 [History] traMADol HCL [Ultram] 50 mg PO Q8H PRN 05/30/20 [History] Fluconazole [Diflucan] 100 mg PO DAILY #7 tab 06/04/20 [Rx] Furosemide [Lasix] 40 mg PO BID@0900,1600 tab 06/04/20 [Rx] Tamsulosin [Flomax] 0.4 mg PO PC-BRKFST #30 cap.er.24h 06/04/20 [Rx] predniSONE 0 mg PO DIRECTED #1 tab 06/04/20 [Rx] Follow up Appointment(s)/Referral(s): Obdulio Chun MD [Primary Care Provider] - 1-2 days
[2020-06-04 15:39] LABS: African American GFR (CKD) 56.1 (60.0-200.0); Non-African American GFR(CKD) 48.4 (60.0-200.0)
[2020-06-04 16:33] VITALS: PULSE 75; TEMP 97.6
--- NOTE | 2020-06-07 08:39 | CDI ---
Documentation Clarification Form Date: 06/07/2020 08:37:00 AM From: Arely David CCS Phone: If you have a question about this query, please contact Nu Her[facility] Maternity Floor Supervisor at [phone] between 8am and 5pm Admit Date: 05/30/2020 05:09:00 PM Patient Name: Raven Carrillo Visit Number: [id number] Discharge Date: 06/04/2020 04:51:00 PM ATTENTION: The Clinical Documentation Specialists (CDI) and [facility] Coding Staff appreciate your assistance in clarifying documentation. Please respond to the clarification below the line at the bottom and electronically sign. The CDI & [facility] Coding staff will review the response and follow-up if needed. Please note: Queries are made part of the Legal Health Record. If you have any questions, please contact the author of this message via ITS. Dr. Terry Ghotra The diagnosis sepsis was documented in PNs 06/03-06/04, but is not noted in subsequent documentation. History/Risk Factors: PNA, UTI, CHF, HTN, DM, Acute Resp Failure, CKD Clinical Indicators: Elevated WBC, Tachycardia, Acute Respiratory Failure Microbiology: Urine culture klebsiella pnumoniae Labs: WBC 21.9, 9.3, 12.1 - Lactic Acid 2.0 Treatment: Zosyn 3.375 gm IV, Vancomycin 1,750 mg IV Consult: [place] Please clarify if the sepsis was Present on admission, treated Ruled out Other, please specify Clinically unable to determine Possible sepsis from UTI, POA MTDD
--- NOTE | 2020-06-07 08:51 | CDI ---
Documentation Clarification Form Date: 06/07/2020 08:49:00 AM From: Arely David CCS Phone: If you have a question about this query, please contact [employer] at [phone] between 8am and 5pm Admit Date: 05/30/2020 05:09:00 PM Patient Name: Raven Carrillo Visit Number: [id number] Discharge Date: 06/04/2020 04:51:00 PM ATTENTION: The Clinical Documentation Specialists (CDI) and [facility] Coding Staff appreciate your assistance in clarifying documentation. Please respond to the clarification below the line at the bottom and electronically sign. The CDI & [facility] Coding staff will review the response and follow-up if needed. Please note: Queries are made part of the Legal Health Record. If you have any questions, please contact the author of this message via ITS. Dr. Terry Ghotra Conflicting documentation has been found in the medical record: H&P. PNs, 06/01 Consult document: Change in mental status acute on chronic metabolic encephalopathy multifactorial DS documents: Acute hypoxic encephalopathy , POA History/Risk Factors: COPD, Acute on Chronic Resp Failure, CHF, HTN, DM, Obesity Clinical Indicators: Altered mental status, Confused, Hypoxia, Hypercapnia Treatment: BIPAP, Monitor In your opinion, what is the most clinically appropriate diagnosis for this patient? Metabolic Encephalopathy Toxic Encephalopathy Anoxic Encephalopathy Other explanation of clinical findings Unable to determine (no explanation for clinical findings) Acute metabolic encephalopathy, POA secondary to UTI MTDD
== END 2020-06-04 16:51 | DRG 871 ==
LOC: EC 15:23 → 3SCARD 17:09 → 4SSUR 06-02 18:27
PROVIDERS: ADMIT Hospitalist; ATTEND Hospitalist
PROC: 5A09357 Assistance with Respiratory Ventilation, Less than 24 Consecutive Hours, Continuous Positive Airway Pressure (ICD-10-PCS; principal; 2020-05-30)
DX: A41.59 Other Gram-negative sepsis (principal); J96.21 Acute and chronic respiratory failure with hypoxia; I50.33 Acute on chronic diastolic (congestive) heart failure; G93.41 Metabolic encephalopathy; J96.22 Acute and chronic respiratory failure with hypercapnia; J15.6 Pneumonia due to other Gram-negative bacteria; I13.0 Hypertensive heart and chronic kidney disease with heart failure and stage 1 through stage 4 chronic kidney disease, or unspecified chronic kidney disease; E66.2 Morbid (severe) obesity with alveolar hypoventilation; J44.1 Chronic obstructive pulmonary disease with (acute) exacerbation; J98.11 Atelectasis; Z16.12 Extended spectrum beta lactamase (ESBL) resistance; J44.0 Chronic obstructive pulmonary disease with (acute) lower respiratory infection; D63.1 Anemia in chronic kidney disease; E11.22 Type 2 diabetes mellitus with diabetic chronic kidney disease; Z99.81 Dependence on supplemental oxygen; F03.90 Unspecified dementia, unspecified severity, without behavioral disturbance, psychotic disturbance, mood disturbance, and anxiety; E11.42 Type 2 diabetes mellitus with diabetic polyneuropathy; Z79.01 Long term (current) use of anticoagulants; Z79.4 Long term (current) use of insulin; N18.30 Chronic kidney disease, stage 3 unspecified; E11.65 Type 2 diabetes mellitus with hyperglycemia; Z20.822 Contact with and (suspected) exposure to COVID-19; Z66 Do not resuscitate; N30.90 Cystitis, unspecified without hematuria; E78.5 Hyperlipidemia, unspecified; H40.9 Unspecified glaucoma; R26.9 Unspecified abnormalities of gait and mobility; F32.9 Major depressive disorder, single episode, unspecified; M19.91 Primary osteoarthritis, unspecified site; E03.9 Hypothyroidism, unspecified; B96.1 Klebsiella pneumoniae [K. pneumoniae] as the cause of diseases classified elsewhere; Z71.3 Dietary counseling and surveillance; Z86.19 Personal history of other infectious and parasitic diseases; R77.8 Other specified abnormalities of plasma proteins; Z79.899 Other long term (current) drug therapy; Z79.890 Hormone replacement therapy; Z90.5 Acquired absence of kidney; Z68.36 Body mass index [BMI] 36.0-36.9, adult; Z87.01 Personal history of pneumonia (recurrent); Z86.16 Personal history of COVID-19; Z90.49 Acquired absence of other specified parts of digestive tract; Z87.891 Personal history of nicotine dependence; Z91.19 Patient's noncompliance with other medical treatment and regimen; Z87.440 Personal history of urinary (tract) infections; Z90.710 Acquired absence of both cervix and uterus; Z98.890 Other specified postprocedural states; Z88.5 Allergy status to narcotic agent; Z80.8 Family history of malignant neoplasm of other organs or systems
CPT/HCPCS: 36415; 71045; 80048; 80053; 81001; 82565; 83605; 83880; 84132; 84484; 85025; 85610; 85730; 87077; 87086; 87186; 87635; 93005; 93306; 94640; 94660; 94760; 96365; 96367; 96375; 99291